=== PATIENT | male | born 1955 | race Caucasian/White ===

== ENCOUNTER 2016-10-15 00:16 | Emergency (ER) | payer OTHER ==
[~2016-10-15] VITALS: Ht 185.4 cm; Wt 108.4 kg
[~2016-10-15 00:16] MED LIST: CICL160A PO; IBUP200T52 PO; INSDGI SQ; LISI-461 PO; ONDA4TAB46 PO; VNTHFA/IN INH; [UNRECOGNIZED DRUG - OTHER] SC
[2016-10-15 00:25] VITALS: TEMP 36.8; O2SAT 92; Ht 185.4 cm; Wt 108.4 kg
[2016-10-15] MEDS ORDERED: SODIUM CHLORIDE 0.9% 1000ML 2,000 ML IV STA (00:40)
--- NOTE | 2016-10-15 00:42 | EMERGENCY ROOM VISIT NOTE ---
History Report prepared by Scribe: Katie Mcdowell Under the Supervision of: Dr. Catherine Bradshaw M.D. First contact with patient: 00:29 Chief Complaint: OVERDOSE (ACCIDENTAL) Stated Complaint: OVERDOSE Nursing Triage Summary: pt arrives ALS from hotel in [place]. pt found unconscious in hotel room where he is staying with family. pt was unresponsive with agonal breathing. EMS administered 2 nasal sprays of Narcan and inserted a nasal trumpet in R nares. pt returned to alert and awake. pt denies drug use. pt states he took 5- 6 Percocets today for chronic back pain and was drinking John Quinn. female in room admitted to cleaning up needles, small packets and a rubber band before EMS arrival. pt recently d/c from [facility]. pt continues to deny drug use. 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 The patient was found unconscious in a hotel room where he is staying. Per nursing notes, upon EMS arrival, he was unresponsive with agonal breathing. He was given 2 nasal sprays of Narcan and a nasal trumpet was inserted in the right nares. Afterwards, he was awake and alert. The patient does admit to taking 5-6 Percocet in the past 24 hours which he uses for chronic back pain. He also admits to drinking John Quinn in the past few hours. Currently, he states that he is feeling fine. The patient is currently on Cipro for a dental infection. 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 A total of 10 systems reviewed and were otherwise negative. Past Medical & Surgical Medical Problems: (1) COPD (chronic obstructive pulmonary disease) (2) Diabetes (3) HTN (hypertension) Family History No pertinent family history stated. Social History Smoking Status: Current Every Day Smoker Marital Status: in relationship Occupation Status: unemployed Current/Historical Medications Scheduled Albuterol Hfa (Ventolin Hfa), 2 PUFFS INH QID Ciclesonide (Alvesco), 1 PUFF PO BID Ciprofloxacin Tab (Cipro), 500 MG PO Q12 Gabapentin (Neurontin), 400 MG PO TID Insulin Glargine (Lantus), 32 UNITS SQ AMPM Insulin Human Regular (Humulin R), Unknown Dose SC UD Lisinopril (Lisinopril), 20 MG PO QAM Tiotropium [place] (Spiriva Handihaler), 1 CAP INH DAILY Scheduled PRN Ibuprofen (Advil), 600 MG PO TID PRN for Pain Oxycodone/Acetaminophen 5MG/325MG (Percocet 5MG/325MG), 1-2 TABLETS PO Q4H PRN for Pain Allergies Coded Allergies: Lisinopril (Verified Adverse Reaction, Unknown, cough, 10/15/16) Physical Exam Vital Signs Date Time Temp Pulse Resp B/P Pulse Ox O2 Delivery O2 Flow Rate FiO2 10/15/16 05:52 102 16 142/92 90 10/15/16 05:05 102 16 142/92 90 Room Air 10/15/16 04:30 94 13 149/89 88 Room Air 10/15/16 04:10 96 16 140/99 88 Room Air 10/15/16 03:58 104 14 129/74 90 Room Air 10/15/16 03:52 106 16 154/91 90 Room Air 10/15/16 03:25 117 16 158/109 90 Room Air 10/15/16 02:03 115 16 176/114 85 10/15/16 01:33 123 15 166/107 89 Room Air 10/15/16 00:58 122 20 155/99 92 Room Air 10/15/16 00:54 119 10/15/16 00:46 119 16 169/93 88 Room Air 10/15/16 00:25 92 Room Air 10/15/16 00:25 36.8 120 22 176/113 92 Room Air Physical Exam Vital signs reviewed. General: Well-appearing 60 year old male, in no significant distress. HEENT: No scleral icterus, PERRLA, neck supple. Atraumatic. Edentulous. Mild right submandibular soft tissue swelling without fluctuance. Dry mucous membranes. Cardiovascular: Regular rate and rhythm, no extra sounds. Pulmonary: Clear to auscultation bilaterally, normal work of breathing. Abdomen: Soft, nontender, nondistended, positive bowel sounds. Musculoskeletal: Atraumatic, no peripheral edema. Neurologic: Patient awake alert and oriented x 3, full strength in all 4 extremities. Cranial nerves 2 through 12 grossly intact. Skin: Warm, dry, no rash Medical Decision & Procedures ER Provider Diagnostic Interpretation: Chest x-ray 1 view per my interpretation: Mild pulmonary vascular congestion, no focal lung consolidation, no pneumothorax. Laboratory Results 10/15/16 00:41 Red Blood Count 5.16, Mean Corpuscular Volume 91.9, Mean Corpuscular Hemoglobin 32.8, Mean Corpuscular Hemoglobin Concent 35.7, Mean Platelet Volume 9.8, Neutrophils (%) (Auto) 75.3, Lymphocytes (%) (Auto) 17.2, Monocytes (%) (Auto) 6.1, Eosinophils (%) (Auto) 0.6, Basophils (%) (Auto) 0.3, Neutrophils # (Auto) 9.30, Lymphocytes # (Auto) 2.12, Monocytes # (Auto) 0.75, Eosinophils # (Auto) 0.07, Basophils # (Auto) 0.04 10/15/16 00:41 Test 10/15/16 00:41 10/15/16 02:40 White Blood Count 12.34 K/uL (4.8-10.8) Red Blood Count 5.16 M/uL (4.7-6.1) Hemoglobin 16.9 g/dL (14.0-18.0) Hematocrit 47.4 % (42-52) Mean Corpuscular Volume 91.9 fL (80-100) Mean Corpuscular Hemoglobin 32.8 pg (25-34) Mean Corpuscular Hemoglobin Concent 35.7 g/dl (32-36) Platelet Count 180 K/uL (130-400) Mean Platelet Volume 9.8 fL (7.4-10.4) Neutrophils (%) (Auto) 75.3 % Lymphocytes (%) (Auto) 17.2 % Monocytes (%) (Auto) 6.1 % Eosinophils (%) (Auto) 0.6 % Basophils (%) (Auto) 0.3 % Neutrophils # (Auto) 9.30 K/uL (1.4-6.5) Lymphocytes # (Auto) 2.12 K/uL (1.2-3.4) Monocytes # (Auto) 0.75 K/uL (0.11-0.59) Eosinophils # (Auto) 0.07 K/uL (0-0.5) Basophils # (Auto) 0.04 K/uL (0-0.2) RDW Standard Deviation 42.6 fL (36.4-46.3) RDW Coefficient of Variation 12.8 % (11.5-14.5) Immature Granulocyte % (Auto) 0.5 % Immature Granulocyte # (Auto) 0.06 K/uL (0.00-0.02) Anion Gap 11.0 mmol/L (3-11) Est Creatinine Clear Calc Drug Dose 104.6 ml/min Estimated GFR () 97.9 Estimated GFR (Non- 84.5 BUN/Creatinine Ratio 16.1 (10-20) Calcium Level 8.7 mg/dl (8.5-10.1) Total Bilirubin 0.6 mg/dl (0.2-1) Direct Bilirubin 0.2 mg/dl (0-0.2) Aspartate Amino Transf (AST/SGOT) 30 U/L (15-37) Alanine Aminotransferase (ALT/SGPT) 36 U/L (12-78) Alkaline Phosphatase 117 U/L (45-117) Total Creatine Kinase 64 U/L (39-308) Creatine Kinase MB 1.7 ng/ml (0.5-3.6) Creatine Kinase MB Ratio 2.7 (0-3.0) Troponin I < 0.015 ng/ml (0-0.045) Total Protein 8.4 gm/dl (6.4-8.2) Albumin 3.5 gm/dl (3.4-5.0) Salicylates Level < 1.7 mg/dl (2.8-20) Acetaminophen Level < 2 ug/ml (10-30) Ethyl Alcohol mg/dL < 3.0 mg/dl (0-3) Urine Color YELLOW Urine Appearance CLEAR (CLEAR) Urine pH 5.0 (4.5-7.5) Urine Specific [place] 1.029 (1.000-1.030) Urine Protein TRACE (NEG) Urine Glucose (UA) 3+ (NEG) Urine Ketones NEG (NEG) Urine Occult Blood NEG (NEG) Urine Nitrite NEG (NEG) Urine Bilirubin NEG (NEG) Urine Urobilinogen NEG (NEG) Urine Leukocyte Esterase NEG (NEG) Urine WBC (Auto) 1-5 /hpf (0-5) Urine RBC (Auto) 0-4 /hpf (0-4) Urine Hyaline Casts (Auto) 5-10 /lpf (0-5) Urine Epithelial Cells (Auto) >30 /lpf (0-5) Urine Bacteria (Auto) NEG (NEG) Urine Opiates Screen NEG (NEG) Urine Methadone, Qualitative NEG (NEG) Urine Barbiturates NEG (NEG) Urine Phencyclidine (PCP) Level NEG (NEG) Ur Amphetamine/Methamphetamine NEG (NEG) MDMA (Ecstasy) Screen NEG (NEG) Urine Benzodiazepines Screen NEG (NEG) Urine Cocaine Metabolite NEG (NEG) Urine Marijuana (THC) NEG (NEG) Laboratory results per my review. Medications Administered Medications (Trade) Dose Ordered Sig/Yoni Route Start Time Stop Time Status Last Admin Dose Admin Sodium Chloride (Nss 1000ml) 2,000 ml @ 999 mls/hr Q2H1M STAT IV 10/15/16 00:40 10/15/16 02:40 DC 10/15/16 01:23 999 MLS/HR Ondansetron HCl (Zofran Inj) 4 mg NOW STAT IV 10/15/16 02:10 10/15/16 02:12 DC 10/15/16 02:36 4 MG Labetalol HCl (Normodyne IV) 10 mg NOW STAT IV 10/15/16 03:27 10/15/16 03:28 DC 10/15/16 03:50 10 MG ECG Indication: other (unresponsiveness) Rate (beats per minute): 120 Rhythm: sinus tachycardia Findings: no acute ischemic change, no ectopy, other (previous anterior infarct ) ED Course 0035: The patient was evaluated in room B8. A complete history and physical examination was performed. 0040: Ordered NSS 2000 ml @ 999 mls/hr IV. 0210: Ordered Zofran Inj 4 mg IV. 0235: Upon reevaluation, the patient was resting comfortably, but he was tachycardic and hypertensive. 0237: Ordered Lisinopril 20 mg PO. 0327: Ordered Labetalol HCl 10 mg IV. 0430: Upon reevaluation, the patient was feeling well. I discussed findings with him. He admits that he used to wear oxygen but does not wear it anymore and he used to take medication for blood pressure control but does not take it. He verbalized agreement of the treatment plan. The patient was discharged home. Medical Decision Differential diagnosis: Etiologies such as cardiac ischemia, aortic dissection, pulmonary embolism, electrolyte abnormality, acidosis, tension pneumothorax, hypothermia, hypovolemia, intracranial event, as well as others were entertained. This patient was evaluated and appeared to be in no significant distress. Patient did receive 2 sprays of Narcan prior to arrival and had significant improvement in his level of consciousness. The patient was slightly intoxicated on my evaluation however is answering questions appropriately. He has no complaints. The patient remained somewhat tachycardic. He was given 2 L of IV normal saline solution. This did not significantly change his vital signs. Once the patient was asleep, he does tend to desaturate however states he used to wear oxygen, particularly at night however has not been compliant recently. A chest x-ray was performed and is negative to my interpretation. The patient was given 10 mg of IV labetalol for persistent hypertension and tachycardia. I suspect this is substance related, however patient is not admitting to any ingestions other than Percocet and alcohol tonight. Patient's tox screen is negative. Acetaminophen level is low. Liver enzymes are low. The patient was ambulatory without difficulty. He was discharged to follow-up with his physician for reevaluation. He will return to the ER for worsening of symptoms or any medical concerns. Impression Primary Impression: Overdose of opiate or related narcotic Additional Impression: Substance abuse Scribe Attestation The scribe's documentation has been prepared under my direction and personally reviewed by me in its entirety. I confirm that the note above accurately reflects all work, treatment, procedures, and medical decision making performed by me. Departure Information Dispostion Home / Self-Care Referrals Brooks AGUIAR (PCP) Patient Instructions My [facility] Additional Instructions Diagnosis: Substance abuse, opioid overdose Drink plenty of clear liquids. Avoid alcohol, narcotics and IV drugs. Follow-up with her primary care physician this week for reevaluation. Return to the ER for worsening of symptoms or any medical concerns. Problem Qualifiers Primary Impression: Overdose of opiate or related narcotic Encounter type: initial encounter Injury intent: accidental or unintentional Qualified Codes: T40.601A - Poisoning by unspecified narcotics, accidental (unintentional), initial encounter
[2016-10-15 00:52] LABS: BASO % 0.3 %; BASO ABS # 0.04 K/uL (0-0.2); COMPLETE YES; EOS % 0.6 %; HEMATOCRIT 47.4 % (42-52); IG% 0.5 %; LYMPH % 17.2 %; LYMPH ABS # 2.12 K/uL (1.2-3.4); MEAN CELL VOLUME 91.9 fL (80-100); MEAN CORPUSCULAR HEMOGLOBIN 32.8 pg (25-34); MEAN CORPUSCULAR HGB CONC 35.7 g/dl (32-36); MEAN PLATELET VOLUME 9.8 fL (7.4-10.4); MONO % 6.1 %; NEUT % 75.3 %; PLATELET COUNT 180 K/uL (130-400); RED BLOOD COUNT 5.16 M/uL (4.7-6.1); WHITE BLOOD COUNT 12.34 K/uL (4.8-10.8)
[2016-10-15 01:38] LABS: ALT/SGPT 36 U/L (12-78); AST/SGOT 30 U/L (15-37); BLOOD UREA NITROGEN 16 mg/dl (7-18); BUN/CREATININE RATIO 16.1 (10-20); CALCIUM 8.7 mg/dl (8.5-10.1); CARBON DIOXIDE 24 mmol/L (21-32); CHLORIDE 106 mmol/L (98-107); CREATININE 0.97 mg/dl (0.60-1.40); GLUCOSE 252 mg/dl (70-99); POTASSIUM 3.9 mmol/L (3.5-5.1); SODIUM 141 mmol/L (136-145)
[2016-10-15 01:43] LABS: ALKALINE PHOSPHATASE 117 U/L (45-117); CKMB/CK RATIO 2.7 (0-3.0)
[2016-10-15 01:50] LABS: ACETAMINOPHEN < 2 ug/ml (10-30)
[2016-10-15] MEDS ORDERED: OXYC-57 PO (01:51)
[2016-10-15] MEDS ORDERED: GABA1CAP5 PO (01:51)
[2016-10-15] MEDS ORDERED: SPRIN/30 INH (01:52)
[2016-10-15] MEDS ORDERED: CIPR1TAB11 PO (01:53)
[2016-10-15] MEDS ORDERED: ONDANSETRON INJ 2 MG/ML 2 ML VIAL IV STA (02:10)
[2016-10-15] MEDS ORDERED: LISINOPRIL 20 MG TAB PO STA (02:37)
[2016-10-15 02:50] LABS: URINE APPEARANCE CLEAR (CLEAR); URINE BILIRUBIN NEG (NEG); URINE COLOR YELLOW; URINE EPITHELIAL CELL AUTO >30 /lpf (0-5); URINE NITRITE NEG (NEG); URINE SPECIFIC GRAVITY 1.029 (1.000-1.030); UROBILINOGEN NEG (NEG); ZZUR CULT IF INDIC CLEAN CATCH NO
[2016-10-15 02:51] LABS: MANUAL MICROSCOPIC REQUIRED? NO; REVIEW REQ? NO
[2016-10-15 03:05] LABS: BENZODIAZEPINE, URINE NEG (NEG); COCAINE,URINE NEG (NEG); PHENCYCLIDINE, URINE NEG (NEG)
[2016-10-15] MEDS ORDERED: LABETALOL HCL IV 5 MG/ML 20ML IV STA (03:27)
[2016-10-15 05:52] VITALS: BP 142/92; PULSE 102; O2SAT 90
--- NOTE | 2016-10-15 08:23 | DIAGNOSTIC IMAGING REPORT ---
CHEST ONE VIEW PORTABLE CLINICAL HISTORY: Hypoxia. Overdose. COMPARISON STUDY: Chest radiograph June 01, 2006 pain. FINDINGS: Lung volumes are normal. Mild linear bibasilar opacities favor atelectasis. There is no evidence of pulmonary edema. No consolidation is identified. Cardiac size is normal. Mediastinal contours are normal. IMPRESSION: No acute cardiopulmonary findings. Electronically signed by: Terry Groves M.D. 10/15/2016 8:21 AM Dictated Date/Time: 10/15/2016 8:20 AM
== END 2016-10-15 05:54 | disposition home or self-care (01) ==
LOC: EDBD 00:16 → C.EDB 00:17
DX: F11.129 Opioid abuse with intoxication, unspecified (principal); T40.601A Poisoning by unspecified narcotics, accidental (unintentional), initial encounter; I10 Essential (primary) hypertension; E11.9 Type 2 diabetes mellitus without complications; J44.9 Chronic obstructive pulmonary disease, unspecified; F17.200 Nicotine dependence, unspecified, uncomplicated; Z79.4 Long term (current) use of insulin; Z79.51 Long term (current) use of inhaled steroids; Z79.899 Other long term (current) drug therapy

== ENCOUNTER 2022-10-25 08:31 | Inpatient (IN) ==
[2022-10-25] MEDS ORDERED: ALBUTEROL 0.083% NEBU SOLN 3 ML VIAL NEB STA (08:44)
--- NOTE | 2022-10-25 08:47 | Emergency Department Note ---
Impression & Plan Respiratory failure with hypoxia, CHF (congestive heart failure) ED Provider Note NAME: AILYN MONTIEL AGE: 66 SEX: M : 1955 ARRIVES VIA: Ambulance INFORMANT: Patient ED PROVIDER(S): Aureliano Sheikh DO CHIEF COMPLAINT: shortness of breath HPI: Patient is a 66-year-old male with a past medical history of ischemic cardiomyopathy with an ICD, cirrhosis, COPD, CHF and diabetes who presents to the ER for shortness of breath which started 2 days ago. He notes he has cough congestion and runny nose. This has been getting worse. Shortness of breath got worse last night and then checked his pulse ox at the halfway and he was found to be hypoxic. He was placed on oxygen. They reevaluated him this morning and he was still hypoxic and consequently sent him in. He denies any chest pain or belly pain. He notes the swelling of the legs for the past 2 days. Denies any dysuria, urgency, or frequency. No other exacerbating or remitting factors. Guards are at bedside and collaborate the story. PAST MEDICAL HISTORY:See Below PAST SURGICAL HISTORY:See Below FAMILY HISTORY:See Below SOCIAL HISTORY:See Below HOME MEDICATIONS:See Below ALLERGIES:See Below VITALS:See Below PHYSICAL EXAMINATION: GENERAL: Sitting up in bed, alert, chronically ill-appearing, disheveled, on nasal cannula EYE EXAM: normal conjunctiva. PERRL and EOM's grossly intact. OROPHARYNX: mucous membranes are moist NECK: supple, no nuchal rigidity, no adenopathy, non-tender LUNGS: Diminished bilaterally. Normal chest wall mechanics HEART: no murmurs, S1 normal and S2 normal ABDOMEN: abdomen soft, non-tender, normo-active bowel sounds, no masses, no rebound or guarding. UPPER EXTREMITIES: upper extremities are grossly normal. LOWER EXTREMITIES: No pitting edema. Calves are good bilateral NEURO EXAM: Normal sensorium, cranial nerves II-XII grossly intact, normal speech, no gross weakness of arms, no gross weakness of legs. MEDICAL DECISION MAKING: Patient is a 66-year-old male who presents the ER from the halfway. EMS sheet was reviewed. External records from the halfway were reviewed. IV was established blood work was obtained. Labs show a mild leukopenia at 3.8. No si gnificant anemia. Thrombocytopenia of 82. BMP with slightly elevated glucose at 175. LFTs were unremarkable. BNP elevated at 700. Troponin was negative. COVID flu and RSV was negative. Chest x-ray with CHF. Patient was given IV antibiotics as well as neb treatments steroids. He was updated bedside. He was given a dose of Lasix. Discussed with hospitalist Dr. Moreno Greer patient was admitted for further work-up. Patient did remain on 4 L nasal cannula throughout his stay in the ER. Triage Nursing notes reviewed. Limited review of prior medical records performed Vital Signs: reviewed and remarkable for hypoxic Differential diagnosis: Cardiac ischemia, aortic dissection, pulmonary embolism, pneumothorax, pneumonia, pericarditis, myocarditis, esophageal rupture, GERD, cholecystitis, pancreatitis, musculoskeletal, as well as other pathologies. ER treatment provided: See below Diagnostics interpreted by me include EKG and cardiac monitoring as listed below: -Cardiac Monitoring: An order was placed for continuous cardiac monitoring. The monitor shows a rate of 97 with sinus rhythm. -ECG: Sinus rhythm rate of 99 Normal axis No PVCs Poor baseline QTc 464 -Laboratory studies:Interpreted by me as stated above in MDM and shown below. Imaging studies: Xrays: As interpreted by me: Portable AP upright 1 view of the chest shows no focal infiltrate or pneumothorax CTs show: none Consultation(s): As described in MDM Procedures:none Critical Care: I have personally spent 35 minutes of critical care time in the direct management of this patient. This includes bedside care, interpretation of diagnostic studies, and testing, discussion with consultants, patient, and family members, and other required patient management activities. This 35 minutes is in excess of all separately billable procedures. Past Med/Surg History Medical History Opioid abuse, uncomplicated Social History Smoking Status: Current every day smoker Do You Dip or Chew Tobacco: No; Hx Alcohol Use: No Hx Substance Use: No Preferred Language: [place] Communication Ability: Effective Melter Helper Required: No Beliefs That Will Affect Care: None Current Living Situation: Other Current Living Situation Comment: [facility] Other Information That Helps Us Care for You: No Feels Safe at Home: Yes Safety Concerns: Feels Safe At This Time Assistive Devices: Oxygen - Continuous Allergies Allergies Allergy/AdvReac Type Severity Reaction Status Date / Time lisinopril AdvReac Unknown cough Verified 05/18/22 12:55 Home Meds Home Medications Medication Instructions Recorded Confirmed albuterol sulfate 90 mcg/actuation 2 puff inhalation QID PRN 01/12/22 10/25/22 aerosol inhaler (Proventil HFA) shortness of breath or wheezing ciclesonide 160 mcg/actuation 1 puff inhalation BID 01/12/22 10/25/22 aerosol inhaler (Alvesco) gabapentin 600 mg tablet 600 mg PO TID 01/12/22 10/25/22 insulin glargine-yfgn 100 unit/mL 28 unit subcut QPM 01/12/22 10/25/22 subcutaneous solution (Semglee (insulin glargine-yfgn)) insulin regular human 100 unit/mL 1 sliding scale dose subcut 01/12/22 10/25/22 injection solution (Novolin R USEASDIRECTD Regular U-100 Insulin) sacubitril 97 mg-valsartan 103 mg 1 tab PO BID 01/12/22 10/25/22 tablet (Entresto) hydroxyzine pamoate 50 mg capsule 50 mg PO HS 10/03/22 10/25/22 (Vistaril) azithromycin 500 mg tablet 500 mg PO DAILY 10/25/22 10/25/22 empagliflozin 10 mg tablet 10 mg PO DAILY 10/25/22 10/25/22 (Jardiance) furosemide 20 mg tablet 20 mg PO BID 10/25/22 10/25/22 nortriptyline 75 mg capsule 75 mg PO HS 10/25/22 10/25/22 sofosbuvir 400 mg-velpatasvir 100 1 tab PO DAILY 10/25/22 10/25/22 mg-voxilaprevir 100 mg tablet (Vosevi) Results & Data (ED) Vital Signs Vital Signs - 24 hr 10/25/22 08:48 10/25/22 08:48 10/25/22 08:53 Temperature 36.6 C Temperature Source Oral Pulse Rate 101 H 100 H Pulse Rate [Apical] 102 H Pulse Rate from SpO2 Sensor Respiratory Rate 20 21 Respiratory Effort / Characteristics SOB on Exertion Short of Breath Blood Pressure 123/71 Blood Pressure Mean 88 Pulse Oximetry 93 93 94 Oxygen Delivery Method Nasal Cannula Nasal Cannula Nasal Cannula Oxygen Flow Rate 4 4 4 Sepsis Recent Fever Within 48 Hours No Sepsis New/Unexplained Change in Mental Status No Sepsis Action Taken by Nursing No Action Required 10/25/22 09:12 10/25/22 09:20 10/25/22 11:00 Temperature Temperature Source Pulse Rate 100 H 100 H Pulse Rate [Apical] 101 H Pulse Rate from SpO2 Sensor Respiratory Rate 28 H 29 H Respiratory Effort / Characteristics Spontaneous Labored Short of Breath Blood Pressure Blood Pressure Mean Pulse Oximetry 93 Oxygen Delivery Method Nasal Cannula Oxygen Flow Rate 4 Sepsis Recent Fever Within 48 Hours Sepsis New/Unexplained Change in Mental Status Sepsis Action Taken by Nursing 10/25/22 11:30 Temperature Temperature Source Pulse Rate 99 H Pulse Rate [Apical] Pulse Rate from SpO2 Sensor 99 H Respiratory Rate 24 Respiratory Effort / Characteristics Blood Pressure Blood Pressure Mean Pulse Oximetry 94 Oxygen Delivery Method Nasal Cannula Oxygen Flow Rate 4 Sepsis Recent Fever Within 48 Hours Sepsis New/Unexplained Change in Mental Status Sepsis Action Taken by Nursing Laboratory Data 10/25/22 09:12 10/25/22 09:12 Lab Results 10/25/22 10/25/22 10/25/22 Range/Units 08:38 09:12 09:12 WBC 3.82 L (4.8-10.8) K/ul RBC 4.13 L (4.70-6.10) M/uL Hgb 12.5 L (14.0-18.0) g/dl Hct 38.8 L (42.0-52.0) % MCV 93.9 (80.0-100.0) fL MCH 30.3 (25.0-34.0) pg MCHC 32.2 (32.0-36.0) g/dL RDW Std Deviation 47.4 H (36.4-46.3) fL RDW Coeff of Victoria 14.1 (11.5-14.5) % Plt Count 82 L (130-400) K/uL MPV 10.0 (9.4-12.4) fL Immature Gran % (Auto) 0.3 % Neut % (Auto) 59.1 % Lymph % (Auto) 25.7 % Perkins % (Auto) 11.5 % Eos % (Auto) 2.9 % Baso % (Auto) 0.5 % Neut # (Auto) 2.26 (1.40-6.50) K/uL Lymph # (Auto) 0.98 L (1.2-3.4) K/uL Perkins # (Auto) 0.44 (0.11-0.59) K/uL Eos # (Auto) 0.11 (0-0.50) K/uL Baso # (Auto) 0.02 (0-0.2) K/uL Immature Gran # (Auto) 0.01 (0.01-0.20) K/uL Platelet Estimate Decreased L (Normal) Echinocytes 1+ Sodium 137 (136-145) mmol/L Potassium 4.5 (3.5-5.1) mmol/L Chloride 105 (98-107) mmol/L Carbon Dioxide 27 (21-32) mmol/L Anion Gap 5 (3-11) BUN 31 H (6-23) mg/dl Creatinine 1.37 (0.6-1.4) mg/dl Est Cr Clr Drug Dosing 69.5 ml/min Est GFR ( Amer) 61.9 ml/min Est GFR (Non-Af Amer) 53.4 ml/min BUN/Creatinine Ratio 22.6 H (10-20) Glucose 175 H (70-99(Fasting)) mg/dl POC Glucose 161 H (70-99) mg/dl Calcium 9.1 (8.5-10.1) mg/dl Total Bilirubin 1.7 H (0.2-1.0) mg/dl AST 21 (13-39) U/L ALT 17 (7-52) U/L Alkaline Phosphatase 92 (34-104) U/L Troponin I High Sens 14.7 (0-20) pg/ml B-Natriuretic Peptide (0-100) pg/ml Total Protein 7.1 (6.0-8.3) gm/dl Albumin 3.5 (3.4-5.0) gm/dl Globulin 3.6 (2.5-4.0) gm/dl Albumin/Globulin Ratio 1.0 (0.9-2) Lipase 5 L (11-82) U/L Procalcitonin (0-0.5) ng/ml SARS-CoV-2 (PCR) (Negative) Influenza Type A (PCR) (Neg) Influenza Type B (PCR) (Neg) RSV (RT-PCR) (Neg) 10/25/22 10/25/22 10/25/22 Range/Units 09:12 09:21 10:09 WBC (4.8-10.8) K/ul RBC (4.70-6.10) M/uL Hgb (14.0-18.0) g/dl Hct (42.0-52.0) % MCV (80.0-100.0) fL MCH (25.0-34.0) pg MCHC (32.0-36.0) g/dL RDW Std Deviation (36.4-46.3) fL RDW Coeff of Victoria (11.5-14.5) % Plt Count (130-400) K/uL MPV (9.4-12.4) fL Immature Gran % (Auto) % Neut % (Auto) % Lymph % (Auto) % Perkins % (Auto) % Eos % (Auto) % Baso % (Auto) % Neut # (Auto) (1.40-6.50) K/uL Lymph # (Auto) (1.2-3.4) K/uL Perkins # (Auto) (0.11-0.59) K/uL Eos # (Auto) (0-0.50) K/uL Baso # (Auto) (0-0.2) K/uL Immature Gran # (Auto) (0.01-0.20) K/uL Platelet Estimate (Normal) Echinocytes Sodium (136-145) mmol/L Potassium (3.5-5.1) mmol/L Chloride (98-107) mmol/L Carbon Dioxide (21-32) mmol/L Anion Gap (3-11) BUN (6-23) mg/dl Creatinine (0.6-1.4) mg/dl Est Cr Clr Drug Dosing ml/min Est GFR ( Amer) ml/min Est GFR (Non-Af Amer) ml/min BUN/Creatinine Ratio (10-20) Glucose (70-99(Fasting)) mg/dl POC Glucose (70-99) mg/dl Calcium (8.5-10.1) mg/dl Total Bilirubin (0.2-1.0) mg/dl AST (13-39) U/L ALT (7-52) U/L Alkaline Phosphatase (34-104) U/L Troponin I High Sens (0-20) pg/ml B-Natriuretic Peptide 725 H (0-100) pg/ml Total Protein (6.0-8.3) gm/dl Albumin (3.4-5.0) gm/dl Globulin (2.5-4.0) gm/dl Albumin/Globulin Ratio (0.9-2) Lipase (11-82) U/L Procalcitonin 0.06 (0-0.5) ng/ml SARS-CoV-2 (PCR) NEGATIVE (Negative) Influenza Type A (PCR) Negative (Neg) Influenza Type B (PCR) Negative (Neg) RSV (RT-PCR) Negative (Neg) Administered Medications Gabapentin (Gabapentin 600 Mg Tab) 600 mg PO TID ALFREDO Stop: 11/24/22 13:59 Last Admin: 10/25/22 14:08 Dose: 600 mg Documented By: CM Discontinued Medications Albuterol (Albuterol 0.083% Nebu Soln 3 Ml Vial) 10 mg NEB NOW STA; Protocol Stop: 10/25/22 08:45 Last Admin: 10/25/22 09:08 Dose: 10 mg Documented By: EM Furosemide (Furosemide 40 Mg/4 Ml Vial) 40 mg IV NOW STA Stop: 10/25/22 10:45 Last Admin: 10/25/22 11:18 Dose: 40 mg Documented By: [id number] Ceftriaxone Sodium (Rocephin) 2,000 mg in 70 mls @ 140 mls/hr IV NOW STA Stop: 10/25/22 11:13 Last Infusion: 10/25/22 11:49 Dose: 0 mls/hr Documented By: [id number] Admin: 10/25/22 11:18 Dose: 140 mls/hr Documented By: [id number] Methylprednisolone (Methylprednisolone 40 Mg/Ml Vial) 40 mg IV NOW STA Stop: 10/25/22 08:45 Last Admin: 10/25/22 08:59 Dose: 40 mg Documented By: KV Imaging Data Radiologist's Impression: Chest X-Ray 10/25/22 08:44 XR chest 1V portable CLINICAL HISTORY: Chest pain, nonspecific TECHNIQUE: Single frontal radiograph of the chest was obtained. Comparison: Comparison is made to chest radiograph 04/14/2022 FINDINGS: Pacemaker defibrillator is seen. Cardiomegaly is noted. The aortic arch is calcified. There is prominence and cephalization of the vasculature with Sharmila B lines seen. Superimposed airspace opacities are noted in the lower lungs. No evidence of pleural effusion or pneumothorax. IMPRESSION: Cardiomegaly and moderate pulmonary edema. Superimposed airspace opacities may represent pneumonia, aspiration, and/or alveolar edema. ACT 112: Negative or not required by law. Electronically signed by: Juan Prakash M.D. 10/25/2022 9:18 AM Discharge Plan Visit Data Chief Complaint: Illness Stated Complaint: HYPOGLYGEMIA, SOB ED Provider: Aureliano Sheikh Discharge Problem: Respiratory failure with hypoxia, CHF (congestive heart failure) Patient Disposition: Admitted As Inpatient Discharge Instructions Interventions: ED Discharge Assessment Last Done: 10/25/22 12:58
--- NOTE | 2022-10-25 09:19 | XRay Report ---
XR chest 1V portable CLINICAL HISTORY: Chest pain, nonspecific TECHNIQUE: Single frontal radiograph of the chest was obtained. Comparison: Comparison is made to chest radiograph 04/14/2022 FINDINGS: Pacemaker defibrillator is seen. Cardiomegaly is noted. The aortic arch is calcified. There is promin ence and cephalization of the vasculature with Sharmila B lines seen. Superimposed airspace opacities a re noted in the lower lungs. No evidence of pleural effusion or pneumothorax. IMPRESSION: Cardiomegaly and moderate pulmonary edema. Superimposed airspace opacities may represent pneumonia, a spiration, and/or alveolar edema. ACT 112: Negative or not required by law. Electronically signed by: Juan Prakash M.D. 10/25/2022 9:18 AM
[2022-10-25 09:58] LABS: Albumin Level 3.5 gm/dl (3.4-5.0); BUN Creatinine Ratio 22.6 (10-20); Bilirubin,Total 1.7 mg/dl (0.2-1.0); Calcium 9.1 mg/dl (8.5-10.1); Creatinine Clr Calc Pharmacy 69.5 ml/min; Est GFR (African American) 61.9 ml/min; Est GFR (Non-African American) 53.4 ml/min; Globulin 3.6 gm/dl (2.5-4.0); Potassium 4.5 mmol/L (3.5-5.1); Total Protein 7.1 gm/dl (6.0-8.3)
[2022-10-25 10:03] LABS: Troponin I High Sensitivity 14.7 pg/ml (0-20)
[2022-10-25 10:21] LABS: Hematocrit (blood only) 38.8 % (42.0-52.0); Hemoglobin 12.5 g/dl (14.0-18.0); Mean Corpuscular Hemoglobin 30.3 pg (25.0-34.0); Mean Corpuscular Hgb Conc 32.2 g/dL (32.0-36.0); Mean Corpuscular Volume 93.9 fL (80.0-100.0); RDW Coefficient of Variation 14.1 % (11.5-14.5); RDW Standard Deviation 47.4 fL (36.4-46.3); Red Blood Count 4.13 M/uL (4.70-6.10); White Blood Count 3.82 K/ul (4.8-10.8)
--- NOTE | 2022-10-25 10:21 | Electrocardiogram Report ---
Test Reason : Blood Pressure : / mmHG Vent. Rate : 099 BPM Atrial Rate : 099 BPM P-R Int : 184 ms QRS Dur : 108 ms QT Int : 362 ms P-R-T Axes : 076 026 039 degrees QTc Int : 464 ms Normal sinus rhythm Low voltage QRS Non-specific intra-ventricular conduction delay Anterior infarct (cited on or before 15-OCT-2016) Abnormal ECG When compared with ECG of 15-OCT-2016 00:59, QRS duration has increased Confirmed by Aba Del Cid ([id number]) on 10/25/2022 10:21:43 AM Referred By: Confirmed By:Aba Del Cid
[2022-10-25 10:29] LABS: Basophils # (auto) 0.02 K/uL (0-0.2); Basophils % (auto) 0.5 %; Echinocytes 1+; Eosinophils # (auto) 0.11 K/uL (0-0.50); Eosinophils % (auto) 2.9 %; Immature Granulocytes # (auto) 0.01 K/uL (0.01-0.20); Immature Granulocytes % (auto) 0.3 %; Lymphocytes # (auto) 0.98 K/uL (1.2-3.4); Lymphocytes % (auto) 25.7 %; Monocytes # (auto) 0.44 K/uL (0.11-0.59); Monocytes % (auto) 11.5 %; Neutrophils # (auto) 2.26 K/uL (1.40-6.50); Neutrophils % (auto) 59.1 %; Platelet Count 82 K/uL (130-400); Platelet Estimate Decreased (Normal)
[2022-10-25] MEDS ORDERED: FUROSEMIDE 40 MG/4 ML VIAL IV STA (10:44)
[2022-10-25] MEDS ORDERED: cefTRIAXone SODIUM 2,000 MG/70 ML BAG IV STA (10:44)
[2022-10-25 10:56] LABS: Influenza A virus by PCR Negative (Neg); Influenza B virus by PCR Negative (Neg); RSV by PCR Negative (Neg); SARS CoV2 RNA(COVID-19) Ceph NEGATIVE (Negative)
--- NOTE | 2022-10-25 11:01 | History & Physical Report ---
Date of Service October 25, 2022 Assessment & Plan (1) Acute on chronic HFrEF (heart failure with reduced ejection fraction): Plan: Repeat TTE and as last echo approximately 12 months ago. Usual dose of Lasix 20 mg twice daily; the 20 mg in the evening dose was just added last night. Lasix 40 mg IV given in the ER. We will continue 40 mg IV twice daily. Consider addition of spironolactone if left ventricular ejection fraction remains less than 40% especially in the setting of liver cirrhosis. Strict I's and O's Daily weights Low-sodium diet, fluid restrict 1500 mL (2) Chronic obstructive pulmonary disease, unspecified: Plan: Continue Alvesco inhaler or hospital formulary equivalent Less likely COPD exacerbation as he has not seen any improvement with nebulizer treatment however he does have a wheeze on exam No further steroids but will use DuoNebs as needed for shortness of breath and cough (3) Ischemic cardiomyopathy: Plan: Unclear reason he is not on a beta-anh -previous cardiology note in April 2022 noted he was on metoprolol XL 25 mg p.o. daily Continue Entresto (4) Type 2 diabetes mellitus without complications: Plan: HbA1c with a.m. labs Consult pharmacy for glycemic control (5) Unspecified cirrhosis of liver: (6) Atherosclerotic heart disease of ambler coronary artery without angina pectoris: Plan: Unclear why is not on any antiplatelet Consider starting metoprolol succinate as above -unclear why this was discontinued after previous cardiology visit Continue Entresto Unclear why he is not on a statin (7) Essential (primary) hypertension: Plan: Continue Entresto, consider starting metoprolol succinate Lasix as above (8) Hyperlipidemia, unspecified: Plan: Unclear reason he is not on a statin as he is noted to have an ischemic cardiomyopathy. Not mentioned on previous cardiology note. Plan VTE prophylaxis - Diet -heart healthy, type 2 diabetes, low-sodium, fluid restrict as above Disposition -admit to PCU Admission and Anticipated Discharge Date Admission Date: October 25, 2022 History of Present Illness Chief Complaint: Shortness of breath [facility] is a 66-year-old male who presents to the ER from [facility] due to shortness of breath and hypoxia. BSG 40s in the ambulance and was given dextrose 10% on route. He reports feeling his normal self up until 2 days ago. Slowly progressively becoming more short of breath over this time much worse this morning he was unable to get into his wheelchair. He was also found to be hypoxic. Associated bilateral leg swelling, orthopnea but no paroxysmal nocturnal dyspnea. No palpitations or claudication. He denies any nasal congestion, sinus pain. He does note a productive cough of green sputum. He has a known history of heart failure with reduced ejection fraction for which he takes Lasix for 20 mg p.o. twice daily. He had an additional Lasix 20 mg p.o. last night. Previously on metoprolol succinate per previous cardiology visit note although this is not on his current medication list. Allergies Allergy/AdvReac Type Severity Reaction Status Date / Time lisinopril AdvReac Unknown cough Verified 05/18/22 12:55 Home Medications Medication Instructions Recorded Confirmed Type albuterol sulfate 90 mcg/actuation 2 puff inhalation QID PRN 01/12/22 10/25/22 History aerosol inhaler (Proventil HFA) shortness of breath or wheezing ciclesonide 160 mcg/actuation 1 puff inhalation BID 01/12/22 10/25/22 History aerosol inhaler (Alvesco) gabapentin 600 mg tablet 600 mg PO TID 01/12/22 10/25/22 History insulin glargine-yfgn 100 unit/mL 28 unit subcut QPM 01/12/22 10/25/22 History subcutaneous solution (Semglee (insulin glargine-yfgn)) insulin regular human 100 unit/mL 1 sliding scale dose subcut 01/12/22 10/25/22 History injection solution (Novolin R USEASDIRECTD Regular U-100 Insulin) sacubitril 97 mg-valsartan 103 mg 1 tab PO BID 01/12/22 10/25/22 History tablet (Entresto) hydroxyzine pamoate 50 mg capsule 50 mg PO HS 10/03/22 10/25/22 History (Vistaril) azithromycin 500 mg tablet 500 mg PO DAILY 10/25/22 10/25/22 History empagliflozin 10 mg tablet 10 mg PO DAILY 10/25/22 10/25/22 History (Jardiance) furosemide 20 mg tablet 20 mg PO BID 10/25/22 10/25/22 History nortriptyline 75 mg capsule 75 mg PO HS 10/25/22 10/25/22 History sofosbuvir 400 mg-velpatasvir 100 1 tab PO DAILY 10/25/22 10/25/22 History mg-voxilaprevir 100 mg tablet (Vosevi) Past Med/Surg History Medical History Opioid abuse, uncomplicated Social History Smoking Status: Current every day smoker Hx Alcohol Use: No Hx Substance Use: No Preferred Language: Gambian Associate Creative Director Required: No Beliefs That Will Affect Care: None Current Living Situation Comment: [facility] Feels Safe at Home: Yes Assistive Devices: None Review of Systems Review of Systems: All systems reviewed & are unremarkable except as noted in HPI & below Physical Exam Constitutional: WD/WN, vitals as above Eyes: PERRL, conjunctivae normal, anicteric sclerae Respiratory: + labored breathing and + uses accessory muscles; + abnormal respiratory effort and expiratory phase not prolonged Auscultation: + crackles (Fine bibasal crackles), + rhonchi (Anteriorly) and + wheezes (Mild end expiratory throughout); breath sounds present and no diminished lung sounds Cardiovascular: Rate/Rhythm: regular rate and regular rhythm Gastrointestinal (Abdomen): normal bowel sounds, soft, nontender, no hepatosplenomegaly Musculoskeletal: no cyanosis or clubbing, extremities motor strength 5/5 Skin: no rashes, warm and dry (venous stasis changes only of b/l lower extemities) Neurologic: moves all extremities and awake; no focal motor deficits and not confused Psychiatric: A+Ox3, euthymic affect Results & Data Results & Data ([facility]) Vital Signs (Past 12 Hours) Vital Signs Temp Pulse Pulse Resp BP Pulse Ox O2 Del Method 10/25/22 09:20 100 H 10/25/22 09:12 101 H 28 H 93 Nasal Cannula 10/25/22 08:53 102 H 21 94 Nasal Cannula 10/25/22 08:48 100 H 93 Nasal Cannula 10/25/22 08:48 36.6 C 101 H 20 123/71 93 Nasal Cannula O2 Flow Rate 10/25/22 09:20 10/25/22 09:12 4 10/25/22 08:53 4 10/25/22 08:48 4 10/25/22 08:48 4 Laboratory Results Abnormal lab results 10/25/22 10/25/22 10/25/22 Range/Units 08:38 09:12 09:12 WBC 3.82 L (4.8-10.8) K/ul RBC 4.13 L (4.70-6.10) M/uL Hgb 12.5 L (14.0-18.0) g/dl Hct 38.8 L (42.0-52.0) % RDW Std Deviation 47.4 H (36.4-46.3) fL Plt Count 82 L (130-400) K/uL Lymph # (Auto) 0.98 L (1.2-3.4) K/uL Platelet Estimate Decreased L (Normal) BUN 31 H (6-23) mg/dl BUN/Creatinine Ratio 22.6 H (10-20) Glucose 175 H (70-99(Fasting)) mg/dl POC Glucose 161 H (70-99) mg/dl Total Bilirubin 1.7 H (0.2-1.0) mg/dl B-Natriuretic Peptide (0-100) pg/ml Lipase 5 L (11-82) U/L 10/25/22 Range/Units 09:12 WBC (4.8-10.8) K/ul RBC (4.70-6.10) M/uL Hgb (14.0-18.0) g/dl Hct (42.0-52.0) % RDW Std Deviation (36.4-46.3) fL Plt Count (130-400) K/uL Lymph # (Auto) (1.2-3.4) K/uL Platelet Estimate (Normal) BUN (6-23) mg/dl BUN/Creatinine Ratio (10-20) Glucose (70-99(Fasting)) mg/dl POC Glucose (70-99) mg/dl Total Bilirubin (0.2-1.0) mg/dl B-Natriuretic Peptide 725 H (0-100) pg/ml Lipase (11-82) U/L Diagnostic Findings XR chest 1V portable CLINICAL HISTORY: Chest pain, nonspecific TECHNIQUE: Single frontal radiograph of the chest was obtained. Comparison: Comparison is made to chest radiograph 04/14/2022 FINDINGS: Pacemaker defibrillator is seen. Cardiomegaly is noted. The aortic arch is calcified. There is prominence and cephalization of the vasculature with Sharmila B lines seen. Superimposed airspace opacities are noted in the lower lungs. No evidence of pleural effusion or pneumothorax. IMPRESSION: Cardiomegaly and moderate pulmonary edema. Superimposed airspace opacities may represent pneumonia, aspiration, and/or alveolar edema. Medications Administered ER medications given: DuoNeb 10 mg nebulizer Solu-Medrol 40 mg IV Furosemide 40 mg IV Ceftriaxone 2 g IV ECG Indication: SOB/dyspnea Rate (beats per minute): 99 Rhythm: sinus tachycardia Findings: + other (Nonspecific intraventricular conduction delay) Comparison ECG Date: from (October 15, 2016) Change: the following changes noted (QRS duration is increased) Code Status & VTE Plan Code Status Full VTE Prophylaxis Plan VTE Prophylaxis will be ordered: Yes PG Care Time/CCT Total # of Minutes Spent Total Time Spent with Patient: Total time spent is greater than 50% in coordination of care (as documented) at patient's floor/unit and/or counseling patient: Coding Level of Care Code 46842 INT INP/OBS CARE 3/75MIN Diagnoses Acute on chronic HFrEF (heart failure with reduced ejection fraction) I50.23 Chronic obstructive pulmonary disease, unspecified J44.9 Ischemic cardiomyopathy I25.5 Type 2 diabetes mellitus without complications E11.9 Unspecified cirrhosis of liver K74.60 Atherosclerotic heart disease of ambler coronary artery without angina pectoris I25.10 Essential (primary) hypertension I10 Hyperlipidemia, unspecified E78.5
[2022-10-25] MEDS ORDERED: GLUCAGON FOR INJ 1 MG VIAL SQ PRN (13:14)
[2022-10-25] MEDS ORDERED: CARBOHYDRATES FOR HYPOGLYCEMIA PO PRN (13:14)
[2022-10-25] MEDS ORDERED: GLUCOSE 40% GEL 15 GM TUBE PO PRN (13:14)
[2022-10-25] MEDS ORDERED: ACETAMINOPHEN 325 MG TAB PO PRN (13:14)
[2022-10-25] MEDS ORDERED: GLUCOSE 10 TAB/TUBE PO PRN (13:14)
[2022-10-25] MEDS ORDERED: PHARMACY GLYCEMIC MGMT CONSULT PRN (13:14)
[2022-10-25] MEDS ORDERED: DEXTROSE 50% 50 ML SYRINGE IV PRN (13:14)
--- NOTE | 2022-10-25 14:05 | Pharmacy Report ---
Pharmacy Glycemic Short Note 2 - Date of Service October 25, 2022 - Glycemic Short BSG Results (Last 24 hours): 10/25/22 10/25/22 08:38 09:12 Glucose 175 H POC Glucose 161 H OUTPATIENT ANTIDIABETIC REGIMEN: * Empagliflozin 10mg daily * Lantus 28 units SQ HS * Regular insulin SS TIDM HbA1c: ___ ASSESSMENT: * Pt is a 66 year old male with DM2 admitted with acute on chronic HFrEF. Pharmacy consulted to assist with glycemic management. * BSG 161mg/dL this AM. Ordered a diet, other stressors stable. * Will begin moderate stress basal bolus insulin with Novolog ACHS (+ overnight checks) and a Lantus HS scale for tonight depending on BSG. Will reassess basal in AM. PLAN FOR INPATIENT GLYCEMIC CONTROL: * Hold outpatient oral diabetes medications * Basal insulin * Lantus HS scale depending on BSG * Bolus insulin * NovoLog per scale ACHS or Q6hrs while NPO * Goal Range: Low 110 mg/dL - High 140 mg/dL * Correction Factor: 30 mg/dL/unit * Nutritional / Prandial insulin per carb ratio of 1 unit per 10 grams CHO consumed
--- NOTE | 2022-10-25 14:06 | XCELERA ---
[id number]
[2022-10-25] MEDS: GABAPENTIN 600 MG TAB PO SCH ×2 (14:08→20:42)
[2022-10-25] MEDS: INSULIN ASPART PER UNIT SC SCH ×2 (17:34→20:44)
[2022-10-25] MEDS: VALSARTAN/SACUBITRIL 103/97MG TAB PO SCH (20:43)
[2022-10-25] MEDS: NORTRIPTYLINE HCL 25 MG CAP PO SCH (20:43)
[2022-10-25] MEDS: hydrOXYzine HCl 25 MG TAB PO SCH (20:43)
[2022-10-25] MEDS ORDERED: LANTUS PER UNIT CHARGE SQ SCH (21:00)
[2022-10-25] MEDS ORDERED: ENOXAPARIN INJ 40 MG/0.4 ML SYR SQ SCH (21:00)
[2022-10-25] MEDS: VOSEVI PO SCH (23:46)
[2022-10-26] MEDS: INSULIN ASPART PER UNIT SC SCH ×6 (04:06→20:50)
[2022-10-26 06:58] LABS: Basophils # (auto) 0.02 K/uL (0-0.2); Basophils % (auto) 0.5 %; Eosinophils # (auto) 0.03 K/uL (0-0.50); Eosinophils % (auto) 0.7 %; Hematocrit (blood only) 38.4 % (42.0-52.0); Hemoglobin 12.7 g/dl (14.0-18.0); Immature Granulocytes # (auto) 0.01 K/uL (0.01-0.20); Immature Granulocytes % (auto) 0.2 %; Lymphocytes # (auto) 0.92 K/uL (1.2-3.4); Lymphocytes % (auto) 21.6 %; Mean Corpuscular Hemoglobin 30.5 pg (25.0-34.0); Mean Corpuscular Hgb Conc 33.1 g/dL (32.0-36.0); Mean Corpuscular Volume 92.3 fL (80.0-100.0); Mean Platelet Volume 9.9 fL (9.4-12.4); Monocytes # (auto) 0.44 K/uL (0.11-0.59); Monocytes % (auto) 10.3 %; Neutrophils # (auto) 2.84 K/uL (1.40-6.50); Neutrophils % (auto) 66.7 %; Platelet Count 86 K/uL (130-400); RDW Coefficient of Variation 13.6 % (11.5-14.5); RDW Standard Deviation 46.3 fL (36.4-46.3); Red Blood Count 4.16 M/uL (4.70-6.10); White Blood Count 4.26 K/ul (4.8-10.8)
[2022-10-26 07:11] LABS: BUN Creatinine Ratio 25.8 (10-20); Calcium 9.2 mg/dl (8.5-10.1); Creatinine Clr Calc Pharmacy 58.3 ml/min; Est GFR (African American) 50.1 ml/min; Est GFR (Non-African American) 43.3 ml/min; Magnesium 2.1 mg/dl (1.7-2.4); Potassium 4.4 mmol/L (3.5-5.1)
[2022-10-26 08:11] LABS: Estimated Average Glucose 120 mg/dl; Hemoglobin A1C 5.8 % (4.5-5.6)
[2022-10-26] MEDS: EMPAGLIFLOZIN 10 MG TAB PO SCH (08:45)
[2022-10-26] MEDS: GABAPENTIN 600 MG TAB PO SCH ×3 (08:45→20:48)
[2022-10-26] MEDS: FLUTICASONE FUROATE 200MCG 14 PUFFS/INHALER INH SCH (08:45)
[2022-10-26] MEDS: VOSEVI PO SCH (08:45)
[2022-10-26] MEDS: VALSARTAN/SACUBITRIL 103/97MG TAB PO SCH ×2 (08:45→20:49)
[2022-10-26] MEDS: METOPROLOL SUCC 25MG EXT REL TAB PO SCH (10:41)
[2022-10-26] MEDS: FUROSEMIDE 40 MG/4 ML VIAL IV SCH ×2 (10:42→20:47)
--- NOTE | 2022-10-26 10:47 | Hospitalist Progress Note ---
Date of Service October 26, 2022 Assessment & Plan (1) Acute on chronic HFrEF (heart failure with reduced ejection fraction): Plan: An incarcerated male, admitted on account of SOB Found to be hypoxic on arrival Chest x ray showed evidence of pulmonary edema 2 D ECHO showed global hypokinesia, EF 25%, similar to EF last year Will continue IV Lasix 40mg BID Usual dose of Lasix 20 mg twice daily; the 20 mg in the evening dose was just added last night. Strict I's and O's Daily weights Low-sodium diet, fluid restrict 1500 mL (2) Chronic obstructive pulmonary disease, unspecified: Plan: Continue Alvesco inhaler or hospital formulary equivalent Less likely COPD exacerbation as he has not seen any improvement with nebulizer treatment however he does have a wheeze on exam No further steroids but will use DuoNebs as needed for shortness of breath and cough (3) Ischemic cardiomyopathy: Plan: Start Toprol 25mg daily, as recommended by cardiology during his last visit Continue Entresto (4) Type 2 diabetes mellitus without complications: Plan: HbA1c with a.m. labs Consult pharmacy for glycemic control (5) Atherosclerotic heart disease of [place] coronary artery without angina pectoris: Plan: Unclear why is not on any antiplatelet Continue Entresto Unclear why he is not on a statin (6) Unspecified cirrhosis of liver: (7) Essential (primary) hypertension: Plan: Continue Entresto, Lasix as above (8) Hyperlipidemia, unspecified: Plan: Unclear reason he is not on a statin as he is noted to have an ischemic cardiomyopathy. Not mentioned on previous cardiology note. check lipid profile Plan VTE prophylaxis - Diet -heart healthy, type 2 diabetes, low-sodium, fluid restrict as above Disposition -continue to [facility] Admission and Anticipated Discharge Date Admission Date: October 25, 2022 Subjective patient seen and examined, says his shortness of breath is better than yesterday Review of Systems Review of Systems: All systems reviewed are negative, apart from the ones contained in the history. Physical Exam Physical Exam: The patient is awake, alert and oriented 3, well developed and well nourished, normocephalic and atraumatic, lying in bed and in no acute distress. HEENT--PERRL, EOMI, mucous membranes and oropharynx mildly dry Neck--supple. No JVD. No bruits. Thyroid normal, trachea midline, no adenopathy. Heart--normal S1 and S2. No murmurs, rubs or gallops. Lungs--clear bilaterally, no respiratory distress, no accessory muscle use. Abdomen--normal bowel sounds and soft. Mild epigastric and left sided abdominal pain Extremities--mild bilateral leg edema Dermatologic--normal skin turgor, normal color, no abnormal lymph nodes, no rash. Neurologic--cranial nerves II through XII grossly intact. Rheumatologic--normal range of motion. Psychiatric--normal affect. Results & Data Results & Data ([facility]) Vital Signs (Past 12 Hours) Vital Signs Temp Pulse Resp BP BP Pulse Ox O2 Del Method 10/26/22 08:00 Nasal Cannula 10/26/22 08:22 97.5 F L 93 H 22 113/82 96 Nasal Cannula 10/26/22 03:59 97.5 F L 92 H 20 107/72 92 Nasal Cannula 10/25/22 23:14 98.4 F 106 H 20 113/73 95 Nasal Cannula O2 Flow Rate 10/26/22 08:00 4 10/26/22 08:22 4.0 10/26/22 03:59 4 10/25/22 23:14 4 PG Care Time/CCT Total # of Minutes Spent Total Time Spent with Patient: Total time spent is greater than 50% in coordination of care (as documented) at patient's floor/unit and/or counseling patient: Coding Level of Care Code 58869 SUB INP/OBS CARE 2/35MIN Diagnoses Acute on chronic HFrEF (heart failure with reduced ejection fraction) I50.23 Chronic obstructive pulmonary disease, unspecified J44.9 Ischemic cardiomyopathy I25.5 Type 2 diabetes mellitus without complications E11.9 Atherosclerotic heart disease of [place] coronary artery without angina pectoris I25.10 Unspecified cirrhosis of liver K74.60 Essential (primary) hypertension I10 Hyperlipidemia, unspecified E78.5 Time Spent (min) 35
--- NOTE | 2022-10-26 11:11 | Cardiology Consultation ---
Date of Consultation October 26, 2022 Assessment & Plan (1) Acute on chronic HFrEF (heart failure with reduced ejection fraction): -decompensation may be related to dietary indiscretion with salt. -agree with intravenous diuretics. -encourage salt restriction. -daily weights and sliding-scale diuretics may be beneficial. (2) CAD (coronary artery disease): -s/p RCA LOPEZ, January 2021. -continue medical management. (3) Ischemic cardiomyopathy: -LVEF of 25% with global hypokinesis. -agree with Toprol, Entresto, and Jardiance. -Lasix as above -normal ICD interrogation last month. (4) Hyperlipidemia, unspecified: -would start atorvastatin 40 mg q.h.s. History of Present Illness Attending Physician: Davida Pepe MD History of Present Illness Mr. Carey is a 66-year-old male admitted yesterday with acute on chronic systolic CHF. This consultation was ordered to assist in his cardiac management. Of note, the patient typically follows with Dr. Norris in the outpatient setting. The patient was in his usual state of health until approximately 2 days prior to presentation. He began to note progressive shortness of breath, lower extremity edema, and experienced orthopnea. On the day of presentation, he was unable to transfer himself from his bed to his wheelchair due to shortness of breath. Therefore, he presented to the emergency room for further care. The patient admits to noncompliance with a salt restricted diet. He does add salt to many of his foods. He does carry history of coronary artery disease and an ischemic cardiomyopathy. Cardiac catheterization performed in January 2021 noted a 40% mid LAD, 30-40% D1, 20% mid LCx, 70% mid RCA, an 85% distal RCA. He had a 2.25 x 16 LOPEZ placed in the distal RCA. He had an echocardiogram performed in October 2021 which noted global hypokinesis and an ejection fraction of 30%. The patient had a single-chamber ICD placed back in March 2022 for primary prevention. He had an interrogation performed by Dr. Norris on October 03. This noted normal function with a battery longevity of 11 years. The patient is mainly confined to a wheelchair due to his diabetic neuropathy and chronic pain in lower extremities. On occasion, he will ambulate a short distance with a walker. Currently, patient is resting comfortably in bed without complaints. Past medical and surgical history 1. Coronary artery disease-see above 2. RCA LOPEZ-January 2021 3. Ischemic cardiomyopathy-30%, October 2021 4. Chronic systolic CHF 5. Single-chamber ICD-March 2022 6. Hypertension 7. Hypercholesterolemia 8. Diabetes 9. COPD 10. Cirrhosis 11. Hepatitis-C 12. Diabetic peripheral neuropathy 13. Thrombocytopenia Social history Present her at [place] Smokes 1 pack of cigarettes daily No alcohol Family history No early coronary artery disease Review of systems A 10 review systems was undertaken and negative except for that described above. Allergies Allergy/AdvReac Type Severity Reaction Status Date / Time lisinopril AdvReac Unknown cough Verified 05/18/22 12:55 Home Medications Medication Instructions Recorded Confirmed Type albuterol sulfate 90 mcg/actuation 2 puff inhalation QID PRN 01/12/22 10/25/22 History aerosol inhaler (Proventil HFA) shortness of breath or wheezing ciclesonide 160 mcg/actuation 1 puff inhalation BID 01/12/22 10/25/22 History aerosol inhaler (Alvesco) gabapentin 600 mg tablet 600 mg PO TID 01/12/22 10/25/22 History insulin glargine-yfgn 100 unit/mL 28 unit subcut QPM 01/12/22 10/25/22 History subcutaneous solution (Semglee (insulin glargine-yfgn)) insulin regular human 100 unit/mL 1 sliding scale dose subcut 01/12/22 10/25/22 History injection solution (Novolin R USEASDIRECTD Regular U-100 Insulin) sacubitril 97 mg-valsartan 103 mg 1 tab PO BID 01/12/22 10/25/22 History tablet (Entresto) hydroxyzine pamoate 50 mg capsule 50 mg PO HS 10/03/22 10/25/22 History (Vistaril) azithromycin 500 mg tablet 500 mg PO DAILY 10/25/22 10/25/22 History empagliflozin 10 mg tablet 10 mg PO DAILY 10/25/22 10/25/22 History (Jardiance) furosemide 20 mg tablet 20 mg PO BID 10/25/22 10/25/22 History nortriptyline 75 mg capsule 75 mg PO HS 10/25/22 10/25/22 History sofosbuvir 400 mg-velpatasvir 100 1 tab PO DAILY 10/25/22 10/25/22 History mg-voxilaprevir 100 mg tablet (Vosevi) Patient History Medical History Opioid abuse, uncomplicated Social History Smoking Status: Current every day smoker Hx Alcohol Use: No Hx Substance Use: No Preferred Language: Thai Communication Ability: Effective Resident Care Aide Required: No Beliefs That Will Affect Care: None Current Living Situation: Other Current Living Situation Comment: [facility] Feels Safe at Home: Yes Assistive Devices: None Physical Exam Physical Exam: In general is well-developed well-nourished white male in no acute distress. HEENT exam is negative. Neck is supple with full carotid upstrokes. There are no carotid bruits. Jugular venous pressure is flat at 90. No thyromegaly. Cardiovascular exam reveals a regular rhythm with distant heart sounds. No obvious murmurs. No S3. Lungs are clear without rales, rhonchi or wheezes. Abdomen is soft without bruits. Extremities reveal intact radial artery pulses bilaterally. Trace pretibial edema is noted. Results & Data ([facility]) Vital Signs (Past 12 Hours) Vital Signs Temp Pulse Resp BP BP Pulse Ox O2 Del Method 10/26/22 08:00 Nasal Cannula 10/26/22 08:22 36.4 C L 93 H 22 113/82 96 Nasal Cannula 10/26/22 03:59 36.4 C L 92 H 20 107/72 92 Nasal Cannula 10/25/22 23:14 36.9 C 106 H 20 113/73 95 Nasal Cannula O2 Flow Rate 10/26/22 08:00 4 10/26/22 08:22 4.0 10/26/22 03:59 4 10/25/22 23:14 4 Laboratory Results CBC notes hemoglobin 12.7, hematocrit 30.4, white count 4.26, [place] [address]. Electrolytes note a sodium of 130, potassium 4.4, chloride 105, bicarb 28, BUN 42, creatinine 1.63, and glucose of 121. High sensitive troponins 14.7. BNP is elevated 725. Magnesium is normal 2.1. Diagnostic Findings EKG notes sinus rhythm with low voltage, nonspecific interventricular conduction delay, and poor R-wave progression across the anterior precordium. Echocardiogram notes severe left ventricular dysfunction with ejection fraction of 25%. There was global hypokinesis along with mild mitral regurgitation. monitoring manager is benign. Chest x-ray notes cardiomegaly and diffuse interstitial edema. PG Care Time/CCT Total # of Minutes Spent Total Time Spent with Patient: Total time spent is greater than 50% in coordination of care (as documented) at patient's floor/unit and/or counseling patient: Coding Level of Care Code 08769 INT INP/OBS CARE 3/75MIN Diagnoses Acute on chronic HFrEF (heart failure with reduced ejection fraction) I50.23 CAD (coronary artery disease) I25.10 Ischemic cardiomyopathy I25.5 Hyperlipidemia, unspecified E78.5
[2022-10-26] MEDS: ALBUT/IPRATROP 3MG/0.5MG NEB 3 ML VIAL NEB PRN ×2 (17:24→22:34)
[2022-10-26] MEDS: hydrOXYzine HCl 25 MG TAB PO SCH (20:48)
[2022-10-26] MEDS: NORTRIPTYLINE HCL 25 MG CAP PO SCH (20:49)
[2022-10-26] MEDS ORDERED: LANTUS PER UNIT CHARGE SQ SCH (21:00)
[2022-10-27 06:43] LABS: Hematocrit (blood only) 42.4 % (42.0-52.0); Hemoglobin 13.8 g/dl (14.0-18.0); Mean Corpuscular Hemoglobin 30.2 pg (25.0-34.0); Mean Corpuscular Hgb Conc 32.5 g/dL (32.0-36.0); Mean Corpuscular Volume 92.8 fL (80.0-100.0); Platelet Count 98 K/uL (130-400); RDW Coefficient of Variation 13.7 % (11.5-14.5); Red Blood Count 4.57 M/uL (4.70-6.10)
[2022-10-27 06:55] LABS: BUN Creatinine Ratio 29.5 (10-20); Calcium 9.1 mg/dl (8.5-10.1); Creatinine Clr Calc Pharmacy 57.2 ml/min; Est GFR (Non-African American) 42.3 ml/min; Potassium 4.2 mmol/L (3.5-5.1)
[2022-10-27] MEDS: VALSARTAN/SACUBITRIL 103/97MG TAB PO SCH (08:59)
[2022-10-27] MEDS: GABAPENTIN 600 MG TAB PO SCH ×2 (08:59→14:12)
[2022-10-27] MEDS: FUROSEMIDE 40 MG/4 ML VIAL IV SCH (09:00)
[2022-10-27] MEDS: EMPAGLIFLOZIN 10 MG TAB PO SCH (09:00)
[2022-10-27] MEDS ORDERED: ATORVASTATIN 40 MG TAB PO SCH (09:00)
[2022-10-27] MEDS: VOSEVI PO SCH (09:01)
[2022-10-27] MEDS: FLUTICASONE FUROATE 200MCG 14 PUFFS/INHALER INH SCH (09:01)
[2022-10-27] MEDS: METOPROLOL SUCC 25MG EXT REL TAB PO SCH (09:01)
[2022-10-27] MEDS: INSULIN ASPART PER UNIT SC SCH ×2 (09:05→12:59)
--- NOTE | 2022-10-27 12:24 | Discharge Summary ---
Date of Service October 27, 2022 Admission HPI Per Admitting Provider Eligio Carey is a 66-year-old male who presents to the ER from [facility] due to shortness of breath and hypoxia. BSG 40s in the ambulance and was given dextrose 10% on route. He reports feeling his normal self up until 2 days ago. Slowly progressively becoming more short of breath over this time much worse this morning he was unable to get into his wheelchair. He was also found to be hypoxic. Associated bilateral leg swelling, orthopnea but no paroxysmal nocturnal dyspnea. No palpitations or claudication. He denies any nasal congestion, sinus pain. He does note a productive cough of green sputum. He has a known history of heart failure with reduced ejection fraction for which he takes Lasix for 20 mg p.o. twice daily. He had an additional Lasix 20 mg p.o. last night. Previously on metoprolol succinate per previous cardiology visit note although this is not on his current medication list. Principal Diagnosis Acute on chronic CHF exacerbation Discharge Exam The patient is awake, alert and oriented 3, well developed and well nourished, normocephalic and atraumatic, lying in bed and in no acute distress. HEENT--PERRL, EOMI, mucous membranes and oropharynx mildly dry Neck--supple. No JVD. No bruits. Thyroid normal, trachea midline, no adenopathy. Heart--normal S1 and S2. No murmurs, rubs or gallops. Lungs--clear bilaterally, no respiratory distress, no accessory muscle use. Abdomen--normal bowel sounds and soft. Mild epigastric and left sided abdominal pain Extremities--mild bilateral leg edema Dermatologic--normal skin turgor, normal color, no abnormal lymph nodes, no rash. Neurologic--cranial nerves II through XII grossly intact. Rheumatologic--normal range of motion. Psychiatric--normal affect. Discharge Data Allergies Allergy/AdvReac Type Severity Reaction Status Date / Time lisinopril AdvReac Unknown cough Verified 05/18/22 12:55 Consultations 10/25/22 10:48 ED Decision to Admit Stat 10/25/22 19:05 Consult Cardiology Routine Hospital Course (1) Acute on chronic HFrEF (heart failure with reduced ejection fraction): An incarcerated male, admitted on account of SOB Found to be hypoxic on arrival Chest x ray showed evidence of pulmonary edema 2 D ECHO showed global hypokinesia, EF 25%, similar to EF last year Will continue IV Lasix 40mg BID Usual dose of Lasix 20 mg twice daily; the 20 mg in the evening dose was just added last night. Strict I's and O's Daily weights Low-sodium diet, fluid restrict 1500 mL (2) Chronic obstructive pulmonary disease, unspecified: Continue Alvesco inhaler or hospital formulary equivalent Less likely COPD exacerbation as he has not seen any improvement with nebulizer treatment however he does have a wheeze on exam No further steroids but will use DuoNebs as needed for shortness of breath and cough (3) Ischemic cardiomyopathy: Start Toprol 25mg daily, as recommended by cardiology during his last visit Continue Entresto (4) Type 2 diabetes mellitus without complications: HbA1c with a.m. labs Consult pharmacy for glycemic control (5) Atherosclerotic heart disease of [place] coronary artery without angina pectoris: Unclear why is not on any antiplatelet Continue Entresto started Atorvastatin 40mg daily (6) Unspecified cirrhosis of liver: (7) Essential (primary) hypertension: Continue Entresto, Lasix as above (8) Hyperlipidemia, unspecified: Unclear reason he is not on a statin as he is noted to have an ischemic cardiomyopathy. Not mentioned on previous cardiology note. check lipid profile Plan d/c Total Time Total Time Spent Total Time Spent (In Minutes): 35 Discharge Plan Discharge Items [facility] Reason For Visit: ACUTE HEART FAILURE WITH REDUCED EJECTION FRACTION Discharge Diagnosis: Acute heart failure with r EF Activity: Resume your previous activity Non-emergency contact: Primary Care Provider and Investment Advisor Call non-emergency contact if: you have any medication questions and your symptoms worsen Follow-up/Referrals: Gallito AGUIAR [Primary Care Provider] - Diet: Regular Addtl Attending Provider Instructions: please make appointment to follow up with your cost manager Pending Studies at Discharge: No Stand-Alone Forms: [facility] Skilled Items Patient informed of condition?: Yes Discharge Level of Care: Other Communicable Disease: No Discharge Prognosis: Stable Lines: None Urinary Catheter: No Medications and DC Order Prescriptions: New atorvastatin 40 mg Tablet 40 mg PO QAM 30 Days Qty: 30 0RF metoprolol succinate 25 mg Tablet Extended Release 24 Hr 25 mg PO QAM 30 Days Qty: 30 0RF Continued Alvesco 160 mcg/actuation HFA aerosol inhaler 1 puff inhalation BID Entresto 97-103 mg tablet 1 tab PO BID gabapentin 600 mg tablet 600 mg PO TID insulin glargine-yfgn [Semglee(insulin glargine-yfgn)] 100 unit/mL solution 28 unit subcut QPM Novolin R Regular U-100 Insuln 100 unit/mL solution 1 sliding scale dose subcut USEASDIRECTD albuterol sulfate [Proventil HFA] 90 mcg/actuation HFA aerosol inhaler 2 puff inhalation QID PRN (Reason: shortness of breath or wheezing) hydroxyzine pamoate [Vistaril] 50 mg capsule 50 mg PO HS furosemide 20 mg Tablet 20 mg PO BID Jardiance 10 mg Tablet 10 mg PO DAILY Vosevi 400-100-100 mg Tablet 1 tab PO DAILY Rx Instructions: must administer with a meal/food nortriptyline 75 mg Capsule 75 mg PO HS Discontinued azithromycin 500 mg Tablet 500 mg PO DAILY Discharge Orders: Discharge Order (Routine); Ordered 10/27/22 Ordered By: Davida Pepe Admission Data Admit Date/Time: 10/25/22 11:32 Attending Provider: Davida Pepe Admit Provider: Moreno Greer Primary Care Provider: Gallito AGUIAR Other Providers: Moreno Greer ; Aba Del Cid Other Interventions: Discharge Summary Assessment (RN) Last Done: 10/27/22 11:39 Coding Level of Care Code 88974 INP/OBS DISCH >30 MIN Diagnoses Acute on chronic HFrEF (heart failure with reduced ejection fraction) I50.23 Chronic obstructive pulmonary disease, unspecified J44.9 Ischemic cardiomyopathy I25.5 Type 2 diabetes mellitus without complications E11.9 Atherosclerotic heart disease of [place] coronary artery without angina pectoris I25.10 Unspecified cirrhosis of liver K74.60 Essential (primary) hypertension I10 Hyperlipidemia, unspecified E78.5 Time Spent (min) 35
--- NOTE | 2022-10-27 15:44 | Cardiology Progress Note ---
Date of Service October 27, 2022 Assessment & Plan (1) Acute on chronic HFrEF (heart failure with reduced ejection fraction): Plan: He seems well compensated today. Breathing difficulty likely a combination of his underlying lung disease and volume overload. Seems reasonable return him to his usual outpatient oral regimen and reduce sodium intake. (2) CAD (coronary artery disease): Plan: -s/p RCA LOPEZ, January 2021. -continue medical management. (3) Ischemic cardiomyopathy: Plan: -LVEF of 25% with global hypokinesis. -agree with Ron, Jia, and Dina. -Lasix as above -normal ICD interrogation last month. (4) Hyperlipidemia, unspecified: Plan: -would start atorvastatin 40 mg q.h.s. Admission and Anticipated Discharge Date Admission Date: October 25, 2022 Subjective Patient felt comfortable. He is able to ambulate to the bathroom with a walker. He denies dizziness or lightheadedness. He does have an element of dyspnea which appears chronic. Overall he did not complain of breathing difficulty and had no orthopnea. Review of Systems Review of Systems: Per HPI Physical Exam Physical Exam: The patient is alert and oriented. Mood and affect appeared normal. He answered all questions appropriately. using supplemental oxygen HEENT: Pupils are equal and reactive to light and accommodation. Extraocular movements are intact. The sclerae are anicteric. Neuro: Cranial nerves intact Lungs: Clear to auscultation bilaterally. some expiratory wheezing. Bronchial breath sounds. No rales. Cardiac: Heart demonstrates a regular rate and rhythm. Normal S1 and S2. No murmurs on examination. Pulses: The patient has palpable radial pulses bilaterally that are equal in intensity Extremities: There was no evidence of hypoperfusion. There is no cyanosis or clubbing. Mild edema in the left leg which is dependent. Skin: I did not appreciate any rashes on examination today. Results & Data ([facility]) Vital Signs (Past 12 Hours) Vital Signs Temp Pulse Pulse Resp BP BP Pulse Ox 10/27/22 12:22 36.4 C L 85 16 102/70 90 10/27/22 11:39 36.3 C L 94 H 81 16 106/72 116/77 95 10/27/22 08:00 10/27/22 07:51 36.3 C L 81 16 116/77 95 10/27/22 03:46 36.4 C L 83 20 94/62 L 95 O2 Del Method O2 Flow Rate 10/27/22 12:22 Nasal Cannula 4 10/27/22 11:39 10/27/22 08:00 Nasal Cannula 3 10/27/22 07:51 Room Air 10/27/22 03:46 Nasal Cannula 6 Laboratory Results Abnormal Lab Results 10/26/22 10/26/22 10/27/22 16:56 20:27 06:06 WBC RBC Hgb Hct MCV MCH MCHC RDW Std Deviation RDW Coeff of [place] Plt Count MPV Sodium 140 Potassium 4.2 Chloride 103 Carbon Dioxide 29 Anion Gap 8 BUN 49 H Creatinine 1.66 H Est Cr Clr Drug Dosing 57.2 Est GFR ( Amer) 49.0 Est GFR (Non-Af Amer) 42.3 BUN/Creatinine Ratio 29.5 H Glucose 78 POC Glucose 104 H 120 H Calcium 9.1 Triglycerides 81 Cholesterol 110 LDL Cholesterol, Calc 57 VLDL Cholesterol, Calc 16 HDL Cholesterol 37 Cholesterol/HDL Ratio 3.0 10/27/22 10/27/22 10/27/22 06:06 08:08 12:13 WBC 4.40 L RBC 4.57 L Hgb 13.8 L Hct 42.4 MCV 92.8 MCH 30.2 MCHC 32.5 RDW Std Deviation 47.0 H RDW Coeff of [place] 13.7 Plt Count 98 L MPV 10.0 Sodium Potassium Chloride Carbon Dioxide Anion Gap BUN Creatinine Est Cr Clr Drug Dosing Est GFR ( Amer) Est GFR (Non-Af Amer) BUN/Creatinine Ratio Glucose POC Glucose 77 109 H Calcium Triglycerides Cholesterol LDL Cholesterol, Calc VLDL Cholesterol, Calc HDL Cholesterol Cholesterol/HDL Ratio PG Care Time/CCT Total # of Minutes Spent Total Time Spent with Patient: Total time spent is greater than 50% in coordination of care (as documented) at patient's floor/unit and/or counseling patient: Coding Level of Care Code 36676 SUB INP/OBS CARE 2/35MIN Diagnoses Acute on chronic HFrEF (heart failure with reduced ejection fraction) I50.23 CAD (coronary artery disease) I25.10 Ischemic cardiomyopathy I25.5 Hyperlipidemia, unspecified E78.5
== END 2022-10-27 14:14 | DRG 291 ==
LOC: ED 08:31 → 4W 11:32 → SUATTDRO 11:32 → 4W 12:58

== ENCOUNTER 2023-10-24 15:12 | Inpatient (IN) ==
[2023-10-24] MEDS: SODIUM CHLORIDE 0.9% 500 ML IV SCH (15:50)
[2023-10-24 16:09] LABS: Basophils # (auto) 0.02 K/uL (0.00-0.20); Basophils % (auto) 0.3 %; Eosinophils # (auto) 0.23 K/uL (0.00-0.50); Eosinophils % (auto) 3.9 %; Hemoglobin 13.8 g/dl (14.0-18.0); Immature Granulocytes # (auto) 0.02 K/uL (0.01-0.20); Immature Granulocytes % (auto) 0.3 %; Lymphocytes # (auto) 2.09 K/uL (1.20-3.40); Lymphocytes % (auto) 35.8 %; Mean Corpuscular Hemoglobin 30.5 pg (25.0-34.0); Mean Corpuscular Hgb Conc 33.7 g/dL (32.0-36.0); Mean Corpuscular Volume 90.7 fL (80.0-100.0); Mean Platelet Volume 10.1 fL (9.4-12.4); Monocytes # (auto) 0.75 K/uL (0.11-0.59); Monocytes % (auto) 12.9 %; Neutrophils # (auto) 2.72 K/uL (1.40-6.50); Neutrophils % (auto) 46.8 %; Platelet Count 66 K/uL (130-400); RDW Coefficient of Variation 13.2 % (11.5-14.5); RDW Standard Deviation 44.2 fL (36.4-46.3); Red Blood Count 4.52 M/uL (4.70-6.10); White Blood Count 5.83 K/ul (4.8-10.8)
--- NOTE | 2023-10-24 16:13 | XRay Report ---
SINGLE VIEW CHEST CLINICAL HISTORY: Hypoxia. Generalized weakness. FINDINGS: 2 AP, portable, upright chest radiographs are compared to study dated 10/01/2023. A right int ernal jugular central venous infusion port is new from previous. The tip of the catheter projects ove r the SVC. A single-lead cardiac AICD is unchanged in position. The heart is enlarged noting atherosc lerotic calcification of the thoracic ureter. The pulmonary vasculature is nondistended congested. Em physema and chronic interstitial thickening is similar to previous. Foci of parenchymal scarring are seen throughout both lungs. No airspace consolidation or large pleural effusion is identified. No pne umothorax is seen. The skeletal structures are osteopenic. The bony thorax is grossly intact. Degener ative change is noted in the shoulders. IMPRESSION: 1. Cardiomegaly and AICD without radiographic evidence of congestive failure. 2. No airspace consolidation or large pleural effusion is identified. 3. Emphysema. 4. A right internal jugular central venous infusion port is new from previous. ACT 112: Negative or not required by law. Electronically signed by: Darren Thompson M.D. 10/24/2023 4:11 PM
--- NOTE | 2023-10-24 16:16 | Emergency Department Note ---
Impression & Plan AMS (altered mental status), CHI (closed head injury), History of liver cancer, MADELINE (acute kidney injury), Acute urinary retention, Acute UTI (urinary tract infection) ED Provider Note NAME: AILYN MONTIEL AGE: 67 SEX: Male INFORMANT: Patient and EMS ED PROVIDER(S): Ailyn Zaragoza MD CHIEF COMPLAINT: Altered mental status PLAN: Disposition: Admitted Outpatient prescription management: none Referral: None MEDICAL DECISION MAKING: Patient presented because of altered mental status. On arrival here he was sleepy but awake. He was answering basic questions appropriately. ED record from last night reviewed. Patient had negative CT imaging because of his accidental fall. A workup was initiated. CT imaging ordered. ECG did not show any acute ischemia or dysrhythmia on cardiac monitoring. Pacemaker interrogation was ordered. Head CT was performed and was negative. No acute findings on chest x-ray. Patient was noted to have a fairly sizable bladder on CT abdomen pelvis. Christiansen catheter was placed. I did contact the halfway provider in order to discuss the patient's resuscitation status. He did have a period after CT imaging where he was less responsive. He was mildly hypotensive. He was given a 500 mL saline bolus. I did reassess the patient. Patient did respond to a sternal rub and opened his eyes. Was able to consult with the present physician on-call, Dr. Osullivan. He did note he was not intermittently familiar with the patient however he did note the patient is a DNR/DNI. He is going to fax over a copy of his DNR for the record. The patient's DNR was faxed over and he is indeed a DNR/DNI. Basic treatments are acceptable. Patient appears to have MADELINE on his labs. He had a negative head CT but did have significant urinary retention on his CT confirmed by radiology. After Christiansen catheter was placed as above he did have approximately 1400 mL obtained. Urinalysis then did raise concern for possible infection and he was covered with IV Rocephin. Patient's ammonia level was within normal limits. Given his hypotension, changes in mental status and other issues further management in the hospital was felt to be appropriate. [facility] Patient was evaluated in the ER and admitted for further management. Care/management discussed with: acting manager Level of care consideration(s): After review of the information above and other included data, I feel the patient requires escalation of care to admission Triage Nursing notes: reviewed and agree them. Vital Signs: reviewed and remarkable for no significant abnormalities Additional History obtained from: none Chronic Medical/Social Conditions affecting care: Cancer, COPD, diabetes, heart for Prior/ Outside/ External records reviewed: Prior ED records reviewed. See above. CT imaging of the head was negative earlier this morning. Differential Diagnosis: Infection, hypoglycemia, electrolyte abnormalities, overdose, toxicologic, cardiac sources, intracerebral event, neurologic, trauma, as well as other pathologies. Diagnostics, independently interpreted by me: ECG: Twelve-lead ECG reveals sinus rhythm with sinus arrhythmia at 70 bpm. First-degree AV block present. Anteroseptal Q waves. No ST elevation. Cardiac Monitoring: Cardiac monitoring ordered by me: The patient was placed on continuous cardiac monitoring and observed. It revealed a sinus rhythm with sinus arrhythmia at 75 beats per minute without ectopy or evidence of dysrhythmia. Medical decision rules: none Imaging studies: Head CT: A noncontrast CT scan of the head was performed and was negative for tumor, fracture, intracranial hemorrhage, or other acute pathology. Chest x-ray. Findings: A chest x-ray was performed and revealed no pneumothorax, effusion, infiltrate, pulmonary edema, free air under the diaphragm, or wide mediastinum. Impression: No acute disease. HPI: 67 year old Male arrives for evaluation of altered mental status. Patient had an accidental fall last night and was seen in the emergency department. CT imaging of the head and C-spine were performed and were negative. Patient reportedly has a history of liver cancer and is a DNR. EMS did note that his blood pressure was mildly low at 84/60 and route. Patient had O2 saturations in the low 90s but responded to 2 L. EMS reported that the patient had a change in mental status around 1 PM today. He was his normal mental status before that. No new reported falls. Upon arrival to the emergency department patient is alert and oriented although somewhat sleepy. He notes chronic pain in his left leg. He does have an Reynaldo wrap on the left knee. Patient denies any chest pain, difficulty breathing. He notes occasional abdominal pains. No reported fevers. PAST MEDICAL HISTORY: See Below, cirrhosis, diabetes, CAD PAST SURGICAL HISTORY: See Below, ICD SOCIAL HISTORY: See Below, incarcerated HOME MEDICATIONS: See Below ALLERGIES: See Below VITALS: See Below PHYSICAL EXAMINATION: GENERAL: Awake but tired, chronically-appearing, in no distress HENT: Normocephalic, atraumatic. Oropharynx unremarkable. EYES: Normal conjunctiva. Sclera non-icteric. NECK: Inspection normal. Non-tender. Supple. No nuchal rigidity. FROM. No masses. RESPIRATORY: Clear to auscultation. No wheezes. No rales. Normal respiratory effort. CARDIAC: Normal rate. Normal rhythm. No murmurs. No rubs. Extremities warm and well perfused. Pulses equal. No JVD. GI: Soft, non-distended. No tenderness to palpation. No rebound or guarding. No masses. RECTAL: Deferred. MUSCULOSKELETAL: Atraumatic. Chest examination reveals no tenderness. LOWER EXTREMITIES: Calves are equal size bilaterally and non-tender. 1+ edema. Mildly cyanotic and chronic venous discoloration of the lower extremities bilaterally. There is a left knee joint effusion present without signs of erythema or warmth. NEURO: Slow to respond but relatively normal sensorium. No focal sensory or motor deficits noted. SKIN: No rash or jaundice noted. PROCEDURES: none CRITICAL CARE: none OBSERVATION NOTE: none Past Med/Surg History Medical History CAD (coronary artery disease) CHF (congestive heart failure) Respiratory failure with hypoxia Acute on chronic HFrEF (heart failure with reduced ejection fraction) Ischemic cardiomyopathy Abnormal findings on diagnostic imaging of skull and head, not elsewhere classified Unspecified cirrhosis of liver Chronic obstructive pulmonary disease, unspecified Heart failure, unspecified Atherosclerotic heart disease of [place] coronary artery without angina pectoris Essential (primary) hypertension Neuropathy Opioid dependence with withdrawal Hyperlipidemia, unspecified Type 2 diabetes mellitus without complications Thrombocytopenia, unspecified Iron deficiency anemia, unspecified Unspecified malignant neoplasm of skin, unspecified Chronic viral hepatitis C COPD (chronic obstructive pulmonary disease) Opioid abuse, uncomplicated Surgical History AICD (automatic cardioverter/defibrillator) present Social History Smoking Status: Current every day smoker Tobacco Type: Cigarettes Do You Dip or Chew Tobacco: No; Hx Alcohol Use: No Hx Substance Use: No Preferred Language: Panamanian Communication Ability: Effective Medical Videographer Required: No Beliefs That Will Affect Care: None Current Living Situation: Other Current Living Situation Comment: [facility] Feels Safe at Home: Yes Assistive Devices: None Allergies Allergies Allergy/AdvReac Type Severity Reaction Status Date / Time lisinopril AdvReac Intermediate cough Verified 10/24/23 16:58 OC SPRAY AdvReac CONTRAINDIC Uncoded 10/24/23 16:58 ATED Home Meds Home Medications Medication Instructions Recorded Confirmed albuterol sulfate 90 mcg/actuation 2 puff inhalation QID PRN 01/12/22 10/24/23 aerosol inhaler (Proventil HFA) shortness of breath or wheezing insulin glargine-yfgn 100 unit/mL 28 unit subcut DAILY 01/12/22 10/24/23 subcutaneous solution (Semglee (insulin glargine-yfgn)) insulin regular human 100 unit/mL 1 sliding scale dose subcut 01/12/22 10/24/23 injection solution (Novolin R USEASDIRECTD Regular U-100 Insulin) sacubitril 97 mg-valsartan 103 mg 1 tab PO BID 01/12/22 10/24/23 tablet (Entresto) empagliflozin 10 mg tablet 10 mg PO DAILYBB 10/25/22 10/24/23 (Jardiance) furosemide 20 mg tablet 20 mg PO BID 10/25/22 10/24/23 nortriptyline 75 mg capsule 75 mg PO HS 10/25/22 10/24/23 ciclesonide 160 mcg/actuation 1 puff inhalation BID 10/28/22 10/24/23 aerosol inhaler (Alvesco) aspirin 81 mg tablet,delayed 81 mg PO DAILY 10/01/23 10/24/23 release atorvastatin 40 mg tablet 40 mg PO DAILY 10/01/23 10/24/23 dextromethorphan-guaifenesin 10 30 ml PO Q6 PRN Cough 10/01/23 10/24/23 mg-100 mg/5 mL oral syrup gabapentin 800 mg tablet 800 mg PO TID 10/01/23 10/24/23 hydroxyzine pamoate 50 mg capsule 100 mg PO HS 10/01/23 10/24/23 lactulose 10 gram/15 mL oral 30 g PO DAILY PRN ABD DISTRESS 10/01/23 10/24/23 solution metoprolol succinate 25 mg 25 mg PO DAILY 10/01/23 10/24/23 tablet,extended release 24 hr min oil-shlomo davion-pet,w-cetyl al 1 ea topical BID PRN Dry Skin 10/01/23 10/24/23 lotion (DermaDaily lotion) omeprazole 20 mg tablet,delayed 20 mg PO DAILY 10/01/23 10/24/23 release tamsulosin 0.4 mg capsule (Flomax) 0.4 mg PO DAILY 10/01/23 10/24/23 acetaminophen 500 mg tablet 500 mg PO QID PRN Unknown 10/24/23 10/24/23 benzonatate 200 mg capsule 200 mg PO TID PRN cough and 10/24/23 10/24/23 congestion loperamide 2 mg tablet 2 mg PO TID PRN Diarrhea 10/24/23 10/24/23 ondansetron HCl 4 mg tablet 4 mg PO TID PRN Diarrhea 10/24/23 10/24/23 Results & Data (ED) Vital Signs Vital Signs - 24 hr 10/24/23 15:21 10/24/23 15:25 10/24/23 15:25 Temperature Temperature Source Pulse Rate 77 Pulse Rate from SpO2 Sensor Respiratory Rate 87 H Respiratory Effort / Characteristics Respiratory Depth Blood Pressure 101/70 Blood Pressure Mean 76 Blood Pressure Position Pulse Oximetry Oxygen Delivery Method Sepsis Recent Fever Within 48 Hours Sepsis New/Unexplained Change in Mental Status Sepsis Action Taken by Nursing 10/24/23 15:25 10/24/23 15:30 10/24/23 15:30 Temperature Temperature Source Pulse Rate 76 76 Pulse Rate from SpO2 Sensor 73 Respiratory Rate 13 13 Respiratory Effort / Characteristics Respiratory Depth Blood Pressure 101/72 Blood Pressure Mean 90 Blood Pressure Position Pulse Oximetry 92 Oxygen Delivery Method Sepsis Recent Fever Within 48 Hours Sepsis New/Unexplained Change in Mental Status Sepsis Action Taken by Nursing 10/24/23 15:32 10/24/23 15:40 10/24/23 15:45 Temperature 36.6 C Temperature Source Oral Pulse Rate 76 78 Pulse Rate from SpO2 Sensor 79 Respiratory Rate 18 23 Respiratory Effort / Characteristics Non-Labored Spontaneous Respiratory Depth Normal Blood Pressure 101/72 Blood Pressure Mean 81 Blood Pressure Position Lying Pulse Oximetry 94 93 93 Oxygen Delivery Method Room Air Room Air Sepsis Recent Fever Within 48 Hours No Sepsis New/Unexplained Change in Mental Status No Sepsis Action Taken by Nursing No Action Required 10/24/23 15:45 10/24/23 15:50 10/24/23 16:16 Temperature Temperature Source Pulse Rate 75 75 73 Pulse Rate from SpO2 Sensor 73 69 Respiratory Rate 18 26 H 14 Respiratory Effort / Characteristics Respiratory Depth Blood Pressure Blood Pressure Mean Blood Pressure Position Pulse Oximetry 94 88 L 91 Oxygen Delivery Method Room Air Sepsis Recent Fever Within 48 Hours Sepsis New/Unexplained Change in Mental Status Sepsis Action Taken by Nursing 10/24/23 16:16 10/24/23 16:18 10/24/23 16:18 Temperature Temperature Source Pulse Rate 80 Pulse Rate from SpO2 Sensor 72 Respiratory Rate 16 Respiratory Effort / Characteristics Respiratory Depth Blood Pressure 88/65 L 81/60 L Blood Pressure Mean 69 69 Blood Pressure Position Pulse Oximetry 92 Oxygen Delivery Method Sepsis Recent Fever Within 48 Hours Sepsis New/Unexplained Change in Mental Status Sepsis Action Taken by Nursing 10/24/23 16:20 10/24/23 16:25 10/24/23 16:25 Temperature Temperature Source Pulse Rate 72 68 Pulse Rate from SpO2 Sensor 65 72 Respiratory Rate 13 14 Respiratory Effort / Characteristics Respiratory Depth Blood Pressure 88/66 L Blood Pressure Mean 74 Blood Pressure Position Pulse Oximetry 85 L 97 Oxygen Delivery Method Sepsis Recent Fever Within 48 Hours Sepsis New/Unexplained Change in Mental Status Sepsis Action Taken by Nursing 10/24/23 16:30 10/24/23 16:31 10/24/23 16:31 Temperature Temperature Source Pulse Rate 81 74 Pulse Rate from SpO2 Sensor 76 74 Respiratory Rate 22 14 Respiratory Effort / Characteristics Respiratory Depth Blood Pressure 96/68 L Blood Pressure Mean 81 Blood Pressure Position Pulse Oximetry 79 L 97 Oxygen Delivery Method Sepsis Recent Fever Within 48 Hours Sepsis New/Unexplained Change in Mental Status Sepsis Action Taken by Nursing 10/24/23 16:40 10/24/23 16:45 10/24/23 16:45 Temperature Temperature Source Pulse Rate 72 74 Pulse Rate from SpO2 Sensor 75 74 Respiratory Rate 26 H 18 Respiratory Effort / Characteristics Respiratory Depth Blood Pressure 92/70 L Blood Pressure Mean 75 Blood Pressure Position Pulse Oximetry 97 95 Oxygen Delivery Method Sepsis Recent Fever Within 48 Hours Sepsis New/Unexplained Change in Mental Status Sepsis Action Taken by Nursing 10/24/23 16:50 10/24/23 17:00 10/24/23 17:00 Temperature Temperature Source Pulse Rate 74 71 Pulse Rate from SpO2 Sensor 72 71 Respiratory Rate 24 18 Respiratory Effort / Characteristics Respiratory Depth Blood Pressure 95/68 L Blood Pressure Mean 75 Blood Pressure Position Pulse Oximetry 98 98 Oxygen Delivery Method Sepsis Recent Fever Within 48 Hours Sepsis New/Unexplained Change in Mental Status Sepsis Action Taken by Nursing 10/24/23 17:10 10/24/23 17:15 10/24/23 17:15 Temperature Temperature Source Pulse Rate 70 74 Pulse Rate from SpO2 Sensor 68 63 Respiratory Rate 13 12 Respiratory Effort / Characteristics Respiratory Depth Blood Pressure 117/62 Blood Pressure Mean 101 Blood Pressure Position Pulse Oximetry 95 98 Oxygen Delivery Method Sepsis Recent Fever Within 48 Hours Sepsis New/Unexplained Change in Mental Status Sepsis Action Taken by Nursing 10/24/23 17:20 Temperature Temperature Source Pulse Rate 71 Pulse Rate from SpO2 Sensor 74 Respiratory Rate 15 Respiratory Effort / Characteristics Respiratory Depth Blood Pressure Blood Pressure Mean Blood Pressure Position Pulse Oximetry 97 Oxygen Delivery Method Sepsis Recent Fever Within 48 Hours Sepsis New/Unexplained Change in Mental Status Sepsis Action Taken by Nursing Laboratory Data 10/24/23 15:40 10/24/23 15:40 Lab Results 10/24/23 10/24/23 10/24/23 Range/Units 15:40 16:18 17:01 WBC 5.83 (4.8-10.8) K/ul RBC 4.52 L (4.70-6.10) M/uL Hgb 13.8 L (14.0-18.0) g/dl Hct 41.0 L (42.0-52.0) % MCV 90.7 (80.0-100.0) fL MCH 30.5 (25.0-34.0) pg MCHC 33.7 (32.0-36.0) g/dL RDW Std Deviation 44.2 (36.4-46.3) fL RDW Coeff of [place] 13.2 (11.5-14.5) % Plt Count 66 L (130-400) K/uL MPV 10.1 (9.4-12.4) fL Immature Gran % (Auto) 0.3 % Neut % (Auto) 46.8 % Lymph % (Auto) 35.8 % [place] % (Auto) 12.9 % Eos % (Auto) 3.9 % Baso % (Auto) 0.3 % Neut # (Auto) 2.72 (1.40-6.50) K/uL Lymph # (Auto) 2.09 (1.20-3.40) K/uL [place] # (Auto) 0.75 H (0.11-0.59) K/uL Eos # (Auto) 0.23 (0.00-0.50) K/uL Baso # (Auto) 0.02 (0.00-0.20) K/uL Immature Gran # (Auto) 0.02 (0.01-0.20) K/uL PT 11.7 (9.0-12.0) Seconds INR 1.1 (0.9-1.1) Sodium 135 L (136-145) mmol/L Potassium 4.4 (3.5-5.1) mmol/L Chloride 105 (98-107) mmol/L Carbon Dioxide 24 (21-32) mmol/L Anion Gap 6 (3-11) BUN 54 H (6-23) mg/dl Creatinine 1.71 H (0.6-1.4) mg/dl Est Cr Clr Drug Dosing 52.2 ml/min Est GFR ( Amer) 47.0 ml/min Est GFR (Non-Af Amer) 40.5 ml/min BUN/Creatinine Ratio 31.6 H (10-20) Glucose 140 H (70-99(Fasting)) mg/dl Calcium 8.4 L (8.6-10.3) mg/dl Magnesium 1.9 (1.7-2.4) mg/dl Total Bilirubin 0.8 (0.2-1.0) mg/dl AST 31 (13-39) U/L ALT 22 (7-52) U/L Alkaline Phosphatase 95 (34-104) U/L Ammonia 29.0 (18-72) umol/L Troponin I High Sens 6.6 (0-20) pg/ml Total Protein 6.7 (6.0-8.3) gm/dl Albumin 3.4 (3.4-5.0) gm/dl Globulin 3.3 (2.5-4.0) gm/dl Albumin/Globulin Ratio 1.0 (0.9-2) TSH 0.312 (0.300-4.500) uIu/ml Urine Color Yellow Urine Appearance Clear (Clear) Urine pH 5.5 (4.5-7.5) Ur Specific [place] 1.017 (1.000-1.030) Urine Protein Negative (Negative) Urine Glucose (UA) 3+ H (Negative) Urine Ketones Negative (Negative) Urine Blood Negative (Negative) Urine Nitrite Negative (Negative) Urine Bilirubin Negative (Negative) Urine Urobilinogen Negative (Negative) Ur Leukocyte Esterase 1+ H (Negative) Urine WBC (Auto) 10-30 H (0-5) /hpf Urine RBC (Auto) 0-4 (0-4) /hpf U Hyaline Cast (Auto) 1-5 (0-5) /lpf U Epithel Cells (Auto) 20-30 H (0-5) /lpf Urine Bacteria (Auto) Negative (Negative) Administered Medications Heparin Sodium (Porcine) (Heparin Sod 5,000 Unit/0.5 Ml Vial) 5,000 units SQ Q12 ALFREDO Stop: 11/23/23 20:59 Last Admin: 10/24/23 21:35 Dose: 5,000 units Documented By: ACC Insulin Aspart (Insulin Aspart Per Unit Charge) 0 units SC ACHS ALFREDO Stop: 11/23/23 20:59 Last Admin: 10/24/23 20:26 Dose: Not Given Documented By: ACC Co-signed By: ROLA Discontinued Medications Sodium Chloride (Nss) 500 mls @ 999 mls/hr IV .Q31M ALFREDO Stop: 10/24/23 16:15 Last Infusion: 10/24/23 16:56 Dose: Infused Documented By: Admin: 10/24/23 15:50 Dose: 999 mls/hr Documented By: CC Sodium Chloride (Nss) 500 mls @ 999 mls/hr IV .Q31M ONE Stop: 10/24/23 16:51 Last Infusion: 10/24/23 18:50 Dose: Infused Documented By: Admin: 10/24/23 16:55 Dose: 999 mls/hr Documented By: ACC Sodium Chloride (Nss) 500 mls @ 999 mls/hr IV .Q31M ONE Stop: 10/24/23 17:09 Last Infusion: 10/24/23 18:50 Dose: Infused Documented By: Admin: 10/24/23 16:55 Dose: 999 mls/hr Documented By: ACC Ceftriaxone Sodium (Rocephin) 2,000 mg in 50 mls @ 100 mls/hr IV NOW STA Stop: 10/24/23 19:04 Last Infusion: 10/24/23 19:46 Dose: Infused Documented By: Admin: 10/24/23 18:59 Dose: 100 mls/hr Documented By: ACC Imaging Data Radiologist's Impression: Chest X-Ray 10/24/23 15:41 SINGLE VIEW CHEST CLINICAL HISTORY: Hypoxia. Generalized weakness. FINDINGS: 2 AP, portable, upright chest radiographs are compared to study dated 10/01/2023. A right internal jugular central venous infusion port is new from previous. The tip of the catheter projects over the SVC. A single-lead cardiac AICD is unchanged in position. The heart is enlarged noting atherosclerotic calcification of the thoracic ureter. The pulmonary vasculature is nondistended congested. Emphysema and chronic interstitial thickening is similar to previous. Foci of parenchymal scarring are seen throughout both lungs. No airspace consolidation or large pleural effusion is identified. No pneumothorax is seen. The skeletal structures are osteopenic. The bony thorax is grossly intact. Degenerative change is noted in the shoulders. IMPRESSION: 1. Cardiomegaly and AICD without radiographic evidence of congestive failure. 2. No airspace consolidation or large pleural effusion is identified. 3. Emphysema. 4. A right internal jugular central venous infusion port is new from previous. ACT 112: Negative or not required by law. Electronically signed by: Darren Thompson M.D. 10/24/2023 4:[address] 10/24/23 15:41 CT OF THE HEAD WITHOUT CONTRAST CLINICAL HISTORY: ams, recent fall COMPARISON STUDY: Head CT performed earlier today. TECHNIQUE: Helical axial images of the head were obtained without IV contrast. Automated exposure control was utilized for the study. A dose lowering technique was utilized adhering to the principles of ALARA. FINDINGS: This exam is mildly compromised by motion artifact. White matter hypodensities favor small vessel disease. No acute intracranial hemorrhage, midline shift or mass effect is present. The ventricular system is unremarkable. The basal cisterns are patent. No extra-axial collections are present. There are no findings to suggest acute dural sinus thrombosis or acute territorial infarct. No significant calvarial abnormalities are present. Visualized portions of the sinuses and mastoid air cells are clear. IMPRESSION: No acute intracranial findings. Exam mildly compromised by motion artifact. ACT 112: Negative or not required by law. Electronically signed by: Terry Groves M.D. 10/24/2023 4:19 PM Abdomen/Pelvis CT 10/24/23 15:50 CT SCAN OF THE ABDOMEN AND PELVIS WITHOUT IV CONTRAST CLINICAL HISTORY: Change in mental status. History of hepatocellular carcinoma. COMPARISON STUDY: Abdominal CT dated 09/06/2023. TECHNIQUE: CT scan of the abdomen and pelvis is performed from the lung bases to the proximal femora. Images are reviewed in the axial, sagittal, and coronal planes. IV contrast was not administered for this examination as per the referring clinician. Note that the examination was performed in suboptimal fashion without oral and IV contrast. There is streak artifact from the arms which could not be elevated above the abdomen. A dose lowering technique was utilized adhering to the principles of ALARA. CT DOSE: 3587.69 mGy.cm FINDINGS: Lung bases: The heart is mildly enlarged noting trace pericardial effusion. The coronary arteries are densely calcified. Pacemaker leads are in place. Edematous change is seen at the lung bases. There is bibasilar scarring/atelectasis. No airspace consolidation typical for pneumonia or pleural effusion is identified. Liver: The unenhanced liver is cirrhotic morphology and heterogeneous in attenuation. There is hypertrophy of the left lobe and nodularity of the hepatic surface contour. There is no intrahepatic biliary ductal dilatation. A 6.7 cm right lobe hepatic mass is again seen on image #85. This is suboptimally assessed without IV contrast. Gallbladder: Mildly distended but otherwise normal in appearance. Spleen: The spleen is enlarged measuring 17 cm in length. Pancreas: The unenhanced pancreas is atrophic and grossly unremarkable. Adrenal glands: Unremarkable. Kidneys: The unenhanced kidneys demonstrate mild cortical atrophy and are without hydronephrosis. There is a 2 mm nonobstructing right renal calculus. No left renal calculi are identified and no ureteral stone is seen. There is no evidence of contour deforming renal mass lesion. Abdominal vasculature: The abdominal aorta is normal in course and caliber noting advanced atherosclerotic calcification. Bowel: There is mild to moderate quantity fecal retention. No bowel obstruction is seen. The appendix is not visualized. Peritoneum: There is no intraperitoneal free air or abdominal ascites. There is a fat-containing umbilical hernia. Lymphadenopathy: None. Pelvic viscera: The prostate gland is diminutive and heterogeneous. The bladder is distended but otherwise normal as visualized. Skeletal structures: The skeletal structures are osteopenic. No lytic or blastic lesions are seen. There is mild lumbosacral spondylosis. Postsurgical changes seen in the left proximal femur. IMPRESSION: 1. Significantly suboptimal examination without oral and IV contrast. There is also streak artifact. 2. No acute infectious or inflammatory findings are identified in the abdomen or pelvis. 3. Cirrhotic liver morphology. 4. Splenomegaly indicates portal hypertension. 5. A 6.7 cm hepatic mass has not appreciably changed as compared to 09/06/2023. This is consistent with the reported history of hepatocellular carcinoma. 6. Cardiomegaly and emphysema. 7. Significant bladder distention. 8. Additional findings as above. ACT 112: Negative or not required by law. Electronically signed by: Darren Thompson M.D. 10/24/2023 5:56 PM Discharge Plan Visit Data Chief Complaint: Altered Mental Status ED Provider: Ailyn Zaragoza Discharge Problem: AMS (altered mental status), CHI (closed head injury), History of liver cancer, MADELINE (acute kidney injury), Acute urinary retention, Acute UTI (urinary tract infection)
--- NOTE | 2023-10-24 16:21 | CT Scan Report ---
CT OF THE HEAD WITHOUT CONTRAST CLINICAL HISTORY: ams, recent fall COMPARISON STUDY: Head CT performed earlier today. TECHNIQUE: Helical axial images of the head were obtained without IV contrast. Automated exposure con trol was utilized for the study. A dose lowering technique was utilized adhering to the principles o f ALARA. FINDINGS: This exam is mildly compromised by motion artifact. White matter hypodensities favor small vessel disease. No acute intracranial hemorrhage, midline shift or mass effect is present. The ventri cular system is unremarkable. The basal cisterns are patent. No extra-axial collections are present. There are no findings to suggest acute dural sinus thrombosis or acute territorial infarct. No signif icant calvarial abnormalities are present. Visualized portions of the sinuses and mastoid air cells a re clear. IMPRESSION: No acute intracranial findings. Exam mildly compromised by motion artifact. ACT 112: Negative or not required by law. Electronically signed by: Terry Groves M.D. 10/24/2023 4:19 PM
[2023-10-24 16:25] LABS: Albumin Level 3.4 gm/dl (3.4-5.0); BUN Creatinine Ratio 31.6 (10-20); Bilirubin,Total 0.8 mg/dl (0.2-1.0); Calcium 8.4 mg/dl (8.6-10.3); Creatinine Clr Calc Pharmacy 52.2 ml/min; Est GFR (Non-African American) 40.5 ml/min; Globulin 3.3 gm/dl (2.5-4.0); Magnesium 1.9 mg/dl (1.7-2.4); Potassium 4.4 mmol/L (3.5-5.1); Total Protein 6.7 gm/dl (6.0-8.3)
[2023-10-24 16:32] LABS: Troponin I High Sensitivity 6.6 pg/ml (0-20)
[2023-10-24 16:40] LABS: Thyroid Stimulating Hormone 0.312 uIu/ml (0.300-4.500)
[2023-10-24] MEDS: SODIUM CHLORIDE 0.9% 500 ML IV ONE ×2 (16:55)
[2023-10-24 17:56] LABS: Appearance Urine Clear (Clear); Bacteria Urine Automated Negative (Negative); Bilirubin Urine Negative (Negative); Blood Urine Negative (Negative); Color Urine Yellow; Epithelial Cell Urine Auto 20-30 /lpf (0-5); Glucose Urine UA 3+ (Negative); Ketones Urine Negative (Negative); Leukocyte Esterase Urine 1+ (Negative); Nitrite Urine Negative (Negative); Protein Urine Negative (Negative); RBC Urine Automated 0-4 /hpf (0-4); Specific Gravity Urine 1.017 (1.000-1.030); Urobilinogen Urine Negative (Negative); pH Urine 5.5 (4.5-7.5)
--- NOTE | 2023-10-24 17:59 | CT Scan Report ---
CT SCAN OF THE ABDOMEN AND PELVIS WITHOUT IV CONTRAST CLINICAL HISTORY: Change in mental status. History of hepatocellular carcinoma. COMPARISON STUDY: Abdominal CT dated 09/06/2023. TECHNIQUE: CT scan of the abdomen and pelvis is performed from the lung bases to the proximal femora. Images are reviewed in the axial, sagittal, and coronal planes. IV contrast was not administered for this examination as per the referring clinician. Note that the examination was performed in suboptim al fashion without oral and IV contrast. There is streak artifact from the arms which could not be el evated above the abdomen. A dose lowering technique was utilized adhering to the principles of ALARA. CT DOSE: 3587.69 mGy.cm FINDINGS: Lung bases: The heart is mildly enlarged noting trace pericardial effusion. The coronary arteries are densely calcified. Pacemaker leads are in place. Edematous change is seen at the lung bases. There i s bibasilar scarring/atelectasis. No airspace consolidation typical for pneumonia or pleural effusion is identified. Liver: The unenhanced liver is cirrhotic morphology and heterogeneous in attenuation. There is hypert rophy of the left lobe and nodularity of the hepatic surface contour. There is no intrahepatic biliar y ductal dilatation. A 6.7 cm right lobe hepatic mass is again seen on image #85. This is suboptimall y assessed without IV contrast. Gallbladder: Mildly distended but otherwise normal in appearance. Spleen: The spleen is enlarged measuring 17 cm in length. Pancreas: The unenhanced pancreas is atrophic and grossly unremarkable. Adrenal glands: Unremarkable. Kidneys: The unenhanced kidneys demonstrate mild cortical atrophy and are without hydronephrosis. The re is a 2 mm nonobstructing right renal calculus. No left renal calculi are identified and no uretera l stone is seen. There is no evidence of contour deforming renal mass lesion. Abdominal vasculature: The abdominal aorta is normal in course and caliber noting advanced atheroscle rotic calcification. Bowel: There is mild to moderate quantity fecal retention. No bowel obstruction is seen. The appendix is not visualized. Peritoneum: There is no intraperitoneal free air or abdominal ascites. There is a fat-containing umbi lical hernia. Lymphadenopathy: None. Pelvic viscera: The prostate gland is diminutive and heterogeneous. The bladder is distended but othe rwise normal as visualized. Skeletal structures: The skeletal structures are osteopenic. No lytic or blastic lesions are seen. Th ere is mild lumbosacral spondylosis. Postsurgical changes seen in the left proximal femur. IMPRESSION: 1. Significantly suboptimal examination without oral and IV contrast. There is also streak artifact. 2. No acute infectious or inflammatory findings are identified in the abdomen or pelvis. 3. Cirrhotic liver morphology. 4. Splenomegaly indicates portal hypertension. 5. A 6.7 cm hepatic mass has not appreciably changed as compared to 09/06/2023. This is consistent wit h the reported history of hepatocellular carcinoma. 6. Cardiomegaly and emphysema. 7. Significant bladder distention. 8. Additional findings as above. ACT 112: Negative or not required by law. Electronically signed by: Darren Thompson M.D. 10/24/2023 5:56 PM
--- NOTE | 2023-10-24 18:48 | History & Physical Report ---
Date of Service October 24, 2023 Assessment & Plan (1) AMS (altered mental status): Plan: 67yo Male with PMH liver cancer on chemo, hep C, end stage CHF on home oxygen, COPD, DM2, HLD, HTN, osteoarthritis wheelchair bound here for altered mental status. Altered Mental Status, Delirium -in the setting of fall head injury earlier today repeat CT head unchanged -GCS score 9 -WBC 5.83 -ammonia 29. However given history liver cancer cirrhosis, some concern for hepatic encephalopathy. ordered lactulose enema. -bicarb 24 RR 15 pulse ox 97%, less concern CO2 retention -UA positive for leuk est, some concern for UTI. Received ceftriaxone in ED, will continue empirically at this time. -urine drug screen pending -NPO Liver cancer, Cirrhosis, hepC -given concern for possible hepatic encephalopathy, placed consult to GI. -CT Abd again notes liver cancer MADELINE -in the setting of urinary retention -catheter placed in ED -creat 1.71 -hold lasix at this time End Stage CHF -hold lasix given MADELINE -continue metoprolol -continue entresto -caution with fluids Hypotension -trend BP DM2 -hold home medications -ordered SSI COPD -prn albuterol FENa: NPO Code Status: DNR/DNI DVT PPX: heparin Case Management: from [facility] Dispo: PCU/Jordana Garcia D.O. PGY 3, FCM (2) CHI (closed head injury): (3) History of liver cancer: (4) COPD (chronic obstructive pulmonary disease): (5) Chronic viral hepatitis C: (6) Type 2 diabetes mellitus without complications: (7) Hyperlipidemia, unspecified: (8) Essential (primary) hypertension: (9) AICD (automatic cardioverter/defibrillator) present: (10) CHF (congestive heart failure): (11) Diabetes: History of Present Illness Chief Complaint: Delirium Primary Care Provider: [facility] 67yo Male with PMH liver cancer on chemo, hep C, end stage CHF on home oxygen, COPD, DM2, HLD, HTN, osteoarthritis wheelchair bound here for altered mental status. Earlier today patient was transferring to toilet fell hit head on sink, came to ED was responsive at that time CT head negative for stroke, was sent back to [facility]. Later today patient was noted by staff to be unresponsive to voice incontinent of bowel and bladder, sent back to ED. In room patient responds to voice and sternal rub, does not completely open eyes, was able to make noises denying any ongoing pain, fell asleep within seconds. He was noted to be hypotensive on admission at 81/60, given 1.5L NSS. In ED straight cath removed over 1L urine. Given concern UTI, patient given a dose rocephin. Repeat head CT did not see hemorrhage. Allergies Allergy/AdvReac Type Severity Reaction Status Date / Time lisinopril AdvReac Intermediate cough Verified 10/24/23 16:58 OC SPRAY AdvReac CONTRAINDIC Uncoded 10/24/23 16:58 ATED Home Medications Medication Instructions Recorded Confirmed Type albuterol sulfate 90 mcg/actuation 2 puff inhalation QID PRN 01/12/22 10/24/23 History aerosol inhaler (Proventil HFA) shortness of breath or wheezing insulin glargine-yfgn 100 unit/mL 28 unit subcut DAILY 01/12/22 10/24/23 History subcutaneous solution (Semglee (insulin glargine-yfgn)) insulin regular human 100 unit/mL 1 sliding scale dose subcut 01/12/22 10/24/23 History injection solution (Novolin R USEASDIRECTD Regular U-100 Insulin) sacubitril 97 mg-valsartan 103 mg 1 tab PO BID 01/12/22 10/24/23 History tablet (Entresto) empagliflozin 10 mg tablet 10 mg PO DAILYBB 10/25/22 10/24/23 History (Jardiance) furosemide 20 mg tablet 20 mg PO BID 10/25/22 10/24/23 History nortriptyline 75 mg capsule 75 mg PO HS 10/25/22 10/24/23 History ciclesonide 160 mcg/actuation 1 puff inhalation BID 10/28/22 10/24/23 History aerosol inhaler (Alvesco) aspirin 81 mg tablet,delayed 81 mg PO DAILY 10/01/23 10/24/23 History release atorvastatin 40 mg tablet 40 mg PO DAILY 10/01/23 10/24/23 History dextromethorphan-guaifenesin 10 30 ml PO Q6 PRN Cough 10/01/23 10/24/23 History mg-100 mg/5 mL oral syrup gabapentin 800 mg tablet 800 mg PO TID 10/01/23 10/24/23 History hydroxyzine pamoate 50 mg capsule 100 mg PO HS 10/01/23 10/24/23 History lactulose 10 gram/15 mL oral 30 g PO DAILY PRN ABD DISTRESS 10/01/23 10/24/23 History solution metoprolol succinate 25 mg 25 mg PO DAILY 10/01/23 10/24/23 History tablet,extended release 24 hr min oil-shlomo davion-pet,w-cetyl al 1 ea topical BID PRN Dry Skin 10/01/23 10/24/23 History lotion (DermaDaily lotion) omeprazole 20 mg tablet,delayed 20 mg PO DAILY 10/01/23 10/24/23 History release tamsulosin 0.4 mg capsule (Flomax) 0.4 mg PO DAILY 10/01/23 10/24/23 History acetaminophen 500 mg tablet 500 mg PO QID PRN Unknown 10/24/23 10/24/23 History benzonatate 200 mg capsule 200 mg PO TID PRN cough and 10/24/23 10/24/23 History congestion loperamide 2 mg tablet 2 mg PO TID PRN Diarrhea 10/24/23 10/24/23 History ondansetron HCl 4 mg tablet 4 mg PO TID PRN Diarrhea 10/24/23 10/24/23 History Past Med/Surg History Medical History CAD (coronary artery disease) CHF (congestive heart failure) Respiratory failure with hypoxia Acute on chronic HFrEF (heart failure with reduced ejection fraction) Ischemic cardiomyopathy Abnormal findings on diagnostic imaging of skull and head, not elsewhere classified Unspecified cirrhosis of liver Chronic obstructive pulmonary disease, unspecified Heart failure, unspecified Atherosclerotic heart disease of hoopa coronary artery without angina pectoris Essential (primary) hypertension Neuropathy Opioid dependence with withdrawal Hyperlipidemia, unspecified Type 2 diabetes mellitus without complications Thrombocytopenia, unspecified Iron deficiency anemia, unspecified Unspecified malignant neoplasm of skin, unspecified Chronic viral hepatitis C COPD (chronic obstructive pulmonary disease) Opioid abuse, uncomplicated Surgical History AICD (automatic cardioverter/defibrillator) present Social History Smoking Status: Former smoker Tobacco Type: Cigarettes Do You Dip or Chew Tobacco: No; Hx Alcohol Use: No Hx Substance Use: No Preferred Language: Burmese Communication Ability: Effective Lab Support Service Tech Required: No Beliefs That Will Affect Care: None Current Living Situation: Other Current Living Situation Comment: [facility] Feels Safe at Home: Yes Assistive Devices: None Physical Exam Constitutional: + ill appearing, + altered mental status and + lethargic Eyes: reactive pupils ENMT: external ear and nose normal, oropharynx normal Neck: trachea midline, no thyromegaly Respiratory: normal respiratory effort, lungs clear to auscultation Cardiovascular: Rate/Rhythm: regular rate and regular rhythm Gastrointestinal (Abdomen): Inspection/Auscultation: abdomen normal to inspection; abdomen not distended Percussion/Palpation: + abdomen tender (right middle quadrant) and abdomen soft Skin: no rashes, warm and dry Neurologic: can obey commands to squeeze finger, raise hand Results & Data Results & Data Vital Signs (Past 12 Hours) Vital Signs Temp Pulse Resp BP Pulse Ox O2 Del Method 10/24/23 17:20 71 15 97 10/24/23 17:15 117/62 10/24/23 17:15 74 12 98 10/24/23 17:10 70 13 95 10/24/23 17:00 95/68 L 10/24/23 17:00 71 18 98 10/24/23 16:50 74 24 98 10/24/23 16:45 92/70 L 10/24/23 16:45 74 18 95 10/24/23 16:40 72 26 H 97 10/24/23 16:31 74 14 97 10/24/23 16:31 96/68 L 10/24/23 16:30 81 22 79 L 10/24/23 16:25 68 14 97 10/24/23 16:25 88/66 L 10/24/23 16:20 72 13 85 L 10/24/23 16:18 81/60 L 10/24/23 16:18 80 16 92 10/24/23 16:16 88/65 L 10/24/23 16:16 73 14 91 10/24/23 15:50 75 26 H 88 L 10/24/23 15:45 75 18 94 Room Air 10/24/23 15:45 93 Room Air 10/24/23 15:40 78 23 93 10/24/23 15:32 36.6 C 76 18 101/72 94 Room Air 10/24/23 15:30 101/72 10/24/23 15:30 76 13 92 10/24/23 15:25 76 13 10/24/23 15:25 101/70 10/24/23 15:25 77 10/24/23 15:21 87 H Supervising Physician Co-Signing Physician Notes I personally saw and examined the patient. I verified all junior points and agree with resident physician Dr Jordana Porter, with the following exceptions and/or additions: 67 year old male presents to the ER with altered mental state. Patient in the ER last night after his left knee buckled and hit his head. Altered on returning back to the longterm therefore sent back to the ER. In the ER he is having 15 minutes of being lucid followed by 1-2 hours of unresponsiveness without much response even to sternal rubs and weldon catheter insertion. O/E Alert and orientated to person and place, HS RRR, no murmurs, Chest CTAB, Abdo SNT, large left knee suprapatellar swelling without overlying erythema, painful to touch, no pedal edema A/P Acute toxic encephalopathy - suspect most likely his altered mental status is due to possible concussion with high doses of gabapentin in setting of MADELINE. Hold gabapentin. Less likely hepatic given low ammonia. Patient now awake enough for PO lactulose therefore switched from enema to PO. Possible hypotension also placying a part and his anti-hypertensives have been held at this time. MADELINE - Urine retention in the ER, weldon catheter placed, start tamsulosin once BP improves, hold Entresto and Lasix, IV fluids given in the ER, repeat BMP in AM Chronic CHF - currently appears hypovolemic, monitor for worsening respiratory status with IV fluids given in the ER, holding diuretics a the present time Diabetes - Hold long acting insulin while NPO as glucose < 100, Novolog for correction and carb coverage only Possible UTI - cover with ceftriaxone until culture returns. Low suspicion this is driving his encephalopathy. Left suprapatellar effusion - consider ortho consult once patient more alert Resident Activity Tracking Resident Involvement: Resident Care Provided Care Provided: Adult [facility]
[2023-10-24] MEDS: cefTRIAXone SODIUM 2,000 MG/50 ML BAG IV STA (18:59)
[2023-10-24] MEDS ORDERED: GLUCOSE 40% GEL 15 GM TUBE PO PRN (19:15)
[2023-10-24] MEDS ORDERED: GLUCOSE 10 TAB/TUBE PO PRN (19:15)
[2023-10-24] MEDS ORDERED: GLUCAGON FOR INJ 1 MG VIAL SQ PRN (19:15)
[2023-10-24] MEDS ORDERED: CARBOHYDRATES FOR HYPOGLYCEMIA PO PRN (19:15)
[2023-10-24] MEDS ORDERED: DEXTROSE 50% 50 ML SYRINGE IV PRN (19:15)
[2023-10-24 19:47] LABS: INR 1.1 (0.9-1.1); Prothrombin Time 11.7 Seconds (9.0-12.0)
[2023-10-24] MEDS: INSULIN ASPART PER UNIT CHARGE SC SCH (20:26)
[2023-10-24] MEDS: HEPARIN SOD 5,000 UNIT/0.5 ML VIAL SQ SCH (21:35)
[2023-10-24] MEDS: LANTUS PER UNIT CHARGE SQ SCH (21:48)
[2023-10-24] MEDS: LACTULOSE SYRUP 20 GM/30 ML UDC PO STA (21:50)
[2023-10-24] MEDS ORDERED: LACTULOSE 200GM/700ML WTR ENEMA PR SCH (23:00)
[2023-10-25 03:26] LABS: Amphetamines+Metham, Urine Neg (Neg); Barbiturates, Urine Neg (Neg); Benzodiazepine, Urine Neg (Neg); Cocaine, Urine Neg (Neg); MDMA (Ecstacy), Urine Neg (Neg); Marijuana, Urine Neg (Neg); Methadone, Urine Neg (Neg); Opiate, Urine Neg (Neg); Phencyclidine, Urine Neg (Neg)
[2023-10-25] MEDS: LIDOCAINE 5% 1 PATCH TD STA (04:04)
[2023-10-25 04:33] LABS: Hematocrit (blood only) 44.1 % (42.0-52.0); Hemoglobin 14.5 g/dl (14.0-18.0); Mean Corpuscular Hemoglobin 30.4 pg (25.0-34.0); Mean Corpuscular Hgb Conc 32.9 g/dL (32.0-36.0); Mean Corpuscular Volume 92.5 fL (80.0-100.0); Mean Platelet Volume 10.1 fL (9.4-12.4); Platelet Count 66 K/uL (130-400); RDW Coefficient of Variation 13.2 % (11.5-14.5); RDW Standard Deviation 44.9 fL (36.4-46.3); Red Blood Count 4.77 M/uL (4.70-6.10)
[2023-10-25 04:49] LABS: Albumin Globulin Ratio 1.1 (0.9-2); Albumin Level 3.5 gm/dl (3.4-5.0); BUN Creatinine Ratio 33.6 (10-20); Bilirubin,Total 0.8 mg/dl (0.2-1.0); Calcium 8.5 mg/dl (8.6-10.3); Creatinine Clr Calc Pharmacy 76.9 ml/min; Est GFR (African American) 75.1 ml/min; Est GFR (Non-African American) 64.8 ml/min; Globulin 3.3 gm/dl (2.5-4.0); Potassium 4.2 mmol/L (3.5-5.1); Total Protein 6.8 gm/dl (6.0-8.3)
[2023-10-25 05:07] LABS: INR 1.1 (0.9-1.1); Prothrombin Time 11.8 Seconds (9.0-12.0)
[2023-10-25] MEDS: LACTULOSE SYRUP 20 GM/30 ML UDC PO SCH (08:06)
--- NOTE | 2023-10-25 09:15 | Billing Data ---
Date of Service October 24, 2023 Coding Level of Care Code 19514 INT INP/OBS CARE
--- NOTE | 2023-10-25 10:19 | Electrocardiogram Report ---
Test Reason : Blood Pressure : / mmHG Vent. Rate : 078 BPM Atrial Rate : 078 BPM P-R Int : 222 ms QRS Dur : 118 ms QT Int : 422 ms P-R-T Axes : 066 023 027 degrees QTc Int : 481 ms Sinus rhythm with sinus arrhythmia with 1st degree A-V block with occasional Premature ventricular co mplexes Anteroseptal infarct (cited on or before 15-OCT-2016) Abnormal ECG When compared with ECG of 01-OCT-2023 17:43, Serial changes of Anteroseptal infarct Present Confirmed by Aba Del Cid ([id number]) on 10/25/2023 10:18:35 AM Referred By: Confirmed By:Aba Del Cid
--- NOTE | 2023-10-25 10:37 | Gastrointestinal Consultation ---
Date of Consultation October 25, 2023 Assessment & Plan (1) Chronic viral hepatitis C: (2) AMS (altered mental status): (3) Unspecified cirrhosis of liver: (4) History of liver cancer: Plan Patient is a 67 y.o. male with a history of Hep C cirrhosis and associated HCC admitted with AMS change after fall. -Given the normal ammonia, doubt of hepatic origin. -Can add Xifaxan 550 mg BID in addition to lactulose, however. -Continue supportive care per primary team. Thank you for allowing us to participate in the care of this patient. If you have any questions or concerns, please do not hesitate to contact us. Supervising Physician Co-Signing Physician Notes Agree with LAZARA Logan as above Abd: Soft, NT, ND, +BS Continue current therapy and supportive care Liver panel shows compensated Cirrhosis History of Present Illness Reason for Consultation: ? HE with cirrhosis Requesting Physician: Dr. Porter Attending Physician: Davida Pepe MD History of Present Illness Patient is a 67 y.o. male with history of hepatitis C cirrhosis with known HCC admitted after sustaining a fall resulting in a head injury with associated mental status change. GI has been consulted in regard to the possibility of He as a possible contributing factor. His ammonia on arrival was normal at 29, however. Labs reviewed. Chronic thrombocytopenia although PT/INR, TB, and cre atinine were normal. CT a/p with hepatosplenomegaly, nodular hepatic echotexture and known 6.7 cm mass but no ascites. Head CT negative. He has been given a lactulose enema. Allergies Allergy/AdvReac Type Severity Reaction Status Date / Time lisinopril AdvReac Intermediate cough Verified 10/24/23 16:58 OC SPRAY AdvReac CONTRAINDIC Uncoded 10/24/23 16:58 ATED Home Medications Medication Instructions Recorded Confirmed Type albuterol sulfate 90 mcg/actuation 2 puff inhalation QID PRN 01/12/22 10/24/23 History aerosol inhaler (Proventil HFA) shortness of breath or wheezing insulin glargine-yfgn 100 unit/mL 28 unit subcut DAILY 01/12/22 10/24/23 History subcutaneous solution (Semglee (insulin glargine-yfgn)) insulin regular human 100 unit/mL 1 sliding scale dose subcut 01/12/22 10/24/23 History injection solution (Novolin R USEASDIRECTD Regular U-100 Insulin) sacubitril 97 mg-valsartan 103 mg 1 tab PO BID 01/12/22 10/24/23 History tablet (Entresto) empagliflozin 10 mg tablet 10 mg PO DAILYBB 10/25/22 10/24/23 History (Jardiance) furosemide 20 mg tablet 20 mg PO BID 10/25/22 10/24/23 History nortriptyline 75 mg capsule 75 mg PO HS 10/25/22 10/24/23 History ciclesonide 160 mcg/actuation 1 puff inhalation BID 10/28/22 10/24/23 History aerosol inhaler (Alvesco) aspirin 81 mg tablet,delayed 81 mg PO DAILY 10/01/23 10/24/23 History release atorvastatin 40 mg tablet 40 mg PO DAILY 10/01/23 10/24/23 History dextromethorphan-guaifenesin 10 30 ml PO Q6 PRN Cough 10/01/23 10/24/23 History mg-100 mg/5 mL oral syrup gabapentin 800 mg tablet 800 mg PO TID 10/01/23 10/24/23 History hydroxyzine pamoate 50 mg capsule 100 mg PO HS 10/01/23 10/24/23 History lactulose 10 gram/15 mL oral 30 g PO DAILY PRN ABD DISTRESS 10/01/23 10/24/23 History solution metoprolol succinate 25 mg 25 mg PO DAILY 10/01/23 10/24/23 History tablet,extended release 24 hr min oil-shlomo davion-pet,w-cetyl al 1 ea topical BID PRN Dry Skin 10/01/23 10/24/23 History lotion (DermaDaily lotion) omeprazole 20 mg tablet,delayed 20 mg PO DAILY 10/01/23 10/24/23 History release tamsulosin 0.4 mg capsule (Flomax) 0.4 mg PO DAILY 10/01/23 10/24/23 History acetaminophen 500 mg tablet 500 mg PO QID PRN Unknown 10/24/23 10/24/23 History benzonatate 200 mg capsule 200 mg PO TID PRN cough and 10/24/23 10/24/23 History congestion loperamide 2 mg tablet 2 mg PO TID PRN Diarrhea 10/24/23 10/24/23 History ondansetron HCl 4 mg tablet 4 mg PO TID PRN Diarrhea 10/24/23 10/24/23 History Patient History Medical History CAD (coronary artery disease) CHF (congestive heart failure) Respiratory failure with hypoxia Acute on chronic HFrEF (heart failure with reduced ejection fraction) Ischemic cardiomyopathy Abnormal findings on diagnostic imaging of skull and head, not elsewhere classified Unspecified cirrhosis of liver Chronic obstructive pulmonary disease, unspecified Heart failure, unspecified Atherosclerotic heart disease of [place] coronary artery without angina pectoris Essential (primary) hypertension Neuropathy Opioid dependence with withdrawal Hyperlipidemia, unspecified Type 2 diabetes mellitus without complications Thrombocytopenia, unspecified Iron deficiency anemia, unspecified Unspecified malignant neoplasm of skin, unspecified Chronic viral hepatitis C COPD (chronic obstructive pulmonary disease) Opioid abuse, uncomplicated Surgical History AICD (automatic cardioverter/defibrillator) present Social History Smoking Status: Former smoker Tobacco Type: Cigarettes Do You Dip or Chew Tobacco: No; Hx Alcohol Use: No Hx Substance Use: No Preferred Language: Afghan Communication Ability: Effective Telephone Clerk Required: No Beliefs That Will Affect Care: None Current Living Situation: Other Current Living Situation Comment: [facility] Feels Safe at Home: Yes Assistive Devices: Wheelchair Review of Systems Constitutional: no problem reported Respiratory: no dyspnea and no pain on inspiration Cardiovascular: no chest pain and no palpitations Gastrointestinal: no abdominal pain and no vomiting Musculoskeletal: no lower extremity edema Physical Exam Constitutional: WD/WN, vitals as above Respiratory: normal respiratory effort, lungs clear to auscultation Cardiovascular: Rate/Rhythm: regular rate and regular rhythm Gastrointestinal (Abdomen): Inspection/Auscultation: normal bowel sounds and + significant pannus Percussion/Palpation: abdomen soft; abdomen nontender and no guarding Musculoskeletal: no lower extremity edema Psychiatric: Orientation: alert, oriented to person and cooperative; + not oriented to place and + not oriented to time Results & Data Vital Signs (Past 12 Hours) Vital Signs Temp Pulse Pulse Resp BP Pulse Ox Pulse Ox 10/25/23 02:18 10/25/23 02:18 94 10/25/23 02:18 36.9 C 95 H 15 130/89 94 10/24/23 23:24 82 O2 Del Method O2 Del Method O2 Flow Rate O2 Flow Rate 10/25/23 02:18 Nasal Cannula 2 10/25/23 02:18 Nasal Cannula 2 10/25/23 02:18 Nasal Cannula 2 10/24/23 23:24 Diagnostic Findings Laboratory Results WBC 4.80 K/ul (4.8-10.8) 10/25/23 04:14 RBC 4.77 M/uL (4.70-6.10) 10/25/23 04:14 Hgb 14.5 g/dl (14.0-18.0) 10/25/23 04:14 Hct 44.1 % (42.0-52.0) 10/25/23 04:14 MCV 92.5 fL (80.0-100.0) 10/25/23 04:14 MCH 30.4 pg (25.0-34.0) 10/25/23 04:14 MCHC 32.9 g/dL (32.0-36.0) 10/25/23 04:14 RDW Std Deviation 44.9 fL (36.4-46.3) 10/25/23 04:14 RDW Coeff of [place] 13.2 % (11.5-14.5) 10/25/23 04:14 Plt Count 66 K/uL (130-400) L 10/25/23 04:14 MPV 10.1 fL (9.4-12.4) 10/25/23 04:14 Immature Gran % (Auto) 0.3 % 10/24/23 15:40 Neut % (Auto) 46.8 % 10/24/23 15:40 Lymph % (Auto) 35.8 % 10/24/23 15:40 [place] % (Auto) 12.9 % 10/24/23 15:40 Eos % (Auto) 3.9 % 10/24/23 15:40 Baso % (Auto) 0.3 % 10/24/23 15:40 Neut # (Auto) 2.72 K/uL (1.40-6.50) 10/24/23 15:40 Lymph # (Auto) 2.09 K/uL (1.20-3.40) 10/24/23 15:40 [place] # (Auto) 0.75 K/uL (0.11-0.59) H 10/24/23 15:40 Eos # (Auto) 0.23 K/uL (0.00-0.50) 10/24/23 15:40 Baso # (Auto) 0.02 K/uL (0.00-0.20) 10/24/23 15:40 Immature Gran # (Auto) 0.02 K/uL (0.01-0.20) 10/24/23 15:40 PT 11.8 Seconds (9.0-12.0) 10/25/23 04:14 INR 1.1 (0.9-1.1) 10/25/23 04:14 Sodium 138 mmol/L (136-145) 10/25/23 04:14 Potassium 4.2 mmol/L (3.5-5.1) 10/25/23 04:14 Chloride 107 mmol/L (98-107) 10/25/23 04:14 Carbon Dioxide 23 mmol/L (21-32) 10/25/23 04:14 Anion Gap 8 (3-11) 10/25/23 04:14 BUN 39 mg/dl (6-23) H 10/25/23 04:14 Creatinine 1.16 mg/dl (0.6-1.4) D 10/25/23 04:14 Est Cr Clr Drug Dosing 76.9 ml/min 10/25/23 04:14 Est GFR ( Amer) 75.1 ml/min 10/25/23 04:14 Est GFR (Non-Af Amer) 64.8 ml/min 10/25/23 04:14 BUN/Creatinine Ratio 33.6 (10-20) H 10/25/23 04:14 Glucose 71 mg/dl (70-99(Fasting)) 10/25/23 04:14 POC Glucose 73 mg/dl (70-99) 10/25/23 08:05 Calcium 8.5 mg/dl (8.6-10.3) L 10/25/23 04:14 Magnesium 1.9 mg/dl (1.7-2.4) 10/24/23 15:40 Total Bilirubin 0.8 mg/dl (0.2-1.0) 10/25/23 04:14 AST 31 U/L (13-39) 10/25/23 04:14 ALT 23 U/L (7-52) 10/25/23 04:14 Alkaline Phosphatase 97 U/L (34-104) 10/25/23 04:14 Ammonia 29.0 umol/L (18-72) 10/24/23 16:18 Troponin I High Sens 6.6 pg/ml (0-20) 10/24/23 15:40 Total Protein 6.8 gm/dl (6.0-8.3) 10/25/23 04:14 Albumin 3.5 gm/dl (3.4-5.0) 10/25/23 04:14 Globulin 3.3 gm/dl (2.5-4.0) 10/25/23 04:14 Albumin/Globulin Ratio 1.1 (0.9-2) 10/25/23 04:14 TSH 0.312 uIu/ml (0.300-4.500) 10/24/23 15:40 Urine Color Yellow 10/24/23 17:01 Urine Appearance Clear (Clear) 10/24/23 17:01 Urine pH 5.5 (4.5-7.5) 10/24/23 17:01 Ur Specific [place] 1.017 (1.000-1.030) 10/24/23 17:01 Urine Protein Negative (Negative) 10/24/23 17:01 Urine Glucose (UA) 3+ (Negative) H 10/24/23 17:01 Urine Ketones Negative (Negative) 10/24/23 17:01 Urine Blood Negative (Negative) 10/24/23 17:01 Urine Nitrite Negative (Negative) 10/24/23 17:01 Urine Bilirubin Negative (Negative) 10/24/23 17:01 Urine Urobilinogen Negative (Negative) 10/24/23 17:01 Ur Leukocyte Esterase 1+ (Negative) H 10/24/23 17:01 Urine WBC (Auto) 10-30 /hpf (0-5) H 10/24/23 17:01 Urine RBC (Auto) 0-4 /hpf (0-4) 10/24/23 17:01 U Hyaline Cast (Auto) 1-5 /lpf (0-5) 10/24/23 17:01 U Epithel Cells (Auto) 20-30 /lpf (0-5) H 10/24/23 17:01 Urine Bacteria (Auto) Negative (Negative) 10/24/23 17:01 Nasal Screen MRSA (PCR) Positive (Negative) A 10/25/23 02:47 Urine Opiates Screen Neg (Neg) 10/25/23 02:47 Ur Methadone, Qual Neg (Neg) 10/25/23 02:47 Urine Barbiturates Neg (Neg) 10/25/23 02:47 Ur Phencyclidine (PCP) Neg (Neg) 10/25/23 02:47 U Amphetamin/Meth Scrn Neg (Neg) 10/25/23 02:47 MDMA (Ecstasy) Screen Neg (Neg) 10/25/23 02:47 U Benzodiazepines Scrn Neg (Neg) 10/25/23 02:47 Ur Cocaine Metabolite Neg (Neg) 10/25/23 02:47 U Marijuana (THC) Screen Neg (Neg) 10/25/23 02:47 Impressions Chest X-Ray 10/24/23 15:41 SINGLE VIEW CHEST CLINICAL HISTORY: Hypoxia. Generalized weakness. FINDINGS: 2 AP, portable, upright chest radiographs are compared to study dated 10/01/2023. A right internal jugular central venous infusion port is new from previous. The tip of the catheter projects over the SVC. A single-lead cardiac AICD is unchanged in position. The heart is enlarged noting atherosclerotic calcification of the thoracic ureter. The pulmonary vasculature is nondistended congested. Emphysema and chronic interstitial thickening is similar to previous. Foci of parenchymal scarring are seen throughout both lungs. No airspace consolidation or large pleural effusion is identified. No pneumothorax is seen. The skeletal structures are osteopenic. The bony thorax is grossly intact. Degenerative change is noted in the shoulders. IMPRESSION: 1. Cardiomegaly and AICD without radiographic evidence of congestive failure. 2. No airspace consolidation or large pleural effusion is identified. 3. Emphysema. 4. A right internal jugular central venous infusion port is new from previous. ACT 112: Negative or not required by law. Electronically signed by: Darren Thompson M.D. 10/24/2023 4:[address] 10/24/23 15:41 CT OF THE HEAD WITHOUT CONTRAST CLINICAL HISTORY: ams, recent fall COMPARISON STUDY: Head CT performed earlier today. TECHNIQUE: Helical axial images of the head were obtained without IV contrast. Automated exposure control was utilized for the study. A dose lowering technique was utilized adhering to the principles of ALARA. FINDINGS: This exam is mildly compromised by motion artifact. White matter hypodensities favor small vessel disease. No acute intracranial hemorrhage, midline shift or mass effect is present. The ventricular system is unremarkable. The basal cisterns are patent. No extra-axial collections are present. There are no findings to suggest acute dural sinus thrombosis or acute territorial infarct. No significant calvarial abnormalities are present. Visualized portions of the sinuses and mastoid air cells are clear. IMPRESSION: No acute intracranial findings. Exam mildly compromised by motion a rtifact. ACT 112: Negative or not required by law. Electronically signed by: Terry Groves M.D. 10/24/2023 4:19 PM Abdomen/Pelvis CT 10/24/23 15:50 CT SCAN OF THE ABDOMEN AND PELVIS WITHOUT IV CONTRAST CLINICAL HISTORY: Change in mental status. History of hepatocellular carcinoma. COMPARISON STUDY: Abdominal CT dated 09/06/2023. TECHNIQUE: CT scan of the abdomen and pelvis is performed from the lung bases to the proximal femora. Images are reviewed in the axial, sagittal, and coronal planes. IV contrast was not administered for this examination as per the referring clinician. Note that the examination was performed in suboptimal fashion without oral and IV contrast. There is streak artifact from the arms which could not be elevated above the abdomen. A dose lowering technique was utilized adhering to the principles of ALARA. CT DOSE: 3587.69 mGy.cm FINDINGS: Lung bases: The heart is mildly enlarged noting trace pericardial effusion. The coronary arteries are densely calcified. Pacemaker leads are in place. Edematous change is seen at the lung bases. There is bibasilar scarring/atelectasis. No airspace consolidation typical for pneumonia or pleural effusion is identified. Liver: The unenhanced liver is cirrhotic morphology and heterogeneous in attenuation. There is hypertrophy of the left lobe and nodularity of the hepatic surface contour. There is no intrahepatic biliary ductal dilatation. A 6.7 cm right lobe hepatic mass is again seen on image #85. This is suboptimally assessed without IV contrast. Gallbladder: Mildly distended but otherwise normal in appearance. Spleen: The spleen is enlarged measuring 17 cm in length. Pancreas: The unenhanced pancreas is atrophic and grossly unremarkable. Adrenal glands: Unremarkable. Kidneys: The unenhanced kidneys demonstrate mild cortical atrophy and are without hydronephrosis. There is a 2 mm nonobstructing right renal calculus. No left renal calculi are identified and no ureteral stone is seen. There is no evidence of contour deforming renal mass lesion. Abdominal vasculature: The abdominal aorta is normal in course and caliber noting advanced atherosclerotic calcification. Bowel: There is mild to moderate quantity fecal retention. No bowel obstruction is seen. The appendix is not visualized. Peritoneum: There is no intraperitoneal free air or abdominal ascites. There is a fat-containing umbilical hernia. Lymphadenopathy: None. Pelvic viscera: The prostate gland is diminutive and heterogeneous. The bladder is distended but otherwise normal as visualized. Skeletal structures: The skeletal structures are osteopenic. No lytic or blastic lesions are seen. There is mild lumbosacral spondylosis. Postsurgical changes seen in the left proximal femur. IMPRESSION: 1. Significantly suboptimal examination without oral and IV contrast. There is also streak artifact. 2. No acute infectious or inflammatory findings are identified in the abdomen or pelvis. 3. Cirrhotic liver morphology. 4. Splenomegaly indicates portal hypertension. 5. A 6.7 cm hepatic mass has not appreciably changed as compared to 09/06/2023. This is consistent with the reported history of hepatocellular carcinoma. 6. Cardiomegaly and emphysema. 7. Significant bladder distention. 8. Additional findings as above. ACT 112: Negative or not required by law. Electronically signed by: Darren Thompson M.D. 10/24/2023 5:56 PM PG Care Time/CCT Total # of Minutes Spent Total Time Spent with Patient: Total time spent is greater than 50% in coordination of care (as documented) at patient's floor/unit and/or counseling patient: Coding Level of Care Code 33706 INT INP/OBS CARE 3/75MIN Diagnoses Chronic viral hepatitis C B18.2 AMS (altered mental status) R41.82 Unspecified cirrhosis of liver K74.60 History of liver cancer Z85.05
--- NOTE | 2023-10-25 10:59 | Hospitalist Progress Note ---
Date of Service October 25, 2023 Assessment & Plan (1) AMS (altered mental status): Plan: 67yo Male with PMH liver cancer on chemo, hep C, end stage CHF on home oxygen, COPD, DM2, HLD, HTN, osteoarthritis wheelchair bound here for altered mental status. Acute encephalopathy: Etiology is unclear, although patient has a history of liver cancer, low concern for hepatic encephalopathy, ammonia level was 29 CT scan of the head nothing acute pathology Received lactulose, continue Left suprapatella joint effusion: Currently patient has had daily swollen left knee for a while X-ray showed evidence of suprapatellar joint effusion Consult orthopedics Acute UTI:-Urine showed evidence of UTI Continue IV ceftriaxone Monitor urine cultures. Liver cancer, Cirrhosis, hepC -given concern for possible hepatic encephalopathy, placed consult to GI. -CT Abd again notes liver cancer MADELINE -in the setting of urinary retention -catheter placed in ED -creat 1.71 -hold lasix at this time End Stage CHF -Presently compensated, no shortness of breath -hold lasix given MADELINE -continue metoprolol -continue entresto -Monitor input and output, daily weight Hypotension -trend BP DM2 -hold home medications -ordered SSI COPD -prn albuterol FENa: Regular diet Code Status: DNR/DNI DVT PPX: heparin Case Management: from [facility] Dispo: PCU/tele (2) CHI (closed head injury): (3) History of liver cancer: (4) COPD (chronic obstructive pulmonary disease): (5) Chronic viral hepatitis C: (6) Type 2 diabetes mellitus without complications: (7) Hyperlipidemia, unspecified: (8) Essential (primary) hypertension: (9) AICD (automatic cardioverter/defibrillator) present: (10) CHF (congestive heart failure): (11) Diabetes: Admission and Anticipated Discharge Date Admission Date: October 24, 2023 Results & Data Results & Data Vital Signs (Past 12 Hours) Vital Signs Temp Pulse Pulse Resp BP Pulse Ox Pulse Ox 10/25/23 02:18 10/25/23 02:18 94 10/25/23 02:18 98.4 F 95 H 15 130/89 94 10/24/23 23:24 82 O2 Del Method O2 Del Method O2 Flow Rate O2 Flow Rate 10/25/23 02:18 Nasal Cannula 2 10/25/23 02:18 Nasal Cannula 2 10/25/23 02:18 Nasal Cannula 2 10/24/23 23:24 PG Care Time/CCT Total # of Minutes Spent Total Time Spent with Patient: Total time spent is greater than 50% in coordination of care (as documented) at patient's floor/unit and/or counseling patient: Coding Level of Care Code 62323 SUB INP/OBS CARE 2/35MIN Diagnoses AMS (altered mental status) R41.82 CHI (closed head injury) S09.90XA History of liver cancer Z85.05 COPD (chronic obstructive pulmonary disease) J44.9 Chronic viral hepatitis C B18.2 Type 2 diabetes mellitus without complications E11.9 Hyperlipidemia, unspecified E78.5 Essential (primary) hypertension I10 AICD (automatic cardioverter/defibrillator) present Z95.810 CHF (congestive heart failure) I50.9 Diabetes E11.9 Time Spent (min) 35
[2023-10-25] MEDS: PANTOprazole 40 MG in SYRINGE 0 ML IV SCH (12:04)
[2023-10-25 13:49] LABS: Appearance Synovial Fluid Bloody; Color Synovial Fluid Red; Mononuclear WBC Synovial 29.9 %; Polynuclear WBC Synovial 70.1 %; RBC Synovial Fluid Auto 2570000 /uL; Source Synovial Fluid Left Knee; WBC Synovial Fluid Auto 7450 /ul (0-200)
--- NOTE | 2023-10-25 13:52 | Orthopedic Consultation ---
Date of Consultation October 25, 2023 Assessment & Plan (1) Effusion of knee joint, left: 67-year-old male with left knee effusion -Ice/elevation -Pain control -Medical management -PT/OT -Left knee aspiration performed which yielded approximately 60 cc of bloody fluid. Synovial fluid was sent to the lab for analysis. Will follow aspirate results History of Present Illness Reason for Consultation: 67-year-old male with multiple medical comorbidities for admission to any Medical Center. Orthopedics was Asked to evaluate for left knee effusion. Notes that effusion has been present for quite some time he does not note any recent injuries or trauma. Does possibly think that he may have had surgery on his knee back in the 70s. Radiographs demonstrated severe osteoarthritis. Patient is wheelchair-bound at baseline. Attending Physician: Davida Pepe MD Allergies Allergy/AdvReac Type Severity Reaction Status Date / Time lisinopril AdvReac Intermediate cough Verified 10/24/23 16:58 OC SPRAY AdvReac CONTRAINDIC Uncoded 10/24/23 16:58 ATED Home Medications Medication Instructions Recorded Confirmed Type albuterol sulfate 90 mcg/actuation 2 puff inhalation QID PRN 01/12/22 10/24/23 History aerosol inhaler (Proventil HFA) shortness of breath or wheezing insulin glargine-yfgn 100 unit/mL 28 unit subcut DAILY 01/12/22 10/24/23 History subcutaneous solution (Semglee (insulin glargine-yfgn)) insulin regular human 100 unit/mL 1 sliding scale dose subcut 01/12/22 10/24/23 History injection solution (Novolin R USEASDIRECTD Regular U-100 Insulin) sacubitril 97 mg-valsartan 103 mg 1 tab PO BID 01/12/22 10/24/23 History tablet (Entresto) empagliflozin 10 mg tablet 10 mg PO DAILYBB 10/25/22 10/24/23 History (Jardiance) furosemide 20 mg tablet 20 mg PO BID 10/25/22 10/24/23 History nortriptyline 75 mg capsule 75 mg PO HS 10/25/22 10/24/23 History ciclesonide 160 mcg/actuation 1 puff inhalation BID 10/28/22 10/24/23 History aerosol inhaler (Alvesco) aspirin 81 mg tablet,delayed 81 mg PO DAILY 10/01/23 10/24/23 History release atorvastatin 40 mg tablet 40 mg PO DAILY 10/01/23 10/24/23 History dextromethorphan-guaifenesin 10 30 ml PO Q6 PRN Cough 10/01/23 10/24/23 History mg-100 mg/5 mL oral syrup gabapentin 800 mg tablet 800 mg PO TID 10/01/23 10/24/23 History hydroxyzine pamoate 50 mg capsule 100 mg PO HS 10/01/23 10/24/23 History lactulose 10 gram/15 mL oral 30 g PO DAILY PRN ABD DISTRESS 10/01/23 10/24/23 History solution metoprolol succinate 25 mg 25 mg PO DAILY 10/01/23 10/24/23 History tablet,extended release 24 hr min oil-shlomo davion-pet,w-cetyl al 1 ea topical BID PRN Dry Skin 10/01/23 10/24/23 History lotion (DermaDaily lotion) omeprazole 20 mg tablet,delayed 20 mg PO DAILY 10/01/23 10/24/23 History release tamsulosin 0.4 mg capsule (Flomax) 0.4 mg PO DAILY 10/01/23 10/24/23 History acetaminophen 500 mg tablet 500 mg PO QID PRN Unknown 10/24/23 10/24/23 History benzonatate 200 mg capsule 200 mg PO TID PRN cough and 10/24/23 10/24/23 History congestion loperamide 2 mg tablet 2 mg PO TID PRN Diarrhea 10/24/23 10/24/23 History ondansetron HCl 4 mg tablet 4 mg PO TID PRN Diarrhea 10/24/23 10/24/23 History Patient History Medical History CAD (coronary artery disease) CHF (congestive heart failure) Respiratory failure with hypoxia Acute on chronic HFrEF (heart failure with reduced ejection fraction) Ischemic cardiomyopathy Abnormal findings on diagnostic imaging of skull and head, not elsewhere classified Unspecified cirrhosis of liver Chronic obstructive pulmonary disease, unspecified Heart failure, unspecified Atherosclerotic heart disease of [place] coronary artery without angina pectoris Essential (primary) hypertension Neuropathy Opioid dependence with withdrawal Hyperlipidemia, unspecified Type 2 diabetes mellitus without complications Thrombocytopenia, unspecified Iron deficiency anemia, unspecified Unspecified malignant neoplasm of skin, unspecified Chronic viral hepatitis C COPD (chronic obstructive pulmonary disease) Opioid abuse, uncomplicated Surgical History AICD (automatic cardioverter/defibrillator) present Social History Smoking Status: Former smoker Tobacco Type: Cigarettes Do You Dip or Chew Tobacco: No; Hx Alcohol Use: No Hx Substance Use: No Preferred Language: Albanian Communication Ability: Effective Costume Mistress Required: No Beliefs That Will Affect Care: None Current Living Situation: Other Current Living Situation Comment: [facility] Feels Safe at Home: Yes Assistive Devices: Wheelchair Physical Exam Constitutional: Resting in bed, no acute distress Musculoskeletal: Left lower extremity -Large left knee suprapatellar effusion -There is crepitation with flexion exten lico. No significant pain with gentle range of motion extension to 90 degrees -No significant varus or valgus instabil ity. Several weeks - silt s/spn/dpn/t/s - fires ta/ehl/gsc + dp/pt Results & Data Vital Signs (Past 12 Hours) Vital Signs Temp Pulse Resp BP Pulse Ox Pulse Ox O2 Del Method 10/25/23 07:25 Nasal Cannula 10/25/23 07:25 96 10/25/23 07:25 36.8 C 85 20 156/97 H 98 Nasal Cannula 10/25/23 02:18 Nasal Cannula 10/25/23 02:18 94 10/25/23 02:18 36.9 C 95 H 15 130/89 94 Nasal Cannula O2 Del Method O2 Flow Rate O2 Flow Rate 10/25/23 07:25 2 10/25/23 07:25 Nasal Cannula 2 10/25/23 07:25 2 10/25/23 02:18 2 10/25/23 02:18 Nasal Cannula 2 10/25/23 02:18 2 Diagnostic Findings Left knee radiographs demonstrate tricompartmental osteoarthritis
--- NOTE | 2023-10-25 13:53 | Procedure Note ---
Procedure Note Date of Service October 25, 2023 Note Left knee aspiration -Risk benefits of left knee aspiration were discussed and the patient verbally consented to procedure. Left knee suprapatellar pouch laterally was prepped with alcohol solution. A needle was then inserted. Approximately 60 cc of bloody fluid was aspirated. A bandage was then placed. The patient tolerated the procedure well. Fluid was sent to lab for analysis. Coding
--- NOTE | 2023-10-25 14:00 | Communication Note ---
Date of Service: October 25, 2023 Aspiration shows 7450 nucleated cells with 70% neutrophils. This is consistent with an inflammatory effusion. No further orthopedic intervention at this time. We will follow-up cultures. Orthopedics will sign off.
[2023-10-25] MEDS: cefTRIAXone SODIUM 2,000 MG in DEXTROSE 5 % MINI-B 50 ML IV SCH (20:50)
[2023-10-25] MEDS: rifAXIMin 550 MG TABLET PO SCH (20:51)
[2023-10-25] MEDS: ALBUTEROL 0.083% NEBU SOLN 3 ML VIAL NEB PRN (21:25)
[2023-10-26] MEDS: BENZONATATE 100 MG CAPSULE PO PRN (04:44)
[2023-10-26 08:45] LABS: Hematocrit (blood only) 39.6 % (42.0-52.0); Hemoglobin 13.1 g/dl (14.0-18.0); Mean Corpuscular Hemoglobin 30.1 pg (25.0-34.0); Mean Corpuscular Hgb Conc 33.1 g/dL (32.0-36.0); Mean Platelet Volume 9.8 fL (9.4-12.4); Platelet Count 86 K/uL (130-400); RDW Coefficient of Variation 13.2 % (11.5-14.5); RDW Standard Deviation 43.7 fL (36.4-46.3); Red Blood Count 4.35 M/uL (4.70-6.10); White Blood Count 4.77 K/ul (4.8-10.8)
[2023-10-26 09:15] LABS: BUN Creatinine Ratio 27.9 (10-20); Calcium 8.7 mg/dl (8.6-10.3); Creatinine Clr Calc Pharmacy 103.8 ml/min; Est GFR (Non-African American) 89.7 ml/min; Potassium 4.4 mmol/L (3.5-5.1)
--- NOTE | 2023-10-26 12:27 | Discharge Summary ---
Date of Service October 26, 2023 Admission HPI Per Admitting Provider 67yo Male with PMH liver cancer on chemo, hep C, end stage CHF on home oxygen, COPD, DM2, HLD, HTN, osteoarthritis wheelchair bound here for altered mental status. Earlier today patient was transferring to toilet fell hit head on sink, came to ED was responsive at that time CT head negative for stroke, was sent back to [facility]. Later today patient was noted by staff to be unresponsive to voice incontinent of bowel and bladder, sent back to ED. In room patient responds to voice and sternal rub, does not completely open eyes, was able to make noises denying any ongoing pain, fell asleep within seconds. He was noted to be hypotensive on admission at 81/60, given 1.5L NSS. In ED straight cath removed over 1L urine. Given concern UTI, patient given a dose rocephin. Repeat head CT did not see hemorrhage. Principal Diagnosis Acute metabolic encephalopathy Discharge Exam The patient is awake, alert and oriented 3, well developed and well nourished, normocephalic and atraumatic, lying in bed and in no acute distress. HEENT--PERRL, EOMI, mucous membranes and oropharynx mildly dry Neck--supple. No JVD. No bruits. Thyroid normal, trachea midline, no adenopathy. Heart--normal S1 and S2. No murmurs, rubs or gallops. Lungs--clear bilaterally, no respiratory distress, no accessory muscle use. Abdomen--normal bowel sounds and soft. Extremities--no cyanosis or clubbing. No edema. Dermatologic--normal skin turgor, normal color, no abnormal lymph nodes, no rash. Neurologic--cranial nerves II through XII grossly intact. Rheumatologic--normal range of motion. Psychiatric--normal affect. Discharge Data Allergies Allergy/AdvReac Type Severity Reaction Status Date / Time lisinopril AdvReac Intermediate cough Verified 10/24/23 16:58 OC SPRAY AdvReac CONTRAINDIC Uncoded 10/24/23 16:58 ATED Consultations 10/24/23 18:37 ED Decision to Admit Stat 10/24/23 22:23 Consult Gastroenterology Routine 10/25/23 09:02 Consult Orthopedic Surgery Routine Ordered Studies 10/24/23 15:41 CT head/brain wo con Stat 10/24/23 15:50 CT Abd and Pelvis [CT abd pelvis wo con] Stat Hospital Course (1) AMS (altered mental status): 67yo Male with PMH liver cancer on chemo, hep C, end stage CHF on home oxygen, COPD, DM2, HLD, HTN, osteoarthritis wheelchair bound here for altered mental status. Acute encephalopathy: Now resolved Etiology is unclear, although patient has a history of liver cancer, low concern for hepatic encephalopathy, ammonia level was 29 CT scan of the head nothing acute pathology Received lactulose, continue rifaximin 550 mg twice daily per GI Left suprapatella joint effusion: Currently patient has had daily swollen left knee for a while X-ray showed evidence of suprapatellar joint effusion Knee was tapped with removal of about 70 cc of fluid which was mostly inflammatory in nature. No evidence of infection Discharge ibuprofen for pain control Acute UTI:-Urine showed evidence of UTI Continue IV ceftriaxone Monitor urine cultures. Liver cancer, Cirrhosis, hepC -given concern for possible hepatic encephalopathy, placed consult to GI. -CT Abd again notes liver cancer MADELINE -in the setting of urinary retention -catheter placed in ED -creat 1.71 -hold lasix at this time End Stage CHF -Presently compensated, no shortness of breath -hold lasix given MADELINE -continue metoprolol -continue entresto -Monitor input and output, daily weight Hypotension Resolved DM2 -hold home medications -ordered SSI COPD -prn albuterol FENa: Regular diet Code Status: DNR/DNI DVT PPX: heparin Case Management: from [facility] Dispo: PCU/tele (2) CHI (closed head injury): (3) History of liver cancer: (4) COPD (chronic obstructive pulmonary disease): (5) Chronic viral hepatitis C: (6) Type 2 diabetes mellitus without complications: (7) Hyperlipidemia, unspecified: (8) Essential (primary) hypertension: (9) AICD (automatic cardioverter/defibrillator) present: (10) CHF (congestive heart failure): (11) Diabetes: Total Time Total Time Spent Total Time Spent (In Minutes): 35 Discharge Plan Discharge Items [facility] Reason For Visit: ACUTE ONSET DELIRIUM Discharge Diagnosis: acute encephalopathy-resolved Activity: Resume your previous activity Non-emergency contact: Primary Care Provider Call non-emergency contact if: you have any medication questions Follow-up/Referrals: Gallito AGUIAR [Primary Care Provider] - Diet: Regular Addtl Attending Provider Instructions: please follow up with your PCP Pending Studies at Discharge: No Stand-Alone Forms: My [facility] [employer] Skilled Items Patient informed of condition?: Yes Discharge Level of Care: Other Communicable Disease: No Discharge Prognosis: Stable Lines: None Urinary Catheter: No Medications and DC Order Prescriptions: New Xifaxan 550 mg Tablet 550 mg PO BID 30 Days Qty: 60 0RF ibuprofen 600 mg tablet 600 mg PO Q8H PRN (Reason: pain) Qty: 20 0RF Continued Entresto 97-103 mg tablet 1 tab PO BID insulin glargine-yfgn [Semglee(insulin glargine-yfgn)] 100 unit/mL solution 28 unit subcut DAILY Novolin R Regular U100 Insulin 100 unit/mL solution 1 sliding scale dose subcut USEASDIRECTD Rx Instructions: 200-250=2units,251-300=4units,301-350=6units,351-400=8units,401-450=10units,451- 500=12units,>501 CALL MD NEEDED albuterol sulfate [Proventil HFA] 90 mcg/actuation HFA aerosol inhaler 2 puff inhalation QID PRN (Reason: shortness of breath or wheezing) Alvesco 160 mcg/actuation Hfa Aerosol Inhaler 1 puff INHALATION BID furosemide 20 mg Tablet 20 mg PO BID Jardiance 10 mg Tablet 10 mg PO DAILYBB nortriptyline 75 mg Capsule 75 mg PO HS Rx Instructions: CRUSH MEDICATION atorvastatin 40 mg Tablet 40 mg PO DAILY hydroxyzine pamoate 50 mg Capsule 100 mg PO HS dextromethorphan-guaifenesin 10-100 mg/5 mL Syrup 30 ml PO Q6 PRN (Reason: Cough) aspirin 81 mg Tablet,Delayed Release (Dr/Ec) 81 mg PO DAILY tamsulosin [Flomax] 0.4 mg Capsule 0.4 mg PO DAILY gabapentin 800 mg Tablet 800 mg PO TID metoprolol succinate 25 mg Tablet Extended Release 24 Hr 25 mg PO DAILY DermaDaily Lotion 1 ea TOPICAL BID PRN (Reason: Dry Skin) lactulose 10 gram/15 mL Solution 30 g PO DAILY PRN (Reason: ABD DISTRESS) omeprazole 20 mg Tablet,Delayed Release (Dr/Ec) 20 mg PO DAILY benzonatate 200 mg Capsule 200 mg PO TID PRN (Reason: cough and congestion) acetaminophen 500 mg Tablet 500 mg PO QID PRN (Reason: Unknown) ondansetron HCl 4 mg Tablet 4 mg PO TID PRN (Reason: Diarrhea) loperamide 2 mg Tablet 2 mg PO TID PRN (Reason: Diarrhea) Discharge Orders: Discharge Order (Routine); Ordered 10/26/23 Ordered By: Davida Pepe Admission Data Admit Date/Time: 10/24/23 18:47 Attending Provider: Davida Pepe Admit Provider: Jordana Porter Primary Care Provider: Gallito AGUIAR Other Providers: Moreno Greer; Enoc Seo; Qamar Mac Coding Level of Care Code 99758 INP/OBS DISCH >30 MIN Diagnoses AMS (altered mental status) R41.82 CHI (closed head injury) S09.90XA History of liver cancer Z85.05 COPD (chronic obstructive pulmonary disease) J44.9 Chronic viral hepatitis C B18.2 Type 2 diabetes mellitus without complications E11.9 Hyperlipidemia, unspecified E78.5 Essential (primary) hypertension I10 AICD (automatic cardioverter/defibrillator) present Z95.810 CHF (congestive heart failure) I50.9 Diabetes E11.9 Time Spent (min) 35
== END 2023-10-26 16:34 | DRG 682 ==
LOC: ED 15:12 → EDINP 18:47 → SUATTDRO 18:47 → 2S 10-25 15:28

== ENCOUNTER 2023-12-01 09:26 | Inpatient (IN) ==
--- NOTE | 2023-12-01 09:59 | Emergency Department Note ---
Impression & Plan Abscess, Immunocompromised, Failure of outpatient treatment, Cellulitis ED Provider Note NAME: AILYN MONTIEL AGE: 67 SEX: M : 1955 ARRIVES VIA: Walk-In INFORMANT: [Patient] ED PROVIDER(S): [Darren Kulkarni MD] CHIEF COMPLAINT: Wound HISTORY OF PRESENT ILLNESS: The patient is a 67-year-old male whose had a wound on the right thigh for 4, maybe 5 days. It began to leak some puslike material and was noted to become larger and larger. [facility] and the area was opened. He was placed on Levaquin. The wound is worsening, he feels weak and he thinks he has lost some time over the last 24 hours. He denies fever, cough or congestion. No chills. No rigors. As he was not improving, as he has liver cancer and is undergoing a type of chemotherapy, he was sent to the ER for evaluation. Last chemotherapy was last week. He receives therapy every 3 weeks. PMHx/PSHx/Social Hx: See Below PHYSICAL EXAM: GENERAL: Patient is in no acute distress. HEENT: No acute trauma, normocephalic atraumatic, mucous membranes moist, no nasal congestion. NECK: No stridor, no adenopathy, no meningismus, trachea is midline. LUNGS: Clear to auscultation bilaterally, no wheeze, no rhonchi, breath sounds equal. HEART: Without murmurs gallops or rubs, regular rate and rhythm. ABDOMEN: Soft, nontender, no peritonitis. EXTREMITIES: No cyanosis, full range of motion of all the joints without pain or difficulty. Patient has a 5 cm abscess in the area of the right mid lateral thigh. Purulent discharge is noted and was expressed. A culture was sent. There is surrounding erythema. The area is quite sore to touch. NEUROLOGIC: Oriented x 3, no acute motor or sensory deficits, no focal weakness. SKIN: No jaundice, no diaphoresis. Pale. DIFFERENTIAL DIAGNOSIS: Abscess, cellulitis, failed outpatient management, immunocompromise, anemia, electrolyte imbalance, necrotizing fasciitis, MRSA, among others. EMERGENCY DEPARTMENT PROCEDURES: MEDICAL DECISION MAKING: There is no leukocytosis. A mild anemia was seen. Platelet count was low, the lower platelet count has been noted before. There was no coagulopathy. There was some acute renal insufficiency with a creatinine of 1.65. No electrolyte abnormality in need of emergent correction. Lactic acid level was not elevated making severe sepsis less likely. Alk phos was elevated, the remaining liver enzymes were unremarkable. Procalcitonin level was not elevated making overwhelming bacterial infection less likely. CT of the thigh shows an infection to the right lateral thigh but there was no deep abscess or findings of necrotizing fasciitis. The patient had a sample of the drainage sent for analysis. The result is pending. Patient did receive IV vancomycin and IV Zosyn as antibiotic coverage. The patient was given 1 L of IV saline for hydration. The patient is immunocompromised. He has a wound on the right thigh that is worsening. I am concerned for MRSA. He has not done well outpatient. Hospitalization is indicated. IV antibiotics are indicated. I did speak with the patient and case management, the on-call hospitalist was consulted. Prior/Outside records/notes reviewed: [facility] notes describing his presentation and concerns for worsening infection. ECG per my interpretation: Indication was possible sepsis. The ECG shows a sinus rhythm with a first-degree AV block. There is a potential old septal infarct. There is an incomplete left bundle branch block. There is some nonspecific ST change. No ST elevation. No PVCs. The QTc is 497. Continuous Cardiac Monitoring per my interpretation: An order was placed for continuous cardiac monitoring. The monitor shows a rate of 63 with sinus rhythm with a further AV block. Imaging/x-ray results per my interpretation: Chronic Medical/Social conditions affecting care: Incarcerated. History of liver cancer undergoing chemotherapy. Care/Management discussed with: Case management, the on-call hospitalist. Level of care consideration(s): After review of the information above and other included data: --I believe the patient requires escalation of care to admission DISPOSITION: Admission Past Med/Surg History Medical History Effusion of knee joint, left CAD (coronary artery disease) CHF (congestive heart failure) Respiratory failure with hypoxia Acute on chronic HFrEF (heart failure with reduced ejection fraction) Ischemic cardiomyopathy Abnormal findings on diagnostic imaging of skull and head, not elsewhere classified Unspecified cirrhosis of liver Chronic obstructive pulmonary disease, unspecified Heart failure, unspecified Atherosclerotic heart disease of [place] coronary artery without angina pectoris Essential (primary) hypertension Neuropathy Opioid dependence with withdrawal Hyperlipidemia, unspecified Type 2 diabetes mellitus without complications Thrombocytopenia, unspecified Iron deficiency anemia, unspecified Unspecified malignant neoplasm of skin, unspecified Chronic viral hepatitis C COPD (chronic obstructive pulmonary disease) Opioid abuse, uncomplicated Surgical History AICD (automatic cardioverter/defibrillator) present Social History Smoking Status: Former smoker Tobacco Type: Cigarettes Do You Dip or Chew Tobacco: No; Hx Alcohol Use: No Hx Substance Use: No Preferred Language: Greek Communication Ability: Effective Cytology Technologist Required: No Beliefs That Will Affect Care: None Current Living Situation: Other Current Living Situation Comment: [facility] Feels Safe at Home: Yes Safety Concerns: Feels Safe At This Time Assistive Devices: Oxygen - Continuous and Wheelchair Allergies Allergies Allergy/AdvReac Type Severity Reaction Status Date / Time lisinopril AdvReac Intermediate cough Verified 12/01/23 13:35 OC SPRAY AdvReac CONTRAINDIC Uncoded 12/01/23 13:35 ATED Home Meds Home Medications Medication Instructions Recorded Confirmed albuterol sulfate 90 mcg/actuation 2 puff inhalation QID PRN 01/12/22 12/01/23 aerosol inhaler (Proventil HFA) shortness of breath or wheezing insulin glargine-yfgn 100 unit/mL 28 unit subcut DAILY 01/12/22 12/01/23 subcutaneous solution (Semglee (insulin glargine-yfgn)) insulin regular human 100 unit/mL 1 sliding scale dose subcut 01/12/22 12/01/23 injection solution (Novolin R USEASDIRECTD Regular U-100 Insulin) sacubitril 97 mg-valsartan 103 mg 1 tab PO BID 01/12/22 12/01/23 tablet (Entresto) empagliflozin 10 mg tablet 10 mg PO DAILYBB 10/25/22 12/01/23 (Jardiance) furosemide 20 mg tablet 20 mg PO BID 10/25/22 12/01/23 nortriptyline 75 mg capsule 75 mg PO HS 10/25/22 12/01/23 ciclesonide 160 mcg/actuation 1 puff inhalation BID 10/28/22 12/01/23 aerosol inhaler (Alvesco) aspirin 81 mg tablet,delayed 81 mg PO DAILY 10/01/23 12/01/23 release atorvastatin 40 mg tablet 40 mg PO DAILY 10/01/23 12/01/23 dextromethorphan-guaifenesin 10 30 ml PO Q6 PRN Cough 10/01/23 12/01/23 mg-100 mg/5 mL oral syrup gabapentin 800 mg tablet 800 mg PO TID 10/01/23 12/01/23 hydroxyzine pamoate 50 mg capsule 100 mg PO HS 10/01/23 12/01/23 lactulose 10 gram/15 mL oral 20 g PO DAILY PRN ABD DISTRESS 10/01/23 12/01/23 solution metoprolol succinate 25 mg 25 mg PO DAILY 10/01/23 12/01/23 tablet,extended release 24 hr omeprazole 20 mg tablet,delayed See Rx Instructions .Route .COMPLEX 10/01/23 12/01/23 release tamsulosin 0.4 mg capsule (Flomax) 0.4 mg PO DAILY 10/01/23 12/01/23 acetaminophen 500 mg tablet 500 mg PO QID PRN pain or fever 10/24/23 12/01/23 benzonatate 200 mg capsule 200 mg PO TID PRN cough and 10/24/23 12/01/23 congestion ondansetron HCl 4 mg tablet 8 mg PO TID PRN Nausea And Vomiting 10/24/23 12/01/23 icrebhss-eiswyhuhq-anddmzls oral 30 ml PO DAILY PRN epigastric pain 12/01/23 12/01/23 suspension emollient 1 ea topical BID PRN Unknown 12/01/23 12/01/23 ibuprofen 600 mg tablet 600 mg PO BID PRN pain 12/01/23 12/01/23 levofloxacin 500 mg tablet 500 mg PO DAILY 12/01/23 12/01/23 triamcinolone acetonide-l.s.b. 0.1 1 ea topical BID rash on right knee 12/01/23 12/01/23 % topical ointment Results & Data (ED) Vital Signs Vital Signs - 24 hr 12/01/23 09:27 12/01/23 09:32 12/01/23 09:51 Temperature 36.9 C Temperature Source Temporal Artery Scan Pulse Rate 82 63 Respiratory Rate 14 18 Blood Pressure 109/61 Blood Pressure Mean 77 Pulse Oximetry 96 96 96 Oxygen Delivery Method Room Air Room Air Sepsis New/Unexplained Change in Mental Status No Sepsis Action Taken by Nursing No Action Required Home Medications Current Medication List: was personally reviewed by me Laboratory Data Attestation: I reviewed the patient's lab results. 12/01/23 10:26 12/01/23 10:26 Lab Results 12/01/23 12/01/23 Range/Units 10:26 10:53 WBC 4.80 (4.8-10.8) K/ul RBC 3.67 L (4.70-6.10) M/uL Hgb 11.0 L (14.0-18.0) g/dl Hct 34.7 L (42.0-52.0) % MCV 94.6 (80.0-100.0) fL MCH 30.0 (25.0-34.0) pg MCHC 31.7 L (32.0-36.0) g/dL RDW Std Deviation 50.4 H (36.4-46.3) fL RDW Coeff of [place] 14.6 H (11.5-14.5) % Plt Count 89 L (130-400) K/uL MPV 9.2 L (9.4-12.4) fL Immature Gran % (Auto) 0.4 % Neut % (Auto) 64.2 % Lymph % (Auto) 22.1 % [place] % (Auto) 10.0 % Eos % (Auto) 2.9 % Baso % (Auto) 0.4 % Neut # (Auto) 3.08 (1.40-6.50) K/uL Lymph # (Auto) 1.06 L (1.20-3.40) K/uL [place] # (Auto) 0.48 (0.11-0.59) K/uL Eos # (Auto) 0.14 (0.00-0.50) K/uL Baso # (Auto) 0.02 (0.00-0.20) K/uL Immature Gran # (Auto) 0.02 (0.01-0.20) K/uL PT 11.6 (9.0-12.0) Seconds INR 1.1 (0.9-1.1) APTT 31 (21-31) Seconds PTT Ratio 1.1 Sodium 136 (136-145) mmol/L Potassium 4.4 (3.5-5.1) mmol/L Chloride 102 (98-107) mmol/L Carbon Dioxide 27 (21-32) mmol/L Anion Gap 7 (3-11) BUN 45 H (6-23) mg/dl Creatinine 1.65 H (0.6-1.4) mg/dl Est Cr Clr Drug Dosing 49.1 ml/min Est GFR ( Amer) 49.1 ml/min Est GFR (Non-Af Amer) 42.3 ml/min BUN/Creatinine Ratio 27.3 H (10-20) Glucose 64 L (70-99(Fasting)) mg/dl Lactate 0.6 (0.4-2.0) mmol/L Calcium 8.8 (8.6-10.3) mg/dl Magnesium 2.2 (1.7-2.4) mg/dl Total Bilirubin 0.7 (0.2-1.0) mg/dl AST 25 (13-39) U/L ALT 15 (7-52) U/L Alkaline Phosphatase 149 H (34-104) U/L Total Protein 6.9 (6.0-8.3) gm/dl Albumin 3.2 L (3.4-5.0) gm/dl Globulin 3.7 (2.5-4.0) gm/dl Albumin/Globulin Ratio 0.9 (0.9-2) Procalcitonin 0.09 (0-0.5) ng/ml Administered Medications Piperacillin Sod/Tazobactam (Sod 4.5 gm/ Dextrose) 100 mls @ 25 mls/hr IV Q8H ALFREDO; Protocol Stop: 12/08/23 15:59 Last Admin: 12/01/23 16:46 Dose: 25 mls/hr Documented By: PK Discontinued Medications Sodium Chloride (Nss) 1,000 mls @ 999 mls/hr IV .Q1H1M ALFREDO Stop: 12/01/23 11:00 Last Infusion: 12/01/23 12:17 Dose: Infused Documented By: Admin: 12/01/23 10:33 Dose: 999 mls/hr Documented By: MARIANO Piperacillin Sod/Tazobactam Sod (Zosyn) 4.5 gm in 120 mls @ 240 mls/hr IV NOW ONE Stop: 12/01/23 10:20 Last Infusion: 12/01/23 11:04 Dose: Infused Documented By: Admin: 12/01/23 10:33 Dose: 240 mls/hr Documented By: MARIANO Vancomycin HCl 2,000 mg/ (Sodium Chloride) 540 mls @ 200 mls/hr IV NOW STA Stop: 12/01/23 12:44 Last Infusion: 12/01/23 13:36 Dose: Infused Documented By: Admin: 12/01/23 10:34 Dose: 200 mls/hr Documented By: MARIANO Ioversol (Optiray 320 100ml) 93 ml IV ONCE ONE Stop: 12/01/23 11:30 Last Admin: 12/01/23 11:30 Dose: 93 ml Documented By: EDK Imaging Data Radiologist's Impression: Femur CT 12/01/23 09:51 CT SCAN OF THE RIGHT FEMUR WITH IV CONTRAST CLINICAL HISTORY: Abscess. COMPARISON STUDY: No priors. TECHNIQUE: CT scan of the right femur is performed from the bony pelvis to the knee following the IV administration of 93 mL of Optiray 320. Images are reviewed in the axial, sagittal, and coronal planes. IV contrast was administered without complication. A dose lowering technique was utilized adhering to the principles of ALARA. Note that interpretation is suboptimal without plain film correlate. CT DOSE: 729.63 mGy.cm FINDINGS: The skeletal structures are osteopenic. There is no evidence of acute fracture involving the right femur or the visualized right hemipelvis. No lytic or blastic lesion is seen. No bony erosion is identified. The right hip and knee joints appear maintained noting degenerative change. There is a small knee joint effusion. There is atherosclerotic calcification of the right femoral artery, which remains patent. There is mild generalized atrophy of the regional musculature. Mild soft tissue edema is seen within the lateral aspect of the mid-thigh with trace subcutaneous fluid and normal thickening. No organized/drainable fluid collection is seen to suggest abscess. The prostate gland is enlarged and heterogeneous. The bladder is distended, and the wall appears thickened/trabeculated indicating chronic outlet obstruction. No right pelvic sidewall or inguinal lymphadenopathy is seen. Trace free-fluid is noted in the pelvis. Postsurgical change is seen in the left proximal femur on the pollution control technician tomogram. IMPRESSION: 1. No acute bony abnormality is seen involving the right femur. 2. There is mild edema and subcutaneous fluid seen in the soft tissues of the lateral mid-thigh. No organized/drainable fluid collection is identified to indicate abscess. 3. Trace nonspecific free-fluid is seen in the pelvis. ACT 112: Negative or not required by law. Dictated: 12/01/2023 11:35 AM Transcribed: 12/01/2023 11:45 AM Kimani [id number] [email or web address] Electronically signed by: Darren Thompson M.D. 12/01/2023 11:53 AM Discharge Plan Visit Data Chief Complaint: Wound Stated Complaint: WOUND, MEDICATION NOT WORKING, INCREASED PAIN ED Provider: Darren Kulkarni Discharge Problem: Abscess, Immunocompromised, Failure of outpatient treatment, Cellulitis Patient Disposition: Admitted As Inpatient Condition: Fair Discharge Instructions Interventions: ED Discharge Assessment Last Done: 12/01/23 12:56 Discharge Problem: Cellulitis Qualifiers: Site of cellulitis: extremity Site of cellulitis of extremity: lower extremity Laterality: right Qualified Code(s): L03.115 - Cellulitis of right lower limb
[2023-12-01] MEDS: PIPERACILLIN/TAZOBACTAM 4.5 GM/120 ML BAG IV ONE (10:33)
[2023-12-01] MEDS: SODIUM CHLORIDE 0.9% 1,000 ML IV SCH (10:33)
[2023-12-01] MEDS: VANCOMYCIN HCL 2,000 MG in SODIUM CHLORIDE 0.9% 500 ML IV STA (10:34)
[2023-12-01 10:44] LABS: Basophils # (auto) 0.02 K/uL (0.00-0.20); Basophils % (auto) 0.4 %; Eosinophils # (auto) 0.14 K/uL (0.00-0.50); Eosinophils % (auto) 2.9 %; Hematocrit (blood only) 34.7 % (42.0-52.0); Immature Granulocytes # (auto) 0.02 K/uL (0.01-0.20); Immature Granulocytes % (auto) 0.4 %; Lymphocytes # (auto) 1.06 K/uL (1.20-3.40); Lymphocytes % (auto) 22.1 %; Mean Corpuscular Hgb Conc 31.7 g/dL (32.0-36.0); Mean Corpuscular Volume 94.6 fL (80.0-100.0); Mean Platelet Volume 9.2 fL (9.4-12.4); Monocytes # (auto) 0.48 K/uL (0.11-0.59); Neutrophils # (auto) 3.08 K/uL (1.40-6.50); Neutrophils % (auto) 64.2 %; Platelet Count 89 K/uL (130-400); RDW Coefficient of Variation 14.6 % (11.5-14.5); RDW Standard Deviation 50.4 fL (36.4-46.3); Red Blood Count 3.67 M/uL (4.70-6.10)
[2023-12-01 11:01] LABS: Albumin Globulin Ratio 0.9 (0.9-2); Albumin Level 3.2 gm/dl (3.4-5.0); BUN Creatinine Ratio 27.3 (10-20); Bilirubin,Total 0.7 mg/dl (0.2-1.0); Calcium 8.8 mg/dl (8.6-10.3); Creatinine Clr Calc Pharmacy 49.1 ml/min; Est GFR (African American) 49.1 ml/min; Est GFR (Non-African American) 42.3 ml/min; Globulin 3.7 gm/dl (2.5-4.0); Magnesium 2.2 mg/dl (1.7-2.4); Potassium 4.4 mmol/L (3.5-5.1); Total Protein 6.9 gm/dl (6.0-8.3)
[2023-12-01 11:13] LABS: INR 1.1 (0.9-1.1); Partial Thromboplastin Ratio 1.1; Partial Thromboplastin Time 31 Seconds (21-31); Prothrombin Time 11.6 Seconds (9.0-12.0)
[2023-12-01] MEDS: OPTIRAY 320 100ml IV ONE (11:30)
--- NOTE | 2023-12-01 11:54 | CT Scan Report ---
CT SCAN OF THE RIGHT FEMUR WITH IV CONTRAST CLINICAL HISTORY: Abscess. COMPARISON STUDY: No priors. TECHNIQUE: CT scan of the right femur is performed from the bony pelvis to the knee following the IV administration of 93 mL of Optiray 320. Images are reviewed in the axial, sagittal, and coronal plane s. IV contrast was administered without complication. A dose lowering technique was utilized adhering to the principles of ALARA. Note that interpretation is suboptimal without plain film correlate. CT DOSE: 729.63 mGy.cm FINDINGS: The skeletal structures are osteopenic. There is no evidence of acute fracture involving th e right femur or the visualized right hemipelvis. No lytic or blastic lesion is seen. No bony erosion is identified. The right hip and knee joints appear maintained noting degenerative change. There is a small knee joint effusion. There is atherosclerotic calcification of the right femoral artery, whic h remains patent. There is mild generalized atrophy of the regional musculature. Mild soft tissue faby ma is seen within the lateral aspect of the mid-thigh with trace subcutaneous fluid and normal thicke dee dee. No organized/drainable fluid collection is seen to suggest abscess. The prostate gland is enlar ged and heterogeneous. The bladder is distended, and the wall appears thickened/trabeculated indicati ng chronic outlet obstruction. No right pelvic sidewall or inguinal lymphadenopathy is seen. Trace fr ee-fluid is noted in the pelvis. Postsurgical change is seen in the left proximal femur on the dental technologist tomogram. IMPRESSION: 1. No acute bony abnormality is seen involving the right femur. 2. There is mild edema and subcutaneous fluid seen in the soft tissues of the lateral mid-thigh. No o rganized/drainable fluid collection is identified to indicate abscess. 3. Trace nonspecific free-fluid is seen in the pelvis. ACT 112: Negative or not required by law. Dictated: 12/01/2023 11:35 AM Transcribed: 12/01/2023 11:45 AM Kimani [id number] [email or web address] Electronically signed by: Darren Thompson M.D. 12/01/2023 11:53 AM
--- NOTE | 2023-12-01 12:11 | History & Physical Report ---
Date of Service December 01, 2023 Assessment & Plan (1) Leg abscess: Plan: With surrounding cellulitis, picture taken in H&P exam, failure of outpatient levofloxacin Follow up blood and wound cultures Immunosuppressed on chemotherapy with liver cancer therefore will treat with broad spectrum antibiotics vancomycin/Zosyn Most likely MRSA given abscess formation (2) MADELINE (acute kidney injury): Plan: Recent urinary retention in Sep, bladder scan post void residual ordered Suspect mainly just hypovolemic in setting of ongoing Entresto/diuretics with recent adjustment and significant weight loss (suspect cancer related) Recent admission in September all his diuretics, Entresto and metoprolol were held for multiple days but no adjustments made on discharge. CXR ordered for baseline assessment of pulmonary edema Pending bladder scan and serial BP measurements throughout the day will reduce/hold Entresto/furosemide (3) BPH (benign prostatic hyperplasia): Plan: Worsening symptoms on review of symptoms Bladder scan as above to assess for urinary retention Continue tamsulosin 0.4mg PO daily (4) Type 2 diabetes mellitus without complications: Plan: Hemoglobin A1C 5.8 in 2022, repeat with AM labs ?over treated with weight loss since glucose 64, Lantus 28 units and Jardiance He did not require any insulin last admission with adequate glucose control Lantus 0 units if glucose < 120, 10 units if glucose >=120 NovoLog: --Goal BSG Range: Low 110 mg/dL, High 140 mg/dL --Correction Factor: 45 mg/dL/unit --Carbohydrate ratio = 15 g/unit --BSGs ACHS if eating, q6h if npo Suspect will need insulin decreased or stopped on discharge (5) COPD (chronic obstructive pulmonary disease): Plan: Continue routine inhalers (6) Neuropathy: Plan: Reduce gabapentin to 300mg PO TID per renal dosing (7) Ischemic cardiomyopathy: Plan: Continue metoprolol succinate Entresto as above (8) CHF (congestive heart failure): Plan: Currently appears hypovolemic Holding furosemide Monitor for worsening respiratory status (9) Liver cancer: Plan: Three week cycle of bevacizumab, atezolizumab - recommend holding ongoing immunotherapy until wound is healed (10) Unspecified cirrhosis of liver: Plan: Monitor for hepatic encephalopathy as this was thought to atleast contribute towards his presentation in September although he no longer appears to be on rifaximin (11) Failure of outpatient treatment: (12) Cellulitis: (13) Immunocompromised: Plan VTE Prophylaxis - heparin 5000 units SQ BID (hold if Plt < 50) Diet - T2DM, low na, heart healthy Disposition - admit to PCU Admission and Anticipated Discharge Date Admission Date: December 01, 2023 History of Present Illness Chief Complaint: Right leg wound Primary Care Provider: [facility] Eligio Carey is a 67 year old male with metastatic liver cancer on immunotherapy (bevacizumab, atezolizumab) who presents to the ER with right leg abscess. He reports ongoing for the last 5 days although on review of notes from [facility] he was started on Levaquin on November 25. The abscess became larger and he underwent incision and drainage on November 28 although no culture was recorded as sent at this time. No fever or chills. Due to increased purulent drainage, increasing size of area and immunocompromised state he was sent to the ER for evaluation. Allergies Allergy/AdvReac Type Severity Reaction Status Date / Time lisinopril AdvReac Intermediate cough Verified 12/01/23 13:35 OC SPRAY AdvReac CONTRAINDIC Uncoded 12/01/23 13:35 ATED Home Medications Medication Instructions Recorded Confirmed Type albuterol sulfate 90 mcg/actuation 2 puff inhalation QID PRN 01/12/22 12/01/23 History aerosol inhaler (Proventil HFA) shortness of breath or wheezing insulin glargine-yfgn 100 unit/mL 28 unit subcut DAILY 01/12/22 12/01/23 History subcutaneous solution (Semglee (insulin glargine-yfgn)) insulin regular human 100 unit/mL 1 sliding scale dose subcut 01/12/22 12/01/23 History injection solution (Novolin R USEASDIRECTD Regular U-100 Insulin) sacubitril 97 mg-valsartan 103 mg 1 tab PO BID 01/12/22 12/01/23 History tablet (Entresto) empagliflozin 10 mg tablet 10 mg PO DAILYBB 10/25/22 12/01/23 History (Jardiance) furosemide 20 mg tablet 20 mg PO BID 10/25/22 12/01/23 History nortriptyline 75 mg capsule 75 mg PO HS 10/25/22 12/01/23 History ciclesonide 160 mcg/actuation 1 puff inhalation BID 10/28/22 12/01/23 History aerosol inhaler (Alvesco) aspirin 81 mg tablet,delayed 81 mg PO DAILY 10/01/23 12/01/23 History release atorvastatin 40 mg tablet 40 mg PO DAILY 10/01/23 12/01/23 History dextromethorphan-guaifenesin 10 30 ml PO Q6 PRN Cough 10/01/23 12/01/23 History mg-100 mg/5 mL oral syrup gabapentin 800 mg tablet 800 mg PO TID 10/01/23 12/01/23 History hydroxyzine pamoate 50 mg capsule 100 mg PO HS 10/01/23 12/01/23 History lactulose 10 gram/15 mL oral 20 g PO DAILY PRN ABD DISTRESS 10/01/23 12/01/23 History solution metoprolol succinate 25 mg 25 mg PO DAILY 10/01/23 12/01/23 History tablet,extended release 24 hr omeprazole 20 mg tablet,delayed See Rx Instructions .Route .COMPLEX 10/01/23 12/01/23 History release tamsulosin 0.4 mg capsule (Flomax) 0.4 mg PO DAILY 10/01/23 12/01/23 History acetaminophen 500 mg tablet 500 mg PO QID PRN pain or fever 10/24/23 12/01/23 History benzonatate 200 mg capsule 200 mg PO TID PRN cough and 10/24/23 12/01/23 History congestion ondansetron HCl 4 mg tablet 8 mg PO TID PRN Nausea And Vomiting 10/24/23 12/01/23 History svphaxyy-wnulslstp-bnolyxfk oral 30 ml PO DAILY PRN epigastric pain 12/01/23 12/01/23 History suspension emollient 1 ea topical BID PRN Unknown 12/01/23 12/01/23 History ibuprofen 600 mg tablet 600 mg PO BID PRN pain 12/01/23 12/01/23 History levofloxacin 500 mg tablet 500 mg PO DAILY 12/01/23 12/01/23 History triamcinolone acetonide-l.s.b. 0.1 1 ea topical BID rash on right knee 12/01/23 12/01/23 History % topical ointment Past Med/Surg History Medical History (Updated 12/02/23 @ 00:00 by Moreno Greer MD) BPH (benign prostatic hyperplasia) Effusion of knee joint, left CAD (coronary artery disease) CHF (congestive heart failure) Respiratory failure with hypoxia Acute on chronic HFrEF (heart failure with reduced ejection fraction) Ischemic cardiomyopathy Abnormal findings on diagnostic imaging of skull and head, not elsewhere classified Unspecified cirrhosis of liver Chronic obstructive pulmonary disease, unspecified Heart failure, unspecified Atherosclerotic heart disease of [place] coronary artery without angina pectoris Essential (primary) hypertension Neuropathy Opioid dependence with withdrawal Hyperlipidemia, unspecified Type 2 diabetes mellitus without complications Thrombocytopenia, unspecified Iron deficiency anemia, unspecified Unspecified malignant neoplasm of skin, unspecified Chronic viral hepatitis C COPD (chronic obstructive pulmonary disease) Opioid abuse, uncomplicated Surgical History (Updated 11/01/23 @ 00:07 by Amanda Stokes) AICD (automatic cardioverter/defibrillator) present Social History Smoking Status: Former smoker Tobacco Type: Cigarettes Do You Dip or Chew Tobacco: No; Hx Alcohol Use: No Hx Substance Use: No Preferred Language: Cypriot Communication Ability: Effective Obstetrical Tech Required: No Beliefs That Will Affect Care: None Current Living Situation: Other Current Living Situation Comment: [facility] Feels Safe at Home: Yes Safety Concerns: Feels Safe At This Time Assistive Devices: Oxygen - Continuous and Wheelchair Review of Systems 2 Review of Systems: All systems reviewed & are unremarkable except as noted in HPI & below Difficulty urinating, dysuria for 2 days Physical Exam 2 Constitutional: well developed; + not well nourished and no acute distress Eyes: PERRL, conjunctivae normal, anicteric sclerae ENMT: Mouth: + dry oral mucous membranes Respiratory: normal respiratory effort, lungs clear to auscultation Cardiovascular: Rate/Rhythm: regular rate and regular rhythm Heart Sounds: no murmur Extremities: normal capillary refill; no calf tenderness and no pedal edema Gastrointestinal (Abdomen): Inspection/Auscultation: + abdomen distended P ercussion/Palpation: + abdomen tender (suprapubic) and abdomen soft; no guarding and abdomen not rigid Skin: Psychiatric: A+Ox3, euthymic affect Results & Data Results & Data Vital Signs (Past 12 Hours) Vital Signs Temp Pulse Resp BP Pulse Ox O2 Del Method 12/01/23 09:51 63 18 96 Room Air 12/01/23 09:32 36.9 C 82 14 109/61 96 Room Air 12/01/23 09:27 96 Laboratory Results Abnormal lab results 12/01/23 Range/Units 10:26 RBC 3.67 L (4.70-6.10) M/uL Hgb 11.0 L (14.0-18.0) g/dl Hct 34.7 L (42.0-52.0) % MCHC 31.7 L (32.0-36.0) g/dL RDW Std Deviation 50.4 H (36.4-46.3) fL RDW Coeff of [place] 14.6 H (11.5-14.5) % Plt Count 89 L (130-400) K/uL MPV 9.2 L (9.4-12.4) fL Lymph # (Auto) 1.06 L (1.20-3.40) K/uL BUN 45 H (6-23) mg/dl Creatinine 1.65 H (0.6-1.4) mg/dl BUN/Creatinine Ratio 27.3 H (10-20) Glucose 64 L (70-99(Fasting)) mg/dl Alkaline Phosphatase 149 H (34-104) U/L Albumin 3.2 L (3.4-5.0) gm/dl Diagnostic Findings CT SCAN OF THE RIGHT FEMUR WITH IV CONTRAST CLINICAL HISTORY: Abscess. COMPARISON STUDY: No priors. TECHNIQUE: CT scan of the right femur is performed from the bony pelvis to the knee following the IV administration of 93 mL of Optiray 320. Images are reviewed in the axial, sagittal, and coronal planes. IV contrast was administered without complication. A dose lowering technique was utilized adhering to the principles of ALARA. Note that interpretation is suboptimal without plain film correlate. CT DOSE: 729.63 mGy.cm FINDINGS: The skeletal structures are osteopenic. There is no evidence of acute fracture involving the right femur or the visualized right hemipelvis. No lytic or blastic lesion is seen. No bony erosion is identified. The right hip and knee joints appear maintained noting degenerative change. There is a small knee joint effusion. There is atherosclerotic calcification of the right femoral artery, which remains patent. There is mild generalized atrophy of the regional musculature. Mild soft tissue edema is seen within the lateral aspect of the mid-thigh with trace subcutaneous fluid and normal thickening. No organized/drainable fluid collection is seen to suggest abscess. The prostate gland is enlarged and heterogeneous. The bladder is distended, and the wall appears thickened/trabeculated indicating chronic outlet obstruction. No right pelvic sidewall or inguinal lymphadenopathy is seen. Trace free-fluid is noted in the pelvis. Postsurgical change is seen in the left proximal femur on the facing machine operator tomogram. IMPRESSION: 1. No acute bony abnormality is seen involving the right femur. 2. There is mild edema and subcutaneous fluid seen in the soft tissues of the lateral mid-thigh. No organized/drainable fluid collection is identified to indicate abscess. 3. Trace nonspecific free-fluid is seen in the pelvis. Medications Administered ER Medications Given: Vancomycin 2000mg IV Normal saline 1000ml bolus Zosyn 4.5g IV ECG Rate (beats per minute): 77 Rhythm: normal sinus Findings: no PVC or no acute ischemic change Comparison ECG Date: from (October 24, 2023) Change: no significant change Code Status & VTE Plan Code Status DNR All other treatment outside of a cardiac arrest VTE Prophylaxis Plan VTE Prophylaxis will be ordered: Yes PG Care Time/CCT Total # of Minutes Spent Total Time Spent with Patient: Total time spent is greater than 50% in coordination of care (as documented) at patient's floor/unit and/or counseling patient: Coding Level of Care Code 56666 INT INP/OBS CARE 3/75MIN Diagnoses Leg abscess L02.419 MADELINE (acute kidney injury) N17.9 BPH (benign prostatic hyperplasia) N40.0 Type 2 diabetes mellitus without complications E11.9 COPD (chronic obstructive pulmonary disease) J44.9 Neuropathy G62.9 Ischemic cardiomyopathy I25.5 CHF (congestive heart failure) I50.9 Liver cancer C22.9 Unspecified cirrhosis of liver K74.60 Failure of outpatient treatment Z78.9 Cellulitis L03.115 Laterality: right Site of cellulitis: extremity Site of cellulitis of extremity: lower extremity Immunocompromised D84.9 (12) Cellulitis Laterality: right Site of cellulitis: extremity Site of cellulitis of extremity: lower extremity Qualified Code(s): L03.115 - Cellulitis of right lower limb
[2023-12-01] MEDS ORDERED: ACETAMINOPHEN 325 MG TAB PO PRN (13:06)
[2023-12-01] MEDS ORDERED: VANCOMYCIN CONSULT ACTIVE PRN (14:09)
--- NOTE | 2023-12-01 14:35 | Pharmacy Report ---
Pharmacy PK ABX Note - Date of Service December 01, 2023 - Assessment and Plan Assessment * 67 year old M receiving VANCOMYCIN + ZOSYN for treatment of SSTI (right thigh abscess). Per provider's note, [facility] Lev[facility], however had worsening of infection. * Pertinent microbiologic data includes: Cx of drainage from R thigh pending, BLCX's pending, procal 0.09 * MADELINE present on initial labs. PMH noted to include liver cirrhosis, liver cancer and chemotherapy Plan Vancomycin * Loading dose: 2000 mg IV x 1 * Maintenance dose: 1250 mg IV every 24 hours * Regimen is predicted to achieve target AUC/SURINDER of 400-600 mg/L.hr * Will check level in 48 hrs Pharmacy will continue to follow and will adjust dose/frequency as necessary. Thank you. Pharmacy has transitioned to AUC monitoring for vancomycin. AUC/SURINDER is the preferred PK/PD target and is associated with decreased risk of nephrotoxicity compared to traditional trough targets.
[2023-12-01] MEDS ORDERED: GLUCAGON FOR INJ 1 MG VIAL SQ PRN (16:00)
[2023-12-01] MEDS ORDERED: GLUCOSE 10 TAB/TUBE PO PRN (16:00)
[2023-12-01] MEDS ORDERED: GLUCOSE 40% GEL 15 GM TUBE PO PRN (16:00)
[2023-12-01] MEDS ORDERED: DEXTROSE 50% 50 ML SYRINGE IV PRN (16:00)
[2023-12-01] MEDS ORDERED: CARBOHYDRATES FOR HYPOGLYCEMIA PO PRN (16:00)
[2023-12-01] MEDS: PIPERACILLIN/TAZOBACTAM 4.5 GM in DEXTROSE 5% MINI-B 100 ML IV SCH (16:46)
[2023-12-01 17:21] LABS: Appearance Urine Cloudy (Clear); Bacteria Urine Automated 2+ (Negative); Bilirubin Urine Negative (Negative); Blood Urine Trace (Negative); Cast Urine Automated 0 /lpf (0-5); Color Urine Yellow; Epithelial Cell Urine Auto 0-5 /lpf (0-5); Glucose Urine UA 2+ (Negative); Ketones Urine Negative (Negative); Leukocyte Esterase Urine 3+ (Negative); Nitrite Urine Positive (Negative); Protein Urine Trace (Negative); RBC Urine Automated 0-4 /hpf (0-4); Specific Gravity Urine 1.016 (1.000-1.030); Urobilinogen Urine Negative (Negative); WBC Urine Automated >30 /hpf (0-5)
[2023-12-01] MEDS: INSULIN ASPART PER UNIT CHARGE SC SCH (17:29)
--- NOTE | 2023-12-01 17:41 | XRay Report ---
XR chest 1V portable HISTORY: 67 years-old Male CHF acute shortness of breath COMPARISON: 10/24/2023 TECHNIQUE: AP view of the chest FINDINGS: Cardiac silhouette is enlarged. Left subclavian pacer/AICD again noted. Unchanged positioning of the right IJ Tsudgg-e-Ckin catheter. Emphysema. Chronic interstitial coarsening. No pneumothorax, pleural effusion or overt pulmonary edema. Degenerative changes of the shoulders and spine. IMPRESSION: Emphysema without acute process of the chest. ACT 112: Negative or not required by law. The above report was generated using voice recognition software. It may contain grammatical, syntax o r spelling errors. Electronically signed by: Qamar Swenson M.D. 12/01/2023 5:40 PM
[2023-12-01] MEDS: LANTUS PER UNIT CHARGE SC SCH (20:43)
[2023-12-01] MEDS: NORTRIPTYLINE HCL 25 MG CAP PO SCH (20:53)
[2023-12-01] MEDS: VALSARTAN/SACUBITRIL 103/97MG TAB PO SCH (20:54)
[2023-12-01] MEDS: PANTOprazole 40 MG TAB PO SCH (20:54)
[2023-12-01] MEDS: hydrOXYzine HCl 25 MG TAB PO SCH (20:55)
[2023-12-01] MEDS: GABAPENTIN 300 MG CAP PO SCH (20:55)
[2023-12-01] MEDS: HEPARIN SOD 5,000 UNIT/0.5 ML VIAL SQ SCH (20:55)
[2023-12-01] MEDS ORDERED: LANTUS PER UNIT CHARGE SC SCH (21:00)
[2023-12-01] MEDS: ONDANSETRON INJ 2 MG/ML 2 ML VIAL IV PRN (21:06)
[2023-12-01] MEDS: VANCOMYCIN HCL 1,250 MG in SODIUM CHLORIDE 0.9% 250 ML IV SCH (21:14)
[2023-12-01] MEDS: guaiFENesin/DEXTROM SYRUP 200MG/20MG 10ML UDC PO PRN (21:46)
[2023-12-02] MEDS: ACETAMINOPHEN 1,000 MG/100 ML VIAL IV STA (01:35)
[2023-12-02] MEDS ORDERED: Nursing to Pharmacy Communication SCH ×2 (02:00→13:15)
[2023-12-02] MEDS: INSULIN ASPART PER UNIT CHARGE SC SCH ×2 (06:10→17:51)
[2023-12-02 06:29] LABS: Basophils # (auto) 0.01 K/uL (0.00-0.20); Basophils % (auto) 0.3 %; Eosinophils # (auto) 0.12 K/uL (0.00-0.50); Eosinophils % (auto) 3.5 %; Hematocrit (blood only) 32.7 % (42.0-52.0); Hemoglobin 10.5 g/dl (14.0-18.0); Immature Granulocytes # (auto) 0.02 K/uL (0.01-0.20); Immature Granulocytes % (auto) 0.6 %; Lymphocytes # (auto) 0.99 K/uL (1.20-3.40); Lymphocytes % (auto) 28.9 %; Mean Corpuscular Hemoglobin 30.1 pg (25.0-34.0); Mean Corpuscular Hgb Conc 32.1 g/dL (32.0-36.0); Mean Corpuscular Volume 93.7 fL (80.0-100.0); Mean Platelet Volume 9.5 fL (9.4-12.4); Monocytes # (auto) 0.38 K/uL (0.11-0.59); Monocytes % (auto) 11.1 %; Neutrophils # (auto) 1.91 K/uL (1.40-6.50); Neutrophils % (auto) 55.6 %; Platelet Count 76 K/uL (130-400); RDW Coefficient of Variation 14.3 % (11.5-14.5); RDW Standard Deviation 48.1 fL (36.4-46.3); Red Blood Count 3.49 M/uL (4.70-6.10); White Blood Count 3.43 K/ul (4.8-10.8)
[2023-12-02 06:48] LABS: BUN Creatinine Ratio 22.1 (10-20); Calcium 8.4 mg/dl (8.6-10.3); Est GFR (African American) 64.4 ml/min; Est GFR (Non-African American) 55.5 ml/min; Potassium 4.2 mmol/L (3.5-5.1)
[2023-12-02 07:05] LABS: Estimated Average Glucose 117 mg/dl; Hemoglobin A1C 5.7 % (4.5-5.6)
--- NOTE | 2023-12-02 07:31 | Electrocardiogram Report ---
Test Reason : Blood Pressure : / mmHG Vent. Rate : 077 BPM Atrial Rate : 077 BPM P-R Int : 224 ms QRS Dur : 120 ms QT Int : 440 ms P-R-T Axes : 063 001 092 degrees QTc Int : 497 ms Sinus rhythm with 1st degree A-V block Septal infarct (cited on or before 15-OCT-2016) Abnormal ECG When compared with ECG of 24-OCT-2023 15:23, Premature ventricular complexes are no longer Present Questionable change in initial forces of Anterior leads Nonspecific T wave abnormality now evident in Lateral leads Confirmed by Lexa Cruz ([id number]) on 12/02/2023 7:30:58 AM Referred By: [facility] Confirmed By:Lexa Cruz
[2023-12-02] MEDS: FINASTERIDE 5 MG TAB PO SCH (09:47)
[2023-12-02] MEDS: TAMSULOSIN HCL 0.4 MG CAP PO SCH (09:47)
[2023-12-02] MEDS: METOPROLOL SUCC 25MG EXT REL TAB PO SCH (09:47)
[2023-12-02] MEDS: ASPIRIN 81 MG ECTAB PO SCH (09:47)
[2023-12-02] MEDS: ATORVASTATIN 40 MG TAB PO SCH (09:47)
[2023-12-02] MEDS: FLUTICASONE FUROATE 100MCG 14 PUFFS/INHALER INH SCH (09:48)
[2023-12-02] MEDS ORDERED: LIDOCAINE 2% 2 ML VIAL/AMP(20MG/ML) INFIL ONE (10:22)
[2023-12-02] MEDS ORDERED: PROPOFOL IV EMULSION 10 MG/ML 20 ML VIAL IV ONE (10:22)
[2023-12-02] MEDS ORDERED: ONDANSETRON INJ 2 MG/ML 2 ML VIAL ONE (10:22)
[2023-12-02] MEDS ORDERED: MIDAZOLAM HCL 1 MG/ML 2ML VIAL ONE (10:23)
[2023-12-02] MEDS ORDERED: fentaNYL citrate PF 100 MCG/2 ML VIAL ONE (10:39)
--- NOTE | 2023-12-02 10:44 | Hospitalist Progress Note ---
Date of Service December 02, 2023 Assessment & Plan (1) Leg abscess: Plan: With surrounding cellulitis, picture taken in H&P exam, failure of outpatient levofloxacin Follow up blood and wound cultures Immunosuppressed on chemotherapy with liver cancer therefore will treat with broad spectrum antibiotics vancomycin/Zosyn Most likely MRSA given abscess formation Patient will be going for an I and D later today. Reviewed bloodwork on 12/01 vitals are stable. (2) SARAH (acute kidney injury): Plan: Recent urinary retention in Sep, bladder scan post void residual ordered Suspect mainly just hypovolemic in setting of ongoing Entresto/diuretics with recent adjustment and significant weight loss (suspect cancer related) Recent admission in September all his diuretics, Entresto and metoprolol were held for multiple days but no adjustments made on discharge. CXR ordered for baseline assessment of pulmonary edema Patient with urinary retention. Sarah improved with weldon placement (3) BPH (benign prostatic hyperplasia): Plan: Worsening symptoms on review of symptoms Bladder scan as above to assess for urinary retention Continue tamsulosin 0.4mg PO daily (4) Type 2 diabetes mellitus without complications: Plan: Hemoglobin A1C 5.8 in 2022, repeat with AM labs ?over treated with weight loss since glucose 64, Lantus 28 units and Jardiance He did not require any insulin last admission with adequate glucose control Lantus 0 units if glucose < 120, 10 units if glucose >=120 NovoLog: --Goal BSG Range: Low 110 mg/dL, High 140 mg/dL --Correction Factor: 45 mg/dL/unit --Carbohydrate ratio = 15 g/unit --BSGs ACHS if eating, q6h if npo Suspect will need insulin decreased or stopped on discharge (5) COPD (chronic obstructive pulmonary disease): Plan: Continue routine inhalers (6) Neuropathy: Plan: Reduce gabapentin to 300mg PO TID per renal dosing (7) Ischemic cardiomyopathy: Plan: Continue metoprolol succinate Entresto as above (8) CHF (congestive heart failure): Plan: Currently appears hypovolemic Holding furosemide Monitor for worsening respiratory status (9) Liver cancer: Plan: Three week cycle of bevacizumab, atezolizumab - recommend holding ongoing immunotherapy until wound is healed (10) Unspecified cirrhosis of liver: Plan: Monitor for hepatic encephalopathy as this was thought to atleast contribute towards his presentation in September although he no longer appears to be on rifaximin (11) Failure of outpatient treatment: (12) Cellulitis: (13) Immunocompromised: Plan VTE Prophylaxis - heparin 5000 units SQ BID (hold if Plt < 50) Diet - T2DM, low na, heart healthy Disposition - admit to PCU Admission and Anticipated Discharge Date Admission Date: December 01, 2023 Subjective Patient reports no new symptoms. Review of Systems Review of Systems: All systems reviewed & are unremarkable except as noted in HPI & below Physical Exam Constitutional: well developed; + not well nourished and no acute distress Eyes: PERRL, conjunctivae normal, anicteric sclerae Respiratory: normal respiratory effort, lungs clear to auscultation Cardiovascular: Rate/Rhythm: regular rate and regular rhythm Heart Sounds: no murmur Extremities: normal capillary refill; no calf tenderness and no pedal edema Gastrointestinal (Abdomen): Inspection/Auscultation: + abdomen distended Percussion/Palpation: abdomen soft; abdomen nontender (suprapubic), no guarding and abdomen not rigid Psychiatric: A+Ox3, euthymic affect Results & Data Results & Data Vital Signs (Past 12 Hours) Vital Signs Temp Pulse Pulse Resp BP Pulse Ox O2 Del Method 12/02/23 07:53 36.7 C 74 19 144/82 H 98 Nasal Cannula 12/02/23 07:00 71 12/02/23 00:00 80 O2 Flow Rate 12/02/23 07:53 1.0 12/02/23 07:00 12/02/23 00:00 PG Care Time/CCT Total # of Minutes Spent Total Time Spent with Patient: Total time spent is greater than 50% in coordination of care (as documented) at patient's floor/unit and/or counseling patient: Coding Level of Care Code 54893 SUB INP/OBS CARE 2/35MIN Diagnoses Leg abscess L02.419 SARAH (acute kidney injury) N17.9 BPH (benign prostatic hyperplasia) N40.0 Type 2 diabetes mellitus without complications E11.9 COPD (chronic obstructive pulmonary disease) J44.9 Neuropathy G62.9 Ischemic cardiomyopathy I25.5 CHF (congestive heart failure) I50.9 Liver cancer C22.9 Unspecified cirrhosis of liver K74.60 Failure of outpatient treatment Z78.9 Cellulitis L03.115 Laterality: right Site of cellulitis: extremity Site of cellulitis of extremity: lower extremity Immunocompromised D84.9 (12) Cellulitis Laterality: right Site of cellulitis: extremity Site of cellulitis of extremity: lower extremity Qualified Code(s): L03.115 - Cellulitis of right lower limb
--- NOTE | 2023-12-02 10:57 | Anesthesiology Consultation ---
Date of Service December 02, 2023 Assessment & Plan ASA ASA4 Proposed Anesthesia Anesthesia Type: General Risk / Benefits Reviewed With: PT / POA / Parent / Guardian, Accepts Plan and Informed Consent Obtained History Surgery Operation Date: 12/02/23 10:45 Proposed Procedures p Incision and Drainage General - Nadine Mann MD Height/Weight Height: 6 ft 1 in Weight: 90.4 kg Allergies Allergy/AdvReac Type Severity Reaction Status Date / Time lisinopril AdvReac Intermediate cough Verified 12/01/23 13:35 OC SPRAY AdvReac CONTRAINDIC Uncoded 12/01/23 13:35 ATED Medications Home Medications Medication Instructions Recorded Confirmed Last Taken albuterol sulfate 90 mcg/actuation 2 puff inhalation QID PRN 01/12/22 12/01/23 10/27/23 aerosol inhaler (Proventil HFA) shortness of breath or wheezing insulin glargine-yfgn 100 unit/mL 28 unit subcut DAILY 01/12/22 12/01/23 11/30/23 subcutaneous solution (Semglee (insulin glargine-yfgn)) insulin regular human 100 unit/mL 1 sliding scale dose subcut 01/12/22 12/01/23 09/22/23 injection solution (Novolin R USEASDIRECTD Regular U-100 Insulin) sacubitril 97 mg-valsartan 103 mg 1 tab PO BID 01/12/22 12/01/23 12/01/23 tablet (Entresto) empagliflozin 10 mg tablet 10 mg PO DAILYBB 10/25/22 12/01/23 12/01/23 (Jardiance) furosemide 20 mg tablet 20 mg PO BID 10/25/22 12/01/23 12/01/23 nortriptyline 75 mg capsule 75 mg PO HS 10/25/22 12/01/23 12/01/23 ciclesonide 160 mcg/actuation 1 puff inhalation BID 10/28/22 12/01/23 11/26/23 aerosol inhaler (Alvesco) aspirin 81 mg tablet,delayed 81 mg PO DAILY 10/01/23 12/01/23 12/01/23 release atorvastatin 40 mg tablet 40 mg PO DAILY 10/01/23 12/01/23 12/01/23 dextromethorphan-guaifenesin 10 30 ml PO Q6 PRN Cough 10/01/23 12/01/23 12/01/23 mg-100 mg/5 mL oral syrup gabapentin 800 mg tablet 800 mg PO TID 10/01/23 12/01/23 12/01/23 hydroxyzine pamoate 50 mg capsule 100 mg PO HS 10/01/23 12/01/23 11/30/23 lactulose 10 gram/15 mL oral 20 g PO DAILY PRN ABD DISTRESS 10/01/23 12/01/23 09/19/23 solution metoprolol succinate 25 mg 25 mg PO DAILY 10/01/23 12/01/23 12/01/23 tablet,extended release 24 hr omeprazole 20 mg tablet,delayed See Rx Instructions .Route .COMPLEX 10/01/23 12/01/23 12/01/23 release tamsulosin 0.4 mg capsule (Flomax) 0.4 mg PO DAILY 10/01/23 12/01/23 12/01/23 acetaminophen 500 mg tablet 500 mg PO QID PRN pain or fever 10/24/23 12/01/23 11/27/23 benzonatate 200 mg capsule 200 mg PO TID PRN cough and 10/24/23 12/01/23 12/01/23 congestion ondansetron HCl 4 mg tablet 8 mg PO TID PRN Nausea And Vomiting 10/24/23 12/01/23 12/01/23 fnjjocwk-zidyeefmb-akakbovu oral 30 ml PO DAILY PRN epigastric pain 12/01/23 12/01/23 12/01/23 suspension emollient 1 ea topical BID PRN Unknown 12/01/23 12/01/23 10/15/23 ibuprofen 600 mg tablet 600 mg PO BID PRN pain 12/01/23 12/01/23 12/01/23 levofloxacin 500 mg tablet 500 mg PO DAILY 12/01/23 12/01/23 12/01/23 triamcinolone acetonide-l.s.b. 0.1 1 ea topical BID rash on right knee 12/01/23 12/01/23 12/01/23 % topical ointment Active Medications Generic Name Dose Route Start Last Admin Trade Name Freq PRN Reason Stop Dose Admin Aspirin 81 mg 12/02/23 09:00 12/02/23 09:47 Aspirin 81 Mg Ectab PO 01/01/24 08:59 81 mg DAILY ALFREDO Administration Atorvastatin Calcium 40 mg 12/02/23 09:00 12/02/23 09:47 Atorvastatin 40 Mg Tab PO 01/01/24 08:59 40 mg DAILY ALFREDO Administration Finasteride 5 mg 12/02/23 09:00 12/02/23 09:47 Finasteride 5 Mg Tab PO 01/01/24 08:59 5 mg QAM ALFREDO Administration Fluticasone Furoate 1 puffs 12/02/23 09:00 12/02/23 09:48 Fluticasone Furoate 100mcg 14 Puffs/Inhaler INH 01/01/24 08:59 1 puffs DAILY ALFREDO Administration Protocol Gabapentin 300 mg 12/01/23 21:00 12/02/23 09:48 Gabapentin 300 Mg Cap PO 12/31/23 20:59 300 mg TID ALFREDO Administration Guaifenesin/Dextromethorphan 10 ml 12/01/23 14:34 12/01/23 21:46 Guaifenesin/Dextrom Syrup 200mg/20mg 10ml Udc PO 12/31/23 14:33 10 ml Q6 PRN Administration Cough Heparin Sodium (Porcine) 5,000 units 12/01/23 21:00 12/01/23 20:55 Heparin Sod 5,000 Unit/0.5 Ml Vial SQ 12/31/23 20:59 5,000 units BID ALFREDO Administration Hydroxyzine HCl 100 mg 12/01/23 21:00 12/01/23 20:55 Hydroxyzine Hcl 25 Mg Tab PO 12/31/23 20:59 100 mg HS ALFREDO Administration Piperacillin Sod/Tazobactam 100 mls @ 25 mls/hr 12/01/23 16:00 12/02/23 09:46 Sod 4.5 gm/ Dextrose IV 12/08/23 15:59 25 mls/hr Q8H ALFREDO Administration Protocol Vancomycin HCl 1,250 mg/ 275 mls @ 200 mls/hr 12/01/23 22:00 12/01/23 22:44 Sodium Chloride IV 12/08/23 21:59 Infused Q24H [facility] Infusion Insulin Aspart 0 units 12/02/23 06:00 12/02/23 06:10 Insulin Aspart Per Unit Charge SC 01/01/24 05:59 Not Given Q6 [facility] Insulin Glargine 0 units 12/01/23 21:00 12/01/23 20:43 Lantus Per Unit Charge SC 12/31/23 20:59 10 units HS ALFREDO Administration Protocol Metoprolol Succinate 25 mg 12/02/23 09:00 12/02/23 09:47 Metoprolol Succ 25mg Ext Rel Tab PO 01/01/24 08:59 25 mg DAILY ALFREDO Administration Nortriptyline HCl 75 mg 12/01/23 21:00 12/01/23 20:53 Nortriptyline Hcl 25 Mg Cap PO 12/31/23 20:59 75 mg HS ALFREDO Administration Ondansetron HCl 4 mg 12/01/23 14:08 12/01/23 21:06 Ondansetron Inj 2 Mg/Ml 2 Ml Vial IV 12/31/23 14:07 4 mg Q4H PRN Administration Nausea Pantoprazole Sodium 40 mg 12/01/23 21:00 12/02/23 09:47 Pantoprazole 40 Mg Tab PO 12/31/23 20:59 40 mg BID ALFREDO Administration Protocol Sacubitril/Valsartan 1 tab 12/01/23 21:00 12/02/23 09:47 Valsartan/Sacubitril 103/97mg Tab PO 12/31/23 20:59 1 tab BID ALFREDO Administration Tamsulosin HCl 0.4 mg 12/02/23 09:00 12/02/23 09:47 Tamsulosin Hcl 0.4 Mg Cap PO 01/01/24 08:59 0.4 mg DAILY ALFREDO Administration Past Medical History Medical History (Updated 12/02/23 @ 00:00 by Moreno Greer MD) BPH (benign prostatic hyperplasia) Effusion of knee joint, left CAD (coronary artery disease) CHF (congestive heart failure) Respiratory failure with hypoxia Acute on chronic HFrEF (heart failure with reduced ejection fraction) Ischemic cardiomyopathy Abnormal findings on diagnostic imaging of skull and head, not elsewhere classified Unspecified cirrhosis of liver Chronic obstructive pulmonary disease, unspecified Heart failure, unspecified Atherosclerotic heart disease of [place] coronary artery without angina pectoris Essential (primary) hypertension Neuropathy Opioid dependence with withdrawal Hyperlipidemia, unspecified Type 2 diabetes mellitus without complications Thrombocytopenia, unspecified Iron deficiency anemia, unspecified Unspecified malignant neoplasm of skin, unspecified Chronic viral hepatitis C COPD (chronic obstructive pulmonary disease) Opioid abuse, uncomplicated Exercise / Class Metabolic Activity II 4-5 Yardwork/Stairs/Walk up hill Past Surgical History Surgical History (Updated 11/01/23 @ 00:07 by Background Divya) AICD (automatic cardioverter/defibrillator) present Past Anesthesia History No Hx of Anesthesia Complications and No Family Hx of Anesthesia Complications History of PONV No Hx of PONV and No Hx of Motion Sickness Social History Smoking Status: Former smoker tobacco type: cigarettes Do You Dip or Chew Tobacco: No Hx Alcohol Use: No Hx Substance Use: No substance use type: former substance user, opiates and IV drugs Review of Systems denies fever/cough/ colds/ chest pain/ SOB/ WOLFGANG denies WOLFGANG Physical Exam Vital Signs Last Vital Signs Temp 36.7 C 12/02/23 07:53 Pulse 74 12/02/23 07:53 Resp 19 12/02/23 07:53 BP 144/82 H 12/02/23 07:53 Pulse Ox 98 12/02/23 07:53 O2 Del Method Nasal Cannula 12/02/23 07:53 O2 Flow Rate 1.0 12/02/23 07:53 ENMT Mouth: no TMJ abnormality and no dentition abnormality Thyromental Distance: > or= 3.5 Finger Breadths Mallampati Class: II Neck neck extension not limited Respiratory normal respiratory effort; no respiratory distress Auscultation: lungs clear to auscultation bilaterally Cardiovascular Rate/Rhythm: regular rate and regular rhythm Neurologic moves all extremities Psychiatric Orientation: alert and oriented x 3 Testing Laboratory Results 12/02/23 05:32 12/02/23 05:32 PT 11.6 Seconds (9.0-12.0) 12/01/23 10:26 INR 1.1 (0.9-1.1) 12/01/23 10:26 APTT 31 Seconds (21-31) 12/01/23 10:26 Hemoglobin A1c 5.7 % (4.5-5.6) H 12/02/23 05:32 Urine Color Yellow 12/01/23 14:30 Urine Appearance Cloudy (Clear) A 12/01/23 14:30 Urine pH 7.0 (4.5-7.5) 12/01/23 14:30 Ur Specific [place] 1.016 (1.000-1.030) 12/01/23 14:30 Urine Protein Trace (Negative) H 12/01/23 14:30 Urine Glucose (UA) 2+ (Negative) H 12/01/23 14:30 Urine Ketones Negative (Negative) 12/01/23 14:30 Urine Nitrite Positive (Negative) A 12/01/23 14:30 Ur Leukocyte Esterase 3+ (Negative) H 12/01/23 14:30 Urine WBC (Auto) >30 /hpf (0-5) H 12/01/23 14:30 Urine RBC (Auto) 0-4 /hpf (0-4) 12/01/23 14:30 U Hyaline Cast (Auto) 0 /lpf (0-5) 12/01/23 14:30 U Epithel Cells (Auto) 0-5 /lpf (0-5) 12/01/23 14:30 Urine Bacteria (Auto) 2+ (Negative) H 12/01/23 14:30 12/01/23 14:30 Urine Culture - Preliminary Urine,Indwelling Cath Gram negative bacilli 12/01/23 Unknown Gram Stain - Final Thigh,Right 12/02/23 06:03 POC Glucose 87
--- NOTE | 2023-12-02 10:57 | Surgery Consultation ---
Date of Consultation December 02, 2023 Assessment & Plan (1) Abscess of right lower extremity: Right lateral thigh abscess in 68 yr old diabetic man on chemotherapy for liver cancer. Cardiomyopaty with AICD. Discussed incision and drainage/ debridement with risks of bleeding, infection, slow to heal wound given comorbidities, repeat infection. Consent signed. He has been npo. Discussed expected wound care after procedure. History of Present Illness Reason for Consultation: right thigh abscess Requesting Physician: Setrling Messer Attending Physician: Sterling Messer History of Present Illness 68 yr old prisoner here for worsening right thigh abscess. S/p incision and drainage on 11/28 at the senior living. On outpatient antibiotics. Worsening and thus came to the ER for evaluation. Has cardiomyopathy and liver cancer, on chemotherapy. Diabetic. Allergies Allergy/AdvReac Type Severity Reaction Status Date / Time lisinopril AdvReac Intermediate cough Verified 12/01/23 13:35 OC SPRAY AdvReac CONTRAINDIC Uncoded 12/01/23 13:35 ATED Home Medications Medication Instructions Recorded Confirmed Type albuterol sulfate 90 mcg/actuation 2 puff inhalation QID PRN 01/12/22 12/01/23 History aerosol inhaler (Proventil HFA) shortness of breath or wheezing insulin glargine-yfgn 100 unit/mL 28 unit subcut DAILY 01/12/22 12/01/23 History subcutaneous solution (Semglee (insulin glargine-yfgn)) insulin regular human 100 unit/mL 1 sliding scale dose subcut 01/12/22 12/01/23 History injection solution (Novolin R USEASDIRECTD Regular U-100 Insulin) sacubitril 97 mg-valsartan 103 mg 1 tab PO BID 01/12/22 12/01/23 History tablet (Entresto) empagliflozin 10 mg tablet 10 mg PO DAILYBB 10/25/22 12/01/23 History (Jardiance) furosemide 20 mg tablet 20 mg PO BID 10/25/22 12/01/23 History nortriptyline 75 mg capsule 75 mg PO HS 10/25/22 12/01/23 History ciclesonide 160 mcg/actuation 1 puff inhalation BID 10/28/22 12/01/23 History aerosol inhaler (Alvesco) aspirin 81 mg tablet,delayed 81 mg PO DAILY 10/01/23 12/01/23 History release atorvastatin 40 mg tablet 40 mg PO DAILY 10/01/23 12/01/23 History dextromethorphan-guaifenesin 10 30 ml PO Q6 PRN Cough 10/01/23 12/01/23 History mg-100 mg/5 mL oral syrup gabapentin 800 mg tablet 800 mg PO TID 10/01/23 12/01/23 History hydroxyzine pamoate 50 mg capsule 100 mg PO HS 10/01/23 12/01/23 History lactulose 10 gram/15 mL oral 20 g PO DAILY PRN ABD DISTRESS 10/01/23 12/01/23 History solution metoprolol succinate 25 mg 25 mg PO DAILY 10/01/23 12/01/23 History tablet,extended release 24 hr omeprazole 20 mg tablet,delayed See Rx Instructions .Route .COMPLEX 10/01/23 12/01/23 History release tamsulosin 0.4 mg capsule (Flomax) 0.4 mg PO DAILY 10/01/23 12/01/23 History acetaminophen 500 mg tablet 500 mg PO QID PRN pain or fever 10/24/23 12/01/23 History benzonatate 200 mg capsule 200 mg PO TID PRN cough and 10/24/23 12/01/23 History congestion ondansetron HCl 4 mg tablet 8 mg PO TID PRN Nausea And Vomiting 10/24/23 12/01/23 History cygtsbfk-smhjwqbph-dwyjdpxr oral 30 ml PO DAILY PRN epigastric pain 12/01/23 12/01/23 History suspension emollient 1 ea topical BID PRN Unknown 12/01/23 12/01/23 History ibuprofen 600 mg tablet 600 mg PO BID PRN pain 12/01/23 12/01/23 History levofloxacin 500 mg tablet 500 mg PO DAILY 12/01/23 12/01/23 History triamcinolone acetonide-l.s.b. 0.1 1 ea topical BID rash on right knee 12/01/23 12/01/23 History % topical ointment Patient History Medical History BPH (benign prostatic hyperplasia) Effusion of knee joint, left CAD (coronary artery disease) CHF (congestive heart failure) Respiratory failure with hypoxia Acute on chronic HFrEF (heart failure with reduced ejection fraction) Ischemic cardiomyopathy Abnormal findings on diagnostic imaging of skull and head, not elsewhere classified Unspecified cirrhosis of liver Chronic obstructive pulmonary disease, unspecified Heart failure, unspecified Atherosclerotic heart disease of [place] coronary artery without angina pectoris Essential (primary) hypertension Neuropathy Opioid dependence with withdrawal Hyperlipidemia, unspecified Type 2 diabetes mellitus without complications Thrombocytopenia, unspecified Iron deficiency anemia, unspecified Unspecified malignant neoplasm of skin, unspecified Chronic viral hepatitis C COPD (chronic obstructive pulmonary disease) Opioid abuse, uncomplicated Surgical History (Updated 11/01/23 @ 00:07 by Amanda Stokes) AICD (automatic cardioverter/defibrillator) present Social History Smoking Status: Former smoker Tobacco Type: Cigarettes Do You Dip or Chew Tobacco: No; Hx Alcohol Use: No Hx Substance Use: No Preferred Language: Bulgarian Communication Ability: Effective [employer] Required: No Beliefs That Will Affect Care: None Current Living Situation: Other Current Living Situation Comment: [facility] Feels Safe at Home: Yes Assistive Devices: Oxygen - Continuous and Wheelchair Physical Exam Constitutional: WD/WN, vitals as above Eyes: + anicteric sclerae; no scleral abnormal ity Respiratory: normal respiratory effort, lungs clear to auscultation Cardiovascular: Rate/Rhythm: regular rate AICD in place Skin: right lateral thigh with 2 x 2 cm area of necrosis and 4x4 cm area of fluctuance with draining pus and surrounding cellulitis Results & Data Vital Signs (Past 12 Hours) Vital Signs Temp Pulse Pulse Resp BP Pulse Ox O2 Del Method 12/02/23 07:53 36.7 C 74 19 144/82 H 98 Nasal Cannula 12/02/23 07:00 71 12/02/23 00:00 80 O2 Flow Rate 12/02/23 07:53 1.0 12/02/23 07:00 12/02/23 00:00 Laboratory Results Abnormal lab results 12/01/23 12/01/23 12/01/23 Range/Units 10:26 14:30 16:20 WBC (4.8-10.8) K/ul RBC (4.70-6.10) M/uL Hgb (14.0-18.0) g/dl Hct (42.0-52.0) % RDW Std Deviation (36.4-46.3) fL Plt Count (130-400) K/uL Lymph # (Auto) (1.20-3.40) K/uL BUN 45 H (6-23) mg/dl Creatinine 1.65 H (0.6-1.4) mg/dl BUN/Creatinine Ratio 27.3 H (10-20) Glucose 64 L (70-99(Fasting)) mg/dl POC Glucose (70-99) mg/dl Hemoglobin A1c (4.5-5.6) % Calcium (8.6-10.3) mg/dl Alkaline Phosphatase 149 H (34-104) U/L Albumin 3.2 L (3.4-5.0) gm/dl Urine Appearance Cloudy A (Clear) Urine Protein Trace H (Negative) Urine Glucose (UA) 2+ H (Negative) Urine Blood Trace H (Negative) Urine Nitrite Positive A (Negative) Ur Leukocyte Esterase 3+ H (Negative) Urine WBC (Auto) >30 H (0-5) /hpf Urine Bacteria (Auto) 2+ H (Negative) Nasal Screen MRSA (PCR) Positive A (Negative) 12/01/23 12/02/23 Range/Units 20:29 05:32 WBC 3.43 L (4.8-10.8) K/ul RBC 3.49 L (4.70-6.10) M/uL Hgb 10.5 L (14.0-18.0) g/dl Hct 32.7 L (42.0-52.0) % RDW Std Deviation 48.1 H (36.4-46.3) fL Plt Count 76 L (130-400) K/uL Lymph # (Auto) 0.99 L (1.20-3.40) K/uL BUN 29 H (6-23) mg/dl Creatinine (0.6-1.4) mg/dl BUN/Creatinine Ratio 22.1 H (10-20) Glucose (70-99(Fasting)) mg/dl POC Glucose 161 H (70-99) mg/dl Hemoglobin A1c 5.7 H (4.5-5.6) % Calcium 8.4 L (8.6-10.3) mg/dl Alkaline Phosphatase (34-104) U/L Albumin (3.4-5.0) gm/dl Urine Appearance (Clear) Urine Protein (Negative) Urine Glucose (UA) (Negative) Urine Blood (Negative) Urine Nitrite (Negative) Ur Leukocyte Esterase (Negative) Urine WBC (Auto) (0-5) /hpf Urine Bacteria (Auto) (Negative) Nasal Screen MRSA (PCR) (Negative)
[2023-12-02] MEDS ORDERED: ETOMIDATE 2 MG/ML 20 ML VIAL IV ONE (11:25)
[2023-12-02] MEDS: BUPIVACAINE/EPINEPHRINE 0.5% MPF 1:200,000 30 ML VIAL ONE (11:34)
--- NOTE | 2023-12-02 11:42 | Operative Report ---
Post Operative Report Pre & Post Diagnosis Operation Date: 12/02/23 10:45 <No data on this case meets the specified criteria> right lateral thigh abscess I identified the patient and participated in the time-out.: Yes Procedure Operation Date: 12/02/23 10:45 <No data on this case meets the specified criteria> incision and drainage of right lateral thigh abscess Surgeon Nadine Mann MD Box Sorter none Estimated Blood Loss 1 Findings Consistent with Post-Op Diagnosis necrotic tissue measuring 4 x 4 cm Fluids 150 cc Specimens wound culture Drains none Anesthesia Type General Complications none Disposition Accompanied Patient To Recovery: No Indications 68 yr old man on chemotherapy for liver cancer found to have a right lateral thigh abscess that was not responsive to outpatient treatment. On exam, 3 x 3 cm area of necrosis with 4 x 4 cm fluctuance and surrounding celluluitis. Consented for incision and drainage/ debridement in OR. Description of Procedure The patient was on antibiotics preoperatively. After the induction of general LMA, his right lateral thigh was prepped with Betadine and draped. The necrotic tissue was removed. A very small amount of pus was noted. There was necrotic subcutaneous tissue which was debrided. A wound culture was taken. Once there was no further necrotic tissue visible, local anesthetic was injected in the form of half percent Marcaine with epinephrine. The wound was irrigated. It was packed with half-inch iodoform. 4 x 4 gauze and tape was used as an outer dressing. He was awakened and taken to recovery in stable condition. I attest to the content of the Intraoperative Record and any orders documented therein. Any exceptions are noted below.
--- NOTE | 2023-12-02 12:52 | Anesthesiology Progress Note ---
Date of Service December 02, 2023 Anesthesia Post Procedure Vital Signs Vital Signs: Temp Pulse Pulse Resp BP BP Pulse Ox 12/02/23 12:20 36.4 C L 82 15 108/72 96 12/02/23 12:10 80 12 123/72 98 12/02/23 12:00 81 15 112/70 97 12/02/23 11:51 36.1 C L 81 18 127/64 95 12/02/23 07:53 36.7 C 74 19 144/82 H 98 12/02/23 07:00 71 12/02/23 00:00 80 12/01/23 22:20 36.7 C 81 18 137/90 93 12/01/23 21:22 12/01/23 19:18 36.6 C 83 18 133/86 93 12/01/23 17:11 87 12/01/23 15:22 36.3 C L 96 H 16 157/94 H 95 12/01/23 13:17 12/01/23 13:17 16 12/01/23 13:16 75 18 130/84 93 Pulse Ox O2 Del Method O2 Del Method O2 Flow Rate 12/02/23 12:20 Nasal Cannula 2 12/02/23 12:10 Oxymask 7 12/02/23 12:00 Oxymask 7 12/02/23 11:51 Oxymask 7 12/02/23 07:53 Nasal Cannula 1.0 12/02/23 07:00 12/02/23 00:00 12/01/23 22:20 Room Air 12/01/23 21:22 Room Air 12/01/23 19:18 Room Air 12/01/23 17:11 12/01/23 15:22 Room Air 12/01/23 13:17 94 Room Air 12/01/23 13:17 12/01/23 13:16 Room Air Pain Intensity Right Thigh: Pain Intensity: 4 Transfer of Care Handoff Completed per policy Notes Mental Status: alert / awake / arousable and participated in evaluation Patient Amnestic to Procedure: Yes Nausea / Vomiting: adequately controlled Pain: adequately controlled Airway Patency, RR, SpO2: stable & adequate BP & HR: stable & adequate Hydration State: stable & adequate Anesthetic Complications: no major complications apparent and Pt Satisfied with anesthetic care
[2023-12-02] MEDS: ACETAMINOPHEN 1,000 MG/100 ML VIAL IV PRN (21:23)
--- NOTE | 2023-12-02 21:51 | Hospitalist Progress Note ---
Date of Service December 02, 2023 Assessment & Plan (1) Leg abscess: Plan: With surrounding cellulitis, picture taken in H&P exam, failure of outpatient levofloxacin Follow up blood and wound cultures Immunosuppressed on chemotherapy with liver cancer therefore will treat with broad spectrum antibiotics vancomycin/Zosyn Most likely MRSA given abscess formation Patient will be going for an I and D later today. Reviewed bloodwork on 12/01 vitals are stable. (2) SARAH (acute kidney injury): Plan: Recent urinary retention in Sep, bladder scan post void residual ordered Suspect mainly just hypovolemic in setting of ongoing Entresto/diuretics with recent adjustment and significant weight loss (suspect cancer related) Recent admission in September all his diuretics, Entresto and metoprolol were held for multiple days but no adjustments made on discharge. CXR ordered for baseline assessment of pulmonary edema Patient with urinary retention. Sarah improved with weldon placement (3) BPH (benign prostatic hyperplasia): Plan: Worsening symptoms on review of symptoms Bladder scan as above to assess for urinary retention Continue tamsulosin 0.4mg PO daily (4) Type 2 diabetes mellitus without complications: Plan: Hemoglobin A1C 5.8 in 2022, repeat with AM labs ?over treated with weight loss since glucose 64, Lantus 28 units and Jardiance He did not require any insulin last admission with adequate glucose control Lantus 0 units if glucose < 120, 10 units if glucose >=120 NovoLog: --Goal BSG Range: Low 110 mg/dL, High 140 mg/dL --Correction Factor: 45 mg/dL/unit --Carbohydrate ratio = 15 g/unit --BSGs ACHS if eating, q6h if npo Suspect will need insulin decreased or stopped on discharge (5) COPD (chronic obstructive pulmonary disease): Plan: Continue routine inhalers (6) Neuropathy: Plan: Reduce gabapentin to 300mg PO TID per renal dosing (7) Ischemic cardiomyopathy: Plan: Continue metoprolol succinate Entresto as above (8) CHF (congestive heart failure): Plan: Currently appears hypovolemic Holding furosemide Monitor for worsening respiratory status (9) Liver cancer: Plan: Three week cycle of bevacizumab, atezolizumab - recommend holding ongoing immunotherapy until wound is healed (10) Unspecified cirrhosis of liver: Plan: Monitor for hepatic encephalopathy as this was thought to atleast contribute towards his presentation in September although he no longer appears to be on rifaximin (11) Failure of outpatient treatment: (12) Cellulitis: (13) Immunocompromised: Plan VTE Prophylaxis - heparin 5000 units SQ BID (hold if Plt < 50) Diet - T2DM, low na, heart healthy Disposition - admit to PCU Admission and Anticipated Discharge Date Admission Date: December 01, 2023 Subjective Patient reports no new symptoms. Review of Systems Review of Systems: All systems reviewed & are unremarkable except as noted in HPI & below Physical Exam Constitutional: well developed; + not well nourished and no acute distress Eyes: PERRL, conjunctivae normal, anicteric sclerae Respiratory: normal respiratory effort, lungs clear to auscultation Cardiovascular: Rate/Rhythm: regular rate and regular rhythm Heart Sounds: no murmur Extremities: normal capillary refill; no calf tenderness and no pedal edema Gastrointestinal (Abdomen): Inspection/Auscultation: + abdomen distended Percussion/Palpation: abdomen soft; abdomen nontender (suprapubic), no guarding and abdomen not rigid Psychiatric: A+Ox3, euthymic affect Results & Data Results & Data Vital Signs (Past 12 Hours) Vital Signs Temp Pulse Resp BP Pulse Ox O2 Del Method O2 Flow Rate 12/02/23 21:36 Room Air 12/02/23 19:01 36.6 C 68 18 118/92 96 Nasal Cannula 1.0 12/02/23 16:02 36.5 C 74 17 115/75 95 Nasal Cannula 1.0 12/02/23 13:00 36.5 C 82 14 116/74 94 Nasal Cannula 2 12/02/23 12:20 36.4 C L 82 15 108/72 96 Nasal Cannula 2 12/02/23 12:10 80 12 123/72 98 Oxymask 7 12/02/23 12:00 81 15 112/70 97 Oxymask 7 12/02/23 11:51 36.1 C L 81 18 127/64 95 Oxymask 7 PG Care Time/CCT Total # of Minutes Spent Total Time Spent with Patient: Total time spent is greater than 50% in coordination of care (as documented) at patient's floor/unit and/or counseling patient: Coding Diagnoses Leg abscess L02.419 SARAH (acute kidney injury) N17.9 BPH (benign prostatic hyperplasia) N40.0 Type 2 diabetes mellitus without complications E11.9 COPD (chronic obstructive pulmonary disease) J44.9 Neuropathy G62.9 Ischemic cardiomyopathy I25.5 CHF (congestive heart failure) I50.9 Liver cancer C22.9 Unspecified cirrhosis of liver K74.60 Failure of outpatient treatment Z78.9 Cellulitis L03.115 Laterality: right Site of cellulitis: extremity Site of cellulitis of extremity: lower extremity Immunocompromised D84.9 (12) Cellulitis Laterality: right Site of cellulitis: extremity Site of cellulitis of extremity: lower extremity Qualified Code(s): L03.115 - Cellulitis of right lower limb
[2023-12-03 05:28] LABS: Hematocrit (blood only) 33.3 % (42.0-52.0); Hemoglobin 10.8 g/dl (14.0-18.0); Mean Corpuscular Hemoglobin 30.3 pg (25.0-34.0); Mean Corpuscular Hgb Conc 32.4 g/dL (32.0-36.0); Mean Corpuscular Volume 93.3 fL (80.0-100.0); Mean Platelet Volume 9.5 fL (9.4-12.4); Platelet Count 76 K/uL (130-400); RDW Coefficient of Variation 14.1 % (11.5-14.5); RDW Standard Deviation 48.4 fL (36.4-46.3); Red Blood Count 3.57 M/uL (4.70-6.10); White Blood Count 2.93 K/ul (4.8-10.8)
[2023-12-03 05:43] LABS: BUN Creatinine Ratio 19.5 (10-20); C Reactive Protein 2.54 mg/dl (0-0.5); Calcium 8.4 mg/dl (8.6-10.3); Creatinine Clr Calc Pharmacy 70.7 ml/min; Est GFR (Non-African American) 66.4 ml/min; Potassium 4.1 mmol/L (3.5-5.1)
[2023-12-03] MEDS ORDERED: LEVALBUTEROL 1.25 MG/3 ML NEB NEB PRN (08:45)
[2023-12-03] MEDS: ALBUT/IPRATROP 3MG/0.5MG NEB 3 ML VIAL ONE (08:48)
--- NOTE | 2023-12-03 10:27 | Pharmacy Report ---
Pharmacy PK ABX Note - Date of Service December 03, 2023 - Assessment and Plan Assessment 12/02: * Day #3 of Vancomycin + Zosyn for right thigh abscess. * Right thigh cx growing MRSA. Urine cx growing ESBL E. coli. Recommended transition of Zosyn to Ertapenem and possibly Vanc to daptomycin. Awaiting provider response. * Afebrile and no white count. * Due to improvement in renal fxn, will d/c level ordered for today and empirically increase vanc dose given MRSA. 11/30: * 67 year old M receiving VANCOMYCIN + ZOSYN for treatment of SSTI (right thigh abscess). Per provider's note, pt had abscess opened yesterday at [facility] and placed on Levofloxacin, however had worsening of infection. * Pertinent microbiologic data includes: Cx of drainage from R thigh pending, BLCX's pending, procal 0.09 * MADELINE present on initial labs. PMH noted to include liver cirrhosis, liver cancer and chemotherapy Plan Vancomycin * Empirically increase Vancomycin dose to 750 mg IV every 12 hours * Regimen is predicted to achieve target AUC/SURINDER of 400-600 mg/L.hr. * Will check level on 12/04/23 Zosyn * 4.5 g IV every 8 hours Pharmacy will continue to follow and will adjust dose/frequency as necessary. Thank you. Pharmacy has transitioned to AUC monitoring for vancomycin. AUC/SURINDER is the preferred PK/PD target and is associated with decreased risk of nephrotoxicity compared to traditional trough targets.
[2023-12-03] MEDS: DAPTOmycin 475 MG in SYRINGE 0 ML IV SCH (11:21)
[2023-12-03] MEDS: ERTAPENEM SODIUM 1,000 MG in SYRINGE 0 ML IV SCH (11:21)
[2023-12-03] MEDS: VANCOMYCIN HCL 750 MG in SODIUM CHLORIDE 0.9% 250 ML IV SCH (11:32)
--- NOTE | 2023-12-03 12:47 | Surgery Progress Note ---
Date of Service December 03, 2023 Assessment & Plan (1) Abscess of right lower extremity: Plan: s/p I&D - wound clean based. Continue wound care. Antibiotics as per medicine (culture was taken in OR). Continue with dressing changes (iodoform 1/2 into wound, change daily) once at [facility]. Discharge as per medicine team. Admission and Anticipated Discharge Date Admission Date: December 01, 2023 Subjective Doing well. Physical Exam Skin: right lateral thigh dressing changed. Wound clean based, minimal drainage, less surrounding erythema Results & Data Vital Signs (Past 12 Hours) Vital Signs Temp Pulse Pulse Resp BP Pulse Ox O2 Del Method 12/03/23 12:06 36.7 C 84 18 131/84 91 Room Air 12/03/23 07:55 36.4 C L 80 16 156/98 H 91 Room Air 12/03/23 07:30 78 12/03/23 03:23 36.6 C 78 18 121/80 90 Room Air Laboratory Results Abnormal lab results 12/02/23 12/03/23 12/03/23 Range/Units 20:03 04:27 11:50 WBC 2.93 L (4.8-10.8) K/ul RBC 3.57 L (4.70-6.10) M/uL Hgb 10.8 L (14.0-18.0) g/dl Hct 33.3 L (42.0-52.0) % RDW Std Deviation 48.4 H (36.4-46.3) fL Plt Count 76 L (130-400) K/uL POC Glucose 170 H 147 H (70-99) mg/dl Calcium 8.4 L (8.6-10.3) mg/dl C-Reactive Protein 2.54 H (0-0.5) mg/dl
--- NOTE | 2023-12-03 20:31 | Hospitalist Progress Note ---
Date of Service December 03, 2023 Assessment & Plan (1) Leg abscess: Plan: With surrounding cellulitis, picture taken in H&P exam, failure of outpatient levofloxacin Follow up blood and wound cultures Immunosuppressed on chemotherapy with liver cancer therefore will treat with broad spectrum antibiotics vancomycin/Zosyn Most likely MRSA given abscess formation Patient will be going for an I and D later today. Reviewed bloodwork on 12/01 vitals are stable. MRSA confirmed on culture. will place on dapto. (2) SARAH (acute kidney injury): Plan: Recent urinary retention in Sep, bladder scan post void residual ordered Suspect mainly just hypovolemic in setting of ongoing Entresto/diuretics with recent adjustment and significant weight loss (suspect cancer related) Recent admission in September all his diuretics, Entresto and metoprolol were held for multiple days but no adjustments made on discharge. CXR ordered for baseline assessment of pulmonary edema Patient with urinary retention. Sarah improved with weldon placement (3) BPH (benign prostatic hyperplasia): Plan: Worsening symptoms on review of symptoms Bladder scan as above to assess for urinary retention Continue tamsulosin 0.4mg PO daily (4) Type 2 diabetes mellitus without complications: Plan: Hemoglobin A1C 5.8 in 2022, repeat with AM labs ?over treated with weight loss since glucose 64, Lantus 28 units and Jardiance He did not require any insulin last admission with adequate glucose control Lantus 0 units if glucose < 120, 10 units if glucose >=120 NovoLog: --Goal BSG Range: Low 110 mg/dL, High 140 mg/dL --Correction Factor: 45 mg/dL/unit --Carbohydrate ratio = 15 g/unit --BSGs ACHS if eating, q6h if npo Suspect will need insulin decreased or stopped on discharge (5) COPD (chronic obstructive pulmonary disease): Plan: Continue routine inhalers (6) Neuropathy: Plan: Reduce gabapentin to 300mg PO TID per renal dosing (7) Ischemic cardiomyopathy: Plan: Continue metoprolol succinate Entresto as above (8) CHF (congestive heart failure): Plan: Currently appears hypovolemic Holding furosemide Monitor for worsening respiratory status (9) Liver cancer: Plan: Three week cycle of bevacizumab, atezolizumab - recommend holding ongoing immunotherapy until wound is healed (10) Unspecified cirrhosis of liver: Plan: Monitor for hepatic encephalopathy as this was thought to atleast contribute towards his presentation in September although he no longer appears to be on rifaximin (11) Failure of outpatient treatment: (12) Cellulitis: (13) Immunocompromised: Plan VTE Prophylaxis - heparin 5000 units SQ BID (hold if Plt < 50) Diet - T2DM, low na, heart healthy Disposition - admit to PCU Admission and Anticipated Discharge Date Admission Date: December 01, 2023 Subjective 68 yo male reports no new symptoms. Review of Systems Review of Systems: All systems reviewed & are unremarkable except as noted in HPI & below Physical Exam Constitutional: well developed; + not well nourished and no acute distress Eyes: PERRL, conjunctivae normal, anicteric sclerae Respiratory: normal respiratory effort, lungs clear to auscultation Cardiovascular: Rate/Rhythm: regular rate and regular rhythm Heart Sounds: no murmur Extremities: normal capillary refill; no calf tenderness and no pedal edema Gastrointestinal (Abdomen): Inspection/Auscultation: + abdomen distended Percussion/Palpation: abdomen soft; abdomen nontender (suprapubic), no guarding and abdomen not rigid Psychiatric: A+Ox3, euthymic affect Results & Data Results & Data Vital Signs (Past 12 Hours) Vital Signs Temp Pulse Pulse Resp BP Pulse Ox O2 Del Method 12/03/23 19:38 36.7 C 84 18 120/76 91 Room Air 12/03/23 14:45 36.7 C 84 18 136/85 94 Nasal Cannula 12/03/23 12:06 36.7 C 84 18 131/84 91 Room Air O2 Flow Rate 12/03/23 19:38 12/03/23 14:45 1.0 12/03/23 12:06 PG Care Time/CCT Total # of Minutes Spent Total Time Spent with Patient: Total time spent is greater than 50% in coordination of care (as documented) at patient's floor/unit and/or counseling patient: Coding Level of Care Code 41792 SUB INP/OBS CARE 2/35MIN Diagnoses Leg abscess L02.419 SARAH (acute kidney injury) N17.9 BPH (benign prostatic hyperplasia) N40.0 Type 2 diabetes mellitus without complications E11.9 COPD (chronic obstructive pulmonary disease) J44.9 Neuropathy G62.9 Ischemic cardiomyopathy I25.5 CHF (congestive heart failure) I50.9 Liver cancer C22.9 Unspecified cirrhosis of liver K74.60 Failure of outpatient treatment Z78.9 Cellulitis L03.115 Laterality: right Site of cellulitis: extremity Site of cellulitis of extremity: lower extremity Immunocompromised D84.9 (12) Cellulitis Laterality: right Site of cellulitis: extremity Site of cellulitis of extremity: lower extremity Qualified Code(s): L03.115 - Cellulitis of right lower limb
[2023-12-04 05:49] LABS: Hematocrit (blood only) 33.7 % (42.0-52.0); Hemoglobin 10.9 g/dl (14.0-18.0); Mean Corpuscular Hemoglobin 29.9 pg (25.0-34.0); Mean Corpuscular Hgb Conc 32.3 g/dL (32.0-36.0); Mean Corpuscular Volume 92.6 fL (80.0-100.0); Mean Platelet Volume 9.1 fL (9.4-12.4); Platelet Count 77 K/uL (130-400); RDW Coefficient of Variation 14.1 % (11.5-14.5); RDW Standard Deviation 47.5 fL (36.4-46.3); Red Blood Count 3.64 M/uL (4.70-6.10); White Blood Count 3.05 K/ul (4.8-10.8)
[2023-12-04 06:05] LABS: BUN Creatinine Ratio 17.3 (10-20); C Reactive Protein 1.99 mg/dl (0-0.5); Calcium 8.4 mg/dl (8.6-10.3); Creatinine Clr Calc Pharmacy 72.6 ml/min; Est GFR (African American) 79.5 ml/min; Est GFR (Non-African American) 68.6 ml/min; Potassium 3.9 mmol/L (3.5-5.1)
--- NOTE | 2023-12-04 13:33 | Surgery Progress Note ---
Date of Service December 04, 2023 Assessment & Plan (1) Abscess of right lower extremity: Plan: s/p I&D - wound clean based. Continue wound care. Antibiotics as per medicine (culture was taken in OR +MRSA). Continue with dressing changes (iodoform 1/2 into wound, change daily) once at [facility]. Discharge as per medicine team. Admission and Anticipated Discharge Date Admission Date: December 01, 2023 Subjective feeling okay pain just above and below the wound site, not severe Physical Exam Constitutional: WD/WN, vitals as above no acute distress and not ill appearing Skin: Right lateral thigh: there is some fibrinous tissue at base but no necrosis. Surrounding erythema however reactive and no induration or fluctuance. Results & Data Vital Signs (Past 12 Hours) Vital Signs Temp Pulse Pulse Resp BP BP Pulse Ox 12/04/23 11:38 36.5 C 81 20 132/79 94 12/04/23 07:45 36.5 C 80 19 158/92 H 94 12/04/23 07:00 79 12/04/23 03:16 36.7 C 80 18 142/88 H 91 O2 Del Method 12/04/23 11:38 Room Air 12/04/23 07:45 Room Air 12/04/23 07:00 12/04/23 03:16 Room Air Laboratory Results 12/04/23 12/04/23 12/04/23 Range/Units 11:40 07:47 05:37 WBC 3.05 L (4.8-10.8) K/ul RBC 3.64 L (4.70-6.10) M/uL Hgb 10.9 L (14.0-18.0) g/dl Hct 33.7 L (42.0-52.0) % MCV 92.6 (80.0-100.0) fL MCH 29.9 (25.0-34.0) pg MCHC 32.3 (32.0-36.0) g/dL RDW Std Deviation 47.5 H (36.4-46.3) fL RDW Coeff of [place] 14.1 (11.5-14.5) % Plt Count 77 L (130-400) K/uL MPV 9.1 L (9.4-12.4) fL Sodium 136 (136-145) mmol/L Potassium 3.9 (3.5-5.1) mmol/L Chloride 106 (98-107) mmol/L Carbon Dioxide 25 (21-32) mmol/L Anion Gap 5 (3-11) BUN 19 (6-23) mg/dl Creatinine 1.10 (0.6-1.4) mg/dl Est Cr Clr Drug Dosing 72.6 ml/min Est GFR ( Amer) 79.5 ml/min Est GFR (Non-Af Amer) 68.6 ml/min BUN/Creatinine Ratio 17.3 (10-20) Glucose 99 (70-99(Fasting)) mg/dl POC Glucose 101 H 115 H (70-99) mg/dl Calcium 8.4 L (8.6-10.3) mg/dl C-Reactive Protein 1.99 H (0-0.5) mg/dl 12/03/23 12/03/23 Range/Units 20:14 16:35 WBC (4.8-10.8) K/ul RBC (4.70-6.10) M/uL Hgb (14.0-18.0) g/dl Hct (42.0-52.0) % MCV (80.0-100.0) fL MCH (25.0-34.0) pg MCHC (32.0-36.0) g/dL RDW Std Deviation (36.4-46.3) fL RDW Coeff of [place] (11.5-14.5) % Plt Count (130-400) K/uL MPV (9.4-12.4) fL Sodium (136-145) mmol/L Potassium (3.5-5.1) mmol/L Chloride (98-107) mmol/L Carbon Dioxide (21-32) mmol/L Anion Gap (3-11) BUN (6-23) mg/dl Creatinine (0.6-1.4) mg/dl Est Cr Clr Drug Dosing ml/min Est GFR ( Amer) ml/min Est GFR (Non-Af Amer) ml/min BUN/Creatinine Ratio (10-20) Glucose (70-99(Fasting)) mg/dl POC Glucose 174 H 122 H (70-99) mg/dl Calcium (8.6-10.3) mg/dl C-Reactive Protein (0-0.5) mg/dl
--- NOTE | 2023-12-04 16:17 | Discharge Summary ---
Date of Service December 04, 2023 Admission HPI Per Admitting Provider Eligio Carey is a 67 year old male with metastatic liver cancer on immunotherapy (bevacizumab, atezolizumab) who presents to the ER with right leg abscess. He reports ongoing for the last 5 days although on review of notes from [facility] he was started on Levaquin on November 25. The abscess became larger and he underwent incision and drainage on November 28 although no culture was recorded as sent at this time. No fever or chills. Due to increased purulent drainage, increasing size of area and immunocompromised state he was sent to the ER for evaluation. Principal Diagnosis leg abscess Discharge Exam Constitutional well developed; + not well nourished and no acute distress Eyes PERRL, conjunctivae normal, anicteric sclerae Respiratory normal respiratory effort, lungs clear to auscultation Cardiovascular Rate/Rhythm: regular rate and regular rhythm Heart Sounds: no murmur Extremities: normal capillary refill; no calf tenderness and no pedal edema Gastrointestinal (Abdomen) Inspection/Auscultation: + abdomen distended Percussion/Palpation: abdomen soft; abdomen nontender (suprapubic), no guarding and abdomen not rigid Psychiatric A+Ox3, euthymic affect Discharge Data Allergies Allergy/AdvReac Type Severity Reaction Status Date / Time lisinopril AdvReac Intermediate cough Verified 12/01/23 13:35 OC SPRAY AdvReac CONTRAINDIC Uncoded 12/01/23 13:35 ATED Consultations 12/01/23 12:27 ED Decision to Admit Stat 12/02/23 00:52 Consult General Surgery Routine Procedures Performed Operation Date: 12/02/23 10:45 Actual Procedures p Incision and Drainage Right Lateral Thigh - Nadine Mann MD Ordered Studies 12/01/23 09:51 CT femur RT w con Stat Hospital Course (1) Leg abscess: With surrounding cellulitis, picture taken in H&P exam, failure of outpatient levofloxacin Immunosuppressed on chemotherapy with liver cancer therefore will treat with broad spectrum antibiotics vancomycin/Zosyn vitals are stable. S/P I and D incision and drainage of right lateral thigh abscess MRSA confirmed on culture. Patient treated with daptomycin. Patient will be transitioned to bactrim for an additional 10 more days. continue wound care (2) MADELINE (acute kidney injury): Recent urinary retention in Feb, bladder scan post void residual ordered Suspect mainly just hypovolemic in setting of ongoing Entresto/diuretics with recent adjustment and significant weight loss (suspect cancer related) Recent admission in September all his diuretics, Entresto and metoprolol were held for multiple days but no adjustments made on discharge. CXR ordered for baseline assessment of pulmonary edema Patient with urinary retention. Madeline improved with weldon placement Patient had weldon catheter exchanged as antibiotics were changed to treat ESBL. Zosyn was placed initally but switched to ertapenem. Patient will be transitioned to augmentin as an outpatient to complete course. Patient will recommend followup with Urology as an outpatient (3) BPH (benign prostatic hyperplasia): Worsening symptoms on review of symptoms Bladder scan as above to assess for urinary retention Continue tamsulosin 0.4mg PO daily added finasteride (4) Type 2 diabetes mellitus without complications: Hemoglobin A1C 5.8 in 2022, repeat with AM labs ?over treated with weight loss since glucose 64, Lantus 28 units and Jardiance He did not require any insulin last admission with adequate glucose control Suspect will need insulin decreased or stopped on discharge (5) COPD (chronic obstructive pulmonary disease): Continue routine inhalers (6) Neuropathy: Reduce gabapentin to 300mg PO TID per renal dosing (7) Ischemic cardiomyopathy: Continue metoprolol succinate Entresto as above (8) CHF (congestive heart failure): Currently appears hypovolemic Holding furosemide (9) Liver cancer: Three week cycle of bevacizumab, atezolizumab - recommend holding ongoing immunotherapy until wound is healed (10) Unspecified cirrhosis of liver: Monitor for hepatic encephalopathy as this was thought to atleast contribute towards his presentation in September although he no longer appears to be on rifaximin (11) Failure of outpatient treatment: (12) Cellulitis: (13) Immunocompromised: Total Time Total Time Spent Total Time Spent (In Minutes): 32 Discharge Plan Discharge Items [facility] Reason For Visit: MADELINE, CHF, LEG WOUND Discharge Diagnosis: leg wound/ uti Condition on Discharge: Fair Activity: Resume your previous activity Non-emergency contact: Primary Care Provider Call non-emergency contact if: you have any medication questions Follow-up/Referrals: Gallito AGUIAR [Primary Care Provider] - Diet: Carb Consistent or DM2, Heart Healthy and Low Sodium (2gm) Addtl Attending Provider Instructions: Patient inna need to be on bactrim for his wound on his leg. He will also be on augmentin for his UTI. Patient had urinary retention while he wa shere. Added finasteride. Will recommend voiding trial in about 1 week. May benefit from urology followup. Continue daily wound care and packing. Pending Studies at Discharge: No Stand-Alone Forms: My [facility] Skilled Items Patient informed of condition?: No Discharge Level of Care: Other Communicable Disease: Yes Discharge Prognosis: Stable Lines: None Urinary Catheter: Yes Medications and DC Order Prescriptions: New finasteride 5 mg Tablet 5 mg PO QAM Qty: 30 0RF amoxicillin-pot clavulanate 875-125 mg tablet 1 tab PO BID Qty: 12 0RF sulfamethoxazole-trimethoprim [Bactrim] 400-80 mg tablet 1 tab PO BID Qty: 20 0RF Continued Entresto 97-103 mg tablet 1 tab PO BID insulin glargine-yfgn [Semglee(insulin glargine-yfgn)] 100 unit/mL solution 28 unit subcut DAILY Novolin R Regular U100 Insulin 100 unit/mL solution 1 sliding scale dose subcut USEASDIRECTD Rx Instructions: Sliding Scale: 201-250 = 2units; 251-300 = 4units; 301-350 = 6units; 351-400 = 8units; 401-450 = 10units; 451-500 = 12 >500 as needed albuterol sulfate [Proventil HFA] 90 mcg/actuation HFA aerosol inhaler 2 puff inhalation QID PRN (Reason: shortness of breath or wheezing) Alvesco 160 mcg/actuation Hfa Aerosol Inhaler 1 puff INHALATION BID furosemide 20 mg Tablet 20 mg PO BID Jardiance 10 mg Tablet 10 mg PO DAILYBB nortriptyline 75 mg Capsule 75 mg PO HS Rx Instructions: CRUSH MEDICATION atorvastatin 40 mg Tablet 40 mg PO DAILY hydroxyzine pamoate 50 mg Capsule 100 mg PO HS dextromethorphan-guaifenesin 10-100 mg/5 mL Syrup 30 ml PO Q6 PRN (Reason: Cough) aspirin 81 mg Tablet,Delayed Release (Dr/Ec) 81 mg PO DAILY tamsulosin [Flomax] 0.4 mg Capsule 0.4 mg PO DAILY gabapentin 800 mg Tablet 800 mg PO TID metoprolol succinate 25 mg Tablet Extended Release 24 Hr 25 mg PO DAILY lactulose 10 gram/15 mL Solution 20 g PO DAILY PRN (Reason: ABD DISTRESS) omeprazole 20 mg Tablet,Delayed Release (Dr/Ec) See Rx Instructions .ROUTE .COMPLEX Rx Instructions: Take 20mg by mouth twice daily starting 11/22/23, on 12/06/23 start taking 20mg by mouth once daily [id number] Suspension 30 ml PO DAILY PRN (Reason: epigastric pain) triamcinolone acetonide-l.s.b. 0.1 % Ointment 1 ea TOPICAL BID emollient Lotion 1 ea TOPICAL BID PRN (Reason: Unknown) ibuprofen 600 mg tablet 600 mg PO BID PRN (Reason: pain) benzonatate 200 mg Capsule 200 mg PO TID PRN (Reason: cough and congestion) acetaminophen 500 mg Tablet 500 mg PO QID PRN (Reason: pain or fever) ondansetron HCl 4 mg Tablet 8 mg PO TID PRN (Reason: Nausea And Vomiting) Discontinued levofloxacin [Levaquin] 500 mg Tablet 500 mg PO DAILY Rx Instructions: Start Date 11/26/23 - End Date 12/06/23 Discharge Orders: Discharge Order (Routine); Ordered 12/04/23 Ordered By: Sterling Messer Admission Data Admit Date/Time: 12/01/23 12:21 Attending Provider: Sterling Messer Admit Provider: Moreno Greer Primary Care Provider: Gallito AGUIAR Other Providers: Moreno Greer; Nadine Mann Other Interventions: Discharge Summary Assessment (RN) Last Done: 12/04/23 15:32 Coding Level of Care Code 84271 INP/OBS DISCH >30 MIN Diagnoses Leg abscess L02.419 MADELINE (acute kidney injury) N17.9 BPH (benign prostatic hyperplasia) N40.0 Type 2 diabetes mellitus without complications E11.9 COPD (chronic obstructive pulmonary disease) J44.9 Neuropathy G62.9 Ischemic cardiomyopathy I25.5 CHF (congestive heart failure) I50.9 Liver cancer C22.9 Unspecified cirrhosis of liver K74.60 Failure of outpatient treatment Z78.9 Cellulitis L03.115 Laterality: right Site of cellulitis: extremity Site of cellulitis of extremity: lower extremity Immunocompromised D84.9
[2023-12-04] MEDS: HEPARIN 100 UNIT/ML 5ML FLUSH FLUSH PRN (17:59)
--- NOTE | 2023-12-09 09:06 | Coding Query ---
DEBRIDEMENT DOCUMENTATION To promote full compliance with coding requirements relating to patient care, physician participation is requested in all cases of pedigree tracer uncertainty. Please assist us with the question(s) below: Please place an X in the parenthesis (x). If other, please document the finding: Type of Debridement: ( x) Excisional Debridement- Cutting away necrotic, devitalized tissue or slough to the level of viable tissue using a sharp instrument (i.e. scalpel, scissors, etc.) ( ) Non Excisional Debridement- The removal of necrotic, devitalized tissue or slough by means of scraping, mechanical brushing, flushing, or washing (i.e. irrigation,whirlpool);minor removal of loose fragments. ( ) Other (please specify): Instrument Used: (x ) Scissors ( x) Scalpel ( ) Curette ( ) Other (please specify): Depth of Debridement: ( ) Skin (x ) Skin and Subcutaneous Tissue ( ) Skin, Subcutaneous Tissue and Muscle ( ) Skin, Subcutaneous Tissue, Muscle and Bone ( ) Other (please specify): Please Specify the Size of Debridement in cm2: 6 Thank you ANDRE Lawton [facility]
== END 2023-12-04 18:33 | DRG 571 ==
LOC: ED 09:26 → EDINP 12:21 → SUATTDRO 12:21 → 4W 12:56

== ENCOUNTER 2025-02-11 04:29 | Observation (INO) ==
[2025-02-11] MEDS: SODIUM CHLORIDE 0.9% 500 ML IV ONE (04:56)
[2025-02-11] MEDS: ACETAMINOPHEN 1,000 MG/100 ML VIAL IV STA (04:58)
[2025-02-11] MEDS: ALBUT/IPRATROP 3MG/0.5MG NEB 3 ML VIAL NEB STA (04:58)
--- NOTE | 2025-02-11 05:01 | Emergency Department Note ---
Impression & Plan RLL pneumonia, CHF (congestive heart failure), Liver cancer, Hypotension, Falls, Weakness, Chest pain ED Provider Note Provider: Toan Stover MD CHIEF COMPLAINT: Falls, chest pain, low blood pressure HISTORY OF PRESENT ILLNESS: Patient is a 69-year-old gentleman unfortunate history of COPD, hepatitis C, liver cancer with mets, type 2 diabetes, ischemic cardiomyopathy/AICD/heart failure presenting here today via ambulance from [facility] where he is an inmate. Patient with liver cancer. Evidently he states over the last several days he has had 4-5 falls. Has been weak. Thinks he might of syncopized sometimes. Tonight went to the present because he has been weak and syncopized again and was reporting chest discomfort. Reports some pain in the bilateral lower legs as well and has some small wounds there by his report. Feels short of breath. Some chronic right flank and neck pain is reported. For the [facility] there was reported to be hypoxic now on 5 L as well as with low blood pressures into the 80s. Patient states has been thinking about hospice but on discussion here states that he wishes for everything to be done currently. Received 300 mL of IV crystalloid IV fluid prior to arrival for EMS with some improvement his blood pressure upon arrival here but was hypotensive in the 50s to 70s systolic for them. PAST MEDICAL HISTORY: As noted above MEDICATIONS: Reviewed home medication list. SOCIAL HISTORY: Inmate at [facility] PHYSICAL EXAM: GENERAL: alert and oriented but fatigued/weak in appearance shackled with guards present. Head: normocephalic EYES: No injection, discharge or icterus. PERRL, EOMI. NECK: Trachea midline. Supple without midline cervical tenderness ENT: Mucous membranes pink and moist. LUNGS: Airway patent. No retractions. Breath sounds faint expiratory wheeze. HEART: Regular rate and rhythm. Right upper chest port accessed. Mild tenderness without crepitus. ABDOMEN: Soft and non-tender, without guarding or rebound. Stable pelvis SKIN: Acyanotic, warm, dry scattered abrasions on the bilateral arms and legs with small skin tears on the left knee, right knee, right great toe, and a partially deflated blister overlying the left heel. EXTREMITIES: Wounds as above with bilateral lower extremity tenderness from the calves down with chronic stasis changes and some mildly decreased bilateral capillary refill of the toes. NEUROLOGICAL: No aphasia or slurred speech. Fatigued in appearance. Gross sensation intact in all extremities. EK beats beats per minute. Normal sinus rhythm. No PVC or PAC. No acute ST segment elevation or depression with nonspecific interventricular conduction delay. QTc 467. CONTINUOUS CARDIAC MONITORING: was ordered and showed a heart rate of 90s to 100s bpm in NSR/sinus tachycardia GCS 15. Patient's laboratory studies and imaging reviewed. Differential includes infection, weak, fracture, dislocation, contusion, intra- abdominal, pneumothorax, intrathoracic, intracranial, neurologic, compartment syndrome, rhabdomyolysis, as well as other pathologies. IMPRESSION/MEDICAL DECISION MAKING: Patient unfortunately advanced age liver cancer with CHF history of COPD history now on increasing oxygen to 5 L with multiple falls. Discussed with patient and he states he wished for full intervention completing CPR and intervention and is not wishing for hospice care at this point but is thinking about it. Patient with multiple falls and weakness and scattered contusions as well as abrasions on the extremities. Reports chest discomfort as well as shortness of breath and some chronic right flank and neck discomfort. Did see this patient about a month ago and had pneumonia at that time as well as some similar complaints although not so much of the chest discomfort. Given some hypotension around that improved with IV fluids will monitor closely. Low threshold for pressors given his history of heart failure and IV fluids given. Blood work here without leukocytosis. Very slight anemia but not severe at 12.4. Slightly improved thrombocytopenia 91. Not significantly acidotic or hypercarbic. No severe electrolyte abnormality noted or new renal dysfunction. Slightly worsened bilirubin 2.1 AST of 48, now with posses 193 with normal ALT of 27. CK mildly elevated 328. High sensitive troponin 17 not significantly elevated. Procalcitonin minimally elevated 0.56. Blood culture sent. Lactate returns normal at 1.2. CT head, cervical spine per radiology shows without evidence of acute intracranial bleed or cervical spine fracture. CT chest abdomen pelvis per radiology reports no PE with emphysematous changes and right lower lobe pneumonia without traumatic injury; abdomen without traumatic injury and liver cancer findings. Urinalysis pending collection. Do question given his cancers history return of pneumonia. Is able to be weaned on his oxygen after DuoNeb here. Again blood pressures improved, to be careful with his CHF history avoid fluid overload. Approximately 800 mL of normal crystalloid given between the ER here and prehospital. Beresyn ordered for broad-spectrum antibiotic coverage of what appears to be a right lower lobe pneumonia. Blood pressure is significantly improved. Scan does show a fairly large bladder and a Christiansen was placed. Urinalysis without signs of infection. Patient agreeable with plan for further care here at the hospital. He is weaned down to 2 L of nasal cannula oxygen. This is similar to what he is been on in the recent past. Again improvement of blood pressure as well as oxygenation with treatment here. Hospitalist team was consulted for further care here at the hospital. DIAGNOSIS: falls, chest pain, metastatic liver cancer, hypoxia, right lower lobe pneumonia DISPOSITION: Hospitalist will evaluate Patient was agreeable with this plan. Critical Care I have personally spent 34 minutes of critical care time in the direct management of this patient. This includes bedside care, interpretation of diagnostic studies, and testing, discussion with consultants, patient, and other required patient management activities. These 34 minutes is in excess of all separately billable procedures. Past Med/Surg History Problem List (Updated 02/11/25 @ 06:24 by Toan Stover M.D.) Chest pain (Acute) Weakness (Acute) Falls (Acute) Hypotension (Acute) RLL pneumonia (Acute) Abscess of right lower extremity BPH (benign prostatic hyperplasia) Liver cancer (Acute) Cellulitis (Acute) Failure of outpatient treatment (Acute) Immunocompromised (Acute) Abscess (Acute) Leg abscess Acute UTI (urinary tract infection) (Acute) Acute urinary retention (Acute) MADELINE (acute kidney injury) (Acute) History of liver cancer (Acute) CHI (closed head injury) (Acute) AMS (altered mental status) (Acute) Injury of knee (Acute) Closed head injury (Acute) Fall (Acute) COPD (chronic obstructive pulmonary disease) (Chronic) Unspecified malignant neoplasm of skin, unspecified Chronic viral hepatitis C Iron deficiency anemia, unspecified Thrombocytopenia, unspecified Type 2 diabetes mellitus without complications Hyperlipidemia, unspecified Opioid dependence with withdrawal Neuropathy Essential (primary) hypertension Atherosclerotic heart disease of [place] coronary artery without angina pectoris Heart failure, unspecified Chronic obstructive pulmonary disease, unspecified (Acute) Unspecified cirrhosis of liver Abnormal findings on diagnostic imaging of skull and head, not elsewhere classified Ischemic cardiomyopathy AICD (automatic cardioverter/defibrillator) present Acute on chronic HFrEF (heart failure with reduced ejection fraction) CHF (congestive heart failure) (Acute) Respiratory failure with hypoxia (Acute) CAD (coronary artery disease) Nausea and vomiting (Acute) Diabetes (Chronic) HTN (hypertension) (Chronic) Medical History Effusion of knee joint, left Opioid abuse, uncomplicated Social History Smoking Status: Former smoker Tobacco Type: Cigarettes Do You Dip or Chew Tobacco: No; Hx Alcohol Use: No Hx Substance Use: No Preferred Language: Arabic Communication Ability: Effective Mechanical Fitter Required: No Beliefs That Will Affect Care: None Current Living Situation: Other Current Living Situation Comment: [facility] Feels Safe at Home: Yes Assistive Devices: Oxygen - Continuous and Wheelchair Allergies Allergies Allergy/AdvReac Type Severity Reaction Status Date / Time lisinopril AdvReac Intermediate cough Verified 07/18/24 10:56 OC SPRAY AdvReac CONTRAINDIC Uncoded 07/18/24 10:56 ATED Home Meds Home Medications Medication Instructions Recorded Confirmed insulin glargine-yfgn 100 unit/mL 28 unit subcut DAILY 01/12/22 07/18/24 subcutaneous solution (Semglee (insulin glargine-yfgn)) insulin regular human 100 unit/mL 1 sliding scale dose subcut 01/12/22 07/18/24 injection solution (Novolin R USEASDIRECTD Regular U-100 Insulin) sacubitril 97 mg-valsartan 103 mg 1 tab PO BID 01/12/22 07/18/24 tablet (Entresto) empagliflozin 10 mg tablet 10 mg PO DAILYBB 10/25/22 07/18/24 (Jardiance) furosemide 20 mg tablet 20 mg PO BID 10/25/22 07/18/24 nortriptyline 75 mg capsule 75 mg PO HS 10/25/22 07/18/24 aspirin 81 mg tablet,delayed 81 mg PO DAILY 10/01/23 07/18/24 release atorvastatin 40 mg tablet 40 mg PO DAILY 10/01/23 07/18/24 dextromethorphan-guaifenesin 10 30 ml PO Q6 PRN Cough 10/01/23 07/18/24 mg-100 mg/5 mL oral syrup gabapentin 800 mg tablet 800 mg PO TID 10/01/23 07/18/24 hydroxyzine pamoate 50 mg capsule 100 mg PO HS 10/01/23 07/18/24 lactulose 10 gram/15 mL oral 20 g PO DAILY PRN ABD DISTRESS 10/01/23 07/18/24 solution metoprolol succinate 25 mg 25 mg PO DAILY 10/01/23 07/18/24 tablet,extended release 24 hr tamsulosin 0.4 mg capsule (Flomax) 0.4 mg PO DAILY 10/01/23 07/18/24 acetaminophen 500 mg tablet 500 mg PO QID PRN pain or fever 10/24/23 07/18/24 benzonatate 200 mg capsule 200 mg PO TID PRN cough and 10/24/23 07/18/24 congestion ondansetron HCl 4 mg tablet 8 mg PO TID PRN Nausea And Vomiting 10/24/23 07/18/24 sobklarb-trndhdlse-ehbwkiby oral 30 ml PO DAILY PRN epigastric pain 12/01/23 07/18/24 suspension emollient 1 ea topical BID PRN Unknown 12/01/23 07/18/24 ibuprofen 600 mg tablet 600 mg PO BID PRN pain 12/01/23 07/18/24 ciprofloxacin HCl 500 mg tablet 500 mg PO BID 07/18/24 07/18/24 (Cipro) cyanocobalamin (vitamin B-12) 500 500 mcg PO DAILY 07/18/24 07/18/24 mcg lozenges ipratropium 0.5 mg-albuterol 3 mg 3 ml inhalation Q6H PRN 07/18/24 07/18/24 (2.5 mg base)/3 mL nebulization soln Previous Rx's Medication Instructions Recorded finasteride 5 mg tablet 5 mg PO QAM #30 tabs 12/04/23 albuterol sulfate 90 mcg/actuation 2 puffs inhalation 6XD PRN 06/25/24 aerosol inhaler shortness of breath or wheezing #6.7 grams budesonide-formoterol HFA 80 2 puff inhalation BID #10.2 grams 07/18/24 mcg-4.5 mcg/actuation aerosol inhaler (Symbicort) tiotropium bromide 2.5 2 inh inhalation QAM #4 grams 07/18/24 mcg/actuation mist for inhalation (Spiriva Respimat) azithromycin 250 mg tablet 250 mg PO MOWEFR 30 days #18 tabs 11/04/24 prednisone 2.5 mg tablet 2.5 mg PO DAILY #30 tabs 11/04/24 amoxicillin 875 mg-potassium 1 tab PO BID #14 tabs 01/03/25 clavulanate 125 mg tablet Results & Data (ED) Vital Signs Vital Signs - 24 hr 02/11/25 04:23 02/11/25 04:23 02/11/25 04:23 Temperature 36.9 C Temperature Source Oral Pulse Rate 98 H Pulse Rate [Apical] Pulse Rate from SpO2 Sensor Pulse Rhythm [Apical] Pulse Strength [Apical] Respiratory Rate 20 Respiratory Effort / Characteristics Non-Labored Respiratory Depth Normal Respiratory Pattern Blood Pressure 103/62 Blood Pressure [Left Arm] Blood Pressure Mean 75 Blood Pressure Mean [Left Arm] Blood Pressure Position [Left Arm] Pulse Oximetry 96 Oxygen Delivery Method Nasal Cannula Nasal Cannula Nasal Cannula Oxygen Flow Rate 6 Sepsis Recent Fever Within 48 Hours No Sepsis New/Unexplained Change in Mental Status No Sepsis Action Taken by Nursing No Action Required 02/11/25 04:40 02/11/25 04:40 02/11/25 04:41 Temperature Temperature Source Pulse Rate 99 H Pulse Rate [Apical] Pulse Rate from SpO2 Sensor 99 H Pulse Rhythm [Apical] Pulse Strength [Apical] Respiratory Rate 20 Respiratory Effort / Characteristics Respiratory Depth Respiratory Pattern Blood Pressure 115/63 115/63 Blood Pressure [Left Arm] Blood Pressure Mean 87 87 Blood Pressure Mean [Left Arm] Blood Pressure Position [Left Arm] Pulse Oximetry 95 Oxygen Delivery Method Nasal Cannula Oxygen Flow Rate 6 Sepsis Recent Fever Within 48 Hours Sepsis New/Unexplained Change in Mental Status Sepsis Action Taken by Nursing 02/11/25 04:42 02/11/25 04:50 02/11/25 04:53 Temperature Temperature Source Pulse Rate 98 H Pulse Rate [Apical] Pulse Rate from SpO2 Sensor 98 H Pulse Rhythm [Apical] Pulse Strength [Apical] Respiratory Rate 21 Respiratory Effort / Characteristics Respiratory Depth Respiratory Pattern Blood Pressure 96/53 L Blood Pressure [Left Arm] Blood Pressure Mean 61 Blood Pressure Mean [Left Arm] Blood Pressure Position [Left Arm] Pulse Oximetry 97 Oxygen Delivery Method Room Air Oxygen Flow Rate Sepsis Recent Fever Within 48 Hours Sepsis New/Unexplained Change in Mental Status Sepsis Action Taken by Nursing 02/11/25 04:58 02/11/25 04:59 02/11/25 05:00 Temperature Temperature Source Pulse Rate 106 H 97 H Pulse Rate [Apical] Pulse Rate from SpO2 Sensor 98 H Pulse Rhythm [Apical] Pulse Strength [Apical] Respiratory Rate 18 Respiratory Effort / Characteristics Respiratory Depth Respiratory Pattern Blood Pressure 122/74 Blood Pressure [Left Arm] Blood Pressure Mean 93 Blood Pressure Mean [Left Arm] Blood Pressure Position [Left Arm] Pulse Oximetry 98 Oxygen Delivery Method Oxygen Flow Rate Sepsis Recent Fever Within 48 Hours Sepsis New/Unexplained Change in Mental Status Sepsis Action Taken by Nursing 02/11/25 05:37 02/11/25 05:39 02/11/25 05:40 Temperature Temperature Source Pulse Rate 96 H Pulse Rate [Apical] Pulse Rate from SpO2 Sensor 96 H Pulse Rhythm [Apical] Pulse Strength [Apical] Respiratory Rate 21 Respiratory Effort / Characteristics Respiratory Depth Respiratory Pattern Blood Pressure 119/77 142/81 H Blood Pressure [Left Arm] Blood Pressure Mean 96 109 Blood Pressure Mean [Left Arm] Blood Pressure Position [Left Arm] Pulse Oximetry 97 Oxygen Delivery Method Oxygen Flow Rate Sepsis Recent Fever Within 48 Hours Sepsis New/Unexplained Change in Mental Status Sepsis Action Taken by Nursing 02/11/25 05:41 02/11/25 06:20 02/11/25 07:00 Temperature Temperature Source Pulse Rate 95 H Pulse Rate [Apical] 98 H 95 H Pulse Rate from SpO2 Sensor 95 H Pulse Rhythm [Apical] Regular Pulse Strength [Apical] Normal Respiratory Rate 20 18 16 Respiratory Effort / Characteristics Non-Labored Spontaneous Non-Labored Spontaneous Respiratory Depth Normal Normal Respiratory Pattern Regular Blood Pressure Blood Pressure [Left Arm] 97/73 L 104/67 Blood Pressure Mean Blood Pressure Mean [Left Arm] 81 79 Blood Pressure Position [Left Arm] Lying Pulse Oximetry 97 92 95 Oxygen Delivery Method Nasal Cannula Nasal Cannula Oxygen Flow Rate 3 2 Sepsis Recent Fever Within 48 Hours Sepsis New/Unexplained Change in Mental Status Sepsis Action Taken by Nursing Laboratory Data 02/11/25 04:42 02/11/25 04:42 Lab Results 02/11/25 02/11/25 02/11/25 Range/Units 04:42 04:45 04:53 WBC 6.04 (4.8-10.8) K/ul RBC 4.24 L (4.70-6.10) M/uL Hgb 12.4 L (14.0-18.0) g/dl POC Hgb (14.0-18.0) g/dl Hct 39.2 L (42.0-52.0) % POC Hct (42-52) % MCV 92.5 (80.0-100.0) fL MCH 29.2 (25.0-34.0) pg MCHC 31.6 L (32.0-36.0) g/dL RDW Std Deviation 56.0 H (36.4-46.3) fL RDW Coeff of [place] 16.7 H (11.5-14.5) % Plt Count 91 L (130-400) K/uL MPV 9.7 (9.4-12.4) fL Immature Gran % (Auto) 0.3 % Neut % (Auto) 69.2 % Lymph % (Auto) 16.9 % [place] % (Auto) 12.4 % Eos % (Auto) 0.7 % Baso % (Auto) 0.5 % Neut # (Auto) 4.18 (1.40-6.50) K/uL Lymph # (Auto) 1.02 L (1.20-3.40) K/uL [place] # (Auto) 0.75 H (0.11-0.59) K/uL Eos # (Auto) 0.04 (0.00-0.50) K/uL Baso # (Auto) 0.03 (0.00-0.20) K/uL Immature Gran # (Auto) 0.02 (0.01-0.20) K/uL PT 11.5 (9.0-12.0) Seconds INR 1.1 (0.9-1.1) APTT 34 H (21-31) Seconds PTT Ratio 1.3 VBG pH (7.36-7.41) VBG pCO2 (38-50) mmHg VBG pO2 mmHg VBG HCO3 mmol/L VBG O2 Saturation % VBG Base Excess mEq/L POC Sodium (135-144) mmol/L Sodium 137 (136-145) mmol/L POC Potassium (3.3-5.0) mmol/L Potassium 4.5 (3.5-5.1) mmol/L POC Chloride (101-112) mmol/L Chloride 107 (98-107) mmol/L Carbon Dioxide 22 (21-32) mmol/L POC Total CO2 (24-31) mmol/L Anion Gap 8 (3-11) POC Anion Gap (16-25) mmol/L POC BUN (7-18) mg/dl BUN 42 H (6-23) mg/dl Creatinine 1.20 (0.6-1.4) mg/dl POC Creatinine (0.6-1.3) mg/dl Est Cr Clr Drug Dosing 65.7 ml/min eGFR 65.46 BUN/Creatinine Ratio 35.0 H (10-20) Glucose 92 (70-99(Fasting)) mg/dl POC Glucose (other) (70-99) mg/dl Lactate 1.2 (0.4-2.0) mmol/L Calcium 8.9 (8.6-10.3) mg/dl POC Ioniz Calcium Bandar (1.12-1.32) mmol/l Total Bilirubin 2.1 H (0.2-1.0) mg/dl AST 48 H (13-39) U/L ALT 27 (7-52) U/L Alkaline Phosphatase 193 H (34-104) U/L Total Creatine Kinase 328 H (30-223) U/L Troponin I High Sens 17.3 (0-20) pg/ml Total Protein 6.3 (6.0-8.3) gm/dl Albumin 2.9 L (3.4-5.0) gm/dl Globulin 3.4 (2.5-4.0) gm/dl Albumin/Globulin Ratio 0.9 (0.9-2) Lipase 6 L (11-82) U/L Procalcitonin 0.56 H (0-0.5) ng/ml Urine Color Urine Appearance (Clear) Urine pH (4.5-7.5) Ur Specific Crete (1.000-1.030) Urine Protein (Negative) Urine Glucose (UA) (Negative) Urine Ketones (Negative) Urine Blood (Negative) Urine Nitrite (Negative) Urine Bilirubin (Negative) Urine Urobilinogen (Negative) Ur Leukocyte Esterase (Negative) Urine Comment Adenovirus (PCR) Not Detected (NotDetected) B. pertussis DNA (PCR) Not Detected (NotDetected) B.parapertussis DNA PCR Not Detected (NotDetected) C. pneumoniae DNA (PCR) Not Detected (NotDetected) Coronavirus OC43 (PCR) Not Detected (NotDetected) Coronavirus HKU1 (PCR) Not Detected (NotDetected) Coronavirus 229E (PCR) Not Detected (NotDetected) SARS-CoV-2 (PCR) Not Detected (NotDetected) Coronavirus NL63 (PCR) Not Detected (NotDetected) Human Metapneumovir PCR Not Detected (NotDetected) Influenza Type A (PCR) Not Detected (NotDetected) Influenza Type B (PCR) Not Detected (NotDetected) M. pneumoniae (PCR) Not Detected (NotDetected) Parainfluenza 1 (PCR) Not Detected (NotDetected) Parainfluenza 2 (PCR) Not Detected (NotDetected) Parainfluenza 3 (PCR) Not Detected (NotDetected) Parainfluenza 4 (PCR) Not Detected (NotDetected) RSV (PCR) Not Detected (NotDetected) Entero/Rhino (PCR) Not Detected (NotDetected) Blood Type Antibody Screen 02/11/25 02/11/25 02/11/25 Range/Units 04:57 04:59 05:50 WBC (4.8-10.8) K/ul RBC (4.70-6.10) M/uL Hgb (14.0-18.0) g/dl POC Hgb 12.9 L (14.0-18.0) g/dl Hct (42.0-52.0) % POC Hct 38 L (42-52) % MCV (80.0-100.0) fL MCH (25.0-34.0) pg MCHC (32.0-36.0) g/dL RDW Std Deviation (36.4-46.3) fL RDW Coeff of [place] (11.5-14.5) % Plt Count (130-400) K/uL MPV (9.4-12.4) fL Immature Gran % (Auto) % Neut % (Auto) % Lymph % (Auto) % [place] % (Auto) % Eos % (Auto) % Baso % (Auto) % Neut # (Auto) (1.40-6.50) K/uL Lymph # (Auto) (1.20-3.40) K/uL [place] # (Auto) (0.11-0.59) K/uL Eos # (Auto) (0.00-0.50) K/uL Baso # (Auto) (0.00-0.20) K/uL Immature Gran # (Auto) (0.01-0.20) K/uL PT (9.0-12.0) Seconds INR (0.9-1.1) APTT (21-31) Seconds PTT Ratio VBG pH 7.35 L (7.36-7.41) VBG pCO2 41 (38-50) mmHg VBG pO2 38 mmHg VBG HCO3 23 mmol/L VBG O2 Saturation 66.1 % VBG Base Excess -2.9 mEq/L POC Sodium 140 (135-144) mmol/L Sodium (136-145) mmol/L POC Potassium 4.6 (3.3-5.0) mmol/L Potassium (3.5-5.1) mmol/L POC Chloride 108 (101-112) mmol/L Chloride (98-107) mmol/L Carbon Dioxide (21-32) mmol/L POC Total CO2 21 L (24-31) mmol/L Anion Gap (3-11) POC Anion Gap 17.0 (16-25) mmol/L POC BUN 39 H (7-18) mg/dl BUN (6-23) mg/dl Creatinine (0.6-1.4) mg/dl POC Creatinine 1.3 (0.6-1.3) mg/dl Est Cr Clr Drug Dosing ml/min eGFR BUN/Creatinine Ratio (10-20) Glucose (70-99(Fasting)) mg/dl POC Glucose (other) 94 (70-99) mg/dl Lactate (0.4-2.0) mmol/L Calcium (8.6-10.3) mg/dl POC Ioniz Calcium Bandar 1.14 (1.12-1.32) mmol/l Total Bilirubin (0.2-1.0) mg/dl AST (13-39) U/L ALT (7-52) U/L Alkaline Phosphatase (34-104) U/L Total Creatine Kinase (30-223) U/L Troponin I High Sens (0-20) pg/ml Total Protein (6.0-8.3) gm/dl Albumin (3.4-5.0) gm/dl Globulin (2.5-4.0) gm/dl Albumin/Globulin Ratio (0.9-2) Lipase (11-82) U/L Procalcitonin (0-0.5) ng/ml Urine Color Dark Yellow Urine Appearance Clear (Clear) Urine pH 5.0 (4.5-7.5) Ur Specific Crete 1.026 (1.000-1.030) Urine Protein Negative (Negative) Urine Glucose (UA) 3+ H (Negative) Urine Ketones Trace H (Negative) Urine Blood Negative (Negative) Urine Nitrite Negative (Negative) Urine Bilirubin 1+ H (Negative) Urine Urobilinogen Negative (Negative) Ur Leukocyte Esterase Negative (Negative) Urine Comment Adenovirus (PCR) (NotDetected) B. pertussis DNA (PCR) (NotDetected) B.parapertussis DNA PCR (NotDetected) C. pneumoniae DNA (PCR) (NotDetected) Coronavirus OC43 (PCR) (NotDetected) Coronavirus HKU1 (PCR) (NotDetected) Coronavirus 229E (PCR) (NotDetected) SARS-CoV-2 (PCR) (NotDetected) Coronavirus NL63 (PCR) (NotDetected) Human Metapneumovir PCR (NotDetected) Influenza Type A (PCR) (NotDetected) Influenza Type B (PCR) (NotDetected) M. pneumoniae (PCR) (NotDetected) Parainfluenza 1 (PCR) (NotDetected) Parainfluenza 2 (PCR) (NotDetected) Parainfluenza 3 (PCR) (NotDetected) Parainfluenza 4 (PCR) (NotDetected) RSV (PCR) (NotDetected) Entero/Rhino (PCR) (NotDetected) Blood Type A Positive Antibody Screen NEGATIVE Administered Medications Discontinued Medications Albuterol (Albut/Ipratrop 3mg/0.5mg Neb 3 Ml Vial) 3 ml NEB NOW STA; Protocol Stop: 02/11/25 04:44 Last Admin: 02/11/25 04:58 Dose: 3 ml Documented By: RADHA Sodium Chloride (Nss) 500 mls @ 999 mls/hr IV .Q31M ONE Stop: 02/11/25 05:13 Last Infusion: 02/11/25 05:30 Dose: Infused Documented By: Admin: 02/11/25 04:56 Dose: 999 mls/hr Documented By: RADHA Acetaminophen (Ofirmev) 1,000 mg in 100 mls @ 400 mls/hr IV NOW STA Stop: 02/11/25 04:58 Last Infusion: 02/11/25 05:15 Dose: Infused Documented By: Admin: 02/11/25 04:58 Dose: 400 mls/hr Documented By: RADHA Piperacillin Sod/Tazobactam Sod (Zosyn) 4.5 gm in 100 mls @ 200 mls/hr IV NOW ONE; Protocol Stop: 02/11/25 06:11 Last Infusion: 02/11/25 06:23 Dose: Infused Documented By: Admin: 02/11/25 05:53 Dose: 200 mls/hr Documented By: RADHA Ioversol (Optiray 320 125ml) 125 ml IV ONCE ONE Stop: 02/11/25 05:41 Last Admin: 02/11/25 05:41 Dose: 118 ml Documented By: ANKUR Imaging Data Radiologist's Impression: Abdomen/Pelvis CT 02/11/25 04:42 EXAM: CT abd pelvis IV con only CLINICAL HISTORY: cp, falls, weak, sob TECHNIQUE: Contiguous axial images were obtained from the level of the diaphragm to the pubic symphysis with intravenous contrast. Coronal and sagittal reconstructions were likewise performed and indicated to increase the sensitivity for detecting clinically relevant pathology. If IV contrast material had not been administered, the likelihood of detecting abnormalities relevant to the patient's condition would have been substantially decreased. CT scan was performed according to ALARA (as low as reasonable achievable). COMPARISON: 01/07/2025 09:28:35 OUTREACH CLINICIAN FINDINGS: Visualized lung shows diffuse centrilobular and panlobular emphysema with few emphysematous bulla.-stable. Patchy collapse consolidations are noted involving right posterior basal segment.-new finding. Liver appears normal in size and shows multiple scattered heterogeneously enhancing soft tissue density lesion is noted involving both lobe of liver - largest measures about 55 x 58 mm in segment V/VIII. It shows mild adjacent capsular retraction. Liver shows mild irregular contour. Splenomegaly measuring about 18 cm. There is no intra or extrahepatic biliary ductal dilatation. Hepatic vasculature is patent. The gallbladder is present. The pancreas, and adrenal glands are unremarkable. The kidneys are normal in size and attenuation. There is no hydronephrosis or perinephric fat stranding. No renal calculi or renal masses are identified. The ureters are normal in caliber and no ureteral calculi are seen. The bladder is normal in contour. Pelvic viscera are unremarkable. No focal or diffuse bowel wall thickening or evidence of bowel obstruction is identified. No evidence of inflamed appendix. Abdominal and pelvic vasculature is patent. No adenopathy or fluid collections are seen. No aggressive appearing osseous lesions are identified. Multiple small uncomplicated sigmoid colonic diverticulosis IMPRESSION: 1. Multiple variable sized hepatic lesions with irregular hepatic contour as described- appears neoplastic lesion- size of the lesion increased as compared to prior.Splenomegaly- stable. 2. Multiple small uncomplicated sigmoid colonic diverticulosis 3. No obvious acute trauma related abnormality seen. Electronically signed by Joseph Gabriel 02-11-2025 06:[address] 02/11/25 04:42 EXAM: CT cervical spine wo con CLINICAL HISTORY: cp, falls, weak, sob TECHNIQUE: Computed tomography of the cervical spine performed without intravenous contrast. Contiguous axial images were obtained from the skull base to T2, with sagittal and coronal reformatted images reconstructed from the axial data. CT scan was performed according to ALARA (as low as reasonable achievable). COMPARISON: 10/24/2023 00:01:39 OUTREACH CLINICIAN. FINDINGS: Loss of cervical lordosis - suggest possibility of muscle spasm/positional. Degenerative changes involving cervical spine in the form of multilevel marginal osteophytes, disc space reduction and facetal arthrosis. Cervical vertebral bodies are normal in height and alignment, with no evidence of fracture or subluxation. Lateral masses of C1 are symmetrical, and the dens is intact. Prevertebral soft tissues are not widened. The remaining suprahyoid and infrahyoid soft tissues in the neck are unremarkable. Posterior uncovertebral arthrosis is noted at C5-C6 and C6-C7 level, which indenting ventral thecal sac and causes bilateral neuroforaminal narrowing. Thyroid gland appears unremarkable. IMPRESSION: 1.No acute fracture or subluxation in the cervical spine. 2.Cervical spondylosis.-stable. No other new interval abnormality since prior study. Electronically signed by Joseph Gabriel 02-11-2025 06:16 AM Chest CTA 02/11/25 04:42 EXAM: CT angio chest PE protocol CLINICAL HISTORY: cp, falls, weak, sob TECHNIQUE: Contiguous axial images were obtained from the neck base through the upper abdomen following intravenous administration of iodinated contrast material. Angiographic images were processed, 3D MIP images were acquired for interpretation. If IV contrast material had not been administered, the likelihood of detecting abnormalities relevant to the patient's condition would have been substantially decreased. Coronal and sagittal 3-D MIPs were likewise performed and indicated to increase the sensitivity of detectin diffuse clinically relevant pathology. CT scan was performed according to ALARA (as low as reasonable achievable). COMPARISON: 01/07/2025 09:28:35 OUTREACH CLINICIAN. FINDINGS: Diffuse centrilobular and panlobular emphysema noted involving both lungs. Few emphysematous bulla noted involving bilateral lower lobe. Focal collapse consolidation is noted involving posterior basal segment of right lower lobe Adequate contrast bolus without evidence of pulmonary embolism. The central airways are patent. No pleural effusion. The heart, aorta, and pulmonary arteries are of normal size and configuration. There are coronary artery and aortic atherosclerotic calcifications. No pericardial effusion is identified. The thyroid is unremarkable. No mediastinal, hilar, or axillary lymphadenopathy is noted. No suspicious lytic or sclerotic osseous lesions are identified. IMPRESSION: 1. No evidence of pulmonary embolism 2. Diffuse centrilobular and panlobular emphysema noted involving both lungs.-stable.Few emphysematous bulla noted involving bilateral lower lobe.-stable. 3. Focal collapse consolidation is noted involving posterior basal segment of right lower lobe-new finding. 4. No obvious fracture or dislocation. Electronically signed by Joseph Gabriel 02-11-2025 06:48 AM Chest X-Ray 02/11/25 04:42 EXAM: XR chest 1V portable CLINICAL HISTORY: cp, falls, weak, sob TECHNIQUE: An X-ray image of the chest is obtained in AP projection. COMPARISON: 01/03/2025. FINDINGS: Right-sided CVL, its tip reaching the superior cavoatrial junction. Left-sided pacer. Pulmonary Parenchyma: Bilateral lungs, basilar small linear infiltrates/atelacatsis. (interval more pronounced) Mild vascular congestion. No evident pleural effusion. Heart and Mediastinum: Heart size and shape are normal. No mediastinal widening or masses. No hilar or mediastinal lymphadenopathy. Bony Thorax: No evident acute osseous abnormality. Soft Tissues: Soft tissues overlying the chest wall are unremarkable. IMPRESSION: 1. Bilateral lungs, basilar small linear infiltrates/atelacatsis. (interval more pronounced) 2. Mild vascular congestion. (unchanged) 3. Right-sided CVL, with its tip reaching the superior cavoatrial junction. Optimal position. (unchanged) Electronically signed by Phil Prater 02-11-2025 05:[address] 02/11/25 04:42 EXAM: CT head/brain wo con CLINICAL HISTORY: cp, falls, weak, sob TECHNIQUE: Multiple axial images are obtained from the skull base to the vertex without contrast. CT scan was performed according to ALARA (as low as reasonable achievable). COMPARISON: 01/03/2025 15:12:00 OUTREACH CLINICIAN . FINDINGS: There is cerebral atrophy. No evidence of space occupying lesion, hemorrhage, edema, mass effect, midline shift, extra axial collection, or hydrocephalus is noted. Basal cisterns are symmetric and normal in size and configuration. There are scattered periventricular hypodensities as can be seen with chronic microvascular ischemic changes. The meza-white matter differentiation is preserved. Visualized paranasal sinuses and mastoid air cells are well aerated. Orbital contents are within normal limits. Bony structures are intact. IMPRESSION: 1. No evidence of acute intracranial abnormality is demonstrated. 2. Chronic microvascular ischemic changes.-stable. 3. Cerebral atrophy.-stable. No other new interval abnormality since prior study. Electronically signed by Joseph Gabriel 02-11-2025 06:11 AM Discharge Plan Visit Data Chief Complaint: Hypotension ED Provider: Toan Stover Discharge Problem: RLL pneumonia, CHF (congestive heart failure), Liver cancer, Hypotension, Falls, Weakness, Chest pain Patient Disposition: Being Evaluated by Hospitalist Condition: Serious Forms Stand Alone Forms: My [facility] [employer] Prescriptions Prescriptions: No Action Entresto 97-103 mg tablet 1 tab PO BID insulin glargine-yfgn [Semglee(insulin glargine-yfgn)] 100 unit/mL solution 28 unit subcut DAILY Novolin R Regular U100 Insulin 100 unit/mL solution 1 sliding scale dose subcut USEASDIRECTD Rx Instructions: Sliding Scale: 201-250 = 2units; 251-300 = 4units; 301-350 = 6units; 351-400 = 8units; 401-450 = 10units; 451-500 = 12 >500 as needed ciprofloxacin HCl [Cipro] 500 mg tablet 500 mg PO BID ipratropium-albuterol 0.5 mg-3 mg(2.5 mg base)/3 mL solution for nebulization 3 ml inhalation Q6H PRN cyanocobalamin (vitamin B-12) 500 mcg lozenge 500 mcg PO DAILY budesonide-formoterol [Symbicort] 80-4.5 mcg/actuation HFA aerosol inhaler 2 puff inhalation BID Qty: 10.2 2RF Spiriva Respimat 2.5 mcg/actuation mist 2 inh inhalation QAM Qty: 4 3RF prednisone 2.5 mg tablet 2.5 mg PO DAILY Qty: 30 0RF azithromycin 250 mg tablet 250 mg PO MOWEFR 30 Days Qty: 18 6RF Rx Instructions: Take 1 tablet orally every Monday, Monday, and Monday furosemide 20 mg Tablet 20 mg PO BID Jardiance 10 mg Tablet 10 mg PO DAILYBB nortriptyline 75 mg Capsule 75 mg PO HS Rx Instructions: CRUSH MEDICATION atorvastatin 40 mg Tablet 40 mg PO DAILY hydroxyzine pamoate 50 mg Capsule 100 mg PO HS dextromethorphan-guaifenesin 10-100 mg/5 mL Syrup 30 ml PO Q6 PRN (Reason: Cough) aspirin 81 mg Tablet,Delayed Release (Dr/Ec) 81 mg PO DAILY tamsulosin [Flomax] 0.4 mg Capsule 0.4 mg PO DAILY gabapentin 800 mg Tablet 800 mg PO TID metoprolol succinate 25 mg Tablet Extended Release 24 Hr 25 mg PO DAILY lactulose 10 gram/15 mL Solution 20 g PO DAILY PRN (Reason: ABD DISTRESS) hsgbtzcr-mxzzessat-bfzkyhob Suspension 30 ml PO DAILY PRN (Reason: epigastric pain) emollient Lotion 1 ea TOPICAL BID PRN (Reason: Unknown) ibuprofen 600 mg tablet 600 mg PO BID PRN (Reason: pain) finasteride 5 mg Tablet 5 mg PO QAM Qty: 30 0RF albuterol sulfate 90 mcg/actuation HFA aerosol inhaler 2 puffs INH 6XD PRN (Reason: shortness of breath or wheezing) Qty: 6.7 0RF amoxicillin-pot clavulanate 875-125 mg tablet 1 tab PO BID Qty: 14 0RF Rx Instructions: [facility] food benzonatate 200 mg Capsule 200 mg PO TID PRN (Reason: cough and congestion) acetaminophen 500 mg Tablet 500 mg PO QID PRN (Reason: pain or fever) ondansetron HCl 4 mg Tablet 8 mg PO TID PRN (Reason: Nausea And Vomiting) Referrals Referrals: Gallito AGUIAR [Primary Care Provider] -
[2025-02-11 05:03] LABS: Basophils # (auto) 0.03 K/uL (0.00-0.20); Basophils % (auto) 0.5 %; Eosinophils # (auto) 0.04 K/uL (0.00-0.50); Eosinophils % (auto) 0.7 %; Hematocrit (blood only) 39.2 % (42.0-52.0); Hemoglobin 12.4 g/dl (14.0-18.0); Immature Granulocytes # (auto) 0.02 K/uL (0.01-0.20); Immature Granulocytes % (auto) 0.3 %; Lymphocytes # (auto) 1.02 K/uL (1.20-3.40); Lymphocytes % (auto) 16.9 %; Mean Corpuscular Hemoglobin 29.2 pg (25.0-34.0); Mean Corpuscular Hgb Conc 31.6 g/dL (32.0-36.0); Mean Corpuscular Volume 92.5 fL (80.0-100.0); Mean Platelet Volume 9.7 fL (9.4-12.4); Monocytes # (auto) 0.75 K/uL (0.11-0.59); Monocytes % (auto) 12.4 %; Neutrophils # (auto) 4.18 K/uL (1.40-6.50); Neutrophils % (auto) 69.2 %; Platelet Count 91 K/uL (130-400); RDW Coefficient of Variation 16.7 % (11.5-14.5); Red Blood Count 4.24 M/uL (4.70-6.10); White Blood Count 6.04 K/ul (4.8-10.8)
[2025-02-11 05:03] LABS: Base Excess VBG -2.9 mEq/L; HCO3 VBG 23 mmol/L; Oxygen Saturation VBG 66.1 %; PCO2 VBG 41 mmHg (38-50); PO2 VBG 38 mmHg; pH VBG 7.35 (7.36-7.41)
[2025-02-11 05:10] LABS: iSTAT Creatinine 1.3 mg/dl (0.6-1.3); iSTAT Hemoglobin 12.9 g/dl (14.0-18.0); iSTAT Ionized Calcium 1.14 mmol/l (1.12-1.32); iSTAT Potassium 4.6 mmol/L (3.3-5.0)
[2025-02-11 05:20] LABS: Albumin Globulin Ratio 0.9 (0.9-2); Bilirubin,Total 2.1 mg/dl (0.2-1.0); Calcium 8.9 mg/dl (8.6-10.3); Creatinine Clr Calc Pharmacy 65.7 ml/min; Globulin 3.4 gm/dl (2.5-4.0); Potassium 4.5 mmol/L (3.5-5.1); Total Protein 6.3 gm/dl (6.0-8.3)
[2025-02-11 05:26] LABS: Troponin I High Sensitivity 17.3 pg/ml (0-20)
[2025-02-11 05:29] LABS: INR 1.1 (0.9-1.1); Partial Thromboplastin Ratio 1.3; Partial Thromboplastin Time 34 Seconds (21-31); Prothrombin Time 11.5 Seconds (9.0-12.0)
--- NOTE | 2025-02-11 05:37 | XRay Report ---
EXAM: XR chest 1V portable CLINICAL HISTORY: cp, falls, weak, sob TECHNIQUE: An X-ray image of the chest is obtained in AP projection. COMPARISON: 01/03/2025. FINDINGS: Right-sided CVL, its tip reaching the superior cavoatrial junction. Left-sided pacer. Pulmonary Parenchyma: Bilateral lungs, basilar small linear infiltrates/atelacatsis. (interval more pronounced) Mild vascular congestion. No evident pleural effusion. Heart and Mediastinum: Heart size and shape are normal. No mediastinal widening or masses. No hilar or mediastinal lymphadenopathy. Bony Thorax: No evident acute osseous abnormality. Soft Tissues: Soft tissues overlying the chest wall are unremarkable. IMPRESSION: 1. Bilateral lungs, basilar small linear infiltrates/atelacatsis. (interval more pronounced) 2. Mild vascular congestion. (unchanged) 3. Right-sided CVL, with its tip reaching the superior cavoatrial junction. Optimal position. (unchanged) Electronically signed by Phil Prater 02-11-2025 05:36 AM
[2025-02-11] MEDS: OPTIRAY 320 125ml IV ONE (05:41)
[2025-02-11] MEDS: PIPERACILLIN/TAZOBACTAM 4.5 GM/100 ML BAG IV ONE (05:53)
[2025-02-11 05:59] LABS: Appearance Urine Clear (Clear); Bilirubin Urine 1+ (Negative); Blood Urine Negative (Negative); Color Urine Dark Yellow; Glucose Urine UA 3+ (Negative); Ketones Urine Trace (Negative); Leukocyte Esterase Urine Negative (Negative); Nitrite Urine Negative (Negative); Protein Urine Negative (Negative); Specific Gravity Urine 1.026 (1.000-1.030); Urobilinogen Urine Negative (Negative)
--- NOTE | 2025-02-11 06:12 | CT Scan Report ---
EXAM: CT head/brain wo con CLINICAL HISTORY: cp, falls, weak, sob TECHNIQUE: Multiple axial images are obtained from the skull base to the vertex without contrast. CT scan was performed according to ALARA (as low as reasonable achievable). 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 FINDINGS: There is cerebral atrophy. No evidence of space occupying lesion, hemorrhage, edema, mass effect, midline shift, extra axial collection, or hydrocephalus is noted. Basal cisterns are symmetric and normal in size and configuration. There are scattered periventricular hypodensities as can be seen with chronic microvascular ischemic changes. The meza-white matter differentiation is preserved. Visualized paranasal sinuses and mastoid air cells are well aerated. Orbital contents are within normal limits. Bony structures are intact. IMPRESSION: 1. No evidence of acute intracranial abnormality is demonstrated. 2. Chronic microvascular ischemic changes.-stable. 3. Cerebral atrophy.-stable. No other new interval abnormality since prior study. Electronically signed by Joseph Gabriel 02-11-2025 06:11 AM
--- NOTE | 2025-02-11 06:17 | CT Scan Report ---
EXAM: CT cervical spine wo con CLINICAL HISTORY: cp, falls, weak, sob TECHNIQUE: Computed tomography of the cervical spine performed without intravenous contrast. Contiguous axial images were obtained from the skull base to T2, with sagittal and coronal reformatted images reconstructed from the axial data. CT scan was performed according to ALARA (as low as reasonable achievable). COMPARISON: 10/24/2023 00:01:39 RISK COMPLIANCE ANALYST. FINDINGS: Loss of cervical lordosis - suggest possibility of muscle spasm/positional. Degenerative changes involving cervical spine in the form of multilevel marginal osteophytes, disc space reduction and facetal arthrosis. Cervical vertebral bodies are normal in height and alignment, with no evidence of fracture or subluxation. Lateral masses of C1 are symmetrical, and the dens is intact. Prevertebral soft tissues are not widened. The remaining suprahyoid and infrahyoid soft tissues in the neck are unremarkable. Posterior uncovertebral arthrosis is noted at C5-C6 and C6-C7 level, which indenting ventral thecal sac and causes bilateral neuroforaminal narrowing. Thyroid gland appears unremarkable. IMPRESSION: 1.No acute fracture or subluxation in the cervical spine. 2.Cervical spondylosis.-stable. No other new interval abnormality since prior study. Electronically signed by Joseph Gabriel 02-11-2025 06:16 AM
[2025-02-11 06:46] LABS: Adenovirus PCR Not Detected (NotDetected); Bordetella parapertussis PCR Not Detected (NotDetected); Bordetella pertussis PCR Not Detected (NotDetected); Chlamydia pneumoniae PCR Not Detected (NotDetected); Coronavirus 229E PCR Not Detected (NotDetected); Coronavirus CoV-2 (COVID19)PCR Not Detected (NotDetected); Coronavirus HKU1 PCR Not Detected (NotDetected); Coronavirus NL63 PCR Not Detected (NotDetected); Coronavirus OC43PCR Not Detected (NotDetected); Human Metapneumovirus PCR Not Detected (NotDetected); Influenza A PCR Not Detected (NotDetected); Influenza B PCR Not Detected (NotDetected); Mycoplasma pneumoniae PCR Not Detected (NotDetected); Parainfluenza Virus 1 PCR Not Detected (NotDetected); Parainfluenza Virus 2 PCR Not Detected (NotDetected); Parainfluenza Virus 3 PCR Not Detected (NotDetected); Parainfluenza Virus 4 PCR Not Detected (NotDetected); Respiratory Syncytial VirusPCR Not Detected (NotDetected); Rhinovirus/Enterovirus PCR Not Detected (NotDetected)
--- NOTE | 2025-02-11 06:49 | CT Scan Report ---
EXAM: CT angio chest PE protocol CLINICAL HISTORY: cp, falls, weak, sob TECHNIQUE: Contiguous axial images were obtained from the neck base through the upper abdomen following intravenous administration of iodinated contrast material. Angiographic images were processed, 3D MIP images were acquired for interpretation. If IV contrast material had not been administered, the likelihood of detecting abnormalities relevant to the patient's condition would have been substantially decreased. Coronal and sagittal 3-D MIPs were likewise performed and indicated to increase the sensitivity of detectin diffuse clinically relevant pathology. CT scan was performed according to ALARA (as low as reasonable achievable). 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 FINDINGS: Diffuse centrilobular and panlobular emphysema noted involving both lungs. Few emphysematous bulla noted involving bilateral lower lobe. Focal collapse consolidation is noted involving posterior basal segment of right lower lobe Adequate contrast bolus without evidence of pulmonary embolism. The central airways are patent. No pleural effusion. The heart, aorta, and pulmonary arteries are of normal size and configuration. There are coronary artery and aortic atherosclerotic calcifications. No pericardial effusion is identified. The thyroid is unremarkable. No mediastinal, hilar, or axillary lymphadenopathy is noted. No suspicious lytic or sclerotic osseous lesions are identified. IMPRESSION: 1. No evidence of pulmonary embolism 2. Diffuse centrilobular and panlobular emphysema noted involving both lungs.-stable.Few emphysematous bulla noted involving bilateral lower lobe.-stable. 3. Focal collapse consolidation is noted involving posterior basal segment of right lower lobe-new finding. 4. No obvious fracture or dislocation. Electronically signed by Joseph Gabriel 02-11-2025 06:48 AM
--- NOTE | 2025-02-11 06:52 | CT Scan Report ---
EXAM: CT abd pelvis IV con only CLINICAL HISTORY: cp, falls, weak, sob TECHNIQUE: Contiguous axial images were obtained from the level of the diaphragm to the pubic symphysis with intravenous contrast. Coronal and sagittal reconstructions were likewise performed and indicated to increase the sensitivity for detecting clinically relevant pathology. If IV contrast material had not been administered, the likelihood of detecting abnormalities relevant to the patient's condition would have been substantially decreased. CT scan was performed according to ALARA (as low as reasonable achievable). COMPARISON: 01/07/2025 09:28:35 TOE PUNCHER FINDINGS: Visualized lung shows diffuse centrilobular and panlobular emphysema with few emphysematous bulla.-stable. Patchy collapse consolidations are noted involving right posterior basal segment.-new finding. Liver appears normal in size and shows multiple scattered heterogeneously enhancing soft tissue density lesion is noted involving both lobe of liver - largest measures about 55 x 58 mm in segment V/VIII. It shows mild adjacent capsular retraction. Liver shows mild irregular contour. Splenomegaly measuring about 18 cm. There is no intra or extrahepatic biliary ductal dilatation. Hepatic vasculature is patent. The gallbladder is present. The pancreas, and adrenal glands are unremarkable. The kidneys are normal in size and attenuation. There is no hydronephrosis or perinephric fat stranding. No renal calculi or renal masses are identified. The ureters are normal in caliber and no ureteral calculi are seen. The bladder is normal in contour. Pelvic viscera are unremarkable. No focal or diffuse bowel wall thickening or evidence of bowel obstruction is identified. No evidence of inflamed appendix. Abdominal and pelvic vasculature is patent. No adenopathy or fluid collections are seen. No aggressive appearing osseous lesions are identified. Multiple small uncomplicated sigmoid colonic diverticulosis IMPRESSION: 1. Multiple variable sized hepatic lesions with irregular hepatic contour as described- appears neoplastic lesion- size of the lesion increased as compared to prior.Splenomegaly- stable. 2. Multiple small uncomplicated sigmoid colonic diverticulosis 3. No obvious acute trauma related abnormality seen. Electronically signed by Joseph Gabriel 02-11-2025 06:52 AM
--- NOTE | 2025-02-11 08:15 | History & Physical Report ---
Date of Service February 11, 2025 Assessment & Plan (1) Weakness: (2) Falls: (3) Hypotension: (4) RLL pneumonia: (5) BPH (benign prostatic hyperplasia): (6) Liver cancer: (7) COPD (chronic obstructive pulmonary disease): (8) Type 2 diabetes mellitus without complications: (9) Hyperlipidemia, unspecified: (10) Essential (primary) hypertension: (11) Heart failure, unspecified: (12) Unspecified cirrhosis of liver: (13) AICD (automatic cardioverter/defibrillator) present: (14) Ischemic cardiomyopathy: (15) Acute on chronic HFrEF (heart failure with reduced ejection fraction): (16) Respiratory failure with hypoxia: Plan 65 yo male PMHx severe COPD, liver cirrhosis, stage IV HCC on atezolizumab and bevacizumab q21d, CAD s/p PCI in 2020, HFrEF s/p AICD (last echo 2022 EF 25%), hx IVDU (hx of tx with methadone), GERD, T2DM on insulin, HTN admitted with weakness and falls over the last several days. Patient re-examined later in the morning with attending physician. At that time, the patient was much more awake and fully oriented. Code status is clarified and patient re-confirms to me that he wishes to be full code at this time. #Weakness/Falls/Altered Mental Status Likely multifactorial Chronic deconditioning in the setting of his multiple medical conditions Reports decreased PO intake recently Spoke with [facility] and patient was started 02/05/25 on oxycodone 10mg QID Developed significant over sedation with this - last dose was given 02/09 and held going forward Was also started on nortryptyline 75mg HS around the same time Expect that with oversedation, polypharmacy, there is a component of delirium that developed as well Has been on gabapentin for at least 2 years at current dose, continue Will order PT/OT #Hypotension Resolved, was responsive to fluids #Hypoxia Not on O2 at baseline Expect that some degree of this is chronic Wean O2 as tolerated for goal of 88-92% Continue daily prednisone, azithromycin MWF Continue home inhalers Duonebs PRN while hospitalized RLL with consolidation, continue Zosyn for now FV/IS #T2DM Continue Jardiance Glargine 14U BID (equivalent to home dosing) ISS goal 110-180 CF 25, CR 8 #HFrEF/HTN Continue ASA, statin, Entresto Hold antihypertensives Does not appear decompensated at this time #HCC Per CCP note in 10/22 appears patient is still receiving aggressive treatment Per [facility], the patient was recently DNR/DNI and considering hospice but having difficulty getting this set up Would be beneficial to have some clarification re: goals of care #GERD Protonix #BPH hold finasteride, Flomax in setting of hypotension FENGI: hold further IVF, diet HH, T2DM Code status: full code DVT prophylaxis: Lovenox Isolation: none Disposition: PCU History of Present Illness Primary Care Provider: COSME Conti 65 yo male PMHx severe COPD, liver cirrhosis, stage IV HCC on atezolizumab and bevacizumab q21d, CAD s/p PCI in 2020, HFrEF s/p AICD (last echo 2022 EF 25%), hx IVDU (hx of tx with methadone), GERD, T2DM on insulin, HTN admitted with weakness and falls over the last several days. History from patient is limited at the time of our encounter. He awakens to sternal rub but does not participate in conversation. History is primarily obtained from ER physican who states patient was much more interactive during their encounter and from chart review. Pt reports that over the last several days he has felt weak and has had 4-5 falls. There is some question of whether the patient had syncopal events during this time and the patient did endorse some degree of chest discomfort SOB, and b/l leg pain. EMS was called overnight to the [facility] and the patient was found to be hypoxic to the low 80s which corrected with 5L NC, hypotensive to the 50s improved with 300cc NSS. He has had increase in his COPD symptoms over the last 6 months or so with at least two exacerbations and treatment for pneumonia. He was recently started on daily steroids, 2.5mg prednisone and azithromycin 250mg MWF. With regard to his chronic illnesses and overall decline there was report from the [facility] that the patient wished to be DNR/DNI and was seeking hospice care but having difficulty getting this set up. Per ER notes patient was AAOx4 when he arrived and expressed desire to be full code at this time. I was unable to independently verify this as the patient was not interactive or able to participate in conversation during my encounter. Allergies Allergy/AdvReac Type Severity Reaction Status Date / Time lisinopril AdvReac Intermediate cough Verified 07/18/24 10:56 OC SPRAY AdvReac CONTRAINDIC Uncoded 02/11/25 08:28 ATED Home Medications Medication Instructions Recorded Confirmed Type insulin glargine-yfgn 100 unit/mL 20 unit subcut BID 01/12/22 02/11/25 History subcutaneous solution (Semglee (insulin glargine-yfgn)) insulin regular human 100 unit/mL 1 sliding scale dose subcut 01/12/22 02/11/25 History injection solution (Novolin R USEASDIRECTD Regular U-100 Insulin) sacubitril 97 mg-valsartan 103 mg 1 tab PO BID 01/12/22 02/11/25 History tablet (Entresto) empagliflozin 10 mg tablet 10 mg PO DAILYBB 10/25/22 02/11/25 History (Jardiance) nortriptyline 75 mg capsule 75 mg PO HS 10/25/22 02/11/25 History aspirin 81 mg tablet,delayed 81 mg PO DAILY 10/01/23 02/11/25 History release atorvastatin 40 mg tablet 40 mg PO DAILY 10/01/23 02/11/25 History dextromethorphan-guaifenesin 10 15 ml PO QID PRN Cough/Congestion 10/01/23 02/11/25 History mg-100 mg/5 mL oral syrup gabapentin 800 mg tablet 800 mg PO TID 10/01/23 02/11/25 History hydroxyzine pamoate 50 mg capsule 100 mg PO HS 10/01/23 02/11/25 History metoprolol succinate 25 mg 25 mg PO DAILY 10/01/23 02/11/25 History tablet,extended release 24 hr tamsulosin 0.4 mg capsule (Flomax) 0.4 mg PO DAILY 10/01/23 02/11/25 History ondansetron HCl 4 mg tablet 8 mg PO TID PRN Nausea And Vomiting 10/24/23 02/11/25 History finasteride 5 mg tablet 5 mg PO QAM #30 tabs 12/04/23 02/11/25 Rx ipratropium 0.5 mg-albuterol 3 mg 3 ml inhalation QID PRN Shortness 07/18/24 02/11/25 History (2.5 mg base)/3 mL nebulization Of Breath soln tiotropium bromide 2.5 2 inh inhalation QAM #4 grams 07/18/24 02/11/25 Rx mcg/actuation mist for inhalation (Spiriva Respimat) azithromycin 250 mg tablet 250 mg PO MOWEFR 30 days #18 tabs 11/04/24 02/11/25 Rx albuterol sulfate 90 mcg/actuation 2 puffs inhalation QID PRN 02/11/25 02/11/25 History aerosol inhaler shortness of breath or wheezing budesonide-formoterol HFA 80 2 puff inhalation DAILY 02/11/25 02/11/25 History mcg-4.5 mcg/actuation aerosol inhaler (Symbicort) cyanocobalamin (vitamin B-12) 500 1,000 mcg PO DAILY 02/11/25 02/11/25 History mcg tablet (Vitamin B-12) loperamide 2 mg tablet (Diamode) 2 mg PO Q6H PRN Diarrhea 02/11/25 02/11/25 History omeprazole 20 mg capsule,delayed 20 mg PO DAILY 02/11/25 02/11/25 History release polyethylene glycol 3350 17 gram 17 g PO DAILY 02/11/25 02/11/25 History oral powder packet (ClearLax) sennosides 8.6 mg-docusate sodium 2 tab-cap PO HS 02/11/25 02/11/25 History 50 mg tablet (Stimulant Laxative Plus) vitamin E 1 applic topical BID 02/11/25 02/11/25 History Past Med/Surg History Problem List (Updated 02/11/25 @ 06:24 by Toan Stover M.D.) Chest pain (Acute) Weakness (Acute) Falls (Acute) Hypotension (Acute) RLL pneumonia (Acute) Abscess of right lower extremity BPH (benign prostatic hyperplasia) Liver cancer (Acute) Cellulitis (Acute) Failure of outpatient treatment (Acute) Immunocompromised (Acute) Abscess (Acute) Leg abscess Acute UTI (urinary tract infection) (Acute) Acute urinary retention (Acute) MADELINE (acute kidney injury) (Acute) History of liver cancer (Acute) CHI (closed head injury) (Acute) AMS (altered mental status) (Acute) Injury of knee (Acute) Closed head injury (Acute) Fall (Acute) COPD (chronic obstructive pulmonary disease) (Chronic) Unspecified malignant neoplasm of skin, unspecified Chronic viral hepatitis C Iron deficiency anemia, unspecified Thrombocytopenia, unspecified Type 2 diabetes mellitus without complications Hyperlipidemia, unspecified Opioid dependence with withdrawal Neuropathy Essential (primary) hypertension Atherosclerotic heart disease of teller coronary artery without angina pectoris Heart failure, unspecified Chronic obstructive pulmonary disease, unspecified (Acute) Unspecified cirrhosis of liver Abnormal findings on diagnostic imaging of skull and head, not elsewhere classified Ischemic cardiomyopathy AICD (automatic cardioverter/defibrillator) present Acute on chronic HFrEF (heart failure with reduced ejection fraction) CHF (congestive heart failure) (Acute) Respiratory failure with hypoxia (Acute) CAD (coronary artery disease) Nausea and vomiting (Acute) Diabetes (Chronic) HTN (hypertension) (Chronic) Medical History Effusion of knee joint, left Opioid abuse, uncomplicated Social History Smoking Status: Former smoker Tobacco Type: Cigarettes Do You Dip or Chew Tobacco: No; Hx Alcohol Use: No Hx Substance Use: Yes Last Used Substance: Unknown Preferred Language: Serbian Communication Ability: Impaired Helmet Hat Puncher Required: No Beliefs That Will Affect Care: None Current Living Situation: Other Current Living Situation Comment: [facility] Other Information That Helps Us Care for You: No Feels Safe at Home: Yes Safety Concerns: Feels Safe At This Time Assistive Devices: Walker Review of Systems Review of Systems: reviewed, per HPI Physical Exam Physical Exam: Constitutional: [well-appearing, no acute distress] HEENT: [NCAT, no conjunctival injection] CV: [regular rhythm, no murmur appreciated, extremities well-perfused, no LE edema] Resp: [CTABL, no wheezes/rales/rhonchi appreciated, no increased work of breathing] GI: [soft, nondistended, nontender, BS normoactive] MSK: [no gross deformities appreciated] Skin: [warm, dry, no rash appreciated] Neuro: [alert, oriented, no focal neurologic deficit appreciated] Results & Data Results & Data Vital Signs (Past 12 Hours) Vital Signs Temp Pulse Pulse Resp BP BP Pulse Ox 02/11/25 08:00 91 H 16 98/69 L 96 02/11/25 07:00 95 H 16 104/67 95 02/11/25 06:20 98 H 18 97/73 L 92 02/11/25 05:41 95 H 20 97 02/11/25 05:40 142/81 H 02/11/25 05:39 96 H 21 97 02/11/25 05:37 119/77 02/11/25 05:00 122/74 02/11/25 04:59 97 H 18 98 02/11/25 04:58 106 H 02/11/25 04:53 98 H 21 97 02/11/25 04:50 96/53 L 02/11/25 04:42 02/11/25 04:41 99 H 20 95 02/11/25 04:40 115/63 02/11/25 04:40 115/63 02/11/25 04:23 02/11/25 04:23 02/11/25 04:23 36.9 C 98 H 20 103/62 96 O2 Del Method O2 Flow Rate 02/11/25 08:00 Nasal Cannula 2 02/11/25 07:00 Nasal Cannula 2 02/11/25 06:20 Nasal Cannula 3 02/11/25 05:41 02/11/25 05:40 02/11/25 05:39 02/11/25 05:37 02/11/25 05:00 02/11/25 04:59 02/11/25 04:58 02/11/25 04:53 02/11/25 04:50 02/11/25 04:42 Room Air 02/11/25 04:41 02/11/25 04:40 02/11/25 04:40 Nasal Cannula 6 02/11/25 04:23 Nasal Cannula 02/11/25 04:23 Nasal Cannula 02/11/25 04:23 Nasal Cannula 6 Code Status & VTE Plan VTE Prophylaxis Plan VTE Prophylaxis will be ordered: Yes Supervising Physician Co-Signing Physician Notes I personally examined the patient and verified all junior points of history and exam, discussed case, and agree with decision making with Dr Wilde when visited with resident physician pt now much more responsive. notes that just since he started a new med things have gottne bad w syncope/etc - feels like this likely relates to the meds. breathing feels the same as it has recently. PO intake has not been down per his recollection vitals noted nad heent nc at mmm lungs markedly diminished throughout but no r/r/w good effort skin no rashes appears a bit ashen but not distinctly pale or icteric syncope - initially ddx fairly broad when HPI was limited, now that he's more awake and alert, his recollection of sx starting around the time starting a new med as well as his lack of other sx makes polypharmacy most suspicious. will need to review med list and hopefully get info from [facility] on what the most recent med was. continue serial exams/serial hx/labs to ensure nothing else evolves DVT proph - lovenox otherwise as above Resident Activity Tracking Resident Involvement: Resident Care Provided Care Provided: Adult Hospital Medicine
[2025-02-11] MEDS ORDERED: ALUMINUM/MAGNESIUM SUSP 30 ML UDC PO PRN (09:53)
[2025-02-11] MEDS ORDERED: GLUCOSE 10 TAB/TUBE PO PRN (09:53)
[2025-02-11] MEDS ORDERED: MELATONIN 3 MG TAB PO PRN (09:53)
[2025-02-11] MEDS ORDERED: ALBUT/IPRATROP 3MG/0.5MG NEB 3 ML VIAL NEB PRN (09:53)
[2025-02-11] MEDS ORDERED: ONDANSETRON INJ 2 MG/ML 2 ML VIAL IV PRN (09:53)
[2025-02-11] MEDS ORDERED: DEXTROSE 50% 50 ML SYRINGE IV PRN (09:53)
[2025-02-11] MEDS ORDERED: CARBOHYDRATES FOR HYPOGLYCEMIA PO PRN (09:53)
[2025-02-11] MEDS ORDERED: GLUCOSE 40% GEL 15 GM TUBE PO PRN (09:53)
[2025-02-11] MEDS ORDERED: POLYETHYLENE (MIRALAX) 17 GM PACK PO PRN (09:53)
[2025-02-11] MEDS ORDERED: MAGNESIUM HYDROXIDE SUSP 30 ML UDC PO PRN (09:53)
[2025-02-11] MEDS ORDERED: GLUCAGON FOR INJ 1 MG VIAL SQ PRN (09:53)
[2025-02-11] MEDS ORDERED: VANCOMYCIN CONSULT ACTIVE PRN (10:04)
[2025-02-11] MEDS ORDERED: LOPERAMIDE HCL 2 MG CAP PO PRN (10:26)
[2025-02-11] MEDS: ENOXAPARIN INJ 40 MG/0.4 ML SYR SQ SCH (10:35)
[2025-02-11] MEDS: LANTUS PER UNIT CHARGE SQ SCH (10:40)
[2025-02-11] MEDS: VANCOMYCIN HCL 1,750 MG in SODIUM CHLORIDE 0.9% 500 ML IV ONE (11:44)
[2025-02-11] MEDS: PANTOprazole 40 MG TAB PO SCH (11:48)
[2025-02-11] MEDS: ASPIRIN 81 MG ECTAB PO SCH (11:48)
[2025-02-11] MEDS: ATORVASTATIN 40 MG TAB PO SCH (11:48)
[2025-02-11] MEDS: FLUTICASONE/VILANTEROL 100/25MCG 14 PUFFS/INHALER INH SCH (11:49)
[2025-02-11] MEDS: UMECLIDINIUM BROMIDE 62.5MCG/BLISTER 7 PUFFS/INHALER INH SCH (11:49)
[2025-02-11] MEDS: INSULIN ASPART PER UNIT CHARGE SC SCH (11:50)
--- NOTE | 2025-02-11 13:10 | Billing Data ---
Date of Service February 11, 2025 Coding Level of Care Code 17483 INT INP/OBS CARE
[2025-02-11] MEDS: PIPERACILLIN/TAZOBACTAM 4.5 GM/100 ML BAG IV SCH (14:30)
[2025-02-11] MEDS: GABAPENTIN 800 MG TAB PO SCH (14:31)
[2025-02-11] MEDS: hydrOXYzine HCl 25 MG TAB PO SCH (20:17)
[2025-02-11] MEDS: VALSARTAN/SACUBITRIL 103/97MG TAB PO SCH (20:17)
[2025-02-11] MEDS: NORTRIPTYLINE HCL 25 MG CAP PO SCH (20:17)
[2025-02-12 03:20] VITALS: RESP 20
[2025-02-12 06:03] LABS: Basophils # (auto) 0.02 K/uL (0.00-0.20); Basophils % (auto) 0.5 %; Eosinophils # (auto) 0.47 K/uL (0.00-0.50); Eosinophils % (auto) 11.4 %; Hematocrit (blood only) 34.2 % (42.0-52.0); Hemoglobin 10.9 g/dl (14.0-18.0); Immature Granulocytes # (auto) 0.01 K/uL (0.01-0.20); Immature Granulocytes % (auto) 0.2 %; Lymphocytes # (auto) 1.02 K/uL (1.20-3.40); Lymphocytes % (auto) 24.6 %; Mean Corpuscular Hemoglobin 29.5 pg (25.0-34.0); Mean Corpuscular Hgb Conc 31.9 g/dL (32.0-36.0); Mean Corpuscular Volume 92.4 fL (80.0-100.0); Mean Platelet Volume 10.1 fL (9.4-12.4); Monocytes # (auto) 0.45 K/uL (0.11-0.59); Monocytes % (auto) 10.9 %; Neutrophils # (auto) 2.17 K/uL (1.40-6.50); Neutrophils % (auto) 52.4 %; Platelet Count 71 K/uL (130-400); RDW Coefficient of Variation 16.4 % (11.5-14.5); RDW Standard Deviation 55.8 fL (36.4-46.3); White Blood Count 4.14 K/ul (4.8-10.8)
[2025-02-12] MEDS: EMPAGLIFLOZIN 10 MG TAB PO SCH (06:13)
--- NOTE | 2025-02-12 06:17 | Electrocardiogram Report ---
Test Reason : Blood Pressure : */* mmHG Vent. Rate : 99 BPM Atrial Rate : 99 BPM P-R Int : 192 ms QRS Dur : 110 ms QT Int : 364 ms P-R-T Axes : 54 29 56 degrees QTcB Int : 467 ms Normal sinus rhythm Anteroseptal infarct (cited on or before 15-Oct-2016) Nonspecific ST and T wave abnormality Abnormal ECG When compared with ECG of 03-Jan-2025 14:10, No significant change Confirmed by Germain Moore ([id number]) on 02/12/2025 6:16:53 AM Referred By: [facility] Confirmed By: Germain Moore
[2025-02-12 06:24] LABS: BUN Creatinine Ratio 32.7 (10-20); Calcium 8.3 mg/dl (8.6-10.3); Creatinine Clr Calc Pharmacy 69.7 ml/min; Potassium 4.5 mmol/L (3.5-5.1)
[2025-02-12 07:40] LABS: Estimated Average Glucose 108 mg/dl; Hemoglobin A1C 5.4 % (4.5-5.6)
--- NOTE | 2025-02-12 08:06 | Hospitalist Progress Note ---
Date of Service February 12, 2025 Assessment & Plan (1) Weakness: (2) Falls: (3) Hypotension: (4) RLL pneumonia: (5) BPH (benign prostatic hyperplasia): (6) Liver cancer: (7) COPD (chronic obstructive pulmonary disease): (8) Type 2 diabetes mellitus without complications: (9) Hyperlipidemia, unspecified: (10) Essential (primary) hypertension: (11) Heart failure, unspecified: (12) Unspecified cirrhosis of liver: (13) AICD (automatic cardioverter/defibrillator) present: (14) Ischemic cardiomyopathy: (15) Acute on chronic HFrEF (heart failure with reduced ejection fraction): (16) Respiratory failure with hypoxia: Plan 65 yo male PMHx severe COPD, liver cirrhosis, stage IV HCC on atezolizumab and bevacizumab q21d, CAD s/p PCI in 2020, HFrEF s/p AICD (last echo 2022 EF 25%), hx IVDU (hx of tx with methadone), GERD, T2DM on insulin, HTN admitted with weakness and falls over the last several days. Patient re-examined later in the morning with attending physician. At that time, the patient was much more awake and fully oriented. Code status is clarified and patient re-confirms to me that he wishes to be full code at this time. #Weakness/Falls/Altered Mental Status Likely multifactorial Chronic deconditioning in the setting of his multiple medical conditions Reports decreased PO intake recently Spoke with [facility] and patient was started 02/05/25 on oxycodone 10mg QID Developed significant over sedation with this - last dose was given 02/09 and held going forward Was also started on nortryptyline 75mg HS around the same time Expect that with oversedation, polypharmacy, there is a component of delirium that developed as well Has been on gabapentin for at least 2 years at current dose, continue Will order PT/OT #Hypotension Resolved, was responsive to fluids #Hypoxia Not on O2 at baseline Expect that some degree of this is chronic Wean O2 as tolerated for goal of 88-92% Continue daily prednisone, azithromycin MWF Continue home inhalers Duonebs PRN while hospitalized RLL with consolidation, continue Zosyn for now FV/IS #T2DM Continue Jardiance Glargine 14U BID (equivalent to home dosing) ISS goal 110-180 CF 25, CR 8 #HFrEF/HTN Continue ASA, statin, Entresto Hold antihypertensives Does not appear decompensated at this time #HCC Per CCP note in 10/22 appears patient is still receiving aggressive treatment Per [facility], the patient was recently DNR/DNI and considering hospice but having difficulty getting this set up Would be beneficial to have some clarification re: goals of care #GERD Protonix #BPH hold finasteride, Flomax in setting of hypotension FENGI: hold further IVF, diet HH, T2DM Code status: full code DVT prophylaxis: Lovenox Isolation: none Disposition: PCU Admission and Anticipated Discharge Date Admission Date: February 11, 2025 Review of Systems Review of Systems: reviewed, per HPI Physical Exam Physical Exam: Constitutional: [well-appearing, no acute distress] HEENT: [NCAT, no conjunctival injection] CV: [regular rhythm, no murmur appreciated, extremities well-perfused, no LE edema] Resp: [CTABL, no wheezes/rales/rhonchi appreciated, no increased work of breathing] GI: [soft, nondistended, nontender, BS normoactive] MSK: [no gross deformities appreciated] Skin: [warm, dry, no rash appreciated] Neuro: [alert, oriented, no focal neurologic deficit appreciated] Results & Data Results & Data Vital Signs (Past 12 Hours) Vital Signs Temp Pulse Pulse Resp BP Pulse Ox O2 Del Method 02/12/25 07:44 36.5 C 97 H 20 105/65 91 Nasal Cannula 02/12/25 03:19 36.8 C 95 H 20 104/69 97 Nasal Cannula 02/11/25 23:12 36.9 C 105 H 22 139/84 98 Nasal Cannula 02/11/25 22:54 100 H 02/11/25 21:12 Nasal Cannula O2 Flow Rate 02/12/25 07:44 02/12/25 03:19 4.0 02/11/25 23:12 4.0 02/11/25 22:54 02/11/25 21:12 2
[2025-02-12] MEDS: AZITHROMYCIN 250 MG TAB PO SCH (08:33)
[2025-02-12 11:41] VITALS: TEMP 97.5
--- NOTE | 2025-02-12 13:24 | Discharge Summary ---
Date of Service February 12, 2025 Admission HPI Per Admitting Provider 65 yo male PMHx severe COPD, liver cirrhosis, stage IV HCC on atezolizumab and bevacizumab q21d, CAD s/p PCI in 2020, HFrEF s/p AICD (last echo 2022 EF 25%), hx IVDU (hx of tx with methadone), GERD, T2DM on insulin, HTN admitted with weakness and falls over the last several days. History from patient is limited at the time of our encounter. He awakens to sternal rub but does not participate in conversation. History is primarily obtained from ER physican who states patient was much more interactive during their encounter and from chart review. Pt reports that over the last several days he has felt weak and has had 4-5 falls. There is some question of whether the patient had syncopal events during this time and the patient did endorse some degree of chest discomfort SOB, and b/l leg pain. EMS was called overnight to the snf and the patient was found to be hypoxic to the low 80s which corrected with 5L NC, hypotensive to the 50s improved with 300cc NSS. He has had increase in his COPD symptoms over the last 6 months or so with at least two exacerbations and treatment for pneumonia. He was recently started on daily steroids, 2.5mg prednisone and azithromycin 250mg MWF. With regard to his chronic illnesses and overall decline there was report from the snf that the patient wished to be DNR/DNI and was seeking hospice care but having difficulty getting this set up. Per ER notes patient was AAOx4 when he arrived and expressed desire to be full code at this time. I was unable to independently verify this as the patient was not interactive or able to participate in conversation during my encounter. Principal Diagnosis Hypoxia/End-Stage COPD, Polypharmacy, HCC Discharge Exam Constitutional: chronically ill appearing, no acute distress HEENT: NCAT, no conjunctival injection CV: extremities well-perfused, no LE edema Resp: no increased work of breathing on 2LNC GI: nondistended MSK: no gross deformities appreciated Skin: warm, dry, no rash appreciated Neuro: alert, oriented, no focal neurologic deficit appreciated Discharge Data Allergies Allergy/AdvReac Type Severity Reaction Status Date / Time lisinopril AdvReac Intermediate cough Verified 07/18/24 10:56 OC SPRAY AdvReac CONTRAINDIC Uncoded 02/11/25 08:28 ATED Consultations 02/11/25 07:15 ED Decision to Admit Stat Ordered Studies 02/11/25 04:42 CT abd pelvis IV con only Stat CT angio chest PE protocol Stat CT cervical spine wo con Stat CT head/brain wo con Stat Hospital Course (1) Weakness: (2) Falls: (3) Hypotension: (4) RLL pneumonia: (5) BPH (benign prostatic hyperplasia): (6) Liver cancer: (7) COPD (chronic obstructive pulmonary disease): (8) Type 2 diabetes mellitus without complications: (9) Hyperlipidemia, unspecified: (10) Essential (primary) hypertension: (11) Heart failure, unspecified: (12) Unspecified cirrhosis of liver: (13) AICD (automatic cardioverter/defibrillator) present: (14) Ischemic cardiomyopathy: (15) Acute on chronic HFrEF (heart failure with reduced ejection fraction): (16) Respiratory failure with hypoxia: Plan 65 yo male PMHx severe COPD, liver cirrhosis, stage IV HCC on atezolizumab and bevacizumab q21d, CAD s/p PCI in 2020, HFrEF s/p AICD (last echo 2022 EF 25%), hx IVDU (hx of tx with methadone), GERD, T2DM on insulin, HTN admitted with weakness and falls over the last several days. 1) Would avoid scheduled narcotics on return to snf - this likely contributed to the patient's presentation with regard to altered mental status/delirium 2) Would encourage clarification regarding patient's hospice status and coordination of any paperwork and services to prevent recurrent hospitalization if it is his preference to pursue hospice and compassionate release. 3) Patient should remain on oxygen at the prision with an oxygen saturation goal of 88% or greater 4) There was suggestion of pneumonia during hospitalization. Patient received IV antibiotics - He should receive 3 additional doses of Augmentin when he returns to the snf. 875mg BID x 3 days #Weakness/Falls/Altered Mental Status Likely multifactorial Chronic deconditioning in the setting of his multiple medical conditions Reports decreased PO intake recently Spoke with snf and patient was started 02/05/25 on oxycodone 10mg QID Developed significant over sedation with this - last dose was given 02/09 and held going forward Was also started on nortryptyline 75mg HS around the same time Expect that with oversedation, polypharmacy, there is a component of delirium that developed as well Has been on gabapentin for at least 2 years at current dose, continue #Hypotension Resolved, was responsive to fluids #Hypoxia Confirmed patient is on oxygen at baseline Expect that some degree of this is chronic Wean O2 as tolerated for goal of 88-92% Continue daily prednisone, azithromycin MWF Continue home inhalers Duonebs PRN while hospitalized RLL with consolidation, transition to Augmentin at discharge FV/IS #T2DM Continue Jardiance Glargine 14U BID (equivalent to home dosing) ISS goal 110-180 CF 25, CR 8 #HFrEF/HTN Continue ASA, statin, Entresto Hold antihypertensives Does not appear decompensated at this time #HCC Per CCP note in 10/22 appears patient is still receiving aggressive treatment Per snf, the patient was recently DNR/DNI and considering hospice but having difficulty getting this set up Would be beneficial to have some clarification re: goals of care #GERD Protonix #BPH hold finasteride, Flomax in setting of hypotension\ Total Time Total Time Spent Total Time Spent (In Minutes): <30 Discharge Plan Discharge Items [facility]position[facility] Reason For Visit: HYPOTENSION Discharge Diagnosis: End-Stage COPD, HCC no longer undergoing chemotherapy, delerium vs oversedation Condition on Discharge: Fair Activity: Resume your previous activity Activity Comment: as tolerated Non-emergency contact: Primary Care Provider Call non-emergency contact if: you have any medication questions, your symptoms worsen and your pain is not controlled Follow-up/Referrals: Gallito AGUIAR [Primary Care Provider] - Diet: Regular Addtl Attending Provider Instructions: You were admitted to the hospital for altered mental status, hypoxia and hypotension. You were treated with fluids, antibiotics, oxygen. It is very important for you to consider your goals of care going forward. Your conditions are very serious and terminal. If you intend tot transition to hospice as we discussed you should pursue this with a degree of urgency after you retun to snf. You should have conversations about what services are offered and what the process of transition to hospice entails. A discharge summary will be sent to your primary care physician to ensure continuity of care. Please bring this discharge summary with you to your next office appointment so that your provider can review it at that time. Follow-up appointments: Make a follow-up appointment with your PCP within the next week. It is very important that you follow up with them shortly after discharge from the hospital. Keep all your follow-up appointments as already scheduled. If you cannot make an appointment, notify your provider. Medications: Your medication list has been reviewed and reconciled upon discharge to ensure accuracy and continuity of care. An updated list of all your medications is included with your hospital discharge paperwork. Please review this list closely, and make note of any changes. You should continue to take Augmentin 875mg BID x 3 days on return to snf for suspected pneumonia Take your medications as instructed; do not skip a dose of your medicines. Make sure all of your doctors know every medicine you are taking (including nkji-dxy-ffdagcz medicines, vitamins, and supplements). Call your primary care provider before taking any new medicines (including ikjg-ulg-jibqkks medicines, vitamins, and supplements), because some of these may interact with your current medications, or may make your symptoms worse. Tell your primary care provider if you cannot afford your medications. CONTACT YOUR PRIMARY CARE PROVIDER if you experience any of the following: Difficulty following your treatment plan, or difficulty taking medications CALL 911 OR GO TO THE EMERGENCY DEPARTMENT if you experience any of the following: Sudden, severe abdominal pain or nausea/vomiting Severe chest pain, or chest pain that radiates (moves) to your jaw or arm Sudden, severe shortness of breath or difficulty breathing Thank you for allowing us to participate in your care. Pending Studies at Discharge: No Stand-Alone Forms: My [facility] Skilled Items Patient informed of condition?: Yes Discharge Level of Care: Other Communicable Disease: No Discharge Prognosis: Deteriorating Lines: None Urinary Catheter: No Medications and DC Order Prescriptions: Continued Entresto 97-103 mg tablet 1 tab PO BID insulin glargine-yfgn [Semglee(insulin glargine-yfgn)] 100 unit/mL solution 20 unit subcut BID Novolin R Regular U100 Insulin 100 unit/mL solution 1 sliding scale dose subcut USEASDIRECTD Rx Instructions: Sliding Scale: 201-250 = 2units; 251-300 = 4units; 301-350 = 6units; 351-400 = 8units; 401-450 = 10units; 451-500 = 12 >500 as needed ipratropium-albuterol 0.5 mg-3 mg(2.5 mg base)/3 mL solution for nebulization 3 ml inhalation QID PRN (Reason: Shortness Of Breath) Spiriva Respimat 2.5 mcg/actuation mist 2 inh inhalation QAM Qty: 4 3RF azithromycin 250 mg tablet 250 mg PO MOWEFR 30 Days Qty: 18 6RF Rx Instructions: Take 1 tablet orally every Monday, Monday, and Monday Jardiance 10 mg Tablet 10 mg PO DAILYBB nortriptyline 75 mg Capsule 75 mg PO HS Rx Instructions: CRUSH MEDICATION atorvastatin 40 mg Tablet 40 mg PO DAILY hydroxyzine pamoate 50 mg Capsule 100 mg PO HS dextromethorphan-guaifenesin 10-100 mg/5 mL Syrup 15 ml PO QID PRN (Reason: Cough/Congestion) aspirin 81 mg Tablet,Delayed Release (Dr/Ec) 81 mg PO DAILY tamsulosin [Flomax] 0.4 mg Capsule 0.4 mg PO DAILY gabapentin 800 mg Tablet 800 mg PO TID finasteride 5 mg Tablet 5 mg PO QAM Qty: 30 0RF ondansetron HCl 4 mg Tablet 8 mg PO TID PRN (Reason: Nausea And Vomiting) polyethylene glycol 3350 [ClearLax] 17 gram Powder In Packet 17 g PO DAILY Rx Instructions: Hold for loose stool sennosides-docusate sodium [Stimulant Laxative Plus] 8.6-50 mg Tablet 2 tab-cap PO HS Rx Instructions: Hold for loose stool loperamide [Diamode] 2 mg Tablet 2 mg PO Q6H PRN (Reason: Diarrhea) cyanocobalamin (vitamin B-12) [Vitamin B-12] 500 mcg Tablet 1,000 mcg PO DAILY vitamin E Cream 1 applic TOPICAL BID omeprazole 20 mg Capsule,Delayed Release(Dr/Ec) 20 mg PO DAILY albuterol sulfate 90 mcg/actuation HFA aerosol inhaler 2 puffs INH QID PRN (Reason: shortness of breath or wheezing) budesonide-formoterol [Symbicort] 80-4.5 mcg/actuation HFA aerosol inhaler 2 puff inhalation DAILY metoprolol succinate 25 mg Tablet Extended Release 24 Hr 25 mg PO DAILY Qty: 0 0RF Discharge Orders: Discharge Order (Routine); Ordered 02/12/25 Ordered By: Arcenio Wilde Admission Data Admit Date/Time: 02/11/25 08:12 Attending Provider: Aureliano Alves Admit Provider: Arcenio Wilde Primary Care Provider: Gallito AGUIAR Other Providers: Aureliano Alves Supervising Physician Co-Signing Physician Notes I personally examined the patient and verified all junior points of history and exam, discussed case, and agree with decision making with Dr Wilde physically feeling better. still weak. discussed cancer situation - he seemed both aware and a little bit wondering what his next treatment would be - but dr wilde was able to get info from heme/onc and situation is essentially out of viable options besides hospice. pt expressed understanding of this. vitals noted nad heent nc at mmm lungs markedly diminished throughout but no r/r/w good effort skin no rashes appears a bit ashen but not distinctly pale or icteric syncope - was on oxycodone 10mg qid and since dose was changed doing better. would keep pain control - but just at prn CAP - small, fairly midl. improving. PO abx metastatic cancer - for hospice. snf/pt/family working on compassionate release and hospice DVT proph - lovenox otherwise as above
[2025-02-12] MEDS: ACETAMINOPHEN 325 MG TAB PO PRN (14:11)
[2025-02-12 15:54] VITALS: O2SAT 97
[2025-02-12 15:57] VITALS: PULSE 98
[2025-02-12 18:00] VITALS: BP 161/86
== END 2025-02-12 18:00 | DRG 947 ==
LOC: ED 04:29 → 2E 08:12 → INTOOBSV 08:12 → 2E 09:17

== ENCOUNTER 2025-04-07 07:37 | Inpatient (IN) ==
--- NOTE | 2025-04-07 08:19 | Emergency Department Note ---
Impression & Plan Acute UTI, Cystitis, Leukopenia, Anemia ED Provider Note CHIEF COMPLAINT: Urinary urgency, frequency, hematuria HISTORY OF PRESENTING ILLNESS: Patient is 69-year-old male presents to the emergency department today from the shelter for complaints of urinary urgency, frequency, hematuria. He also states that he noted some bite martinez on the tip of his penis that were bleeding. He is mostly concerned for kidney stone but has no other associated symptoms. He denies any flank pain or urinary changes. He does have a history of severe COPD, liver cirrhosis, stage IV HCC on atezolizumab and bevacizumab q21d, CAD s/p PCI in 2020, HFrEF s/p AICD (last echo 2022 EF 25%), hx IVDU (hx of tx with methadone), GERD, T2DM on insulin, HTN. He denies chest pain, sob, breathing difficulties, abdominal pain, headache, fevers/chills, blood in stool or urine, any recent illness, or any recent travel. REVIEW OF SYSTEMS: See HPI for pertinent positives and pertinent negatives. ALLERGIES: See below MEDICATIONS: See below PAST MEDICAL HISTORY: See below PHYSICAL EXAM: VITAL SIGNS - Vital signs and nursing notes were reviewed. GENERAL -69-year-old male appearing his stated age who is in no acute distress. Communicates well with provider and answers questions appropriately. HEAD - NC/AT. EYES - PERRL with EOMI bilaterally. Sclera anicteric. Palpebral conjunctiva pink and moist with no injection noted. MOUTH/OROPHARYNX - Without perioral cyanosis. Buccal mucosa pink and moist and without leukoplakia. Tongue midline with equal elevation of palate bilaterally. No tonsillar hypertrophy, erythema, or exudates noted. NECK - Neck with FROM. Supple to palpation. No nuchal rigidity. LUNGS - Chest wall symmetric without accessory muscle use, intercostals retractions, or central cyanosis. Normal vesicular breath sounds CTA B/L. No wheezes, rales, or rhonchi appreciated. CARDIAC - RRR with S1/S2. No murmur, rubs, or gallops appreciated. ABDOMEN - Abdominal contour is without pulsations or visible masses. Negative Cullens or Melendrez Turners Signs. BS normoactive all four quadrants. Increased tenderness to palpation appreciated over all 4 quadrants. No guarding. No rebound Tenderness. Negative Vovsings. Negative Richton. No palpable masses, hepatosplenomegaly, or ascites noted. NEUROLOGIC - Cranial nerves II through XII grossly intact. Sensory intact to light touch throughout. PSYCH - A&Ox3 and cooperates fully with examiner. Pt is very pleasant and interacts well with examiner. DIFFERENTIAL DIAGNOSIS: Differential diagnosis includes appendicitis, diverticulitis, constipation, gastroenteritis, bowel obstruction, cholecystitis, appendicitis, inflammatory bowel disease, renal colic, PUD, biliary pathology, pancreatitis, mesenteric ischemia, aortic pathology, infection, genitourinary, UTI, perforated viscus, among others. ED COURSE AND MEDICAL DECISION MAKING: HISTORY FROM INDEPENDENT HISTORIAN: History was provided by the patient and the 2 person carts at bedside. MONITOR: Continuous tow feeder: Order was placed for continuous tow feeder. Patient was placed on the tow feeder and continuous pulse ox. Patient was noted to be in normal sinus rhythm at an initial rate of 84 bpm per my interpretation. INTERPRETATION OF LABS: I interpreted the labs with full lab results as below in the lab section of this note. Laboratory results pertinent to the emergent complaint are discussed in the MDM section below. The patient was advised to follow up with their PCP and/or specialist(s) for further outpatient monitoring and management of any abnormal results. INTERPRETATION OF IMAGING: Imaging studies were interpreted by myself and read by radiology as per the imaging section of this note. The patient was advised to follow up with their PCP and/or specialist(s) for further outpatient management of any non-emergent abnormal findings. CHRONIC MEDICAL/SOCIAL CONDITIONS AFFECTING CARE: No social concerns were identified as barriers to patients care. EXTERNAL RECORDS REVIEWED: Patient's previous hospital stay from 02/11/2025 for an accurate history and medication list. I also reviewed the patient's previous urine cultures. ESCALATION OF CARE CONSIDERED: I considered admission on this patient due to multiple resistant bacteria in his previous urine cultures requiring IV antibiotics. CONSULTATIONS: Dr. Messer for admission to the hospital. I also consulted with the ED pharmacist for antibiotic options. SUMMARY: I examined the patient for complaints of urinary complaints. A physical exam and history were performed. Nursing notes, EMR, and medication list were personally reviewed. CBC did show a white blood cell count of 2.44. Patient does typically have a low white blood cell count but this is lower than normal. Hemoglobin is also 9.9. Platelet count 65. CMP showed no emergent findings but an AST of 74 and alkaline phosphatase of 327 albumin was 3.2. Lipase was 28 urinalysis did show a turbid appearing urine with +3 leukocytes, white blood cells, red blood cells, epithelial cells, bacteria and urine yeast. CT scan of the abdomen and pelvis did show cirrhotic liver with increased splenomegaly, malignant mass of the right hepatic lobe with other additional liver masses that suggest progressive multifocal hepatocellular carcinoma, no bowel obstruction or bowel wall thickening, and possible cystitis. I did discuss antibiotic options with ED pharmacist who is recommending ertapenem due to the patient's multiple resistant cultures in the past. The patient was ordered 1 g of ertapenem IV. He was also given a liter of normal saline and Tylenol 1 g IV with improvement in pain and discomfort. It is important to note that the patient does take to cancer medications but is unsure of the name of them. I did consult with Dr. Messer who accepts the patient for admission to the hospital. DIAGNOSIS: UTI, cystitis TREATMENT PLAN/DISCHARGE INSTRUCTIONS: Admit to hospitalist services. Past Med/Surg History Problem List (Updated 04/07/25 @ 14:08 by LAZARA Arthur) Hematuria Anemia (Acute) Leukopenia (Acute) Cystitis (Acute) Acute UTI (Acute) Weakness (Acute) Falls (Acute) RLL pneumonia (Acute) Abscess of right lower extremity BPH (benign prostatic hyperplasia) Liver cancer (Acute) Cellulitis (Acute) Failure of outpatient treatment (Acute) Immunocompromised (Acute) Abscess (Acute) Leg abscess Acute UTI (urinary tract infection) (Acute) Acute urinary retention (Acute) MADELINE (acute kidney injury) (Acute) History of liver cancer (Acute) CHI (closed head injury) (Acute) AMS (altered mental status) (Acute) Injury of knee (Acute) Closed head injury (Acute) Fall (Acute) COPD (chronic obstructive pulmonary disease) (Chronic) Unspecified malignant neoplasm of skin, unspecified Chronic viral hepatitis C Iron deficiency anemia, unspecified Thrombocytopenia, unspecified Type 2 diabetes mellitus without complications Hyperlipidemia, unspecified Opioid dependence with withdrawal Neuropathy Essential (primary) hypertension Atherosclerotic heart disease of [place] coronary artery without angina pectoris Heart failure, unspecified Chronic obstructive pulmonary disease, unspecified (Acute) Unspecified cirrhosis of liver Abnormal findings on diagnostic imaging of skull and head, not elsewhere classified Ischemic cardiomyopathy AICD (automatic cardioverter/defibrillator) present Acute on chronic HFrEF (heart failure with reduced ejection fraction) CHF (congestive heart failure) (Acute) Respiratory failure with hypoxia (Acute) CAD (coronary artery disease) Nausea and vomiting (Acute) Diabetes (Chronic) HTN (hypertension) (Chronic) Medical History Chest pain Hypotension Effusion of knee joint, left Opioid abuse, uncomplicated Social History Smoking Status: Current every day smoker Tobacco Type: Cigarettes Do You Dip or Chew Tobacco: No; Hx Alcohol Use: No Hx Substance Use: Yes Last Used Substance: Unknown Preferred Language: Turkish Communication Ability: Effective [employer] Driver Required: No Beliefs That Will Affect Care: None Current Living Situation: Other Current Living Situation Comment: [facility] Feels Safe at Home: Yes Assistive Devices: Wheelchair Allergies Allergies Allergy/AdvReac Type Severity Reaction Status Date / Time lisinopril AdvReac Intermediate cough Verified 04/07/25 13:17 OC SPRAY AdvReac CONTRAINDIC Uncoded 04/07/25 13:17 ATED Home Meds Home Medications Medication Instructions Recorded Confirmed insulin regular human 100 unit/mL 1 sliding scale dose subcut 01/12/22 04/07/25 injection solution (Novolin R USEASDIRECTD Regular U-100 Insulin) empagliflozin 10 mg tablet 10 mg PO DAILYBB 10/25/22 04/07/25 (Jardiance) tamsulosin 0.4 mg capsule (Flomax) 0.4 mg PO DAILY 10/01/23 04/07/25 ondansetron HCl 4 mg tablet 8 mg PO TID PRN Nausea And Vomiting 10/24/23 04/07/25 ipratropium 0.5 mg-albuterol 3 mg 3 ml inhalation QID PRN Shortness 07/18/24 04/07/25 (2.5 mg base)/3 mL nebulization Of Breath soln albuterol sulfate 90 mcg/actuation 2 puffs inhalation QID PRN 02/11/25 04/07/25 aerosol inhaler shortness of breath or wheezing budesonide-formoterol HFA 80 2 puff inhalation DAILY 02/11/25 04/07/25 mcg-4.5 mcg/actuation aerosol inhaler (Symbicort) ciprofloxacin HCl 250 mg tablet 250 mg PO BID 04/07/25 04/07/25 lorazepam 2 mg/mL injection 1 mg sublingual TID 04/07/25 04/07/25 solution omeprazole 40 mg capsule,delayed 40 mg PO DAILY 04/07/25 04/07/25 release oxycodone 5 mg/5 mL oral solution 5 mg PO QID PRN Pain 04/07/25 04/07/25 Results & Data (ED) Vital Signs Vital Signs - 24 hr 04/07/25 07:37 04/07/25 08:16 04/07/25 09:30 Temperature 36.6 C Temperature Source Temporal Artery Scan Pulse Rate 103 H 95 H Pulse Rate [Apical] 91 H Respiratory Rate 18 11 L Respiratory Effort / Characteristics Non-Labored Spontaneous Respiratory Depth Normal Blood Pressure [Right Arm] 146/122 H Blood Pressure Mean [Right Arm] 130 Blood Pressure Position [Right Arm] Semi-fowlers Pulse Oximetry 99 98 Oxygen Delivery Method Room Air Sepsis Recent Fever Within 48 Hours No Sepsis New/Unexplained Change in Mental Status N/A Sepsis Action Taken by Nursing No Action Required Laboratory Data 04/07/25 08:16 04/07/25 08:16 Lab Results 04/07/25 Range/Units 08:16 WBC 2.44 L (4.8-10.8) K/ul RBC 3.44 L (4.70-6.10) M/uL Hgb 9.9 L (14.0-18.0) g/dl Hct 32.5 L (42.0-52.0) % MCV 94.5 (80.0-100.0) fL MCH 28.8 (25.0-34.0) pg MCHC 30.5 L (32.0-36.0) g/dL RDW Std Deviation 62.6 H (36.4-46.3) fL RDW Coeff of [place] 18.1 H (11.5-14.5) % Plt Count 65 L (130-400) K/uL MPV 9.9 (9.4-12.4) fL Neutrophils % (Manual) 47 % Lymphocytes % (Manual) 22 % Reactive Lymphs % (Man) 1 % Monocytes % (Manual) 7 % Eosinophils % (Manual) 5 % Neutrophils # (Manual) 1.15 L (1.40-6.50) K/uL Total Absolute Neuts 1.15 L (1.4-6.5) K/uL Lymphocytes # (Manual) 0.54 L (1.2-3.4) K/uL Reactive Lymphs # 0.02 K/uL Total Abs Lymphocytes 1.00 L (1.2-3.4) K/uL Monocytes # (Manual) 0.17 (0.11-0.59) K/uL Eosinophils # (Manual) 0.12 (0-0.50) K/uL Large Granular Lymphs 18 % # Lrg Granular Lymphs 0.44 K/uL Polychromasia 1+ Ovalocytes 1+ Sodium 135 L (136-145) mmol/L Potassium 4.4 (3.5-5.1) mmol/L Chloride 104 (98-107) mmol/L Carbon Dioxide 27 (21-32) mmol/L Anion Gap 4 (3-11) BUN 31 H (6-23) mg/dl Creatinine 1.28 (0.6-1.4) mg/dl Est Cr Clr Drug Dosing 60.0 ml/min eGFR 60.58 BUN/Creatinine Ratio 24.2 H (10-20) Glucose 122 H (70-99(Fasting)) mg/dl Calcium 8.7 (8.6-10.3) mg/dl Total Bilirubin 1.6 H (0.2-1.0) mg/dl AST 74 H (13-39) U/L ALT 34 (7-52) U/L Alkaline Phosphatase 327 H (34-104) U/L Total Protein 6.7 (6.0-8.3) gm/dl Albumin 3.2 L (3.4-5.0) gm/dl Globulin 3.5 (2.5-4.0) gm/dl Albumin/Globulin Ratio 0.9 (0.9-2) Lipase 28 (11-82) U/L Urine Color Dark Yellow Urine Appearance Turbid A (Clear) Urine pH 5.5 (4.5-7.5) Ur Specific [place] 1.020 (1.000-1.030) Urine Protein 2+ H (Negative) Urine Glucose (UA) 2+ H (Negative) Urine Ketones Trace H (Negative) Urine Blood 3+ H (Negative) Urine Nitrite Negative (Negative) Urine Bilirubin Negative (Negative) Urine Urobilinogen Negative (Negative) Ur Leukocyte Esterase 3+ H (Negative) Urine WBC (Auto) >50 H (0-5) /hpf Urine RBC (Auto) >20 H (0-2) /hpf U Hyaline Cast (Auto) 0-2 (0-2) /lpf U Epithel Cells (Auto) 6-10 H (0-2) /hpf Urine Bacteria (Auto) 4+ H (None Seen) Urine Yeast Present A (None Prsent) Urine Comment Administered Medications Discontinued Medications Acetaminophen (Ofirmev) 1,000 mg in 100 mls @ 400 mls/hr IV NOW STA Stop: 04/07/25 08:09 Last Infusion: 04/07/25 10:17 Dose: Infused Documented By: Admin: 04/07/25 08:22 Dose: 400 mls/hr Documented By: MMF Sodium Chloride (Nss) 1,000 mls @ 999 mls/hr IV .Q1H1M ONE Stop: 04/07/25 08:55 Last Infusion: 04/07/25 10:17 Dose: Infused Documented By: Admin: 04/07/25 08:22 Dose: 999 mls/hr Documented By: MMF Ertapenem (Invanz 1000mg) 1,000 mg in 10 mls @ 2 mls/min IV NOW STA Stop: 04/07/25 10:30 Last Admin: 04/07/25 11:18 Dose: 2 mls/min Documented By: CATHY Ioversol (Optiray 320 100ml) 94 ml IV ONCE ONE Stop: 04/07/25 09:12 Last Admin: 04/07/25 09:11 Dose: 94 ml Documented By: ISREAL Ondansetron HCl (Ondansetron Inj 2 Mg/Ml 2 Ml Vial) 4 mg IV NOW STA Stop: 04/07/25 07:56 Last Admin: 04/07/25 08:22 Dose: 4 mg Documented By: CATHY Imaging Data Radiologist's Impression: Abdomen/Pelvis CT 04/07/25 07:[address] WITH IV CONTRAST CT DOSE: 1149.34 mGy.cm HISTORY: Acute bilateral flank pain with hematuria . Known liver masses likely representing multifocal hepatocellular carcinoma flank pain bilateral TECHNIQUE: Multiaxial CT images of the abdomen and pelvis were performed following the IV administration of 94 cc of Optiray, A dose lowering technique was utilized adhering to the principles of ALARA. COMPARISON STUDY: CT abdomen and pelvis studies dated 02/11/2025 01/07/2025, November 27, 2024. FINDINGS: Extensive coronary artery calcifications. Partially imaged cardiac pacer leads. Emphysema with right basilar bulla. Bronchial wall thickening. No pneumatosis or pneumoperitoneum. Splenomegaly redemonstrated measuring 21 cm in length, previously 19 cm. Unremarkable pancreas and adrenal glands. The gallbladder is within normal limits. Cirrhotic liver. Enhancing hepatic mass on image 107 series 3 measures approximately 6.5 x 6.2 x 6.6 cm which is generally stable from the sixth February 11, 2025 study. Numerous additional liver masses are again noted including a 4.7 cm left hepatic lobe mass on image 97 series 3 which is larger and more conspicuous than the prior where it measured approximately 3.6 cm. Several superior right hepatic lobe lesions have also increased in size. Patent portal vein. No hydronephrosis. Scattered renal cysts are noted. Nonspecific moderate urinary bladder wall thickening with mucosal hyperemia with perivesicular stranding. Mild prostamegaly. Atherosclerosis of the aorta and branch vessels. No new or progressive lymphadenopathy. No bowel obstruction or bowel wall thickening. Mild colonic fecal retention. No CT evidence of acute appendicitis. ORIF changes of the left proximal femur. No acute fracture. IMPRESSION: 1. Cirrhotic liver with increased size of the splenomegaly compatible with portal venous hypertension. 2. Previously described known malignant mass of the right hepatic lobe measuring up to approximately 6.5 cm is generally stable, however there is increased size involving numerous additional liver masses suggestive of progressive multifocal hepatocellular carcinoma. 3. No bowel obstruction or bowel wall thickening. 4. Possible cystitis. Correlate with urinalysis. ACT 112: Negative or not required by law. The above report was generated using voice recognition software. It may contain grammatical, syntax or spelling errors. Electronically signed by: Qamar Swenson M.D. 04/07/2025 9:35 AM Discharge Plan Visit Data Chief Complaint: Kidney Stone Stated Complaint: KIDNEY STONE ED Provider: Aureliano Sheikh ED Midlevel Provider: Sherrie Benson Discharge Problem: Acute UTI, Cystitis, Leukopenia, Anemia Patient Disposition: Admitted As Inpatient Condition: Good Discharge Instructions Interventions: ED Discharge Assessment Last Done: 04/07/25 13:59 Discharge Problem: Leukopenia Qualifiers: Leukopenia type: unspecified Qualified Code(s): D72.819 - Decreased white blood cell count, unspecified Anemia Qualifiers: Anemia type: unspecified type Qualified Code(s): D64.9 - Anemia, unspecified
[2025-04-07] MEDS: ONDANSETRON INJ 2 MG/ML 2 ML VIAL IV STA (08:22)
[2025-04-07] MEDS: ACETAMINOPHEN 1,000 MG/100 ML VIAL IV STA (08:22)
[2025-04-07] MEDS: SODIUM CHLORIDE 0.9% 1,000 ML IV ONE (08:22)
[2025-04-07 08:37] LABS: Hematocrit (blood only) 32.5 % (42.0-52.0); Hemoglobin 9.9 g/dl (14.0-18.0); Mean Corpuscular Hemoglobin 28.8 pg (25.0-34.0); Mean Corpuscular Volume 94.5 fL (80.0-100.0); Platelet Count 65 K/uL (130-400); RDW Standard Deviation 62.6 fL (36.4-46.3); Red Blood Count 3.44 M/uL (4.70-6.10); White Blood Count 2.44 K/ul (4.8-10.8)
[2025-04-07 08:55] LABS: Alanine Aminotransferase 34.0 U/L (7-52); Albumin Globulin Ratio 0.9 (0.9-2); Alkaline Phosphatase 327.0 U/L (34-104); Anion Gap 4.0 (3-11); Bilirubin,Total 1.6 mg/dl (0.2-1.0); Blood Urea Nitrogen 31.0 mg/dl (6-23); Calcium 8.7 mg/dl (8.6-10.3); Carbon Dioxide 27.0 mmol/L (21-32); Chloride 104.0 mmol/L (98-107); Creatinine Clr Calc Pharmacy 60.0 ml/min; Globulin 3.5 gm/dl (2.5-4.0); Glucose 122.0 mg/dl (70-99(Fasting)); Lipase 28.0 U/L (11-82); Potassium 4.4 mmol/L (3.5-5.1); Sodium 135.0 mmol/L (136-145); Total Protein 6.7 gm/dl (6.0-8.3)
[2025-04-07 09:02] LABS: Appearance Urine Turbid (Clear); Bacteria Urine Automated 4+ (None Seen); Cast Urine Automated 0-2 /lpf (0-2); Glucose Urine UA 2+ (Negative); RBC Urine Automated >20 /hpf (0-2); WBC Urine Automated >50 /hpf (0-5)
[2025-04-07] MEDS: OPTIRAY 320 100ml IV ONE (09:11)
--- NOTE | 2025-04-07 09:36 | CT Scan Report ---
ABDOMEN AND PELVIS CT WITH IV CONTRAST CT DOSE: 1149.34 mGy.cm HISTORY: Acute bilateral flank pain with hematuria . Known liver masses likely representing multifoca l hepatocellular carcinoma flank pain bilateral TECHNIQUE: Multiaxial CT images of the abdomen and pelvis were performed following the IV administrat ion of 94 cc of Optiray, A dose lowering technique was utilized adhering to the principles of ALARA. COMPARISON STUDY: CT abdomen and pelvis studies dated 02/11/2025 01/07/2025, November 27, 2024. FINDINGS: Extensive coronary artery calcifications. Partially imaged cardiac pacer leads. Emphysema w ith right basilar bulla. Bronchial wall thickening. No pneumatosis or pneumoperitoneum. Splenomegaly redemonstrated measuring 21 cm in length, previously 19 cm. Unremarkable pancreas and ad renal glands. The gallbladder is within normal limits. Cirrhotic liver. Enhancing hepatic mass on michael ge 107 series 3 measures approximately 6.5 x 6.2 x 6.6 cm which is generally stable from the sixth 2024 study. Numerous additional liver masses are again noted including a 4.7 cm left hepatic l obe mass on image 97 series 3 which is larger and more conspicuous than the prior where it measured a pproximately 3.6 cm. Several superior right hepatic lobe lesions have also increased in size. Patent portal vein. No hydronephrosis. Scattered renal cysts are noted. Nonspecific moderate urinary bladder wall thicken ing with mucosal hyperemia with perivesicular stranding. Mild prostamegaly. Atherosclerosis of the ao rta and branch vessels. No new or progressive lymphadenopathy. No bowel obstruction or bowel wall thi ckening. Mild colonic fecal retention. No CT evidence of acute appendicitis. ORIF changes of the left proximal femur. No acute fracture. IMPRESSION: 1. Cirrhotic liver with increased size of the splenomegaly compatible with portal venous hypertension . 2. Previously described known malignant mass of the right hepatic lobe measuring up to approximately 6.5 cm is generally stable, however there is increased size involving numerous additional liver ruddy s suggestive of progressive multifocal hepatocellular carcinoma. 3. No bowel obstruction or bowel wall thickening. 4. Possible cystitis. Correlate with urinalysis. ACT 112: Negative or not required by law. The above report was generated using voice recognition software. It may contain grammatical, syntax o r spelling errors. Electronically signed by: Qamar Swenson M.D. 04/07/2025 9:35 AM
[2025-04-07 09:39] LABS: ALC (manual) 1.00 K/uL (1.2-3.4); ANC (manual) 1.15 K/uL (1.4-6.5); Large Granular Lymph # (manua 0.44 K/uL; Large Granular Lymph % (manual) 18 %; Ovalocytes 1+; Polychromasia 1+; Reactive Lymphocytes # (manual) 0.02 K/uL; Reactive Lymphocytes % (manual) 1 %
--- NOTE | 2025-04-07 10:48 | History & Physical Report ---
Date of Service April 07, 2025 Assessment & Plan (1) Acute UTI (urinary tract infection): Plan: 69 yo male with Hepatocellular carcinoma presents with hematuria Given history of resistance will place on ertapenem. will place on weldon catheter to improve urinary flow given his history of hesitancy and frequency. will obtain urine culture and monitorr Plan #T2DM consulted glycemic control #HFrEF/HTN Continue ASA, statin, Entresto #HCC Appears to no longer be getting aggressive treatment. Per [facility], the patient was recently DNR/DNI and considering hospice but having difficulty getting this set up Would be beneficial to have some clarification re: goals of care #GERD Protonix #BPH resume home meds Code status: full code Isolation: none Disposition: medical History of Present Illness Chief Complaint: hematuria Primary Care Provider: COSME Conti 69 yo male with PMH HCC, cirrhosis presnets to the ED urinary urgency and bleeding on the tip of the penis presents to the ED with 2 week history of urgency and increased urinary frequency. Patient reports it is difficult for him to start a stream with low amount of urine coming out, hesitancy and blood in his urine. He has noticed more blood in the past week. Patient denies any fever, chills, nausea, vomiting, back pain. Patient no longer getting treatment for his cancer. Allergies Allergy/AdvReac Type Severity Reaction Status Date / Time lisinopril AdvReac Intermediate cough Verified 04/07/25 13:17 OC SPRAY AdvReac CONTRAINDIC Uncoded 04/07/25 13:17 ATED Home Medications Medication Instructions Recorded Confirmed Type insulin regular human 100 unit/mL 1 sliding scale dose subcut 01/12/22 04/07/25 History injection solution (Novolin R USEASDIRECTD Regular U-100 Insulin) empagliflozin 10 mg tablet 10 mg PO DAILYBB 10/25/22 04/07/25 History (Jardiance) tamsulosin 0.4 mg capsule (Flomax) 0.4 mg PO DAILY 10/01/23 04/07/25 History ondansetron HCl 4 mg tablet 8 mg PO TID PRN Nausea And Vomiting 10/24/23 04/07/25 History ipratropium 0.5 mg-albuterol 3 mg 3 ml inhalation QID PRN Shortness 07/18/24 04/07/25 History (2.5 mg base)/3 mL nebulization Of Breath soln albuterol sulfate 90 mcg/actuation 2 puffs inhalation QID PRN 02/11/25 04/07/25 History aerosol inhaler shortness of breath or wheezing budesonide-formoterol HFA 80 2 puff inhalation DAILY 02/11/25 04/07/25 History mcg-4.5 mcg/actuation aerosol inhaler (Symbicort) ciprofloxacin HCl 250 mg tablet 250 mg PO BID 04/07/25 04/07/25 History lorazepam 2 mg/mL injection 1 mg sublingual TID 04/07/25 04/07/25 History solution omeprazole 40 mg capsule,delayed 40 mg PO DAILY 04/07/25 04/07/25 History release oxycodone 5 mg/5 mL oral solution 5 mg PO QID PRN Pain 04/07/25 04/07/25 History Past Med/Surg History Problem List Hematuria Anemia (Acute) Leukopenia (Acute) Cystitis (Acute) Acute UTI (Acute) Weakness (Acute) Falls (Acute) RLL pneumonia (Acute) Abscess of right lower extremity BPH (benign prostatic hyperplasia) Liver cancer (Acute) Cellulitis (Acute) Failure of outpatient treatment (Acute) Immunocompromised (Acute) Abscess (Acute) Leg abscess Acute UTI (urinary tract infection) (Acute) Acute urinary retention (Acute) MADELINE (acute kidney injury) (Acute) History of liver cancer (Acute) CHI (closed head injury) (Acute) AMS (altered mental status) (Acute) Injury of knee (Acute) Closed head injury (Acute) Fall (Acute) COPD (chronic obstructive pulmonary disease) (Chronic) Unspecified malignant neoplasm of skin, unspecified Chronic viral hepatitis C Iron deficiency anemia, unspecified Thrombocytopenia, unspecified Type 2 diabetes mellitus without complications Hyperlipidemia, unspecified Opioid dependence with withdrawal Neuropathy Essential (primary) hypertension Atherosclerotic heart disease of hopi coronary artery without angina pectoris Heart failure, unspecified Chronic obstructive pulmonary disease, unspecified (Acute) Unspecified cirrhosis of liver Abnormal findings on diagnostic imaging of skull and head, not elsewhere classified Ischemic cardiomyopathy AICD (automatic cardioverter/defibrillator) present Acute on chronic HFrEF (heart failure with reduced ejection fraction) CHF (congestive heart failure) (Acute) Respiratory failure with hypoxia (Acute) CAD (coronary artery disease) Nausea and vomiting (Acute) Diabetes (Chronic) HTN (hypertension) (Chronic) Medical History Chest pain Hypotension Effusion of knee joint, left Opioid abuse, uncomplicated Social History Smoking Status: Current every day smoker Tobacco Type: Cigarettes Second Hand Exposure: No; Do You Dip or Chew Tobacco: No; Hx Alcohol Use: No Hx Substance Use: Yes Last Used Substance: Unknown Preferred Language: Lithuanian Communication Ability: Effective Studio Designer Required: No Beliefs That Will Affect Care: None Current Living Situation: Other Current Living Situation Comment: [facility] Feels Safe at Home: Yes Assistive Devices: Oxygen - Continuous and Wheelchair Review of Systems Constitutional: no fever and no body aches Eyes: no blind spots and no discharge Ear, Nose, Mouth, Throat: no ear pain and no tinnitus Respiratory: no cough and no dyspnea Cardiovascular: no chest pain and no radiating jaw, neck or arm pain Gastrointestinal: no abdominal pain and no vomiting Genitourinary: + as per Subjective / HPI Musculoskeletal: no back pain Integumentary: no rash Neurologic: no gait abnormality Psychiatric: no behavioral changes Endocrine: no fatigue Hematologic / Lymphatic: no lymphadenopathy Allergy / Immunological: no GI upset with certain foods Physical Exam Constitutional: WD/WN, vitals as above Eyes: PERRL, conjunctivae normal, anicteric sclerae ENMT: external ear and nose normal, oropharynx normal Neck: trachea midline, no thyromegaly Respiratory: normal respiratory effort, lungs clear to auscultation Cardiovascular: RRR, no murmur, no edema Gastrointestinal (Abdomen): normal bowel sounds, soft, nontender, no hepatosplenomegaly Neurologic: PERRL, EOMI, accommodation nl, no face palsy, no dysarthria Psychiatric: A+Ox3, euthymic affect Results & Data Results & Data Vital Signs (Past 12 Hours) Vital Signs Temp Pulse Pulse Resp BP Pulse Ox O2 Del Method 04/07/25 09:30 91 H 11 L 146/122 H 98 Room Air 04/07/25 08:16 95 H 04/07/25 07:37 36.6 C 103 H 18 99 PG Care Time/CCT Total # of Minutes Spent Total Time Spent with Patient: Total time spent is greater than 50% in coordination of care (as documented) at patient's floor/unit and/or counseling patient: Coding Level of Care Code 37301 INT INP/OBS CARE MIN Diagnoses Acute UTI (urinary tract infection) N39.0
[2025-04-07] MEDS ORDERED: PHARMACY GLYCEMIC MGMT CONSULT PRN (10:59)
[2025-04-07] MEDS: ERTAPENEM 1000MG 1,000 MG/10 ML SYR IV STA (11:18)
[2025-04-07] MEDS ORDERED: LOPERAMIDE HCL 2 MG CAP PO PRN (11:23)
[2025-04-07] MEDS ORDERED: GLUCOSE 10 TAB/TUBE PO PRN (11:45)
[2025-04-07] MEDS ORDERED: DEXTROSE 50% 50 ML SYRINGE IV PRN (11:45)
[2025-04-07] MEDS ORDERED: CARBOHYDRATES FOR HYPOGLYCEMIA PO PRN (11:45)
[2025-04-07] MEDS ORDERED: GLUCOSE 40% GEL 15 GM TUBE PO PRN (11:45)
[2025-04-07] MEDS ORDERED: GLUCAGON FOR INJ 1 MG VIAL SQ PRN (11:45)
--- NOTE | 2025-04-07 14:05 | Urology Consultation ---
Date of Consultation April 07, 2025 Assessment & Plan (1) Hematuria: (2) Acute UTI: 69-year-old male with history of hepatocellular carcinoma admitted for hematuria, suspected UTI. Patient afebrile, hemodynamically stable Labs reviewedcreatinine 1.28, WBC 2.44, hemoglobin 9.9 Urinalysis on arrival suspicious for infection Urine culture pending CTAP showed no hydronephrosis, possible cystitis Continue with broad-spectrum antibiotics and narrow per sensitivity data when available Christiansen catheter was placed in the EDmaintain catheter for maximum drainage Hematuria appears to be resolving No acute intervention at this time Continue to monitor and can gently hand irrigate catheter if it becomes obstructed will follow History of Present Illness Reason for Consultation: Hematuria Requesting Physician: Dr. Messer Attending Physician: Sterling Mseser History of Present Illness This is a 69-year-old male with history of hepatocellular carcinoma who presents to the ED today from [facility] for evaluation of urinary frequency, urgency and hematuria. On arrival to ED, he was afebrile, mildly tachycardic and hypertensive. Lab work showed WBC 2.44, hemoglobin 9.9, platelets 65, creatinine 1.28. Urinalysis showed turbid urine, 2+ protein, 2+ glucose, 3+ blood, 3+ LE, >50 WBC, >20 RBC, 6-10 epithelials, 4+ bacteria and yeast present. Workup included CT abdomen pelvis which showed no hydronephrosis. Scattered renal cysts noted. Nonspecific moderate urinary bladder wall thickening with mucosal hyperemia with perivesicular stranding suggesting possible cystitis. Also noted cirrhotic liver with increased size of the splenomegaly, malignant mass of the right hepatic lobe generally stable, however there is increased size involving numerous additional liver masses suggestive of progressive multifocal hepatocellular carcinoma. Christiansen catheter was placed in ED. He was treated with IV fluids, acetaminophen, ondansetron and started on ertapenem. Patient seen and examined in the emergency department. Two group home guards at bedside. Patient reports several week history of dysuria, urinary frequency and urgency. He reports he developed hematuria last week. He reports he has been on a course of ciprofloxacin. He reports difficulty voiding prior to arrival, voiding small amounts. He endorses abdominal and flank discomfort, which he attributes to his current cancer. Also endorses nausea. No fever or chills at present. He is no longer undergoing treatment for hepatocellular carcinoma. Allergies Allergy/AdvReac Type Severity Reaction Status Date / Time lisinopril AdvReac Intermediate cough Verified 04/07/25 13:17 OC SPRAY AdvReac CONTRAINDIC Uncoded 04/07/25 13:17 ATED Home Medications Medication Instructions Recorded Confirmed Type insulin regular human 100 unit/mL 1 sliding scale dose subcut 01/12/22 04/07/25 History injection solution (Novolin R USEASDIRECTD Regular U-100 Insulin) empagliflozin 10 mg tablet 10 mg PO DAILYBB 10/25/22 04/07/25 History (Jardiance) tamsulosin 0.4 mg capsule (Flomax) 0.4 mg PO DAILY 10/01/23 04/07/25 History ondansetron HCl 4 mg tablet 8 mg PO TID PRN Nausea And Vomiting 10/24/23 04/07/25 History ipratropium 0.5 mg-albuterol 3 mg 3 ml inhalation QID PRN Shortness 07/18/24 04/07/25 History (2.5 mg base)/3 mL nebulization Of Breath soln albuterol sulfate 90 mcg/actuation 2 puffs inhalation QID PRN 02/11/25 04/07/25 History aerosol inhaler shortness of breath or wheezing budesonide-formoterol HFA 80 2 puff inhalation DAILY 02/11/25 04/07/25 History mcg-4.5 mcg/actuation aerosol inhaler (Symbicort) ciprofloxacin HCl 250 mg tablet 250 mg PO BID 04/07/25 04/07/25 History lorazepam 2 mg/mL injection 1 mg sublingual TID 04/07/25 04/07/25 History solution omeprazole 40 mg capsule,delayed 40 mg PO DAILY 04/07/25 04/07/25 History release oxycodone 5 mg/5 mL oral solution 5 mg PO QID PRN Pain 04/07/25 04/07/25 History Patient History Medical History Chest pain Hypotension Effusion of knee joint, left Opioid abuse, uncomplicated Social History Smoking Status: Current every day smoker Tobacco Type: Cigarettes Do You Dip or Chew Tobacco: No; Hx Alcohol Use: No Hx Substance Use: Yes Last Used Substance: Unknown Preferred Language: Venezuelan Communication Ability: Effective Helmet Hat Brim Cutter Required: No Beliefs That Will Affect Care: None Current Living Situation: Other Current Living Situation Comment: [facility] Feels Safe at Home: Yes Assistive Devices: Wheelchair Review of Systems Review of Systems: ROS was performed with pertinent positives noted as above; all other systems negative Physical Exam Constitutional: chronically ill-appearing, no acute distress Respiratory: no respiratory distress and no labored breathing Musculoskeletal: Head/Neck/Chest: normocephalic Neurologic: moves all extremities and awake Psychiatric: Orientation: alert and oriented x 3 Genitourinary: Christiansen draining yellow urine Results & Data Vital Signs (Past 12 Hours) Vital Signs Temp Pulse Pulse Resp BP Pulse Ox O2 Del Method 04/07/25 13:47 88 04/07/25 13:00 90 22 145/89 H 97 Room Air 04/07/25 11:00 89 19 149/93 H 98 Room Air 04/07/25 09:30 91 H 11 L 146/122 H 98 Room Air 04/07/25 08:16 95 H 04/07/25 07:37 36.6 C 103 H 18 99 PG Care Time/CCT Total # of Minutes Spent Total Time Spent with Patient: Total time spent is greater than 50% in coordination of care (as documented) at patient's floor/unit and/or counseling patient: Coding Level of Care Code 02943 INT INP/OBS CARE 2/55MIN Diagnoses Hematuria R31.9 Acute UTI N39.0
--- NOTE | 2025-04-07 14:20 | Pharmacy Report ---
Pharmacy Glycemic Short Note 2 - Date of Service April 07, 2025 - Glycemic Short BSG Results (Last 24 hours): 04/07/25 08:16 Glucose 122 H OUTPATIENT ANTIDIABETIC REGIMEN: * jardiance 10 mg daily, novolin R SSI ASSESSMENT: * 69 year old admitted with urinary urgency and blood in his urine. Pharmacy consulted for glycemic management. Patient type 2 diabetic. BSG this AM 122 mg/dL - diet ordered. Plan to start novolog weight based stress 2 dosing. Will hold basal insulin, but consider adding if tomorrow's fasting BSG elevated. PLAN FOR INPATIENT GLYCEMIC CONTROL: * Hold outpatient oral diabetes medications * Basal insulin * Lantus - hold * Bolus insulin * NovoLog per scale ACHS or Q6hrs while NPO * Goal Range: Low 110 mg/dL - High 140 mg/dL * Correction Factor: 25 mg/dL/unit * Nutritional / Prandial insulin per carb ratio of 1 unit per 8 grams CHO consumed
[2025-04-07] MEDS: AZITHROMYCIN 250 MG TAB PO SCH (15:46)
[2025-04-07] MEDS: INSULIN ASPART PER UNIT CHARGE SC SCH (15:46)
[2025-04-07] MEDS: GABAPENTIN 800 MG TAB PO SCH (16:31)
[2025-04-07] MEDS: FLUTICASONE/VILANTEROL 100/25MCG 14 PUFFS/INHALER INH SCH (20:07)
[2025-04-07] MEDS: NORTRIPTYLINE HCL 25 MG CAP PO SCH (20:08)
[2025-04-07] MEDS: VALSARTAN/SACUBITRIL 103/97MG TAB PO SCH (20:08)
[2025-04-07] MEDS: DOCUSATE SODIUM/SENNA 50/8.6MG TAB PO SCH (20:08)
[2025-04-07] MEDS ORDERED: INSULIN GLARGINE YFGN SQ SCH (21:00)
[2025-04-07] MEDS ORDERED: [UNRECOGNIZED DRUG - OTHER] SQ SCH (21:00)
[2025-04-08 08:01] LABS: Hematocrit (blood only) 33.0 % (42.0-52.0); Hemoglobin 10.1 g/dl (14.0-18.0); Mean Corpuscular Hemoglobin 29.0 pg (25.0-34.0); Mean Corpuscular Volume 94.8 fL (80.0-100.0); Platelet Count 67 K/uL (130-400); RDW Standard Deviation 63.0 fL (36.4-46.3); Red Blood Count 3.48 M/uL (4.70-6.10); White Blood Count 2.49 K/ul (4.8-10.8)
[2025-04-08 08:29] LABS: Anion Gap 4.0 (3-11); Blood Urea Nitrogen 23.0 mg/dl (6-23); Calcium 8.5 mg/dl (8.6-10.3); Carbon Dioxide 27.0 mmol/L (21-32); Chloride 106.0 mmol/L (98-107); Creatinine Clr Calc Pharmacy 56.5 ml/min; Glucose 126.0 mg/dl (70-99(Fasting)); Potassium 4.3 mmol/L (3.5-5.1); Sodium 137.0 mmol/L (136-145)
[2025-04-08] MEDS: METOPROLOL SUCC 25MG EXT REL TAB PO SCH (09:22)
[2025-04-08] MEDS: TAMSULOSIN HCL 0.4 MG CAP PO SCH (09:22)
[2025-04-08] MEDS: FINASTERIDE 5 MG TAB PO SCH (09:23)
[2025-04-08] MEDS: ERTAPENEM 1000MG 1,000 MG/10 ML SYR IV SCH (09:23)
[2025-04-08] MEDS: UMECLIDINIUM BROMIDE 62.5MCG/BLISTER 7 PUFFS/INHALER INH SCH (09:23)
[2025-04-08] MEDS: POLYETHYLENE (MIRALAX) 17 GM PACK PO SCH (09:26)
--- NOTE | 2025-04-08 10:58 | Urology Progress Note ---
Date of Service April 08, 2025 Assessment & Plan (1) Hematuria: (2) Acute UTI: Plan: Patient afebrile, hemodynamically stable Labs reviewedcreatinine 1.36, WBC 2.49, hemoglobin 10.1 Urine cultures preliminary with yeast and Enterococcus Continue broad-spectrum antibiotics and narrow per sensitivities when available Recommend maintain Christiansen catheter for maximum drainage Hematuria seems to be resolving with antibiotic therapy No acute intervention planned Can arrange outpatient follow-up with our service for further evaluation GI will sign off, please contact our service with any additional questions or concerns Admission and Anticipated Discharge Date Admission Date: April 07, 2025 Supervising Physician Co-Signing Physician Notes Discussed patient with JUANCHO. Agree with plan. Suspect hematuria is due to UTI and does not require further workup. Additionally, based on palliative note it appears he may be going the hospice route so no further urologic follow-up is necessary. Urology for sign off. Subjective Patient seen and examined at bedside, 2 guards present No acute issues overnight Denies flank pain Reports abdominal discomfort, which he attributes to "cancer pain" No fever or chills Christiansen draining Review of Systems Constitutional: as per Subjective / HPI Genitourinary: + as per Subjective / HPI Physical Exam Constitutional: no acute distress Respiratory: normal respiratory effort; no respiratory distress and no labored breathing Musculoskeletal: Head/Neck/Chest: normocephalic Neurologic: moves all extremities and awake Psychiatric: Orientation: alert and oriented x 3 Genitourinary: Christiansen draining appropriately, urine yellow with some purulent appearing debris noted Results & Data Vital Signs (Past 12 Hours) Vital Signs Temp Pulse Resp BP BP Pulse Ox O2 Del Method 04/08/25 09:30 Room Air 04/08/25 07:49 37.0 C 99 H 16 126/81 92 Room Air 04/07/25 23:10 36.7 C 103 H 18 120/76 96 Room Air PG Care Time/CCT Total # of Minutes Spent Total Time Spent with Patient: Total time spent is greater than 50% in coordination of care (as documented) at patient's floor/unit and/or counseling patient: Coding Level of Care Code 68705 SUB INP/OBS CARE 09/21MIN Diagnoses Hematuria R31.9 Acute UTI N39.0
[2025-04-08] MEDS: ATORVASTATIN 40 MG TAB PO SCH (11:48)
[2025-04-08] MEDS: ASPIRIN 81 MG ECTAB PO SCH (11:48)
--- NOTE | 2025-04-08 11:53 | Pharmacy Report ---
Pharmacy Glycemic Sign Off Nt - Date of Service April 08, 2025 - Assessment & Plan ASSESSMENT: * Pharmacy was consulted by Dr Messer on 04/07 for glycemic control and to write orders per [facility] inpatient glycemic control protocol. * Major changes made by pharmacy to antidiabetic regimen include: * added novolog scale * Patient has been receiving minimal insulin in last 24 hours PLAN FOR INPATIENT GLYCEMIC CONTROL: No changes needed to current regimen. * No basal insulin warranted currently * Continue NovoLog per scale ACHS/Q6hrs while NPO * Goal range = 110 - 140 mg/dl * CF = 30 mg/dl/unit * CR = 1 unit for ever 11 g CHO consumed * Pharmacy is signing off of glycemic consult and will no longer be making adjustments to inpatient regimen. Please feel free to re-consult if needed. Thank you.
[2025-04-08] MEDS: LINEZOLID 600 MG/300 ML BAG IV SCH (14:35)
[2025-04-08] MEDS: FLUCONAZOLE 100 MG TAB PO SCH (14:35)
--- NOTE | 2025-04-08 22:51 | Hospitalist Progress Note ---
Date of Service April 08, 2025 Assessment & Plan (1) Acute UTI (urinary tract infection): Plan: 69 yo male with Hepatocellular carcinoma presents with hematuria. Weldon placed. CLean catch urine and straight cath urine obtained as concern for contamination on first sample. Placed on empiric ertapenem, however urine appears ton be growing E. faecalis and bo. WIll switch to linezolid and fluconazole. Given that antibiotic was inadequate for first 24 hours, BIOFILM probably formed. Will need weldon replaced. WIll hold for now as patient is refusing, Perhaps can even do voiding trial tomorrow or day after. Awaiting final sensitivities. Possible discharge back to [facility] once cultures finalize. Plan #T2DM consulted glycemic control #HFrEF/HTN Continue ASA, statin, Entresto #HCC Appears to no longer be getting aggressive treatment. [facility], the patient was recently DNR/DNI and considering hospice but having difficulty getting this set up Requesting narcotics be given PRN and not scheduled. Would be beneficial to have some clarification re: goals of care #GERD Protonix #BPH resume home meds Code status: full code Isolation: none Disposition: medical Admission and Anticipated Discharge Date Admission Date: April 07, 2025 Subjective Patient reports no new symptoms. He states his urine is more clear. The placement of the weldon was not that bad. Physical Exam Constitutional: WD/WN, vitals as above Eyes: PERRL, conjunctivae normal, anicteric sclerae ENMT: external ear and nose normal, oropharynx normal Neck: trachea midline, no thyromegaly Respiratory: normal respiratory effort, lungs clear to auscultation Cardiovascular: RRR, no murmur, no edema Gastrointestinal (Abdomen): normal bowel sounds, soft, nontender, no hepatosplenomegaly Neurologic: PERRL, EOMI, accommodation nl, no face palsy, no dysarthria Psychiatric: A+Ox3, euthymic affect Results & Data Results & Data Vital Signs (Past 12 Hours) Vital Signs Temp Pulse Resp BP Pulse Ox O2 Del Method 04/08/25 15:00 36.8 C 77 17 109/63 93 Room Air PG Care Time/CCT Total # of Minutes Spent Total Time Spent with Patient: Total time spent is greater than 50% in coordination of care (as documented) at patient's floor/unit and/or counseling patient: Coding Level of Care Code 08571 SUB INP/OBS CARE 3/50MIN Diagnoses Acute UTI (urinary tract infection) N39.0
[2025-04-09 09:58] LABS: Alanine Aminotransferase 28.0 U/L (7-52); Albumin Globulin Ratio 0.8 (0.9-2); Alkaline Phosphatase 317.0 U/L (34-104); Anion Gap 4.0 (3-11); Bilirubin,Total 1.1 mg/dl (0.2-1.0); Blood Urea Nitrogen 27.0 mg/dl (6-23); Calcium 8.3 mg/dl (8.6-10.3); Carbon Dioxide 27.0 mmol/L (21-32); Chloride 103.0 mmol/L (98-107); Creatinine Clr Calc Pharmacy 65.7 ml/min; Globulin 3.2 gm/dl (2.5-4.0); Glucose 176.0 mg/dl (70-99(Fasting)); Magnesium 1.8 mg/dl (1.7-2.4); Potassium 4.5 mmol/L (3.5-5.1); Sodium 134.0 mmol/L (136-145); Total Protein 5.8 gm/dl (6.0-8.3)
[2025-04-09] MEDS: LINEZOLID 600 MG TAB PO SCH (11:22)
--- NOTE | 2025-04-09 15:46 | Hospitalist Progress Note ---
Date of Service April 09, 2025 Assessment & Plan (1) Acute UTI: Plan: presented with hematuria 2nd to UTI s/p weldon insertion earlier in the admission culture grew VRE & stacie tropicalis currently on zyvox for VRE & diflucan for stacie tropicalis; use diflucan cautiously in light of cirrhosis plan 7-10 days of Rx (2) Pancytopenia: Plan: likely 2nd to cirrhosis TSH, B12, and folate all wnl in 2024 trend the CBC for stability (3) Chronic viral hepatitis C: Plan: with resulting cirrhosis (4) Type 2 diabetes mellitus without complications: Plan: a1c 5.4% on most recent check level may not be accurate due to chronic anemia cont novolog SSI prn (5) Neuropathy: Plan: on large dose of gabapentin 800mg TID with his advanced liver disease this dose may be too large for him which could lead to excess sedation, etc. will reduce gabapentin dose to 400mg TID (6) Essential (primary) hypertension: Plan: now with low BPs hold metoprolol hold Entresto (7) Chronic obstructive pulmonary disease, unspecified: (8) Unspecified cirrhosis of liver: Plan: 2nd to HepC infection? (9) Ischemic cardiomyopathy: Plan: previous echos showed EF 25% typically on meto succ and Entresto both on hold due to low BPs (10) AICD (automatic cardioverter/defibrillator) present: Plan: if patient goes on Hospice would de-activate his ICD (11) CAD (coronary artery disease): Plan: no ischemic symptoms at this time (12) Liver cancer: Plan: progressive based on CT a/p (multiple masses in liver) no longer on Rx for such discussion about hospice re (13) BPH (benign prostatic hyperplasia): Plan: remains on finasteride and flomax (if BP can tolerate) (14) Abdominal pain: Plan: 2nd to HCC? 2nd to constipation? 2nd to neuropathy (b/l thigh pain)? combination of factors? lactulose for constipation add lidoderm patches to abdominal wall or thighs change oxy to roxanol low-dose for pain (15) Lethargy: Plan: 2nd to med side effects (gabapentin, etc)? 2nd to elevated ammonia levels? checked such - returned normal 2nd to UTI? other? lower gabapentin dose despite normal ammonia level does have asterixis on exam - add lactulose treat the UTI Plan ?transition to hospice at discharge? -- contact [facility] medical service technician tomorrow to discuss such Admission and Anticipated Discharge Date Admission Date: April 07, 2025 Subjective patient sleeping upon arrival he did wake up to his name being called he has been sleeping much of the day per the guards he states "I am so tired" appetite and oral intake is poor main complaint is abdominal pain in the lower abdomen no vomiting no stool since admission?? reports the abdominal wall is tender in the lower quadrants and the pain radiates into the upper thighs when asked about hospice he states the [facility] has looked into this but "the court won't approve it" (??) states "Dung" at the [facility] is aware Review of Systems Review of Systems: gen - fatigue, weak, poor appetite cv - no chest pain pulm - no dyspnea Physical Exam Physical Exam: gen - very weak, sleepy, c/o abd pain mouth - MM dry neck - no JVD heart - RRR, s1 s2 lungs - CTA b/l abd - tender b/l lower quadrants to palpation; BS+ neuro - mild asterixis ext - no edema, pulses b/l feet 2+ Results & Data Results & Data Vital Signs (Past 12 Hours) Vital Signs Temp Pulse Resp BP Pulse Ox O2 Del Method 04/09/25 14:19 36.7 C 79 16 97/63 L 92 Room Air 04/09/25 08:49 80 16 98/61 L 94 Room Air 04/09/25 07:30 36.7 C 78 18 98/64 L 92 Room Air Laboratory Results Laboratory Results - last 24 hr 04/09/25 04/09/25 04/09/25 07:29 09:13 11:21 Sodium 134 L Potassium 4.5 Chloride 103 Carbon Dioxide 27 Anion Gap 4 BUN 27 H Creatinine 1.17 Est Cr Clr Drug Dosing 65.7 eGFR 67.48 BUN/Creatinine Ratio 23.1 H Glucose 176 H POC Glucose 131 H 125 H Calcium 8.3 L Magnesium 1.8 Total Bilirubin 1.1 H AST 72 H ALT 28 Alkaline Phosphatase 317 H Ammonia Total Protein 5.8 L Albumin 2.6 L Globulin 3.2 Albumin/Globulin Ratio 0.8 L 04/09/25 04/09/25 04/09/25 16:05 16:35 20:09 Sodium Potassium Chloride Carbon Dioxide Anion Gap BUN Creatinine Est Cr Clr Drug Dosing eGFR BUN/Creatinine Ratio Glucose POC Glucose 130 H 132 H Calcium Magnesium Total Bilirubin AST ALT Alkaline Phosphatase Ammonia 31.0 Total Protein Albumin Globulin Albumin/Globulin Ratio Diagnostic Findings Microbiology 04/07/25 Unknown Urine,Straight Cath Urine Culture - Final Stacie tropicalis Enterococcus faecium VRE 04/07/25 08:16 Urine,Clean Catch Urine Culture - Final Stacie tropicalis Enterococcus faecium PG Care Time/CCT Total # of Minutes Spent Total Time Spent with Patient: Total time spent is greater than 50% in coordination of care (as documented) at patient's floor/unit and/or counseling patient: Coding Level of Care Code 30727 SUB INP/OBS CARE 3/50MIN Diagnoses Acute UTI N39.0 Pancytopenia D61.818 Chronic viral hepatitis C B18.2 Type 2 diabetes mellitus without complications E11.9 Neuropathy G62.9 Essential (primary) hypertension I10 Chronic obstructive pulmonary disease, unspecified J44.9 Unspecified cirrhosis of liver K74.60 Ischemic cardiomyopathy I25.5 AICD (automatic cardioverter/defibrillator) present Z95.810 CAD (coronary artery disease) I25.10 Liver cancer C22.9 BPH (benign prostatic hyperplasia) N40.0 Abdominal pain R10.9 Lethargy R53.83
[2025-04-09] MEDS: LIDOCAINE 5% 1 PATCH TD STA (16:01)
[2025-04-09] MEDS: ONDANSETRON INJ 2 MG/ML 2 ML VIAL IV STA (20:07)
[2025-04-09] MEDS: MoRPHine SULFATE 10 MG/0.5 ML UDP PO PRN (20:07)
[2025-04-09] MEDS: REMOVE LIDODERM PATCH SCH (21:07)
[2025-04-10] MEDS: LACTULOSE SYRUP 20 GM/30 ML UDC PO SCH (08:20)
[2025-04-10] MEDS: GABAPENTIN 800 MG TAB PO SCH (08:20)
--- NOTE | 2025-04-10 09:30 | XRay Report ---
KUB CLINICAL HISTORY: lower abdominal pain COMPARISON STUDY: CT scan dated 04/07/2025 FINDINGS: There is an implantable defibrillator present. There is gas present within nondilated large and small bowel loops. Cannulated screws are partially visualized within the left femoral head. IMPRESSION: No evidence of pathologic bowel dilatation. ACT 112: Negative or not required by law. Electronically signed by: John Haines M.D. 04/10/2025 9:29 AM
[2025-04-10 09:43] LABS: Hematocrit (blood only) 35.1 % (42.0-52.0); Hemoglobin 10.6 g/dl (14.0-18.0); Mean Corpuscular Hemoglobin 28.9 pg (25.0-34.0); Mean Corpuscular Volume 95.6 fL (80.0-100.0); Platelet Count 81 K/uL (130-400); RDW Standard Deviation 65.1 fL (36.4-46.3); Red Blood Count 3.67 M/uL (4.70-6.10); White Blood Count 3.30 K/ul (4.8-10.8)
--- NOTE | 2025-04-10 11:26 | XRay Report ---
XR chest 1V portable CLINICAL HISTORY: hypoxia, h/o COPD COMPARISON STUDY: 02/11/2025 FINDINGS: Stable chest port and pacemaker. Heart size and pulmonary vasculature are normal. There is stable mild reticular opacity in the lung bases. No new consolidation or pleural effusion. No pneumot horax. Stable severe emphysema. IMPRESSION: Stable exam. ACT 112: Negative or not required by law. Electronically signed by: Prashanth Cleveland M.D. 04/10/2025 11:25 AM
--- NOTE | 2025-04-10 12:57 | Palliative Care Consultation ---
Date of Consultation April 10, 2025 Assessment & Plan (1) Palliative care by specialist: Met with pt at bedside, two guards present. Introduced Palliative Medicine and explained our role in advanced care planning, symptom management and navigation through the progression of life limiting disease. Patient was receptive to palliative services for goals of care discussions. Reviewed we are different from hospice, a home health nurse visiting service. (2) Abdominal pain: burning type pain in RUQ and BLQ that occasionally radiates to BL groin/thigh - pt states pain is constant without any aggravating/relieving factors. He states that the pain is well managed with morphine. He had previously been on oxycodone, which he states caused him to hallucinate and did not manage his pain well. Continue Morphine Sulfate 5 mg PO Q4H PRN (3) Counseling regarding goals of care: Discussed pt's values and goals of care from 11:00 - 11:35 Pt shared that he is a after a nine year marriage and has one son and three grandchildren. He shared that his a few years ago and she left a trust for their son to manage the home and his expenses for 17 years. His son and grandchildren live in [place] with pt's mother in law who is elderly and under hospice care. He shared that otherwise his family consists of multiple cousins and distant family that all struggle with addiction. Patient verbalized awareness that he has multifocal metastatic cancer in his liver and a poorly functioning heart that makes any invasive procedures/surgical interventions extremely high risk. He shared that he had hoped "that they could just cut the liver out, but they told me I would ". When asked what he hopes for, he responded "I just want someone to pull the plug on me". We discussed that despite his poor prognosis, he is currently not on life support and he confirmed his wishes for DNR/DNI. He stated that he wants to be on hospice, but the [facility] is not approving it. After lengthy discussion, pt has revealed that he wishes to live with his son for hospice care, however he cannot go there while his mother in law is still living in the house. He shared that he is willing to accept discharge to a SNF for hospice care, however he would like a facility in the [place] area where his family can visit him. He questioned if usp releases him to a SNF, will he be able to try to find "a better place closer to my son". I deferred this question to the usp board. Pt shared that he has had a hearing for parole 2 weeks ago and that they are trying to accelerate his release given his short life expectancy. I advised him to discuss the implications of this with the usp board or his contracts paralegal. He shared he has no family that does not have problems with addiction aside from his son, so ideally he would want to be discharged to a SNF near [place] for hospice care. If this is not possible, he states that he will continue on current course of treatment "until they come up with a better option". He shared that he has a cousin in [place] ([place] Carey) who is willing to take him in and serve as his planer operator if needed, but usp has not yet approved this. He shared that he does not wish to return to [facility] on hospice due to concern that they will transfer him somewhere else where he does not know anyone and will not get the same care. He does not wish to have his life prolonged, however he is resistant to transition to hospice care given these logistical issues. At this time pt requests DNR/DNI, but continue all life prolonging treatments. He would like to transition to [facility] / hospice once his parole/compassionate release is granted. Discussed case with Dr Garcias who has been communicating with the usp system. (4) Nausea: Pt. c/o constant nausea, he states that it has been refractory to medications this admission. He currently has no antiemetics ordered. Discussed adding prn zofran, andconsider secondary agent tomorrow if nausea not relieved - Pt agreeable. Added zofran 4mg IV PRN q4hr for nausea Plan as above History of Present Illness Reason for Consultation: goals of care Requesting Physician: Moreno Garcias MD Attending Physician: Moreno Garcias MD History of Present Illness Mr Carey is a 69-year-old male with history of hepatocellular carcinoma who presents to the ED 04/07 from [facility] for evaluation of urinary frequency, urgency and hematuria. He has been admitted and stabilized, hematuria resolved. Pt has had progression of his HCC and is no longer on active cancer directed treatments. [facility] medical staff have reportedly been working with patient toward a health compassionate release and transition to [facility]/hospice care. Allergies Allergy/AdvReac Type Severity Reaction Status Date / Time lisinopril AdvReac Intermediate cough Verified 04/07/25 13:17 OC SPRAY AdvReac CONTRAINDIC Uncoded 04/07/25 13:17 ATED Home Medications Medication Instructions Recorded Confirmed Type insulin regular human 100 unit/mL 1 sliding scale dose subcut 01/12/22 04/07/25 History injection solution (Novolin R USEASDIRECTD Regular U-100 Insulin) empagliflozin 10 mg tablet 10 mg PO DAILYBB 10/25/22 04/07/25 History (Jardiance) tamsulosin 0.4 mg capsule (Flomax) 0.4 mg PO DAILY 10/01/23 04/07/25 History ondansetron HCl 4 mg tablet 8 mg PO TID PRN Nausea And Vomiting 10/24/23 04/07/25 History ipratropium 0.5 mg-albuterol 3 mg 3 ml inhalation QID PRN Shortness 07/18/24 04/07/25 History (2.5 mg base)/3 mL nebulization Of Breath soln albuterol sulfate 90 mcg/actuation 2 puffs inhalation QID PRN 02/11/25 04/07/25 History aerosol inhaler shortness of breath or wheezing budesonide-formoterol HFA 80 2 puff inhalation DAILY 02/11/25 04/07/25 History mcg-4.5 mcg/actuation aerosol inhaler (Symbicort) ciprofloxacin HCl 250 mg tablet 250 mg PO BID 04/07/25 04/07/25 History lorazepam 2 mg/mL injection 1 mg sublingual TID 04/07/25 04/07/25 History solution omeprazole 40 mg capsule,delayed 40 mg PO DAILY 04/07/25 04/07/25 History release oxycodone 5 mg/5 mL oral solution 5 mg PO QID PRN Pain 04/07/25 04/07/25 History Patient History Medical History Chest pain Hypotension Effusion of knee joint, left Opioid abuse, uncomplicated Social History Smoking Status: Current every day smoker Tobacco Type: Cigarettes Second Hand Exposure: No; Do You Dip or Chew Tobacco: No; Hx Alcohol Use: No Hx Substance Use: Yes Last Used Substance: Unknown Preferred Language: Singaporean Communication Ability: Effective Manager Of Marketing Required: No Beliefs That Will Affect Care: None Current Living Situation: Other Current Living Situation Comment: [facility] Feels Safe at Home: Yes Assistive Devices: Oxygen - Continuous and Wheelchair Review of Systems Constitutional: + malaise, + weakness and + weight loss Gastrointestinal: + abdominal pain, + early satiety, + [place] and + constipation burning type pain in RUQ and BLQ that occasionally radiates to BL groin/thigh pt states pain is constant without any aggravating/relieving factors. Physical Exam Constitutional: WD/WN, vitals as above Eyes: PERRL, conjunctivae normal, anicteric sclerae ENMT: external ear and nose normal, oropharynx normal Neck: trachea midline, no thyromegaly Respiratory: normal respiratory effort, lungs clear to auscultation Cardiovascular: RRR, no murmur, no edema Gastrointestinal (Abdomen): normal bowel sounds, soft, nontender, no hepatosplenomegaly Neurologic: PERRL, EOMI, accommodation nl, no face palsy, no dysarthria Psychiatric: A+Ox3, euthymic affect Results & Data Vital Signs (Past 12 Hours) Vital Signs Temp Pulse Resp BP Pulse Ox O2 Del Method O2 Flow Rate 04/10/25 07:46 99 Nasal Cannula 3 04/10/25 07:45 36.9 C 91 H 18 99/64 L 83 L Room Air 04/10/25 07:45 Nasal Cannula 3 Laboratory Results Abnormal lab results 04/09/25 04/09/25 04/10/25 Range/Units 16:35 20:09 07:48 WBC (4.8-10.8) K/ul RBC (4.70-6.10) M/uL Hgb (14.0-18.0) g/dl Hct (42.0-52.0) % MCHC (32.0-36.0) g/dL RDW Std Deviation (36.4-46.3) fL RDW Coeff of [place] (11.5-14.5) % Plt Count (130-400) K/uL POC Glucose 130 H 132 H 117 H (70-99) mg/dl 04/10/25 04/10/25 Range/Units 08:46 11:34 WBC 3.30 L (4.8-10.8) K/ul RBC 3.67 L (4.70-6.10) M/uL Hgb 10.6 L (14.0-18.0) g/dl Hct 35.1 L (42.0-52.0) % MCHC 30.2 L (32.0-36.0) g/dL RDW Std Deviation 65.1 H (36.4-46.3) fL RDW Coeff of [place] 18.6 H (11.5-14.5) % Plt Count 81 L (130-400) K/uL POC Glucose 120 H (70-99) mg/dl Diagnostic Findings Abdomen/Pelvis CT 04/07/25 07:[address] WITH IV CONTRAST CT DOSE: 1149.34 mGy.cm HISTORY: Acute bilateral flank pain with hematuria . Known liver masses likely representing multifocal hepatocellular carcinoma flank pain bilateral TECHNIQUE: Multiaxial CT images of the abdomen and pelvis were performed following the IV administration of 94 cc of Optiray, A dose lowering technique was utilized adhering to the principles of ALARA. COMPARISON STUDY: CT abdomen and pelvis studies dated 02/11/2025 01/07/2025, November 27, 2024. FINDINGS: Extensive coronary artery calcifications. Partially imaged cardiac pacer leads. Emphysema with right basilar bulla. Bronchial wall thickening. No pneumatosis or pneumoperitoneum. Splenomegaly redemonstrated measuring 21 cm in length, previously 19 cm. Unremarkable pancreas and adrenal glands. The gallbladder is within normal limits. Cirrhotic liver. Enhancing hepatic mass on image 107 series 3 measures approximately 6.5 x 6.2 x 6.6 cm which is generally stable from the sixth February 11, 2025 study. Numerous additional liver masses are again noted including a 4.7 cm left hepatic lobe mass on image 97 series 3 which is larger and more conspicuous than the prior where it measured approximately 3.6 cm. Several superior right hepatic lobe lesions have also increased in size. Patent portal vein. No hydronephrosis. Scattered renal cysts are noted. Nonspecific moderate urinary bladder wall thickening with mucosal hyperemia with perivesicular stranding. Mild prostamegaly. Atherosclerosis of the aorta and branch vessels. No new or progressive lymphadenopathy. No bowel obstruction or bowel wall thickening. Mild colonic fecal retention. No CT evidence of acute appendicitis. ORIF changes of the left proximal femur. No acute fracture. IMPRESSION: 1. Cirrhotic liver with increased size of the splenomegaly compatible with portal venous hypertension. 2. Previously described known malignant mass of the right hepatic lobe measuring up to approximately 6.5 cm is generally stable, however there is increased size involving numerous additional liver masses suggestive of progressive multifocal hepatocellular carcinoma. 3. No bowel obstruction or bowel wall thickening. 4. Possible cystitis. Correlate with urinalysis. ACT 112: Negative or not required by law. The above report was generated using voice recognition software. It may contain grammatical, syntax or spelling errors. Electronically signed by: Qamar Swenson M.D. 04/07/2025 9:35 AM Chest X-Ray 04/10/25 08:05 XR chest 1V portable CLINICAL HISTORY: hypoxia, h/o COPD COMPARISON STUDY: 02/11/2025 FINDINGS: Stable chest port and pacemaker. Heart size and pulmonary vasculature are normal. There is stable mild reticular opacity in the lung bases. No new consolidation or pleural effusion. No pneumothorax. Stable severe emphysema. IMPRESSION: Stable exam. ACT 112: Negative or not required by law. Electronically signed by: Prashanth Cleveland M.D. 04/10/2025 11:25 AM KUB X-Ray 04/10/25 08:05 KUB CLINICAL HISTORY: lower abdominal pain COMPARISON STUDY: CT scan dated 04/07/2025 FINDINGS: There is an implantable defibrillator present. There is gas present within nondilated large and small bowel loops. Cannulated screws are partially visualized within the left femoral head. IMPRESSION: No evidence of pathologic bowel dilatation. ACT 112: Negative or not required by law. Electronically signed by: John Haines M.D. 04/10/2025 9:29 AM Medications Administered Current Inpatient Medications Aspirin (Aspirin 81 Mg Ectab) 81 mg PO DAILY ALFREDO Stop: 05/08/25 08:59 Last Admin: 04/10/25 08:19 Dose: 81 mg Atorvastatin Calcium (Atorvastatin 40 Mg Tab) 40 mg PO DAILY ALFREDO Stop: 05/08/25 08:59 Last Admin: 04/10/25 08:19 Dose: 40 mg Azithromycin (Azithromycin 250 Mg Tab) 250 mg PO MOWEFR ALFREDO Stop: 05/07/25 10:59 Last Admin: 04/09/25 11:22 Dose: 250 mg Dextrose (Dextrose 50% 50 Ml Syringe) 25 - 50 ml IV UD PRN; Protocol PRN Reason: Hypoglycemia Protocol Stop: 05/07/25 11:44 Finasteride (Finasteride 5 Mg Tab) 5 mg PO QAM ALFREDO Stop: 05/08/25 08:59 Last Admin: 04/10/25 08:19 Dose: 5 mg Fluconazole (Fluconazole 100 Mg Tab) 200 mg PO QAM ALFREDO Stop: 04/18/25 13:59 Last Admin: 04/10/25 08:19 Dose: 200 mg Fluticasone/Vilanterol (Fluticasone/Vilanterol 100/25mcg 14 Puffs/Inhaler) 1 puffs INH DAILY ALFREDO; Protocol Stop: 05/07/25 20:59 Last Admin: 04/10/25 08:19 Dose: 1 puffs Gabapentin (Gabapentin 800 Mg Tab) 400 mg PO TID ALFREDO Stop: 05/10/25 08:59 Last Admin: 04/10/25 08:20 Dose: 400 mg Glucagon (Glucagon For Inj 1 Mg Vial) 1 mg SQ UD PRN; Protocol PRN Reason: Hypoglycemia Protocol Stop: 05/07/25 11:44 Glucose (Glucose 40% Gel 15 Gm Tube) 15 - 30 gm PO UD PRN; Protocol PRN Reason: Hypoglycemia Protocol Stop: 05/07/25 11:44 Glucose (Glucose 10 Tab/Tube) 4 - 8 tab PO UD PRN; Protocol PRN Reason: Hypoglycemia Protocol Stop: 05/07/25 11:44 Insulin Aspart (Insulin Aspart Per Unit Charge) 0 units SC ACHS [facility] Stop: 05/07/25 11:59 Last Admin: 04/10/25 12:20 Dose: 3 units Lactulose (Lactulose Syrup 20 Gm/30 Ml Udc) 30 gm PO DAILY ALFREDO Stop: 05/10/25 08:59 Last Admin: 04/10/25 08:20 Dose: 30 gm Linezolid (Linezolid 600 Mg Tab) 600 mg PO BID ALFREDO Stop: 04/16/25 10:59 Last Admin: 04/10/25 08:20 Dose: 600 mg Loperamide HCl (Loperamide Hcl 2 Mg Cap) 2 mg PO Q6H PRN PRN Reason: Diarrhea Stop: 05/07/25 11:22 Miscellaneous (Carbohydrates For Hypoglycemia ) 15 - 30 gm PO UD PRN PRN Reason: Hypoglycemia Treatment Stop: 05/07/25 11:44 Miscellaneous (Remove Lidoderm Patch) 1 each N/A DAILY@2100 ALFREDO Stop: 05/09/25 20:59 Last Admin: 04/09/25 21:07 Dose: 1 each Morphine Sulfate (Morphine Sulfate 10 Mg/0.5 Ml Udp) 5 mg PO Q4H PRN PRN Reason: Pain Stop: 04/23/25 18:44 Last Admin: 04/10/25 12:21 Dose: 5 mg Nortriptyline HCl (Nortriptyline Hcl 25 Mg Cap) 75 mg PO HS ALFREDO Stop: 05/07/25 20:59 Last Admin: 04/08/25 20:46 Dose: 75 mg Polyethylene Glycol (Polyethylene (Miralax) 17 Gm Pack) 17 gm PO DAILY ALFREDO Stop: 05/08/25 08:59 Last Admin: 04/10/25 08:30 Dose: Not Given Sacubitril/Valsartan (Valsartan/Sacubitril 103/97mg Tab) 1 tab PO BID ALFREDO Stop: 05/07/25 20:59 Last Admin: 04/09/25 20:08 Dose: 1 tab Senna/Docusate Sodium (Docusate Sodium/Senna 50/8.6mg Tab) 2 tab PO HS ALFREDO Stop: 05/07/25 20:59 Last Admin: 04/09/25 20:08 Dose: Not Given Tamsulosin HCl (Tamsulosin Hcl 0.4 Mg Cap) 0.4 mg PO DAILY ALFREDO Stop: 05/08/25 08:59 Last Admin: 04/10/25 08:20 Dose: 0.4 mg Umeclidinium Worthington (Umeclidinium [place] 62.5mcg/Blister 7 Puffs/Inhaler) 1 puffs INH QAM ALFREDO Stop: 05/08/25 08:59 Last Admin: 04/10/25 08:20 Dose: 1 puffs PG Care Time/CCT Total # of Minutes Spent Total Time Spent with Patient: Total time spent is greater than 50% in coordination of care (as documented) at patient's floor/unit and/or counseling patient: Advanced Care Planning 84542 Advanced Care Planning 30 [place] [address] IN/OBS CONSULT LVL 4,60M Patient Type New History Expanded Problem Focused Exam Expanded Problem Focused Medical Decision Making Moderate Complexity Diagnoses Palliative care by specialist Z51.5 Abdominal pain R10.9 Counseling regarding goals of care Z71.89 Nausea R11.0 Additional Codes Advanced Care Planning - 78850 Advanced Care Planning 30 Min: 57336 Advanced Care Planning 30 Min ([id number])
[2025-04-10] MEDS ORDERED: ONDANSETRON 4 MG OD TAB PO PRN (12:59)
--- NOTE | 2025-04-10 20:27 | Hospitalist Progress Note ---
Date of Service April 10, 2025 Assessment & Plan (1) Acute UTI: Plan: presented with hematuria 2nd to UTI s/p weldon insertion earlier in the admission urology advises continuing it upon d/c culture grew VRE & bo tropicalis currently on zyvox for VRE & diflucan for bo tropicalis; use diflucan cautiously in light of cirrhosis day #2 zyvox day #3 diflucan plan 7-10 days of Rx (2) Pancytopenia: Plan: likely 2nd to cirrhosis TSH, B12, and folate all wnl in 2024 CBC stable today (3) Chronic viral hepatitis C: Plan: with resulting cirrhosis mild hepatic encephalopathy - cont once-daily lactulose shoot for 2-3 BMs/day at minimum (4) Type 2 diabetes mellitus without complications: Plan: a1c 5.4% on most recent check level may not be accurate due to chronic anemia cont novolog SSI prn (5) Neuropathy: Plan: on large dose of gabapentin 800mg TID with his advanced liver disease this dose may be too large for him which could lead to excess sedation, etc. reduced gabapentin dose to 400mg TID; cont at this level (6) Essential (primary) hypertension: Plan: now with low BPs hold metoprolol hold Entresto (7) Chronic obstructive pulmonary disease, unspecified: Plan: no exacerbation at this time cont inhalers (8) Unspecified cirrhosis of liver: Plan: 2nd to HepC infection? (9) Ischemic cardiomyopathy: Plan: previous echos showed EF 25% typically on meto succ and Entresto both on hold due to low BPs restart one or both meds if BPs allow (10) AICD (automatic cardioverter/defibrillator) present: Plan: if patient goes on Hospice would de-activate his ICD however, patient not interested in Hospice UNLESS he has compassionate release from detention (11) CAD (coronary artery disease): Plan: no ischemic symptoms at this time (12) Liver cancer: Plan: progressive based on CT a/p (multiple masses in liver) no longer on Rx for such discussion about hospice today; appreciate palliative care consult see their note for details of that discussion (13) BPH (benign prostatic hyperplasia): Plan: remains on finasteride and flomax (if BP can tolerate) (14) Abdominal pain: Plan: 2nd to HCC? 2nd to constipation? 2nd to neuropathy (b/l thigh pain)? combination of factors? lactulose for constipation lidoderm patches to abdominal wall or thighs Roxanol low-dose for pain (15) Lethargy: Plan: suspect metabolic (ammonia, UTI, etc) and toxic (large gabapentin dose, etc) factors improved today cont lactulose cont abx for UTI keep gabapentin at reduced dosing cont to hold nortriptyline Plan I spoke with Dr Polo Dillon at [facility] discussed Mr Carey's case with him we were both in agreement that palliative care consultation is very appropriate will update him tomorrow with details of palliative care discussion if patient needs additional neuropathy Rx consider cymbalta Admission and Anticipated Discharge Date Admission Date: April 07, 2025 Subjective patient resting in bed during my visit prior to my rounds he had met with palliative care he states he "thinks he only has 2 weeks to live" I reassured him that was not the case we discussed his progressive liver ca, heart disease, cirrhosis he wants re-hospitalization in the future; not ready for [facility] he only wants hospice if he gets released from detention patient eating better here vs the detention mild abd pain - lower abdomen numbness/tingling in his upper thighs continues he is much more awake/alert today morphine is helping his pains Review of Systems Review of Systems: CV - no cp, no orthopnea pulm - no dyspnea at rest Physical Exam Physical Exam: gen - much more awake/alert today, oriented, NAD mouth - MMM neck - no JVD heart - RRR, s1 s2 lungs - CTA b/l abd - soft, NT today, BS+, spleen tip palpable neuro - mild asterixis still present ext - no edema, pulses b/l feet 2+ Results & Data Results & Data Vital Signs (Past 12 Hours) Vital Signs Temp Pulse Resp BP BP Pulse Ox O2 Del Method 04/10/25 20:01 36.7 C 109 H 16 91/62 L 90/63 L 96 Nasal Cannula 04/10/25 15:29 36.7 C 101 H 18 97/62 L 96 Room Air O2 Flow Rate 04/10/25 20:01 3 04/10/25 15:29 Laboratory Results Laboratory Results - last 24 hr 04/10/25 04/10/25 04/10/25 07:48 08:46 11:34 WBC 3.30 L RBC 3.67 L Hgb 10.6 L Hct 35.1 L MCV 95.6 MCH 28.9 MCHC 30.2 L RDW Std Deviation 65.1 H RDW Coeff of [place] 18.6 H Plt Count 81 L MPV 9.8 POC Glucose 117 H 120 H 04/10/25 16:09 WBC RBC Hgb Hct MCV MCH MCHC RDW Std Deviation RDW Coeff of [place] Plt Count MPV POC Glucose 116 H PG Care Time/CCT Total # of Minutes Spent Total Time Spent with Patient: Total time spent is greater than 50% in coordination of care (as documented) at patient's floor/unit and/or counseling patient: Coding Level of Care Code 75685 SUB INP/OBS CARE 3/50MIN Diagnoses Acute UTI N39.0 Pancytopenia D61.818 Chronic viral hepatitis C B18.2 Type 2 diabetes mellitus without complications E11.9 Neuropathy G62.9 Essential (primary) hypertension I10 Chronic obstructive pulmonary disease, unspecified J44.9 Unspecified cirrhosis of liver K74.60 Ischemic cardiomyopathy I25.5 AICD (automatic cardioverter/defibrillator) present Z95.810 CAD (coronary artery disease) I25.10 Liver cancer C22.9 BPH (benign prostatic hyperplasia) N40.0 Abdominal pain R10.9 Lethargy R53.83
[2025-04-11 09:37] LABS: Hematocrit (blood only) 35.1 % (42.0-52.0); Hemoglobin 10.5 g/dl (14.0-18.0); Mean Corpuscular Hemoglobin 28.7 pg (25.0-34.0); Mean Corpuscular Volume 95.9 fL (80.0-100.0); Platelet Count 90 K/uL (130-400); RDW Standard Deviation 64.7 fL (36.4-46.3); Red Blood Count 3.66 M/uL (4.70-6.10); White Blood Count 3.80 K/ul (4.8-10.8)
[2025-04-11 09:59] LABS: Anion Gap 5.0 (3-11); Blood Urea Nitrogen 43.0 mg/dl (6-23); Calcium 8.6 mg/dl (8.6-10.3); Carbon Dioxide 25.0 mmol/L (21-32); Chloride 106.0 mmol/L (98-107); Creatinine Clr Calc Pharmacy 44.4 ml/min; Glucose 158.0 mg/dl (70-99(Fasting)); Potassium 5.1 mmol/L (3.5-5.1); Sodium 136.0 mmol/L (136-145)
--- NOTE | 2025-04-11 16:03 | Electrocardiogram Report ---
Test Reason : Blood Pressure : */* mmHG Vent. Rate : 101 BPM Atrial Rate : 101 BPM P-R Int : 176 ms QRS Dur : 86 ms QT Int : 356 ms P-R-T Axes : 56 -9 93 degrees QTcB Int : 461 ms Sinus tachycardia with occasional Premature ventricular complexes Cannot rule out Anteroseptal infarct (cited on or before 15-Oct-2016) Abnormal ECG When compared with ECG of 11-Feb-2025 04:51, Premature ventricular complexes are now Present QRS duration has decreased Confirmed by Aba Del Cid ([id number] on 04/11/2025 4:03:21 PM Referred By: [facility] Confirmed By: Aba Del Cid
--- NOTE | 2025-04-11 16:18 | Hospitalist Progress Note ---
Date of Service April 11, 2025 Assessment & Plan (1) Acute UTI: Plan: presented with hematuria likely 2nd to UTI s/p weldon insertion earlier in the admission urology advises continuing it upon d/c culture grew VRE & ob tropicalis currently on zyvox for VRE & diflucan for bo tropicalis; using diflucan cautiously in light of cirrhosis day #3 zyvox day #4 diflucan plan 7-10 days of Rx (2) Pancytopenia: Plan: likely 2nd to cirrhosis TSH, B12, and folate all wnl in 2024 CBC stable once again today (3) Chronic viral hepatitis C: Plan: with resulting cirrhosis mild hepatic encephalopathy - advised that he cont once-daily lactulose to prevent hepatic encephalopathy but he doesn't seem to understand this concept he reassured me he has 3 BMs/day at minimum even without bowel agents at his request will hold lactulose but will have to watch stool count carefully (4) Type 2 diabetes mellitus without complications: Plan: a1c 5.4% on most recent check level may not be accurate due to chronic anemia cont novolog SSI prn BSGs very good to date (5) Neuropathy: Plan: on large dose of gabapentin 800mg TID with his advanced liver disease this dose may be too large for him which could lead to excess sedation, etc. reduced gabapentin dose to 400mg TID; cont at this level he seems more awake/alert since this change (6) Essential (primary) hypertension: Plan: now with low BPs hold metoprolol hold Entresto add midodrine 5mg TID due to persistently low BPs and his MADELINE (7) Chronic obstructive pulmonary disease, unspecified: Plan: no exacerbation at this time cont inhalers (8) Unspecified cirrhosis of liver: Plan: 2nd to HepC infection? (9) Ischemic cardiomyopathy: Plan: previous echos showed EF 25% typically on meto succ and Entresto both on hold due to low BPs restart one or both meds if BPs allow adding midodrine for BP support does not examine volume overloaded (10) AICD (automatic cardioverter/defibrillator) present: Plan: if patient goes on Hospice would de-activate his ICD however, patient not interested in Hospice UNLESS he has compassionate release from [facility] (11) CAD (coronary artery disease): Plan: no ischemic symptoms at this time (12) Liver cancer: Plan: progressive based on CT a/p (multiple masses in liver) no longer on Rx for such appreciate palliative care consult see their note for details of that discussion (13) BPH (benign prostatic hyperplasia): Plan: remains on finasteride and flomax (if BP can tolerate) may need to stop the flomax due to low BPs (14) Abdominal pain: Plan: 2nd to HCC? 2nd to constipation? 2nd to neuropathy (b/l thigh pain)? combination of factors? lactulose for constipation although refusing now to take it lidoderm patches to abdominal wall or thighs Roxanol low-dose for pain (15) Lethargy: Plan: suspect metabolic (ammonia, UTI, etc) and toxic (large gabapentin dose, etc) factors improved last 2 days despite his complaint he feels "off" cont abx for UTI keep gabapentin at reduced dosing cont to hold nortriptyline morphine could be making him a little confused; may need to reduce the dose (16) MADELINE (acute kidney injury): Plan: either cardiorenal or hepatorenal -- suspect former holding Entresto holding metoprolol may need to hold flomax add midodrine to help increase his BPs if BPs are persistently low consider octreotide or small bolus of fluid but would rather not do so in light of severe systolic dysfunction repeat BMP am Plan I spoke with Dr Polo Dillon, bio medical technician at [facility], on 04/10 and 04/11 discussed Mr Carey's case with him updated him on palliative care consultation and what the patient told Elvia Brar patient only agreeable to DIVE MASTER/Hospice IF he gets compassionate release from [facility] otherwise he wants routine care and re-hospitalization in the future Admission and Anticipated Discharge Date Admission Date: April 07, 2025 Subjective patient states "I'm not taking that lactulose stuff" -- "I go every day on my own" he reassured me he has 3 BMs/day without any meds continues to have mild pain in his abdomen and legs states he feels a little confused denies any dyspnea I told him I spoke again with the bio medical technician at the [facility] and updated him Review of Systems Review of Systems: cv - no orthopnea, no edema, no chest pain pulm - no dyspnea neuro - no dizziness or lightheadedness GI - no N/V gen - eating is better Physical Exam Physical Exam: gen - awake, alert, does not seem confused today; NAD mouth - MM dry neck - no JVD heart - RRR, s1 s2 lungs - CTA b/l; no rales; no wheezes abd - soft, NT, ND, BS+, spleen tip palpable, no ascites neuro - mild asterixis still present (right arm) ext - no edema, pulses b/l feet 2+ Results & Data Results & Data Vital Signs (Past 12 Hours) Vital Signs Temp Pulse Resp BP Pulse Ox O2 Del Method O2 Flow Rate 04/11/25 15:20 36.8 C 99 H 18 90/60 L 93 Nasal Cannula 2 04/11/25 09:15 Nasal Cannula 3 04/11/25 07:27 36.9 C 86 17 102/66 94 Room Air Laboratory Results Laboratory Results - last 24 hr 04/11/25 04/11/25 04/11/25 09:20 11:25 16:14 Sodium 136 Potassium 5.1 Chloride 106 Carbon Dioxide 25 Anion Gap 5 BUN 43 H Creatinine 1.73 H Est Cr Clr Drug Dosing 44.4 eGFR 42.20 BUN/Creatinine Ratio 24.9 H Glucose 158 H POC Glucose 114 H 117 H Calcium 8.6 PG Care Time/CCT Total # of Minutes Spent Total Time Spent with Patient: Total time spent is greater than 50% in coordination of care (as documented) at patient's floor/unit and/or counseling patient: Coding Level of Care Code 11505 SUB INP/OBS CARE 3/50MIN Diagnoses Acute UTI N39.0 Pancytopenia D61.818 Chronic viral hepatitis C B18.2 Type 2 diabetes mellitus without complications E11.9 Neuropathy G62.9 Essential (primary) hypertension I10 Chronic obstructive pulmonary disease, unspecified J44.9 Unspecified cirrhosis of liver K74.60 Ischemic cardiomyopathy I25.5 AICD (automatic cardioverter/defibrillator) present Z95.810 CAD (coronary artery disease) I25.10 Liver cancer C22.9 BPH (benign prostatic hyperplasia) N40.0 Abdominal pain R10.9 Lethargy R53.83 MADELINE (acute kidney injury) N17.9
[2025-04-11] MEDS: MIDODRINE HCL 2.5 MG TAB PO SCH (17:20)
[2025-04-11] MEDS: MoRPHine SULFATE 10 MG/0.5 ML UDP PO PRN (20:43)
[2025-04-12 06:29] LABS: Anion Gap 4.0 (3-11); Blood Urea Nitrogen 47.0 mg/dl (6-23); Calcium 8.9 mg/dl (8.6-10.3); Carbon Dioxide 26.0 mmol/L (21-32); Chloride 106.0 mmol/L (98-107); Creatinine Clr Calc Pharmacy 45.5 ml/min; Glucose 123.0 mg/dl (70-99(Fasting)); Potassium 5.4 mmol/L (3.5-5.1); Sodium 136.0 mmol/L (136-145)
[2025-04-12] MEDS: PATIROMER CALCIUM SORBITEX 8.4 GM PACK PO STA ×2 (07:22→23:05)
[2025-04-12] MEDS: METOPROLOL TARTRATE 25 MG TAB PO SCH (10:58)
--- NOTE | 2025-04-12 19:18 | Hospitalist Progress Note ---
Date of Service April 12, 2025 Assessment & Plan (1) Acute UTI: Plan: presented with hematuria -- likely 2nd to UTI s/p weldon insertion earlier in the admission urology advises continuing it upon d/c urine culture grew VRE & bo tropicalis currently on zyvox for VRE & diflucan for bo tropicalis; using diflucan cautiously in light of cirrhosis day #4 zyvox day #5 diflucan -recent EKG with normal QTc interval plan 7-10 days of Rx (2) Pancytopenia: Plan: likely 2nd to cirrhosis TSH, B12, and folate all wnl in 2024 CBCs have been stable despite low cell lines (3) Chronic viral hepatitis C: Plan: with resulting cirrhosis mild hepatic encephalopathy - advised that he cont once-daily lactulose to prevent hepatic encephalopathy but he refuses to take it he reassured me he has 3 BMs/day at minimum even without bowel agents at his request will hold lactulose but will have to watch stool count carefully could consider rifaximin BID in noelle of lactulose (4) Type 2 diabetes mellitus without complications: Plan: a1c 5.4% on most recent check level may not be accurate due to chronic anemia cont novolog SSI prn BSGs very good to date (5) Neuropathy: Plan: on large dose of gabapentin 800mg TID with his advanced liver disease this dose may be too large for him which could lead to excess sedation, etc. reduced gabapentin dose to 400mg TID; cont at this level he seems more awake/alert since this change (6) Essential (primary) hypertension: Plan: now with low BPs and metoprolol/Entresto placed on hold added midodrine 5mg TID due to persistently low BPs and his MADELINE BPs improved today in light of severe CHF he needs beta anh start meto tartrate 12.5 BID if he tolerates will switch him back to meto succ (7) Chronic obstructive pulmonary disease, unspecified: Plan: no exacerbation at this time cont inhalers (8) Unspecified cirrhosis of liver: Plan: likely 2nd to HepC infection (9) Ischemic cardiomyopathy: Plan: previous echos showed EF 25% typically on meto succ and Entresto but both on hold due to low BPs added midodrine for BP support still does not examine volume overloaded try to add back his beta anh today in low-dose (10) AICD (automatic cardioverter/defibrillator) present: Plan: if patient goes on Hospice would de-activate his ICD however, patient not interested in Hospice UNLESS he has compassionate release from longterm (11) CAD (coronary artery disease): Plan: no ischemic symptoms at this time (12) Liver cancer: Plan: progressive based on CT a/p (multiple masses in liver) no longer on Rx for such appreciate palliative care consult see their note for details of that discussion (13) BPH (benign prostatic hyperplasia): Plan: remains on finasteride and flomax now much room in BPs for flomax use thus place on hold (14) Abdominal pain: Plan: 2nd to HCC? 2nd to constipation? 2nd to neuropathy (b/l thigh pain)? combination of factors? cont roxanol prn he c/o b/l thigh pain today once again, worse on right non-ambulatory over the last month at high risk of DVT due to cancer, etc. will check doppler of RLE - r/o DVT (15) Lethargy: Plan: off/on while here suspect metabolic (ammonia, UTI, etc) and toxic (large gabapentin dose, morphine, etc) factors all contributing cont abx for UTI keep gabapentin at reduced dosing cont to hold nortriptyline cont morphine but did reduce the dose to 2.5mg prn needs to keep on something to prevent hepatic encephalopathy - refusing to take the lactulose; will add rifaximin BID (16) MADELINE (acute kidney injury): Plan: either cardiorenal or hepatorenal -- suspect former holding Entresto added midodrine to help increase his BPs - this has helped since starting it Cr today 1.6; was 1.7 yesterday recheck BMP am (17) Hyperkalemia: Plan: mild, 5.4 this am will give patiromer x 1 and recheck BMP this evening cont to hold Entresto high K is 2nd to MADELINE Plan I spoke with Dr Polo Dillon, medical appointment scheduler at [facility], on 04/10 and 04/11 discussed Mr Carey's case with him updated him on palliative care consultation and what the patient told Elvia Brar patient only agreeable to THEATRE DIRECTOR/Hospice IF he gets compassionate release from longterm otherwise he wants routine care and re-hospitalization in the future Admission and Anticipated Discharge Date Admission Date: April 07, 2025 Subjective patient sleepy upon my arrival but woke up and answered questions c/o abd pain like previous visits; taking the morphine prn which makes him sleepy c/o b/l thigh pain, worse on the right side he states that he hasn't really walked much in the last month at the longterm eating very well - likes the food here denies dyspnea he is now anxious to get back to longterm so he can call his family; he has been talking with them nearly every day recently Review of Systems Review of Systems: CV - no chest pain; no orthopnea pulm - he is back on low amount of NC O2 especially with sleep GI - no vomiting, no nausea Physical Exam Physical Exam: gen - sleepy, but does wake up and has normal conversation; NAD mouth - MM moist today neck - no JVD heart - RRR, s1 s2, no murmur lungs - CTA b/l; no rales; no wheezes abd - soft, NT, ND, BS+ ext - no edema, pulses b/l feet 2+ neuro - muscle wasting of legs musculo - with active flexion of hips he does have some pain in the hips especially on the right Results & Data Results & Data Vital Signs (Past 12 Hours) Vital Signs Temp Pulse Resp BP Pulse Ox O2 Del Method O2 Flow Rate 04/12/25 14:21 36.8 C 89 20 109/67 95 Nasal Cannula 3 04/12/25 07:58 36.5 C 109 H 18 103/66 96 Nasal Cannula 3 04/12/25 07:20 Nasal Cannula 3 Laboratory Results Laboratory Results - last 24 hr 04/11/25 04/12/25 04/12/25 20:25 05:51 07:39 Sodium 136 Potassium 5.4 H Chloride 106 Carbon Dioxide 26 Anion Gap 4 BUN 47 H Creatinine 1.69 H Est Cr Clr Drug Dosing 45.5 eGFR 43.41 BUN/Creatinine Ratio 27.8 H Glucose 123 H POC Glucose 112 H 175 H Calcium 8.9 04/12/25 04/12/25 11:22 16:21 Sodium Potassium Chloride Carbon Dioxide Anion Gap BUN Creatinine Est Cr Clr Drug Dosing eGFR BUN/Creatinine Ratio Glucose POC Glucose 151 H 89 Calcium PG Care Time/CCT Total # of Minutes Spent Total Time Spent with Patient: Total time spent is greater than 50% in coordination of care (as documented) at patient's floor/unit and/or counseling patient: Coding Level of Care Code 70793 SUB INP/OBS CARE 350MIN Diagnoses Acute UTI N39.0 Pancytopenia D61.818 Chronic viral hepatitis C B18.2 Type 2 diabetes mellitus without complications E11.9 Neuropathy G62.9 Essential (primary) hypertension I10 Chronic obstructive pulmonary disease, unspecified J44.9 Unspecified cirrhosis of liver K74.60 Ischemic cardiomyopathy I25.5 AICD (automatic cardioverter/defibrillator) present Z95.810 CAD (coronary artery disease) I25.10 Liver cancer C22.9 BPH (benign prostatic hyperplasia) N40.0 Abdominal pain R10.9 Lethargy R53.83 MADELINE (acute kidney injury) N17.9 Hyperkalemia E87.5
--- NOTE | 2025-04-12 20:07 | Ultrasound Report ---
HISTORY: Right thigh pain. TECHNIQUE: Right lower extremity venous Doppler evaluation for DVT. Grayscale, color Doppler, and spectral Doppler imaging was utilized. COMPARISON: None. FINDINGS: The right common femoral vein, greater saphenous junction, deep femoral vein, femoral vein, popliteal vein, posterior tibial vein, anterior tibial vein, peroneal vein appear color Doppler patent and compressible. Respiratory variation and augmentation is noted. Surrounding soft tissues are unremarkable. IMPRESSION: No evidence of right lower extremity DVT. Electronically signed by Eligio Hinojosa 04-12-2025 8:06 PM
[2025-04-12 21:07] LABS: Anion Gap 2.0 (3-11); Blood Urea Nitrogen 53.0 mg/dl (6-23); Calcium 8.9 mg/dl (8.6-10.3); Carbon Dioxide 28.0 mmol/L (21-32); Chloride 105.0 mmol/L (98-107); Creatinine Clr Calc Pharmacy 43.9 ml/min; Glucose 126.0 mg/dl (70-99(Fasting)); Potassium 5.5 mmol/L (3.5-5.1); Sodium 135.0 mmol/L (136-145)
[2025-04-13 07:34] LABS: Anion Gap 3.0 (3-11); Blood Urea Nitrogen 47.0 mg/dl (6-23); Calcium 8.9 mg/dl (8.6-10.3); Carbon Dioxide 26.0 mmol/L (21-32); Chloride 105.0 mmol/L (98-107); Creatinine Clr Calc Pharmacy 52.6 ml/min; Glucose 168.0 mg/dl (70-99(Fasting)); Potassium 5.3 mmol/L (3.5-5.1); Sodium 134.0 mmol/L (136-145)
[2025-04-13] MEDS: MIDODRINE HCL 2.5 MG TAB PO SCH (09:13)
[2025-04-13] MEDS: METOPROLOL SUCC 25MG EXT REL TAB PO SCH (09:33)
[2025-04-13] MEDS: SODIUM ZIRCONIUM CYCLOSILICATE 10 GM PACKET PO SCH (11:48)
--- NOTE | 2025-04-13 16:17 | Hospitalist Progress Note ---
Date of Service April 13, 2025 Assessment & Plan (1) Acute UTI: Plan: presented with hematuria -- likely 2nd to UTI s/p weldon insertion earlier in the admission urology advises continuing it upon d/c urine culture grew VRE & bo tropicalis currently on zyvox for VRE & diflucan for bo tropicalis; using diflucan cautiously in light of cirrhosis day #5 zyvox day #6 diflucan -recent EKG with normal QTc interval plan 7 days of Rx of each (2) Pancytopenia: Plan: likely 2nd to cirrhosis TSH, B12, and folate all wnl in 2024 CBCs have been stable despite low cell lines repeat CBC tomorrow am for stability (3) Chronic viral hepatitis C: Plan: with resulting cirrhosis mild hepatic encephalopathy - advised that he cont once-daily lactulose to prevent hepatic encephalopathy but he refuses to take it he reassured me he has 3 BMs/day at minimum even without bowel agents but that is simply false at his request will hold lactulose but will start rifaximin BID in noelle of lactulose (4) Type 2 diabetes mellitus without complications: Plan: a1c 5.4% on most recent check level may not be accurate due to chronic anemia cont novolog SSI prn BSGs very good to date (5) MADELINE (acute kidney injury): Plan: either cardiorenal or hepatorenal -- suspect former holding Entresto added midodrine to help increase his BPs - this has helped since starting it Cr today 1.4 peak Cr was 1.7 recheck BMP am (6) Hyperkalemia: Plan: 2nd to #5 cont to hold Entresto high K is 2nd to MADELINE start lokelma daily repeat BMP am (7) Neuropathy: Plan: on large dose of gabapentin 800mg TID with his advanced liver disease this dose may be too large for him which could lead to excess sedation, etc. reduced gabapentin dose to 400mg TID; cont at this level (8) Essential (primary) hypertension: Plan: had had low BPs and metoprolol/Entresto both placed on hold subsequently added midodrine 5mg TID due to persistently low BPs and his MADELINE BPs improved with midodrine started back meto tartrate 12.5 BID tolerated such - will switch him back to meto succ 25mg daily and watch overnight (9) Chronic obstructive pulmonary disease, unspecified: Plan: no exacerbation at this time cont inhalers (10) Unspecified cirrhosis of liver: Plan: likely 2nd to HepC infection (11) Ischemic cardiomyopathy: Plan: previous echos showed EF 25% typically on meto succ and Entresto but latter on hold; resuming meto succ added midodrine for BP support - continue for now still does not examine volume overloaded (12) AICD (automatic cardioverter/defibrillator) present: Plan: if patient goes on Hospice would de-activate his ICD however, patient not interested in Hospice UNLESS he has compassionate release from [facility] (13) CAD (coronary artery disease): Plan: no ischemic symptoms at this time (14) Liver cancer: Plan: progressive based on CT a/p (multiple masses in liver) no longer on Rx for such appreciate palliative care consult see their note for details of that discussion (15) BPH (benign prostatic hyperplasia): Plan: remains on finasteride and flomax now much room in BPs for flomax use thus placed on hold cont weldon (16) Abdominal pain: Plan: 2nd to HCC? 2nd to constipation? 2nd to neuropathy (b/l thigh pain)? combination of factors? cont roxanol prn - lowered dose from 5's to 2.5's - very sleepy with it he c/o b/l thigh pain -- doppler study neg for DVT neuropathy from l-spine problem? (17) Lethargy: Plan: off/on while here suspect metabolic (ammonia, UTI, etc) and toxic (large gabapentin dose, morphine, etc) factors all contributing cont abx for UTI keep gabapentin at reduced dosing cont to hold nortriptyline cont morphine but did reduce the dose to 2.5mg prn needs to keep on something to prevent hepatic encephalopathy - refusing to take the lactulose; added rifaximin BID consider VBG to ensure no acidosis/high pCO2 Plan I spoke with Dr Polo Dillon, claim review medical director at [facility], on 04/10 and 04/11 discussed Mr Carey's case with him updated him on palliative care consultation and what the patient told Elvia Brar patient only agreeable to [facility] TECHNOLOGIST/Hospice IF he gets compassionate release from half-way otherwise he wants routine care and re-hospitalization in the future Admission and Anticipated Discharge Date Admission Date: April 07, 2025 Subjective patient lying in bed he was a bit sleepy, took him a while to answer questions, etc he was upset that he could not go back to [facility] today (he wants to call his family from [facility]-way) continues with abd pain, b/l upper thigh pain, and low back pain no dyspnea no stool today Physical Exam Physical Exam: gen - sleepy again, a little confused, NAD mouth - MMM neck - no JVD heart - RRR, s1 s2, no murmur lungs - CTA b/l; no rales; no wheezes abd - soft, NT, ND, BS+ ext - no edema, pulses b/l feet 2+ neuro - muscle wasting of legs b/l musculo - tender right paraspinals lumbar region neuro - asterixis present Results & Data Results & Data Vital Signs (Past 12 Hours) Vital Signs Temp Pulse Resp BP Pulse Ox O2 Del Method O2 Flow Rate 04/13/25 14:29 36.5 C 70 18 113/74 99 Nasal Cannula 3 04/13/25 07:25 Nasal Cannula 3 04/13/25 07:23 37.1 C 82 18 107/70 94 Room Air Laboratory Results Laboratory Results - last 24 hr 04/12/25 04/12/25 04/12/25 16:21 20:04 20:38 Sodium 135 L Potassium 5.5 H Chloride 105 Carbon Dioxide 28 Anion Gap 2 L BUN 53 H Creatinine 1.75 H Est Cr Clr Drug Dosing 43.9 eGFR 41.63 BUN/Creatinine Ratio 30.3 H Glucose 126 H POC Glucose 89 131 H Calcium 8.9 04/13/25 04/13/25 04/13/25 06:17 07:24 11:23 Sodium 134 L Potassium 5.3 H Chloride 105 Carbon Dioxide 26 Anion Gap 3 BUN 47 H Creatinine 1.46 H Est Cr Clr Drug Dosing 52.6 eGFR 51.74 BUN/Creatinine Ratio 32.2 H Glucose 168 H POC Glucose 138 H 131 H Calcium 8.9 PG Care Time/CCT Total # of Minutes Spent Total Time Spent with Patient: Total time spent is greater than 50% in coordination of care (as documented) at patient's floor/unit and/or counseling patient: Coding Level of Care Code 52929 SUB INP/OBS CARE 3/50MIN Diagnoses Acute UTI N39.0 Pancytopenia D61.818 Chronic viral hepatitis C B18.2 Type 2 diabetes mellitus without complications E11.9 MADELINE (acute kidney injury) N17.9 Hyperkalemia E87.5 Neuropathy G62.9 Essential (primary) hypertension I10 Chronic obstructive pulmonary disease, unspecified J44.9 Unspecified cirrhosis of liver K74.60 Ischemic cardiomyopathy I25.5 AICD (automatic cardioverter/defibrillator) present Z95.810 CAD (coronary artery disease) I25.10 Liver cancer C22.9 BPH (benign prostatic hyperplasia) N40.0 Abdominal pain R10.9 Lethargy R53.83
[2025-04-13] MEDS: LORazepam 0.5 MG TAB PO PRN (16:43)
[2025-04-13] MEDS: LIDOCAINE 5% 1 PATCH TD STA (18:07)
[2025-04-13] MEDS: ACETAMINOPHEN 325 MG TAB PO SCH (21:22)
[2025-04-14] MEDS: REMOVE LIDODERM PATCH SCH (04:33)
[2025-04-14 06:38] LABS: Hematocrit (blood only) 34.3 % (42.0-52.0); Hemoglobin 10.7 g/dl (14.0-18.0); Mean Corpuscular Hemoglobin 30.0 pg (25.0-34.0); Mean Corpuscular Volume 96.1 fL (80.0-100.0); Platelet Count 72 K/uL (130-400); RDW Standard Deviation 62.2 fL (36.4-46.3); Red Blood Count 3.57 M/uL (4.70-6.10); White Blood Count 2.59 K/ul (4.8-10.8)
[2025-04-14 07:11] LABS: Alanine Aminotransferase 26.0 U/L (7-52); Albumin Globulin Ratio 0.8 (0.9-2); Alkaline Phosphatase 332.0 U/L (34-104); Anion Gap 3.0 (3-11); Bilirubin,Total 1.1 mg/dl (0.2-1.0); Blood Urea Nitrogen 42.0 mg/dl (6-23); Calcium 8.9 mg/dl (8.6-10.3); Carbon Dioxide 25.0 mmol/L (21-32); Chloride 108.0 mmol/L (98-107); Creatinine Clr Calc Pharmacy 55.3 ml/min; Globulin 3.6 gm/dl (2.5-4.0); Glucose 131.0 mg/dl (70-99(Fasting)); Potassium 5.5 mmol/L (3.5-5.1); Sodium 136.0 mmol/L (136-145); Total Protein 6.4 gm/dl (6.0-8.3)
[2025-04-14] MEDS: SODIUM ZIRCONIUM CYCLOSILICATE 10 GM PACKET PO SCH (11:15)
[2025-04-14] MEDS: ALBUT/IPRATROP 3MG/0.5MG NEB 3 ML VIAL NEB STA (13:31)
--- NOTE | 2025-04-14 15:30 | Palliative Care Progress Note ---
Date of Service April 14, 2025 Assessment & Plan (1) Palliative care by specialist: Plan: Palliative care will continue to follow for ongoing EOL pt care. (2) Counseling regarding goals of care: Plan: TODAY: Met with pt at bedside, for 36min. He expressed frustration that he is still in hospital. He expressed understanding that he has "incurable cancer and liver is shot" and asked why we cannot just discharge him back to [facility]. Pt expressed desire to not pursue any further life prolonging treatments given his cnacer that cannot be cured. He shared that his pain is well under control and he does not wish to come "back and forth from hospital everytime something goes wrong". Discussed discharge to [facility] with comfort directed care as an option to have his symptoms managed at [facility] and not prolong his life, but allow for natural . Eligio shared that he knows that he is dying and he would prefer to be at his son's home or SNF near [place], but if that is not possible then He would want discharge to [facility] for hospice care. Helped pt understand that transition to [facility] means no additional labs, diagnostics or life prolonging treatment would be performed and pt treatment would be guided by his symptoms only. Assured him that with transition to comfort directed care, focus is on assuring comfort while allowing for a peaceful, natural . Anticipatory guidance and expected disease trajectory discussed. Eligio shared that he would like to transition to [facility]INE[facility] immediately and be discharged back to [facility] today if possible with hospice care. CM and Dr Garcias made aware of pt requests. Dr Garcias to reach out to [facility]dc for next steps. 04/10: Pt shared that he is a after a nine year marriage and has one son and three grandchildren. He shared that his a few years ago and she left a trust for their son to manage the home and his expenses for 17 years. His son and grandchildren live in [place] with pt's mother in law who is elderly and under hospice care. He shared that otherwise his family consists of multiple cousins and distant family that all struggle with addiction. Patient verbalized awareness that he has multifocal metastatic cancer in his liver and a poorly functioning heart that makes any invasive procedures/surgical interventions extremely high risk. He shared that he had hoped "that they could just cut the liver out, but they told me I would ". When asked what he hopes for, he responded "I just want someone to pull the plug on me". We discussed that despite his poor prognosis, he is currently not on life support and he confirmed his wishes for DNR/DNI. He stated that he wants to be on hospice, but the [facility] is not approving it. After lengthy discussion, pt has revealed that he wishes to live with his son for hospice care, however he cannot go there while his mother in law is still living in the house. He shared that he is willing to accept discharge to a SNF for hospice care, however he would like a facility in the [place] area where his family can visit him. He questioned if [facility] releases him to a SNF, will he be able to try to find "a better place closer to my son". I deferred this question to the [facility]dc board. Pt shared that he has had a hearing for parole 2 weeks ago and that they are trying to accelerate his release given his short life expectancy. I advised him to discuss the implications of this with the [facility]dc board or his legal specialist. He shared he has no family that does not have problems with addiction aside from his son, so ideally he would want to be discharged to a SNF near [place] for hospice care. If this is not possible, he states that he will continue on current course of treatment "until they come up with a better option". He shared that he has a cousin in [place] (Pedro Luis Carey) who is willing to take him in and serve as his faculty member if needed, but [facility] has not yet approved this. He shared that he does not wish to return to [facility] on hospice due to concern that they will transfer him somewhere else where he does not know anyone and will not get the same care. He does not wish to have his life prolonged, how ever he is resistant to transition to hospice care given these logistical issues. At this time pt requests DNR/DNI, but continue all life prolonging treatments. He would like to transition to [facility] ENGINEER / hospice once his parole/compassionate release is granted. (3) Nausea: Plan: Pt. c/o constant nausea, he states that it has been refractory to medications this admission. He currently has no antiemetics ordered. Discussed adding prn zofran, andconsider secondary agent tomorrow if nausea not relieved - Pt agreeable. Continue zofran 4mg IV PRN q4hr for nausea (4) Abdominal pain: Plan: burning type pain in RUQ and BLQ that occasionally radiates to BL groin/thigh - pt states pain is constant without any aggravating/relieving factors. He states that the pain is well managed with morphine. He had previously been on oxycodone, which he states caused him to hallucinate and did not manage his pain well. Continue Morphine Sulfate 2.5 mg PO Q4H PRN Plan Pt requests return to [facility] for [facility]/hospice care. Admission and Anticipated Discharge Date Admission Date: April 07, 2025 Subjective Pt sleeping quietly, easily aroused with gentle verbal stimuli. NAEON. Pt states pain well managed. two [facility] guards at bedside. Review of Systems Constitutional: + malaise, + weakness and + weight loss Gastrointestinal: + abdominal pain, + early satiety, + [place] and + consti pation chronic burning type pain in RUQ and BLQ that occasionally radiates to BL groin/thigh pt states pain is constant without any aggravating/relieving factors. Physical Exam Constitutional: WD/WN, vitals as above Eyes: PERRL, conjunctivae normal, anicteric sclerae ENMT: external ear and nose normal, oropharynx normal Neck: trachea midline, no thyromegaly Respiratory: normal respiratory effort, lungs clear to auscultation Cardiovascular: RRR, no murmur, no edema Gastrointestinal (Abdomen): normal bowel sounds, soft, nontender, no hepatosplenomegaly Neurologic: PERRL, EOMI, accommodation nl, no face palsy, no dysarthria Psychiatric: A+Ox3, euthymic affect Results & Data Vital Signs (Past 12 Hours) Vital Signs Temp Pulse Resp BP Pulse Ox O2 Del Method O2 Flow Rate 04/14/25 13:31 70 18 94 Room Air 04/14/25 07:30 Nasal Cannula 3 04/14/25 07:08 36.7 C 78 18 116/73 98 Nasal Cannula 2 Laboratory Results Abnormal lab results 04/13/25 04/13/25 04/14/25 Range/Units 16:42 20:18 06:09 WBC 2.59 L (4.8-10.8) K/ul RBC 3.57 L (4.70-6.10) M/uL Hgb 10.7 L (14.0-18.0) g/dl Hct 34.3 L (42.0-52.0) % MCHC 31.2 L (32.0-36.0) g/dL RDW Std Deviation 62.2 H (36.4-46.3) fL RDW Coeff of Victoria 18.0 H (11.5-14.5) % Plt Count 72 L (130-400) K/uL Potassium 5.5 H (3.5-5.1) mmol/L Chloride 108 H (98-107) mmol/L BUN 42 H (6-23) mg/dl BUN/Creatinine Ratio 30.2 H (10-20) Glucose 131 H (70-99(Fasting)) mg/dl POC Glucose 116 H 111 H (70-99) mg/dl Total Bilirubin 1.1 H (0.2-1.0) mg/dl AST 74 H (13-39) U/L Alkaline Phosphatase 332 H (34-104) U/L Albumin 2.8 L (3.4-5.0) gm/dl Albumin/Globulin Ratio 0.8 L (0.9-2) 04/14/25 Range/Units 07:05 WBC (4.8-10.8) K/ul RBC (4.70-6.10) M/uL Hgb (14.0-18.0) g/dl Hct (42.0-52.0) % MCHC (32.0-36.0) g/dL RDW Std Deviation (36.4-46.3) fL RDW Coeff of Victoria (11.5-14.5) % Plt Count (130-400) K/uL Potassium (3.5-5.1) mmol/L Chloride (98-107) mmol/L BUN (6-23) mg/dl BUN/Creatinine Ratio (10-20) Glucose (70-99(Fasting)) mg/dl POC Glucose 151 H (70-99) mg/dl Total Bilirubin (0.2-1.0) mg/dl AST (13-39) U/L Alkaline Phosphatase (34-104) U/L Albumin (3.4-5.0) gm/dl Albumin/Globulin Ratio (0.9-2) Diagnostic Findings Abdomen/Pelvis CT 04/07/25 07:[address] WITH IV CONTRAST CT DOSE: 1149.34 mGy.cm HISTORY: Acute bilateral flank pain with hematuria . Known liver masses likely representing multifocal hepatocellular carcinoma flank pain bilateral TECHNIQUE: Multiaxial CT images of the abdomen and pelvis were performed following the IV administration of 94 cc of Optiray, A dose lowering technique was utilized adhering to the principles of ALARA. COMPARISON STUDY: CT abdomen and pelvis studies dated 02/11/2025 01/07/2025, November 27, 2024. FINDINGS: Extensive coronary artery calcifications. Partially imaged cardiac pacer leads. Emphysema with right basilar bulla. Bronchial wall thickening. No pneumatosis or pneumoperitoneum. Splenomegaly redemonstrated measuring 21 cm in length, previously 19 cm. Unremarkable pancreas and adrenal glands. The gallbladder is within normal limits. Cirrhotic liver. Enhancing hepatic mass on image 107 series 3 measures approximately 6.5 x 6.2 x 6.6 cm which is generally stable from the sixth February 11, 2025 study. Numerous additional liver masses are again noted including a 4.7 cm left hepatic lobe mass on image 97 series 3 which is larger and more conspicuous than the prior where it measured approximately 3.6 cm. Several superior right hepatic lobe lesions have also increased in size. Patent portal vein. No hydronephrosis. Scattered renal cysts are noted. Nonspecific moderate urinary bladder wall thickening with mucosal hyperemia with perivesicular stranding. Mild prostamegaly. Atherosclerosis of the aorta and branch vessels. No new or p rogressive lymphadenopathy. No bowel obstruction or bowel wall thickening. Mild colonic fecal retention. No CT evidence of acute appendicitis. ORIF changes of the left proximal femur. No acute fracture. IMPRESSION: 1. Cirrhotic liver with increased size of the splenomegaly compatible with portal venous hypertension. 2. Previously described known malignant mass of the right hepatic lobe measuring up to approximately 6.5 cm is generally stable, however there is increased size involving numerous additional liver masses suggestive of progressive multifocal hepatocellular carcinoma. 3. No bowel obstruction or bowel wall thickening. 4. Possible cystitis. Correlate with urinalysis. ACT 112: Negative or not required by law. The above report was generated using voice recognition software. It may contain grammatical, syntax or spelling errors. Electronically signed by: Qamar Swenson M.D. 04/07/2025 9:35 AM Chest X-Ray 04/10/25 08:05 XR chest 1V portable CLINICAL HISTORY: hypoxia, h/o COPD COMPARISON STUDY: 02/11/2025 FINDINGS: Stable chest port and pacemaker. Heart size and pulmonary vasculature are normal. There is stable mild reticular opacity in the lung bases. No new consolidation or pleural effusion. No pneumothorax. Stable severe emphysema. IMPRESSION: Stable exam. ACT 112: Negative or not required by law. Electronically signed by: Prashanth Cleveland M.D. 04/10/2025 11:25 AM KUB X-Ray 04/10/25 08:05 KUB CLINICAL HISTORY: lower abdominal pain COMPARISON STUDY: CT scan dated 04/07/2025 FINDINGS: There is an implantable defibrillator present. There is gas present within nondilated large and small bowel loops. Cannulated screws are partially visualized within the left femoral head. IMPRESSION: No evidence of pathologic bowel dilatation. ACT 112: Negative or not required by law. Electronically signed by: John Haines M.D. 04/10/2025 9:29 AM Venous Doppler Study 04/12/25 15:17 HISTORY: Right thigh pain. TECHNIQUE: Right lower extremity venous Doppler evaluation for DVT. Grayscale, color Doppler, and spectral Doppler imaging was utilized. COMPARISON: None. FINDINGS: The right common femoral vein, greater saphenous junction, deep femoral vein, femoral vein, popliteal vein, posterior tibial vein, anterior tibial vein, peroneal vein appear color Doppler patent and compressible. Respiratory variation and augmentation is noted. Surrounding soft tissues are unremarkable. IMPRESSION: No evidence of right lower extremity DVT. Electronically signed by Eligio Hinojosa 04-12-2025 8:06 PM Medications Administered Current Inpatient Medications Acetaminophen (Acetaminophen 325 Mg Tab) 650 mg PO TID ALFREDO Stop: 05/13/25 20:59 Last Admin: 04/14/25 13:07 Dose: 650 mg Aspirin (Aspirin 81 Mg Ectab) 81 mg PO DAILY ALFREDO Stop: 05/08/25 08:59 Last Admin: 04/14/25 08:53 Dose: 81 mg Atorvastatin Calcium (Atorvastatin 40 Mg Tab) 40 mg PO DAILY ALFREDO Stop: 05/08/25 08:59 Last Admin: 04/14/25 08:52 Dose: 40 mg Azithromycin (Azithromycin 250 Mg Tab) 250 mg PO MOWEFR ALFREDO Stop: 05/07/25 10:59 Last Admin: 04/14/25 11:15 Dose: 250 mg Dextrose (Dextrose 50% 50 Ml Syringe) 25 - 50 ml IV UD PRN; Protocol PRN Reason: Hypoglycemia Protocol Stop: 05/07/25 11:44 Finasteride (Finasteride 5 Mg Tab) 5 mg PO QAM [facility] Stop: 05/08/25 08:59 Last Admin: 04/14/25 08:51 Dose: 5 mg Fluconazole (Fluconazole 100 Mg Tab) 200 mg PO QAM [facility] Stop: 04/18/25 13:59 Last Admin: 04/14/25 08:51 Dose: 200 mg Fluticasone/Vilanterol (Fluticasone/Vilanterol 100/25mcg 14 Puffs/Inhaler) 1 puffs INH DAILY ALFREDO; Protocol Stop: 05/07/25 20:59 Last Admin: 04/14/25 08:54 Dose: 1 puffs Gabapentin (Gabapentin 800 Mg Tab) 400 mg PO TID [facility] Stop: 05/10/25 08:59 Last Admin: 04/14/25 13:07 Dose: 400 mg Glucagon (Glucagon For Inj 1 Mg Vial) 1 mg SQ UD PRN; Protocol PRN Reason: Hypoglycemia Protocol Stop: 05/07/25 11:44 Glucose (Glucose 40% Gel 15 Gm Tube) 15 - 30 gm PO UD PRN; Protocol PRN Reason: Hypoglycemia Protocol Stop: 05/07/25 11:44 Glucose (Glucose 10 Tab/Tube) 4 - 8 tab PO UD PRN; Protocol PRN Reason: Hypoglycemia Protocol Stop: 05/07/25 11:44 Insulin Aspart (Insulin Aspart Per Unit Charge) 0 units SC ACHS [facility] Stop: 05/07/25 11:59 Last Admin: 04/14/25 11:35 Dose: Not Given Lactulose (Lactulose Syrup 20 Gm/30 Ml Udc) 30 gm PO DAILY [facility] Stop: 05/10/25 08:59 Last Admin: 04/11/25 09:03 Dose: Not Given Linezolid (Linezolid 600 Mg Tab) 600 mg PO BID [facility] Stop: 04/16/25 10:59 Last Admin: 04/14/25 08:53 Dose: 600 mg Lorazepam (Lorazepam 0.5 Mg Tab) 0.25 mg PO DAILY PRN PRN Reason: Anxiety Stop: 05/13/25 16:13 Last Admin: 04/13/25 16:43 Dose: 0.25 mg Metoprolol Succinate (Metoprolol Succ 25mg Ext Rel Tab) 25 mg PO QAM [facility] Stop: 05/13/25 08:59 Last Admin: 04/14/25 08:54 Dose: 25 mg Midodrine (Midodrine Hcl 2.5 Mg Tab) 7.5 mg PO TID@0800,1200,1700 [facility] Stop: 05/13/25 07:59 Last Admin: 04/14/25 13:07 Dose: 7.5 mg Miscellaneous (Carbohydrates For Hypoglycemia ) 15 - 30 gm PO UD PRN PRN Reason: Hypoglycemia Treatment Stop: 05/07/25 11:44 Miscellaneous (Remove Lidoderm Patch) 1 each N/A DAILY@2100 [facility] Stop: 05/09/25 20:59 Last Admin: 04/13/25 21:24 Dose: 1 each Morphine Sulfate (Morphine Sulfate 10 Mg/0.5 Ml Udp) 2.5 mg PO Q4H PRN PRN Reason: Pain Stop: 04/23/25 18:44 Last Admin: 04/13/25 21:22 Dose: 2.5 mg Nortriptyline HCl (Nortriptyline Hcl 25 Mg Cap) 75 mg PO HS [facility] Stop: 05/07/25 20:59 Last Admin: 04/08/25 20:46 Dose: 75 mg Ondansetron HCl (Ondansetron 4 Mg Od Tab) 4 mg PO Q4H PRN PRN Reason: Nausea And Vomiting Stop: 05/10/25 12:58 Polyethylene Glycol (Polyethylene (Miralax) 17 Gm Pack) 17 gm PO DAILY [facility] Stop: 05/08/25 08:59 Last Admin: 04/14/25 08:45 Dose: 17 gm Rifaximin (Rifaximin 550 Mg Tablet) 550 mg PO BID [facility] Stop: 05/12/25 20:59 Last Admin: 04/14/25 08:52 Dose: 550 mg Sacubitril/Valsartan (Valsartan/Sacubitril 103/97mg Tab) 1 tab PO BID [facility] Stop: 05/07/25 20:59 Last Admin: 04/09/25 20:08 Dose: 1 tab Senna/Docusate Sodium (Docusate Sodium/Senna 50/8.6mg Tab) 2 tab PO HS [facility] Stop: 05/07/25 20:59 Last Admin: 04/13/25 21:10 Dose: Not Given Sodium Zirconium Cyclosilicate (Sodium Zirconium Cyclosilicate 10 Gm Packet) 10 gm PO TID@0700,1200,1900 [facility] Stop: 04/16/25 07:01 Last Admin: 04/14/25 11:15 Dose: 10 gm Tamsulosin HCl (Tamsulosin Hcl 0.4 Mg Cap) 0.4 mg PO DAILY [facility] Stop: 05/08/25 08:59 Last Admin: 04/12/25 09:19 Dose: 0.4 mg Umeclidinium Eagle (Umeclidinium Eagle 62.5mcg/Blister 7 Puffs/Inhaler) 1 puffs INH QAM [facility] Stop: 05/08/25 08:59 Last Admin: 04/14/25 09:31 Dose: 1 puffs PG Care Time/CCT Total # of Minutes Spent Total Time Spent with Patient: Total time spent is greater than 50% in coordination of care (as documented) at patient's floor/unit and/or counseling patient: Advanced Care Planning 99676 Advanced Care Planning 30 Min C[place] [address] SUB INP/OBS CARE 2/35MIN Patient Type Established History Expanded Problem Focused Exam Expanded Problem Focused Medical Decision Making Moderate Complexity Diagnoses Palliative care by specialist Z51.5 Counseling regarding goals of care Z71.89 Nausea R11.0 Abdominal pain R10.9 Additional Codes Advanced Care Planning - 86379 Advanced Care Planning 30 Min: 78597 Advanced Care Planning 30 Min ([id number])
--- NOTE | 2025-04-14 19:08 | Hospitalist Progress Note ---
Date of Service April 14, 2025 Assessment & Plan (1) Acute UTI: Plan: presented with hematuria -- likely 2nd to UTI s/p weldon insertion earlier in the admission urology advises continuing it upon d/c urine culture grew VRE & bo tropicalis currently on zyvox for VRE & diflucan for bo tropicalis; using diflucan cautiously in light of cirrhosis day #6 zyvox day #7 diflucan -recent EKG with normal QTc interval plan 7 days of Rx of each (2) Pancytopenia: Plan: l2nd to cirrhosis TSH, B12, and folate all wnl in 2024 CBCs have been stable despite low cell lines repeat CBC today again acceptable (3) Chronic viral hepatitis C: Plan: with resulting cirrhosis mild hepatic encephalopathy - advised that he cont once-daily lactulose to prevent hepatic encephalopathy but he refuses to take it he reassured me he has 3 BMs/day at minimum even without bowel agents but that is simply false at his request will hold lactulose but will start rifaximin BID in noelle of lactulose (4) Type 2 diabetes mellitus without complications: Plan: a1c 5.4% on most recent check level may not be accurate due to chronic anemia cont novolog SSI prn BSGs very good to date (5) MADELINE (acute kidney injury): Plan: either cardiorenal or hepatorenal -- suspect former holding Entresto added midodrine to help increase his BPs - this has helped since starting it Cr today 1.39 peak Cr was 1.7 recheck BMP am (6) Hyperkalemia: Plan: 2nd to #5 ongoing, not coming down yet cont to hold Entresto increase lokelma TID dosing repeat BMP am (7) Neuropathy: Plan: on large dose of gabapentin 800mg TID with his advanced liver disease this dose may be too large for him which could lead to excess sedation, etc. reduced gabapentin dose to 400mg TID; cont at this level (8) Essential (primary) hypertension: Plan: had had low BPs and metoprolol/Entresto both placed on hold subsequently added midodrine 5mg TID due to persistently low BPs and his MADELINE BPs improved with midodrine started back meto tartrate 12.5 BID tolerated such - switched him back to meto succ 25mg daily and thus far doing fine on it (9) Chronic obstructive pulmonary disease, unspecified: Plan: no exacerbation at this time but c/o chronic cough of multiple years duration despite cough syrups, usual inhalers, etc. try duoneb x 1 (10) Unspecified cirrhosis of liver: Plan: likely 2nd to HepC infection (11) Ischemic cardiomyopathy: Plan: previous echos showed EF 25% typically on meto succ and Entresto but latter on hold; resuming meto succ added midodrine for BP support - continue for now still does not examine volume overloaded (12) AICD (automatic cardioverter/defibrillator) present: Plan: if patient goes on Hospice would de-activate his ICD however, patient not interested in Hospice UNLESS he has [facility] (13) CAD (coronary artery disease): Plan: no ischemic symptoms at this time (14) Liver cancer: Plan: progressive based on CT a/p (multiple masses in liver) no longer on Rx for such appreciate palliative care consult see their note for details of that discussion (15) BPH (benign prostatic hyperplasia): Plan: remains on finasteride and flomax now much room in BPs for flomax use thus placed on hold cont weldon (16) Abdominal pain: Plan: 2nd to HCC? 2nd to constipation? 2nd to neuropathy (b/l thigh pain)? combination of factors? cont roxanol prn he c/o b/l thigh pain -- doppler study neg for DVT RLE neuropathy from l-spine problem? (17) Lethargy: Plan: off/on while here but finally resolved suspect metabolic (ammonia, UTI, etc) and toxic (large gabapentin dose, morphine, etc) factors all contributing cont abx for UTI keep gabapentin at reduced dosing cont to hold nortriptyline cont rifaximin BID Plan I spoke with Dr Polo Dillon, medical delivery technician at [facility], on 04/10 and 04/11 discussed Mr Carey's case with him updated him on palliative care consultation and what the patient told Elvia Brar patient only agreeable to [facility]TER/Hospice IF he gets compassionate release from [facility] otherwise he wants routine care and re-hospitalization in the future patient again today states he wants routine care; not ready for Hospice/[facility] Admission and Anticipated Discharge Date Admission Date: April 07, 2025 Subjective no events overnight no new complaints awake/alert during the visit he reports he thought more about his wishes for his care upon return to [facility] he does not want hospice or [facility] wishes ongoing routine care and wants to return to the hospital if he gets sick again reports cough for 2 years and "nothing helps" feels like it comes from the lungs rather than the throat/upper airway has tried various cough syrups at the [facility] w/o relief Review of Systems Review of Systems: cv - no orthopnea, no edema neuro - ongoing neuropathic type pain in b/l thighs pul - cough - chronic GI - no N/V Physical Exam Physical Exam: gen - best he has looked since hospital admission, NAD mouth - MMM neck - no JVD heart - RRR, s1 s2, no murmur lungs - mild scattered wheeze, clears with coughing; no rales abd - soft, NT, ND, BS+ ext - no edema, pulses b/l feet 2+ neuro - muscle wasting of legs b/l Results & Data Results & Data Vital Signs (Past 12 Hours) Vital Signs Temp Pulse Resp BP Pulse Ox O2 Del Method O2 Flow Rate 04/14/25 17:39 36.8 C 80 16 132/82 97 Room Air 04/14/25 13:31 70 18 94 Room Air 04/14/25 07:30 Nasal Cannula 3 04/14/25 07:08 36.7 C 78 18 116/73 98 Nasal Cannula 2 Laboratory Results Laboratory Results - last 24 hr 04/14/25 04/14/25 04/14/25 06:09 07:05 16:21 WBC 2.59 L RBC 3.57 L Hgb 10.7 L Hct 34.3 L MCV 96.1 MCH 30.0 MCHC 31.2 L RDW Std Deviation 62.2 H RDW Coeff of [place] 18.0 H Plt Count 72 L MPV 9.4 Sodium 136 Potassium 5.5 H Chloride 108 H Carbon Dioxide 25 Anion Gap 3 BUN 42 H Creatinine 1.39 Est Cr Clr Drug Dosing 55.3 eGFR 54.88 BUN/Creatinine Ratio 30.2 H Glucose 131 H POC Glucose 151 H 137 H Calcium 8.9 Total Bilirubin 1.1 H AST 74 H ALT 26 Alkaline Phosphatase 332 H Ammonia 37.0 Total Protein 6.4 Albumin 2.8 L Globulin 3.6 Albumin/Globulin Ratio 0.8 L 04/14/25 19:04 WBC RBC Hgb Hct MCV MCH MCHC RDW Std Deviation RDW Coeff of [place] Plt Count MPV Sodium Potassium 5.2 H Chloride Carbon Dioxide Anion Gap BUN Creatinine Est Cr Clr Drug Dosing eGFR BUN/Creatinine Ratio Glucose POC Glucose Calcium Total Bilirubin AST ALT Alkaline Phosphatase Ammonia Total Protein Albumin Globulin Albumin/Globulin Ratio PG Care Time/CCT Total # of Minutes Spent Total Time Spent with Patient: Total time spent is greater than 50% in coordination of care (as documented) at patient's floor/unit and/or counseling patient: Coding Level of Care Code 55465 SUB INP/OBS CARE 2/35MIN Diagnoses Acute UTI N39.0 Pancytopenia D61.818 Chronic viral hepatitis C B18.2 Type 2 diabetes mellitus without complications E11.9 MADELINE (acute kidney injury) N17.9 Hyperkalemia E87.5 Neuropathy G62.9 Essential (primary) hypertension I10 Chronic obstructive pulmonary disease, unspecified J44.9 Unspecified cirrhosis of liver K74.60 Ischemic cardiomyopathy I25.5 AICD (automatic cardioverter/defibrillator) present Z95.810 CAD (coronary artery disease) I25.10 Liver cancer C22.9 BPH (benign prostatic hyperplasia) N40.0 Abdominal pain R10.9 Lethargy R53.83
[2025-04-14 22:24] VITALS: RESP 18; O2SAT 95
[2025-04-15 06:28] LABS: Anion Gap 5.0 (3-11); Blood Urea Nitrogen 40.0 mg/dl (6-23); Calcium 8.9 mg/dl (8.6-10.3); Carbon Dioxide 24.0 mmol/L (21-32); Chloride 108.0 mmol/L (98-107); Creatinine Clr Calc Pharmacy 53.3 ml/min; Glucose 113.0 mg/dl (70-99(Fasting)); Potassium 4.9 mmol/L (3.5-5.1); Sodium 137.0 mmol/L (136-145)
[2025-04-15 07:39] VITALS: TEMP 97.7
--- NOTE | 2025-04-15 11:24 | Discharge Summary ---
Discharge Summary Date of Service April 15, 2025 Principal Dx & Hospital Course #1 = Principal Diagnosis (1) Acute UTI: presented with hematuria -- likely 2nd to UTI s/p weldon insertion earlier in the admission urology advises continuing it upon d/c urine culture grew VRE & bo tropicalis currently on zyvox for VRE & diflucan for bo tropicalis; using diflucan cautiously in light of cirrhosis day #6 zyvox day #7 diflucan -recent EKG with normal QTc interval plan 7 days of Rx of each (2) Pancytopenia: l2nd to cirrhosis TSH, B12, and folate all wnl in 2024 CBCs have been stable despite low cell lines repeat CBC today again acceptable (3) Chronic viral hepatitis C: with resulting cirrhosis mild hepatic encephalopathy - advised that he cont once-daily lactulose to prevent hepatic encephalopathy but he refuses to take it he reassured me he has 3 BMs/day at minimum even without bowel agents but that is simply false at his request will hold lactulose but will start rifaximin BID in noelle of lactulose (4) Type 2 diabetes mellitus without complications: a1c 5.4% on most recent check level may not be accurate due to chronic anemia cont novolog SSI prn BSGs very good to date (5) MADELINE (acute kidney injury): either cardiorenal or hepatorenal -- suspect former holding Entresto added midodrine to help increase his BPs - this has helped since starting it Cr today 1.39 peak Cr was 1.7 recheck BMP am (6) Hyperkalemia: 2nd to #5 ongoing, not coming down yet cont to hold Entresto increase lokelma TID dosing repeat BMP am (7) Neuropathy: on large dose of gabapentin 800mg TID with his advanced liver disease this dose may be too large for him which could lead to excess sedation, etc. reduced gabapentin dose to 400mg TID; cont at this level (8) Essential (primary) hypertension: had had low BPs and metoprolol/Entresto both placed on hold subsequently added midodrine 5mg TID due to persistently low BPs and his MADELINE BPs improved with midodrine started back meto tartrate 12.5 BID tolerated such - switched him back to meto succ 25mg daily and thus far doing fine on it (9) Chronic obstructive pulmonary disease, unspecified: no exacerbation at this time but c/o chronic cough of multiple years duration despite cough syrups, usual inhalers, etc. try duoneb x 1 (10) Unspecified cirrhosis of liver: likely 2nd to HepC infection (11) Ischemic cardiomyopathy: previous echos showed EF 25% typically on meto succ and Entresto but latter on hold; resuming meto succ added midodrine for BP support - continue for now still does not examine volume overloaded (12) AICD (automatic cardioverter/defibrillator) present: if patient goes on Hospice would de-activate his ICD however, patient not interested in Hospice UNLESS he has [facility] release from [facility] (13) CAD (coronary artery disease): no ischemic symptoms at this time (14) Liver cancer: progressive based on CT a/p (multiple masses in liver) no longer on Rx for such appreciate palliative care consult see their note for details of that discussion (15) BPH (benign prostatic hyperplasia): remains on finasteride and flomax now much room in BPs for flomax use thus placed on hold cont weldon (16) Abdominal pain: 2nd to HCC? 2nd to constipation? 2nd to neuropathy (b/l thigh pain)? combination of factors? cont roxanol prn he c/o b/l thigh pain -- doppler study neg for DVT RLE neuropathy from l-spine problem? (17) Lethargy: off/on while here but finally resolved suspect metabolic (ammonia, UTI, etc) and toxic (large gabapentin dose, morphine, etc) factors all contributing cont abx for UTI keep gabapentin at reduced dosing cont to hold nortriptyline cont rifaximin BID Plan I spoke with Dr Polo Dillon, medical concierge at [facility], on 04/10 and 04/11 discussed Mr Carey's case with him updated him on palliative care consultation and what the patient told Elvia Brar patient only agreeable to SOAP TENDER/Hospice IF he gets compassionate release from jail otherwise he wants routine care and re-hospitalization in the future patient again today states he wants routine care; not ready for Hospice/SOAP TENDER Admission HPI Per Admitting Provider 69 yo male with PMH HCC, cirrhosis presnets to the ED urinary urgency and bleeding on the tip of the penis presents to the ED with 2 week history of urgency and increased urinary frequency. Patient reports it is difficult for him to start a stream with low amount of urine coming out, hesitancy and blood in his urine. He has noticed more blood in the past week. Patient denies any fever, chills, nausea, vomiting, back pain. Patient no longer getting treatment for his cancer. Discharge Exam gen - best he has looked since hospital admission, NAD mouth - MMM neck - no JVD heart - RRR, s1 s2, no murmur lungs - mild scattered wheeze, clears with coughing; no rales abd - soft, NT, ND, BS+ ext - no edema, pulses b/l feet 2+ neuro - muscle wasting of legs b/l Discharge Plan Discharge Items [facility] Reason For Visit: COMPICATED UTI Discharge Diagnosis: 1. VRE UTI & Candidal UTI - s/p 7+ days of antibiotics/antifungals 2. cirrhosis 3. probable hepatic encephalopathy - resolved 4. progressive liver cancer 5. chronic b/l anterior thigh pain - neuropathy? 6. chronic abdominal pain - likely multifactorial 7. chronic systolic CHF 8. h/o Hepatitis C 9. Diabetes 10. ICD status 11. HTN 12. acute kidney injury - resolving 13. hyperkalemia - due to #12 - resolved 14. pancytopenia due to cirrhosis 15. gross hematuria - due to UTI - resolved, has not recurred 16. BPH Activity: Resume your previous activity Non-emergency contact: Primary Care Provider Call non-emergency contact if: you have any medication questions, your symptoms worsen and your pain is not controlled Follow-up/Referrals: Gallito AGUIAR [Primary Care Provider] - Diet: Carb Consistent or DM2, Low Potassium (2gm) and Low Sodium (2gm) Addtl Attending Provider Instructions: 1. nasal cannula oxygen as needed 2. continue weldon catheter, [facility]; hopefully catheter can be removed in the next 1-2 weeks 3. continue palliative care discussions/hospice discussions 4. if patient wants ongoing routine care then check CBC, BMP, and magnesium in 3-4 days for stability Pending Studies at Discharge: No Stand-Alone Forms: My [facility] Skilled Items Patient informed of condition?: Yes Discharge Level of Care: Other Communicable Disease: Yes (VRE ) Discharge Prognosis: Other Lines: None Urinary Catheter: Yes Medications and DC Order Prescriptions: New gabapentin 800 mg Tablet 400 mg PO TID Qty: 90 0RF midodrine 2.5 mg Tablet 7.5 mg PO TID@0800,1200,1700 Qty: 270 5RF metoprolol succinate 25 mg Tablet Extended Release 24 Hr 25 mg PO QAM Qty: 30 5RF Xifaxan 550 mg Tablet 550 mg PO BID Qty: 60 5RF Lokelma 10 gram Powder In Packet 10 g PO DAILY Qty: 1 0RF Rx Instructions: take 1 dose on 04/16 then stop. tiotropium bromide [Spiriva with HandiHaler] 18 mcg capsule, w/inhalation device 1 cap inhalation DAILY Qty: 30 5RF Rx Instructions: puncture 1 cap using device; one dose = 2 inhalations Continued Novolin R Regular U100 Insulin 100 unit/mL solution 1 sliding scale dose subcut USEASDIRECTD Rx Instructions: Sliding Scale: 201-250 = 2units; 251-300 = 4units; 301-350 = 6units; 351-400 = 8units; 401-450 = 10units; 451-500 = 12 >500 call MD as needed ipratropium-albuterol 0.5 mg-3 mg(2.5 mg base)/3 mL solution for nebulization 3 ml inhalation QID PRN (Reason: Shortness Of Breath) Jardiance 10 mg Tablet 10 mg PO DAILYBB ondansetron HCl 4 mg Tablet 8 mg PO TID PRN (Reason: Nausea And Vomiting) albuterol sulfate 90 mcg/actuation HFA aerosol inhaler 2 puffs INH QID PRN (Reason: shortness of breath or wheezing) budesonide-formoterol [Symbicort] 80-4.5 mcg/actuation HFA aerosol inhaler 2 puff inhalation DAILY oxycodone 5 mg/5 mL Solution 5 mg PO QID PRN (Reason: Pain) omeprazole 40 mg Capsule,Delayed Release(Dr/Ec) 40 mg PO DAILY Changed lorazepam 2 mg/mL Solution 0.5 mg sublingual TID PRN (Reason: anxiety) Qty: 25 0RF Discontinued tamsulosin [Flomax] 0.4 mg Capsule 0.4 mg PO DAILY ciprofloxacin HCl 250 mg Tablet 250 mg PO BID Rx Instructions: Start Date 03/31/25 - End Date 04/07/25 Discharge Orders: Discharge Order (Routine); Ordered 04/15/25 Ordered By: Moreno Garcias Admission Data Admit Date/Time: 04/07/25 10:35 Attending Provider: Moreno Garcias Admit Provider: Sterling Messer Primary Care Provider: Gallito AGUIAR Other Providers: Sterling Messer; Patricia Brar Hospital Stay Data Consultations 04/07/25 10:32 ED Decision to Admit Stat 04/07/25 10:37 Consult Urology Routine 04/10/25 09:15 Consult Palliative Care Routine Diagnostic Imagining Performed 04/07/25 07:55 CT Abd and Pelvis [CT abd pelvis IV con only] Stat 04/12/25 15:17 US venous doppler LE RT Routine Pending Results Patient Have Any Pending Studies at Discharge: No Discharge Instructions Given to Patient (Per Discharging Provider) 1. nasal cannula oxygen as needed 2. continue weldon catheter, and follow-up with [facility] as outpatient; hopefully catheter can be removed in the next 1-2 weeks 3. continue palliative care discussions/hospice discussions 4. if patient wants ongoing routine care then check CBC, BMP, and magnesium in 3-4 days for stability Coding Diagnoses Acute UTI N39.0 Pancytopenia D61.818 Chronic viral hepatitis C B18.2 Type 2 diabetes mellitus without complications E11.9 MADELINE (acute kidney injury) N17.9 Hyperkalemia E87.5 Neuropathy G62.9 Essential (primary) hypertension I10 Chronic obstructive pulmonary disease, unspecified J44.9 Unspecified cirrhosis of liver K74.60 Ischemic cardiomyopathy I25.5 AICD (automatic cardioverter/defibrillator) present Z95.810 CAD (coronary artery disease) I25.10 Liver cancer C22.9 BPH (benign prostatic hyperplasia) N40.0 Abdominal pain R10.9 Lethargy R53.83
[2025-04-15] MEDS ORDERED: HEPARIN 100 UNIT/ML 5ML FLUSH FLUSH PRN (13:02)
[2025-04-15 14:27] VITALS: BP 93/60; PULSE 93
== END 2025-04-15 14:27 | DRG 728 ==
LOC: ED 07:37 → EDINP 10:35 → SUATTDRO 10:35 → 3E 13:59